=== PATIENT | female | born 1940 | race Caucasian/White ===

== ENCOUNTER → 2017-03-21 | Outpatient (CLI) | payer MEDICARE, OTHER ==
[~2017-03-21] MED LIST: ASP81CT; CLD600T; FAMO20TA5 PO; FENT1PAT TD; GABA-486 PO; GLMP2T PO; GLUMETZA; INSU100C4 PO; INSU100V6 SQ; LOSA25TA5 PO; MELO-195 PO; METF-144 PO; MTF500T PO; NF-TRA/ACE PO; OMEP40CA36 PO; OMG1KC PO; SCR1T PO
== END ==
LOC: RAD 09:42
PROVIDERS: ATTEND Nurse Practitioner Family
DX: Z12.31 Encounter for screening mammogram for malignant neoplasm of breast (principal)
CPT/HCPCS: 77067

== ENCOUNTER 2017-07-04 05:39 | Outpatient (CLI) | payer MEDICARE, OTHER ==
[~2017-07-04] VITALS: Ht 152.4 cm; Wt 82.6 kg
[2017-07-04] MEDS ORDERED: OMEP40CA36 PO (12:04)
[2017-07-04] MEDS ORDERED: FENT1PAT8 TD (12:04)
[2017-07-04] MEDS ORDERED: LOSA100T28 PO (12:04)
[2017-07-04] MEDS ORDERED: INSU100I10 SQ ×2 (12:04)
[2017-07-04] MEDS ORDERED: METO-387 PO (12:04)
[2017-07-04] MEDS ORDERED: GABA-486 PO (12:04)
[2017-07-04] MEDS ORDERED: ASPI-586 PO (12:04)
== END 2017-07-04 13:10 ==
LOC: PREOP 05:39
PROVIDERS: ATTEND Surgery
DX: Z01.818 Encounter for other preprocedural examination (principal); K80.20 Calculus of gallbladder without cholecystitis without obstruction

== ENCOUNTER 2017-07-11 06:37 | Day surgery (SDC) | payer MEDICARE, OTHER ==
[~2017-07-11] VITALS: Ht 152.4 cm; Wt 82.6 kg
[~2017-07-11 06:37] MED LIST changes: +ASPI-586 PO; +FENT1PAT8 TD; +INSU100I10 SQ; +LOSA100T28 PO; +METO-387 PO
[2017-07-11 07:00] VITALS: BP 173/71
[2017-07-11] MEDS: LACTATED RINGERS 1,000 ML IV PRN ×2 (07:10→09:30)
[2017-07-11] MEDS ORDERED: CATHETER FLUSH 10 ML SYR IV PRN (07:15)
[2017-07-11] MEDS ORDERED: ceFAZolin 1 GM/NS 50 ML IVPB IV ONE ×2 (07:15)
[2017-07-11] MEDS ORDERED: fentaNYL INJECTION 100 MCG/2 ML AMP ONE (07:25)
[2017-07-11] MEDS ORDERED: SEVOFLURANE (ULTANE) 15 ML INHAL SOLN ONE ×9 (07:25→10:27)
[2017-07-11] MEDS ORDERED: LIDOCAINE PF 2% 5 ML (XYLOCAINE) VIAL ONE (07:25)
[2017-07-11] MEDS ORDERED: proPOfol 200 MG/20 ML (DIPRIVAN) VIAL IV ONE (07:25)
[2017-07-11] MEDS ORDERED: ROCURONIUM 50 MG/5 ML (ZEMURON) VIAL IV ONE (07:26)
[2017-07-11] MEDS ORDERED: ceFAZolin INJECTION 1,000 MG in NS (IVPB) 50 ML IV ONE (07:45)
[2017-07-11 07:57] LABS: ALBUMIN 3.2 GM/DL (3.2-4.5); BILIRUBIN,TOTAL 0.5 MG/DL (0.1-1.0); CALCIUM 8.9 MG/DL (8.5-10.1); CREATININE SERUM 1.52 MG/DL (0.60-1.30); POTASSIUM 4.6 MMOL/L (3.6-5.0)
--- NOTE | 2017-07-11 07:57 | Progress Note-Pre Operative ---
Pre-Operative Progress Note H&P Reviewed The H&P was reviewed, patient examined and no changes noted. Date Seen by Provider: Jul 11, 2017 Time Seen by Provider: 07:50 Date H&P Reviewed: Jul 11, 2017 Time H&P Reviewed: 07:55 Pre-Operative Diagnosis: chronic calculous cholecystitis SANG HAN APRN Jul 11, 2017 7:56 am
[2017-07-11] MEDS ORDERED: ACETAMINOPHEN 325 MG TABLET/CAPLET (TYLENOL) PO PRN (08:00)
[2017-07-11] MEDS ORDERED: fentaNYL INJECTION 100 MCG/2 ML AMP IVP PRN (08:00)
[2017-07-11] MEDS ORDERED: HYDROcodone/APAP 5 MG/325 MG (LORTAB) TAB PO ONE (08:00)
[2017-07-11] MEDS ORDERED: ONDANSETRON 4 MG/2 ML (SDV) Z0FRAN IVP PRN ×2 (08:00→11:00)
[2017-07-11] MEDS ORDERED: BUP/EPI 0.5% 1:200,000 (SENSORCAINE) 30 ML VIAL ONE (08:42)
[2017-07-11] MEDS ORDERED: GLYCOPYRROLATE 0.2 MG/ML (ROBINUL) 2 ML VIAL ONE (10:26)
[2017-07-11] MEDS ORDERED: NEOSTIGMINE (BLOXIVERZ ) 1 MG/1ML 10 ML VIAL ONE (10:26)
--- NOTE | 2017-07-11 10:44 | Progress Note-Post Operative ---
Post-Operative Progess Note Surgeon (s)/Bucket Wash Operator (s) Surgeon CHRISTINE SUH MD Bucket Wash Operator: neelam doyle [employer] Pre-Operative Diagnosis chronic calculous cholecystitis Post-Operative Diagnosis same Procedure & Operative Findings Date of Procedure 07/11/17 Procedure Performed/Findings laparoscopic cholecystectomy Anesthesia Type GET Estimated Blood Loss Estimated blood loss (mL): minimal Specimens/Packing Specimens Removed gallbladder CHRISTINE SUH MD Jul 11, 2017 10:44 am
[2017-07-11] MEDS ORDERED: HYDR-34 PO (10:45)
--- NOTE | 2017-07-11 10:45 | Discharge Inst-Surgical ---
D/C Lap Instructions-ANGELI New, Converted, or Re-Newed RX: RX on Chart Follow Up Appt in 2 weeks Activity as tolerated No driving for 24 hours No driving while on pain medications Incentive Spirometry use every 2 hours while awake Regular Diet Symptoms to Report: Fever over 101 degree F, Nausea/Vomiting Infection Signs and Symptoms to report: Increased redness, Foul odor of wound, Increased drainage Bathing instructions: May shower Operative Area Clean/Dry; Keep incision clean/dry If any problems/questions: Contact your physician or go to Emergency Room CHRISTINE SUH MD Jul 11, 2017 10:45 am
[2017-07-11] MEDS: fentaNYL INJECTION 100 MCG/2 ML AMP IVP PRN ×3 (10:55→11:16)
[2017-07-11 11:40] VITALS: BP 158/91
[2017-07-11] MEDS ORDERED: HYDROcodone/APAP 7.5 MG/325 MG (LORTAB, LORCET PLUS) TABLET PO ONE (11:52)
[2017-07-11 12:10] VITALS: BP 159/72
[2017-07-11 12:40] VITALS: BP 149/67
[2017-07-11] MEDS ORDERED: ONDANSETRON 4 MG/2 ML (SDV) Z0FRAN ONE (13:10)
[2017-07-11 14:15] VITALS: BP 149/67
--- NOTE | 2017-07-11 15:29 | OPERATIVE REPORT ---
DATE OF SERVICE: 07/11/2017 ATTENDING PRIMARY CARE PHYSICIAN: Dr. Morenita Beal. PREOPERATIVE DIAGNOSIS: Symptomatic chronic calculous cholecystitis. POSTOPERATIVE DIAGNOSIS: Symptomatic chronic calculous cholecystitis. PROCEDURE: Laparoscopic cholecystectomy. SURGEON: Dr. Suh. ANESTHESIA: General endotracheal. ESTIMATED BLOOD LOSS: 50 mL. FINDINGS: Mild to moderate hepatomegaly, multiple gallstones. DISPOSITION: The patient tolerated the procedure well. The patient is a 77-year-old female who has had pain in the right upper abdominal quadrant with radiation towards the back with associated nausea. She had an ultrasound performed, which did show multiple gallstones. She reports that she has had some mild episodes before in the past two years as well. DESCRIPTION OF PROCEDURE: The patient was brought to the operating room, laid supine on the table. After adequate IV pain and sedative medications and conscious sedation, general endotracheal intubation, the abdomen was prepped and draped in standard surgical fashion. 0.5% Marcaine with epinephrine was then used to anesthetize the overlying skin in the left upper abdominal quadrant and a small transverse skin incision made using a 15 blade. An 0 silk suture was applied to the medial aspect of the incision for retraction and a Veress needle inserted with a low opening pressure of 0 mmHg. The abdomen was insufflated to 15 mmHg pressure. The Veress needle removed and a 5 mm Xcel trocar placed followed by a 5 mm 45 degree angle laparoscope visualizing the peritoneal cavity. A 4-quadrant abdominal exploration was performed. There was mild to moderate hepatomegaly. There was a dilated gallbladder. What was visualized the omentum , small bowel, stomach appeared normal. Under direct visualization, we then proceeded to place a supraumbilical 10 mm port after the skin and peritoneal lining were anesthetized using 0.5% Marcaine with epinephrine and a transverse skin incision made using a 15 blade. In a similar manner, a right upper abdominal quadrant 5 mm port was placed. The fundus of the gallbladder was then retracted anteriorly and superiorly. The hepatoduodenal ligament was then opened using electrocautery on the hook instrument as well as blunt dissection. The entire critical view of safety was identified including the cystic duct and artery as the only two structures going into the gallbladder, the triangle of Calot as well as the cystic plate behind the proximal gallbladder. A timeout was then taken and the cystic duct and artery were then clipped proximally and distally and cut with EndoShears. The gallbladder was then dissected off the liver bed using electrocautery on the hook instruments with visualization of good hemostasis as well as no leaking ducts of Luschka. The gallbladder was removed through the 10 mm port site using an EndoCatch bag. The 10 mm port site fascia and peritoneum were then closed under direct visualization using a Mook-Krissy device and an 0 Vicryl suture. The abdomen was insufflated and the remaining ports removed. All skin incisions were closed using 4-0 Monocryl running subcuticular sutures. Wounds were then cleaned and covered with Dermabond. The patient tolerated the procedure well. We will start IV and oral pain medication as well as a clear liquid diet. Once she is tolerating clears and has good pain control with oral pain medications and ambulating well, we will discharge her to home. Job ID: [id number] DocumentID: [id number] Dictated Date: 07/11/2017 10:58:20 [employer] Sorter Date: 07/11/2017 15:28:53 Dictated By: CHRISTINE SUH MD MTDD
--- OUTSIDE RECORDS SUMMARY | 2017-07-12 10:18 | XMS REPORT | CCD ---
Author Author [facility]nita Beal Organization [facility] Address [address] [place] [address] Phone Care Team Providers Care Weed Sprayer Name Role Phone Morenita Beal PP Unavailable CCM Unavailable Summary Purpose Interface Exchange Insurance Providers Payer name Policy type / Coverage type Covered libertarian ID Effective Begin Date Effective End Date WPS Medicare Part B [id number] Unknown Morta Security Life Insurance [id number] Unknown Family history Father Diagnosis Age At Onset Diabetes Unknown Brother Diagnosis Age At Onset No Family Disease Entered N/A Mother Diagnosis Age At Onset Breast cancer Unknown Social History Social History Element Codes Description Effective Dates Living arrangements Unknown House 04/08/2011 Number of adults in household Unknown 3 04/08/2011 Marital status Unknown 01/22/2011 Number of children Unknown 3 sons 01/22/2011 Employment Unknown 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 Unknown Has never used illegal drugs 01/22/2011 Allergies, Adverse Reactions, Alerts Allergies, Adverse Reactions, Alerts data not found Past Medical History Illness Codes Condition Status Onset Date Resolved Date Calculus of gallbladder without cholecystitis without obstruction ICD-9: 574.20 ICD-10: K80.20 Active 02/07/2016 Unknown Chronic pain syndrome ICD-9: 338.4 ICD-10: G89.4 Active 01/27/2014 Unknown Essential (primary) hypertension ICD-9: 401.1 ICD-10: I10 Active 02/26/2016 Unknown Type 2 diabetes mellitus with hyperglycemia ICD-9: 250.02 ICD-10: E11.65 Active 06/19/2017 Unknown Type 2 diabetes mellitus without complications ICD-9: 250.00 ICD-10: E11.9 Active 11/11/2013 Unknown Dysuria ICD-9: 788.1 ICD-10: R30.0 Active 01/07/2017 Unknown Slow transit constipation ICD-9: 564.01 ICD-10: K59.01 Active 02/07/2016 Unknown Chronic kidney disease, stage 2 (mild) ICD-9: 585.2 ICD-10: N18.2 Active 10/11/2016 Unknown Essential (primary) hypertension ICD-9: 401.9 ICD-10: I10 Active 11/11/2013 Unknown Other senior living (current) drug therapy ICD-9: V58.69 ICD-10: Z79.899 Active 11/29/2015 Unknown Acute laryngopharyngitis ICD-9: 465.0 ICD-10: J06.0 Active 11/14/2015 Unknown Other acute sinusitis ICD-9: 461.8 ICD-10: J01.80 Active 11/14/2015 Unknown Other chest pain ICD-9 : 786.51 ICD-10: R07.89 Active 02/27/2015 Unknown Other forms of dyspnea ICD-9: 786.09 ICD-10: R06.09 Active 02/27/2015 Unknown Shortness of breath ICD-9: 786.05 ICD-10: R06.02 Active 02/27/2015 Unknown CARPAL TUNNEL SYNDROME ICD-9: 354.0 Active 07/07/2014 Unknown Biceps tendonitis ICD- 9: 726.12 Active 05/03/2014 Unknown Need for pneumococcal vaccine ICD-9: V03.82 Active 05/03/2014 Unknown Osteoarthritis ICD-9: 715.90 Active 05/03/2014 Unknown CHRONIC PAIN SYNDROME ICD-9: 338.4 Active 01/27/2014 Unknown Peripheral neuropathy ICD-9: 356.9 Active 01/27/2014 Unknown Diarrhea ICD-9: 787.91 Active 01/07/2014 Unknown Medication side effect ICD-9: 995.20 Active 01/07/2014 Unknown Back pain ICD-9: 724.5 Active 11/11/2013 Unknown DIABETES TYPE II ICD-9 : 250.00 Active 11/11/2013 Unknown ESSENTIAL HYPERTENSION ICD-9: 401.9 Active 11/11/2013 Unknown UNEQUAL LEG LENGTH ICD -9: 736.81 Active 11/11/2013 Unknown BACTERIAL PNEUMONIA ICD-9: 482.9 Active 08/19/2013 Unknown Cough ICD-9: 786.2 Active 08/19/2013 Unknown Sciatica Unknown Active 09/10/2012 Unknown Lumbago ICD-9: 724.2 Active 09/10/2012 Unknown Sacroiliitis ICD-9: 720.2 Active 09/10/2012 Unknown Sciatica ICD-9: 724.3 Active 09/10/2012 Unknown Cervicalgia ICD-9: 723.1 Active 05/28/2012 Unknown Disorder of rotator cuff syndrome of shoulder and allied disorder ICD-9: 726.19 Active 05/28/2012 Unknown Musculoskeletal disorder and symptoms referable to neck ICD-9: 723.9 Active 05/28/2012 Unknown Myalgia and myositis ICD-9: 729.1 Active 05/28/2012 Unknown Spasm of muscle ICD-9 : 728.85 Active 05/28/2012 Unknown Shoulder pain ICD-9: 719.41 Active 03/12/2012 Unknown Fatigue ICD-9: 780.79 Active 08/22/2011 Unknown Hypertension Unknown Active 03/21/2011 Unknown 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/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 ICD-9: V65.3 Active 03/21/2011 Unknown Diabetes Unknown Active 03/19/2011 Unknown Hyperlipidemia Unknown Active 03/19/2011 Unknown Cerumen impaction ICD- 9: 380.4 Active 01/23/2011 Unknown DM W/O COMPLICATION TYPE I, UNCONTROLLED ICD-9: 250.03 Active 01/23/2011 Unknown OBESITY ICD-9: 278.00 Active 01/23/2011 Unknown Cataract Unknown Active 01/22/2011 Unknown Obesity Unknown Active 01/22/2011 Unknown Osteoarthritis Unknown Active 01/22/2011 Unknown Admission for long-term (current) use of medications ICD-9: V58.69 Active 01/22/2011 Unknown Diabetes mellitus type 2, uncontrolled ICD-9: 250.02 Active Unknown HLD (hyperlipidemia) ICD-9: 272.4 Active 01/22/2011 Unknown Problems Condition Codes Effective Dates Condition Status Calculus of gallbladder without cholecystitis without obstruction ICD-9: 574.20 ICD-10: K80.20 02/07/2016 Active Chronic pain syndrome ICD-9: 338.4 ICD-10: G89.4 01/27/2014 Active Essential (primary) hypertension ICD-9: 401.1 ICD-10: I10 02/26/2016 Active Type 2 diabetes mellitus with hyperglycemia ICD-9: 250.02 ICD-10: E11.65 06/19/2017 Active Type 2 diabetes mellitus without complications ICD-9: 250.00 ICD-10: E11.9 11/11/2013 Active Dysuria ICD-9: 788.1 ICD-10: R30.0 01/07/2017 Active Slow transit constipation ICD-9: 564.01 ICD-10: K59.01 02/07/2016 Active Chronic kidney disease, stage 2 (mild) ICD-9: 585.2 ICD-10: N18.2 10/11/2016 Active Essential (primary) hypertension ICD-9: 401.9 ICD-10: I10 11/11/2013 Active Other terminal supervisor (current) drug therapy ICD-9: V58.69 ICD-10: Z79.899 11/29/2015 Active Acute laryngopharyngitis ICD-9: 465.0 ICD-10: J06.0 11/14/2015 Active Other acute sinusitis ICD-9: 461.8 ICD-10: J01.80 11/14/2015 Active Other chest pain ICD-9 : 786.51 ICD-10: R07.89 02/27/2015 Active Other forms of dyspnea ICD-9: 786.09 ICD-10: R06.09 02/27/2015 Active Shortness of breath ICD-9: 786.05 ICD-10: R06.02 02/27/2015 Active CARPAL TUNNEL SYNDROME ICD-9: 354.0 07/07/2014 Active Biceps tendonitis ICD- 9: 726.12 05/03/2014 Active Need for pneumococcal vaccine ICD-9: V03.82 05/03/2014 Active Osteoarthritis ICD-9: 715.90 05/03/2014 Active CHRONIC PAIN SYNDROME ICD-9: 338.4 01/27/2014 Active Peripheral neuropathy ICD-9: 356.9 01/27/2014 Active Diarrhea ICD-9: 787.91 01/07/2014 Active Medication side effect ICD-9: 995.20 01/07/2014 Active Back pain ICD-9: 724.5 11/11/2013 Active DIABETES TYPE II ICD-9 : 250.00 11/11/2013 Active ESSENTIAL HYPERTENSION ICD-9: 401.9 11/11/2013 Active UNEQUAL LEG LENGTH ICD -9: 736.81 11/11/2013 Active BACTERIAL PNEUMONIA ICD-9: 482.9 08/19/2013 Active Cough ICD-9: 786.2 08/19/2013 Active Sciatica Unknown 09/10/2012 Active Lumbago ICD-9: 724.2 09/10/2012 Active Sacroiliitis ICD-9: 720.2 09/10/2012 Active Sciatica ICD-9: 724.3 09/10/2012 Active Cervicalgia ICD-9: 723.1 05/28/2012 Active Disorder of rotator cuff syndrome of shoulder and allied disorder ICD-9: 726.19 05/28/2012 Active Musculoskeletal disorder and symptoms referable to neck ICD-9: 723.9 05/28/2012 Active Myalgia and myositis ICD-9: 729.1 05/28/2012 Active Spasm of muscle ICD-9 : 728.85 05/28/2012 Active Shoulder pain ICD-9: 719.41 03/12/2012 Active Fatigue ICD-9: 780.79 08/22/2011 Active Hypertension Unknown 03/21/2011 Active 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/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 ICD-9: V65.3 03/21/2011 Active Diabetes Unknown 03/19/2011 Active Hyperlipidemia Unknown 03/19/2011 Active Cerumen impaction ICD- 9: 380.4 01/23/2011 Active DM W/O COMPLICATION TYPE I, UNCONTROLLED ICD-9: 250.03 01/23/2011 Active OBESITY ICD-9: 278.00 01/23/2011 Active Cataract Unknown 01/22/2011 Active Obesity Unknown 01/22/2011 Active Osteoarthritis Unknown 01/22/2011 Active Admission for long-term (current) use of medications ICD-9: V58.69 01/22/2011 Active Diabetes mellitus type 2, uncontrolled ICD-9: 250.02 01/22/2011 Active HLD (hyperlipidemia) ICD-9: 272.4 01/22/2011 Active Medications Medication Codes Instructions Start Date Stop Date Status Fill Instructions Lantus Solostar 100 unit/mL (3 mL) subcutaneous insulin pen RxNorm: 734680 INJECT 28 UNITS UNDER THE SKIN EVERY MORNING AND 20 UNITS EVERY NIGHT AT BEDTIME 07/08/2017 04/08/2018 Active losartan 100 mg tablet RxNorm: 817873 1 Tablet(s) PO daily 07/20/2018 Active metoprolol succinate ER 25 mg tablet,extended release 24 hr RxNorm: 934981 TAKE ONE TABLET BY MOUTH EVERY EVENING 06/13/2017 06/07/2018 Active gabapentin 100 mg capsule RxNorm: 520128 TAKE ONE CAPSULE BY MOUTH EVERY EVENING 06/13/2017 06/07/2018 Active Zithromax Z-Joseph 250 mg tablet RxNorm: 431286 1 Tablet(s) PO UD as directed 05/15/2017 05/19/2017 Inactive Duragesic 25 mcg/hr transdermal patch RxNorm: 706461 1 Patch TD Q72H 05/01/2017 07/29/2017 Active Duragesic 25 mcg/hr transdermal patch RxNorm: 459099 1 Patch TD Q72H 01/30/2017 02/28/2017 Inactive Diflucan 150 mg tablet RxNorm: 899575 1 Tablet(s) PO daily 01/09/2017 Inactive Lantus Solostar 100 unit/mL (3 mL) subcutaneous insulin pen RxNorm: 361243 Unit( s) INJECT 25 UNITS UNDER THE SKIN EVERY MORNING AND 15 UNITS AT BEDTIME, dr to adjust based on glucose readings. 10/11/2016 10/05/2017 Active Duragesic 25 mcg/hr transdermal patch RxNorm: 386780 1 Patch TD Q72H 10/01/2016 10/30/2016 Inactive Duragesic 25 mcg/hr transdermal patch RxNorm: 178882 1 Patch TD Q72H 08/28/2016 09/26/2016 Inactive senna 8.6 mg tablet RxNorm: 869366 1 Tablet(s) PO TIW 201606/09/2017 Inactive omeprazole 40 mg capsule,delayed release RxNorm: 460165 1 Capsule(s) PO QPM 06/15/2016 06/09/2017 Inactive gabapentin 100 mg capsule RxNorm: 654138 1 Capsule(s) TAKE ONE CAPSULES BY MOUTH EVERY EVENING 06/15/2016 06/12/2017 Inactive losartan 100 mg tablet RxNorm: 943842 1 Tablet(s) PO daily 06/25/2017 Inactive metoprolol succinate ER 25 mg tablet,extended release 24 hr RxNorm: 956210 1 Tablet(s) PO QPM 06/15/2016 06/12/2017 Inactive metformin ER 500 mg tablet,extended release 24 hr RxNorm: 508133 1 Tablet(s) daily 06/15/2016 06/18/2017 Inactive metformin ER 500 mg tablet,extended release 24 hr RxNorm: 873398 1 Tablet(s) daily 06/14/2016 06/14/2016 Inactive Lantus Solostar 100 unit/mL (3 mL) subcutaneous insulin pen RxNorm: 288452 Unit( s) INJECT 28 UNITS UNDER THE SKIN EVERY MORNING AND 20 UNITS AT BEDTIME 06/14/2016 10/10/2016 Inactive Duragesic 25 mcg/hr transdermal patch RxNorm: 028962 1 Patch TD Q72H 05/29/2016 06/27/2016 Inactive Duragesic 25 mcg/hr transdermal patch RxNorm: 390321 1 TD Q72H 04/25/2016 05/24/2016 Inactive metoprolol succinate ER 25 mg tablet,extended release 24 hr RxNorm: 219337 1 Tablet(s) PO QPM 12/26/2015 06/14/2016 Inactive gabapentin 100 mg capsule RxNorm: 948140 1 Capsule(s) TAKE ONE CAPSULES BY MOUTH EVERY EVENING 12/26/2015 06/14/2016 Inactive Duragesic 25 mcg/hr transdermal patch RxNorm: 469265 1 TD Q72H 12/26/2015 02/23/2016 Inactive Augmentin 500 mg-125 mg tablet RxNorm: 299910 1 Tablet(s) PO TID 11/15/2015 11/21/2015 Inactive Duragesic 25 mcg/hr transdermal patch RxNorm: 188887 1 TD Q72H 10/25/2015 11/23/2015 Inactive [SAVINGS FOR NON-COVERED DRUGS -- BIN:906847, PCN: ASPROD1, Group: XXXXX, ID# [id number], Questions: . THIS IS NOT INSURANCE.] Duragesic 25 mcg/hr transdermal patch RxNorm: 078584 1 TD Q72H 08/29/2015 10/24/2015 Inactive [SAVINGS FOR NON-COVERED DRUGS -- BIN:242961, PCN: ASPROD1, Group: XXXXX, ID# [id number], Questions: . THIS IS NOT INSURANCE.] gabapentin 100 mg capsule RxNorm: 711750 1 Capsule(s) TAKE ONE CAPSULES BY MOUTH EVERY EVENING 08/29/2015 10/27/2015 Inactive glimepiride 2 mg tablet RxNorm: 551719 TAKE ONE TABLET BY MOUTH EVERY MORNING 08/08/2015 12/25/2015 Inactive Duragesic 25 mcg/hr transdermal patch RxNorm: 394034 1 TD Q72H 08/01/2015 08/28/2015 Inactive [SAVINGS FOR NON-COVERED DRUGS -- BIN:526541, PCN: ASPROD1, Group: XXXXX, ID# [id number], Questions: . THIS IS NOT INSURANCE.] Lantus Solostar 100 unit/mL (3 mL) subcutaneous insulin pen RxNorm: 386882 Unit( s) INJECT 23 UNITS UNDER THE SKIN EVERY MORNING AND 15 UNITS AT BEDTIME 07/13/2015 06/13/2016 Inactive gabapentin 100 mg capsule RxNorm: 053520 1 Capsule(s) TAKE ONE CAPSULES BY MOUTH EVERY EVENING 07/04/2015 08/28/2015 Inactive losartan 100 mg tablet RxNorm: 967286 1 Tablet(s) PO daily 12/201506/14/2016 Inactive senna 8.6 mg tablet RxNorm: 853144 1 Tablet(s) PO TIW 201506/14/2016 Inactive metformin ER 500 mg tablet,extended release 24 hr RxNorm: 153322 Tablet(s) TAKE 1 TABLET BY MOUTH TWO TIMES A DAY. 06/29/2015 06/28/2015 Inactive metformin ER 500 mg tablet,extended release 24 hr RxNorm: 937850 TAKE 1 TABLET BY MOUTH TWO TIMES A DAY. 06/29/20152016 Inactive Duragesic 25 mcg/hr transdermal patch RxNorm: 900229 1 TD Q72H 05/24/2015 07/22/2015 Inactive [SAVINGS FOR NON-COVERED DRUGS -- BIN:717391, PCN: ASPROD1, Group: XXXXX, ID# [id number], Questions: . THIS IS NOT INSURANCE.] Augmentin 500 mg-125 mg tablet RxNorm: 165305 1 Tablet(s) PO TID 05/11/2015 05/10/2015 Inactive Augmentin 500 mg-125 mg tablet RxNorm: 416167 1 Tablet(s) PO TID 05/11/2015 05/17/2015 Inactive Keflex 500 mg capsule RxNorm: 717595 1 Capsule(s) PO TID 201405/09/2015 Inactive Keflex 500 mg capsule RxNorm: 902487 1 Capsule(s) PO TID 201405/02/2015 Inactive gabapentin 100 mg capsule RxNorm: 933705 TAKE TWO CAPSULES BY MOUTH EVERY EVENING 04/25/2015 06/23/2015 Inactive omeprazole 40 mg capsule,delayed release RxNorm: 828334 1 Capsule(s) PO daily as needed 02/28/2015 06/27/2015 Inactive omeprazole 40 mg capsule,delayed release RxNorm: 464960 1 Capsule(s) PO QPM 02/28/2015 02/22/2016 Inactive Duragesic 25 mcg/hr transdermal patch RxNorm: 319000 1 TD Q72H 02/21/2015 04/21/2015 Inactive [SAVINGS FOR NON-COVERED DRUGS -- BIN:880982, PCN: ASPROD1, Group: XXXXX, ID# [id number], Questions: . THIS IS NOT INSURANCE.] losartan 25 mg tablet RxNorm: 017742 1 Tablet(s) PO BID 201407/03/2015 Inactive Duragesic 25 mcg/hr transdermal patch RxNorm: 710081 1 TD Q72H 12/21/2014 02/18/2015 Inactive [SAVINGS FOR NON-COVERED DRUGS -- BIN:863045, PCN: ASPROD1, Group: XXXXX, ID# [id number], Questions: . THIS IS NOT INSURANCE.] losartan 25 mg tablet RxNorm: 829087 1 Tablet(s) PO BID 201401/05/2015 Inactive losartan 25 mg tablet RxNorm: 374294 TAKE ONE TABLET BY MOUTH EVERY EVENING 11/18/2014 07/25/2015 Inactive losartan 25 mg tablet RxNorm: 743188 TAKE ONE TABLET BY MOUTH EVERY EVENING 11/18/2014 07/31/2015 Inactive Bactrim DS 800 mg-160 mg tablet RxNorm: 157580 1 Tablet(s) PO BID 10/27/2014 10/26/2014 Inactive take a probiotic TID while on the ABT Bactrim DS 800 mg-160 mg tablet RxNorm: 320840 1 Tablet(s) PO BID 10/27/2014 11/05/2014 Inactive take a probiotic TID while on the ABT losartan 25 mg tablet RxNorm: 675063 1 Tablet(s) PO BID 201411/18/2014 Inactive gabapentin 100 mg capsule RxNorm: 470575 TAKE TWO CAPSULES BY MOUTH EVERY EVENING 10/11/2014 01/08/2015 Inactive Duragesic 25 mcg/hr transdermal patch RxNorm: 237448 1 TD Q72H 09/08/2014 10/07/2014 Inactive [SAVINGS FOR NON-COVERED DRUGS -- BIN:956989, PCN: ASPROD1, Group: XXXXX, ID# [id number], Questions: . THIS IS NOT INSURANCE.] meloxicam 15 mg tablet RxNorm: 433141 1 Tablet(s) PO QPM 201409/07/2014 Inactive [SAVINGS FOR NON-COVERED DRUGS -- BIN:547566, PCN: ASPROD1, Group: XXXXX, ID # [id number], Questions: . THIS IS NOT INSURANCE.] meloxicam 15 mg tablet RxNorm: 936689 1 Tablet(s) PO QPM 201407/03/2015 Inactive [SAVINGS FOR NON-COVERED DRUGS -- BIN:725037, PCN: ASPROD1, Group: XXXXX, ID # [id number], Questions: . THIS IS NOT INSURANCE.] Duragesic 25 mcg/hr transdermal patch RxNorm: 397068 1 TD Q72H 08/23/2014 09/07/2014 Inactive [SAVINGS FOR NON-COVERED DRUGS -- BIN:925571, PCN: ASPROD1, Group: XXXXX, ID# [id number], Questions: . THIS IS NOT INSURANCE.] glimepiride 2 mg tablet RxNorm: 900012 TAKE ONE TABLET BY MOUTH EVERY MORNING 07/08/2014 01/03/2015 Inactive ketorolac 60 mg/2 mL intramuscular solution RxNorm: 556047 Milliliter(s) IM 07/07/2014 07/07/2014 Inactive [SAVINGS FOR UNINSURED PATIENTS -- BIN:663529, PCN: ASPROD1, Group: AME08, ID# [id number], Process claim through [employer], for questions: . THIS IS NOT INSURANCE.] Duragesic 25 mcg/hr transdermal patch RxNorm: 418779 1 TD Q72H 07/07/2014 08/05/2014 Inactive [SAVINGS FOR UNINSURED PATIENTS -- BIN:784970, PCN: ASPROD1, Group: AME08, ID# [id number], Process claim through [employer], for questions: [phone]. THIS IS NOT INSURANCE.] meloxicam 15 mg tablet RxNorm: 484201 1 Tablet(s) PO QPM 201409/04/2014 Inactive [SAVINGS FOR UNINSURED PATIENTS -- BIN:018831, PCN: ASPROD1, Group: AME08, ID # [id number], Process claim through [employer], for questions: . THIS IS NOT INSURANCE.] glimepiride 2 mg tablet RxNorm: 349862 1 Tablet(s) QAM TAKE ONE TABLET BY MOUTH EVERY MORNING 07/07/2014 07/07/2014 Inactive [SAVINGS FOR UNINSURED PATIENTS -- BIN :022033, PCN: ASPROD1, Group: AME08, ID# [id number], Process claim through [employer], for questions: . THIS IS NOT INSURANCE.] Duragesic 25 mcg/hr transdermal patch RxNorm: 367335 1 TD Q72H 06/22/2014 07/06/2014 Inactive [SAVINGS FOR UNINSURED PATIENTS -- BIN:958249, PCN: ASPROD1, Group: AME08, ID# [id number], Process claim through [employer], for questions: [phone]. THIS IS NOT INSURANCE.] Lantus Solostar 100 unit/mL (3 mL) subcutaneous insulin pen RxNorm: 791099 INJECT 23 UNITS UNDER THE SKIN EVERY MORNING AND 15 UNITS AT BEDTIME 06/20/2014 06/14/2015 Inactive metformin ER 500 mg tablet,extended release 24 hr RxNorm: 249050 TAKE 1 TABLET BY MOUTH TWO TIMES A DAY. 06/20/20142015 Inactive glimepiride 2 mg tablet RxNorm: 965567 TAKE ONE TABLET BY MOUTH EVERY MORNING 05/18/2014 07/06/2014 Inactive glimepiride 2 mg tablet RxNorm: 195074 Tablet(s) PO TAKE ONE TABLET BY MOUTH EVERY MORNING 05/18/2014 05/17/2014 Inactive Voltaren 1 % topical gel RxNorm: 992610 4 Gram(s) TOP QID 05/0308/30/2014 Inactive gabapentin 100 mg capsule RxNorm: 520918 2 Capsule(s) PO QPM 08/30/2014 Inactive Duragesic 25 mcg/hr transdermal patch RxNorm: 829208 1 TD Q72H 04/12/2014 05/11/2014 Inactive Duragesic 25 mcg/hr transdermal patch RxNorm: 752992 1 TD Q72H 03/08/2014 04/06/2014 Inactive gabapentin 300 mg capsule RxNorm: 512806 1 Capsule(s) PO QPM 05/02/2014 Inactive Lantus Solostar 100 unit/mL (3 mL) subcutaneous insulin pen RxNorm: 749930 25 q am 18 hs Unit(s) SQ BID patient states she recieves 5 pens at a time 02/01/2014 02/25/2015 Inactive Duragesic 25 mcg/hr transdermal patch RxNorm: 099964 1 TD Q72H 01/27/2014 02/25/2014 Inactive gabapentin 400 mg capsule RxNorm: 412489 1 Capsule(s) PO QPM 03/07/2014 Inactive Duragesic 12 mcg/hr transdermal patch RxNorm: 756794 1 TD Q72H 01/15/2014 01/26/2014 Inactive gabapentin 600 mg tablet RxNorm: 924960 1 Tablet(s) PO QPM 01/26/2014 Inactive gabapentin 800 mg tablet RxNorm: 816224 1 Capsule(s) PO QPM 01/06/2014 Inactive Duragesic 25 mcg/hr transdermal patch RxNorm: 567376 1 Patch TD Q72H 11/11/2013 12/10/2013 Inactive losartan 25 mg tablet RxNorm: 121742 1 Tablet(s) PO QPM 201310/25/2014 Inactive glimepiride 2 mg tablet RxNorm: 162289 Tablet(s) PO TAKE ONE TABLET BY MOUTH EVERY MORNING 08/28/2013 05/17/2014 Inactive cefdinir 300 mg capsule RxNorm: 850499 1 Capsule(s) PO BID 08/28/2013 Inactive Rocephin 500 mg solution for injection RxNorm: 600356 1 Inj 08/19/2013 Inactive Zithromax Z-Joseph 250 mg tablet RxNorm: 577016 Tablet(s) PO as directed 08/14/2013 No Stop Date Active gabapentin 800 mg tablet RxNorm: 654276 1 Capsule(s) PO TID 04/201411/10/2013 Inactive metformin ER 500 mg tablet,extended release 24 hr RxNorm: 811205 Tablet(s) PO TAKE 1 TABLET BY MOUTH TWO TIMES A DAY. 06/22/2013 06/19/2014 Inactive Lantus Solostar 100 unit/mL (3 mL) subcutaneous insulin pen RxNorm: 171315 23 q am 15 hs Unit(s) SQ BID patient states she recieves 5 pens at a time 05/15/2013 01/31/2014 Inactive Metanx 3 mg-35 mg-2 mg tablet RxNorm: 1 Tablet(s) PO BID 04/2707/03/2015 Inactive Lantus Solostar 100 unit/mL (3 mL) subcutaneous insulin pen RxNorm: 163979 23 q am 15 hs Unit(s) SQ BID 04/27/20132012 Inactive folic acid 1 mg tablet RxNorm: 268294 1 Tablet(s) PO daily 06/201207/03/2015 Inactive Neurontin 300 mg capsule RxNorm: 714640 1 Capsule(s) PO TID 06/201207/07/2013 Inactive fentanyl 75 mcg/hr transdermal patch RxNorm: 664854 1 TD q 3 days 04/27/2013 05/26/2013 Inactive Dilaudid 2 mg tablet RxNorm: 347743 1 Tablet(s) PO Q4 PRN 04/2205/13/2013 Inactive Lantus Solostar 100 unit/mL (3 mL) subcutaneous insulin pen RxNorm: 727909 21 Unit(s) SQ BID 02/11/2013 04/26/2013 Inactive glimepiride 2 mg tablet RxNorm: 247247 1 Tablet(s) PO daily TAKE ONE TABLET BY MOUTH EVERY MORNING 02/11/2013 08/27/2013 Inactive ibuprofen 600 mg tablet RxNorm: 760752 1 Tablet(s) PO Q8 PRN 02/13/2017 Inactive fentanyl 100 mcg/hr Transderm Patch RxNorm: 575875 1 TD q 3 days 02/09/2013 04/26/2013 Inactive Contour Test Strips RxNorm: 1 test Miscellaneous BID 201210/07/2015 Inactive Cymbalta 30 mg capsule,delayed release RxNorm: 645682 1 Capsule(s) PO daily 10/14/2012 02/10/2013 Inactive prednisone 20 mg tablet RxNorm: 396702 2 Tablet(s) PO daily 10/17/2012 Inactive 2 daily x 4 days Cymbalta 30 mg capsule,delayed release RxNorm: 859087 1 Capsule(s) PO daily 10/14/2012 10/13/2012 Inactive Cymbalta 30 mg capsule,delayed release RxNorm: 334318 1 Capsule(s) PO daily 10/14/2012 10/13/2012 Inactive Voltaren 1 % Topical Gel RxNorm: 172013 3 Gram(s) TOP QID 09/1910/18/2012 Inactive prednisone 20 mg tablet RxNorm: 029611 Tablet(s) PO UD 3 tabs daily x2 days, 2 tabs daily x2 days, 1 tab daily x2 days, 1/2 tab daily x 2 days, 1/2 tab every other day x2 doses 09/19/2012 No Stop Date Active Kenalog 40 mg/mL Susp for Injection RxNorm: 5069399 1 Milliliter(s) Inj 09/10/2012 09/10/2012 Inactive WelChol 625 mg tablet RxNorm: 831274 3 Tablet(s) PO daily 201202/10/2013 Inactive Zithromax Z-Joseph 250 mg tablet RxNorm: 689438 Tablet(s) PO as directed 07/24/2012 08/31/2012 Inactive Kenalog 40 mg/mL Susp for Injection RxNorm: 9650948 2 Milliliter(s) Inj 06/03/2012 06/03/2012 Inactive prednisone 10 mg tablets in a dose pack RxNorm: 901752 Tablet(s) PO 6-5-4-3-2-1 05/28/2012 06/02/2012 Inactive metformin ER 500 mg tablet,extended release 24 hr RxNorm: 026896 1 Tablet(s) PO BID 05/28/2012 05/22/2013 Inactive metformin ER 500 mg tablet,extended release 24 hr RxNorm: 492445 Tablet(s) PO TAKE 1 TABLET BY MOUTH TWO TIMES A DAY. 05/26/2012 05/27/2012 Inactive glimepiride 2 mg tablet RxNorm: 321296 Tablet(s) PO TAKE ONE TABLET BY MOUTH EVERY MORNING 05/21/2012 02/10/2013 Inactive gemfibrozil 600 mg tablet RxNorm: 472896 1 Tablet(s) PO BID pt taking one pill twice daily every other day. 05/06/2012 Inactive cefdinir 300 mg capsule RxNorm: 461390 1 Capsule(s) PO BID 04/08/2012 Inactive cefdinir 300 mg capsule RxNorm: 104557 1 Capsule(s) PO BID 04/15/2012 Inactive prednisone 20 mg tablet RxNorm: 436349 1/2 Tablet(s) PO 201103/27/2012 Inactive Flexeril 5 mg tablet RxNorm: 345177 1 Tablet(s) PO Q6 PRN 03/1708/31/2012 Inactive Kenalog 40 mg/mL Susp for Injection RxNorm: 7301909 Milliliter(s) Inj 03/12/2012 03/12/2012 Inactive Lantus Solostar 100 unit/mL (3 mL) Sub-Q Insulin Pen RxNorm: 218073 22 Unit(s) SQ BID 02/01/2012 02/10/2013 Inactive Lantus Solostar 100 unit/mL (3 mL) Sub-Q Insulin Pen RxNorm: 764650 21 Unit(s) SQ BID 08/06/2011 01/31/2012 Inactive glimepiride 2 mg tablet RxNorm: 773255 1 Tablet(s) PO QAM 07/3001/26/2012 Inactive pt may have 90 day supply if nec glimepiride 2 mg Tab RxNorm: 658026 1 Tablet(s) PO QAM 201107/30/2011 Inactive Zithromax Z-Joseph 250 mg Tab RxNorm: 196875 Tablet(s) PO UD 07/2605/05/2012 Inactive metformin ER 500 mg tablet,extended release 24 hr RxNorm: 266223 1 Tablet(s) PO BID 05/19/2011 05/25/2012 Inactive gemfibrozil 600 mg Tab RxNorm: 698621 1 Tablet(s) PO BID take one by mouth thirty minutes before morning and evening meals. 01/23/2011 03/23/2011 Inactive Lantus Solostar 100 unit/mL (3 mL) Sub-Q Insulin Pen RxNorm: 405319 21 Unit(s) SQ BID 37 units q hs 01/23/2011 08/05/2011 Inactive aspirin 81 mg Tab, Delayed Release RxNorm: 283618 1 Tablet(s) PO daily No Start Date Active [employer] Autod[employer] Test Strips RxNorm: 1 Miscellaneous BID No Start Date Active metformin ER 500 mg 24 hr Tab RxNorm: 854246 1 Tablet(s) PO BID No Start Date 05/18/2011 Inactive hydrocodone 5 mg-acetaminophen 325 mg tablet RxNorm: 3762736 1 Tablet(s) PO Q6 PRN No Start Date 02/10/2013 Inactive meloxicam 15 mg tablet RxNorm: 927571 1 Tablet(s) PO daily No Start Date 02/10/2013 Inactive Miralax 17 gram/dose oral powder RxNorm: 951231 1 PO daily No Start Date 12/25/2015 Inactive fentanyl 50 mcg/hr transdermal patch RxNorm: 407177 1 TD Q72H No Start Date 11/10/2013 Inactive Nevanac 0.1 % Eye Drops RxNorm: 267427 1 Drop(s) OPH BID 1 drop to left eye bid No Start Date 02/10/2013 Inactive folic acid 1 mg tablet RxNorm: 086077 1 Tablet(s) PO daily No Start Date 04/26/2013 Inactive Naprosyn 500 mg Tab RxNorm: 461976 1 Tablet(s) PO BID No Start Date 03/20/2011 Inactive diazepam 5 mg tablet RxNorm: 026408 1/2 Tablet(s) PO Q8 PRN No Start Date 04/26/2013 Inactive Calcium 600 + D(3) 600 mg calcium-200 unit Cap RxNorm: 074831 1 Capsule(s) PO daily No Start Date 07/03/2015 Inactive ibuprofen Oral RxNorm : Oral No Start Date 03/16/2012 Inactive Neurontin 300 mg capsule RxNorm: 798215 1 Capsule(s) PO TID No Start Date 04/26/2013 Inactive prednisone 20 mg tablet RxNorm: 777738 Tablet(s) PO No Start Date 10/13/2012 Inactive 2 daily x 4 days prednisolone acetate 1 % Eye Drops, Susp RxNorm: 3338827 1 Drop(s) OPH QID 1 drop each eye qid No Start Date 02/10/2013 Inactive Fish Oil 360 mg-1,200 mg Cap, Delayed Release RxNorm: 2 Capsule(s) PO daily No Start Date 02/10/2013 Inactive Polysaccharide Iron 150 mg iron capsule RxNorm: 513620 1 Capsule(s) PO daily No Start Date 07/03/2015 Inactive Lantus Solostar 100 unit/mL (3 mL) Sub-Q Insulin Pen RxNorm: 592609 37 Unit(s) SQ QHS 37 units q hs No Start Date 2010 Inactive Naprosyn 500 mg Tab RxNorm: 361666 1 Tablet(s) PO PRN pt takes prn arthritis pain No Start Date 03/16/2012 Inactive fentanyl 75 mcg/hr transdermal patch RxNorm: 252695 1 TD q 3 days No Start Date 04/26/2013 Inactive Zithromax Z-Joseph 250 mg Tab RxNorm: 243745 Oral No Start Date 07/26/2011 Inactive hydromorphone 2 mg tablet RxNorm: 890136 1 Tablet(s) PO Q4 PRN No Start Date 02/10/2013 Inactive docusate potassium 100 mg capsule RxNorm: 9931704 1 Capsule(s) PO BID No Start Date 07/03/2015 Inactive Xyzal 5 mg Tab RxNorm : 688583 1 Tablet(s) PO daily No Start Date 08/31/2012 Inactive Ambien 5 mg tablet RxNorm: 348115 1 Tablet(s) PO PRN No Start Date 04/26/2013 Inactive prednisone 20 mg tablet RxNorm: 343799 Tablet(s) PO UD 2 tabs on day 1 1 tab on day 2 1/2 tab on day 3 No Start Date 08/31 Inactive glimepiride 2 mg Tab RxNorm: 875845 1 Tablet(s) PO QAM No Start Date 07/29/2011 Inactive Dilaudid 2 mg tablet RxNorm: 642157 1 Tablet(s) PO Q4 PRN No Start Date 04/21/2013 Inactive Zithromax Z-Joseph 250 mg tablet RxNorm: 568550 Tablet(s) PO as directed No Start Date 07/23/2012 Inactive gemfibrozil 600 mg Tab RxNorm: 347975 1 Tablet(s) PO BID No Start Date 01/22/2011 Inactive ibuprofen 600 mg tablet RxNorm: 265794 1 Tablet(s) PO Q8 PRN No Start Date 02/10/2013 Inactive Medication Administered Medication Codes Instructions Start Date Status ketorolac 60 mg/2 mL intramuscular solution RxNorm: 563751 Milliliter 07/07/2014 No longer Active Rocephin 500 mg solution for injection RxNorm: 094077 1 08/19/2013 No longer Active Kenalog 40 mg/mL Susp for Injection RxNorm: 8753252 1Milliliter 09/10/2012 No longer Active Kenalog 40 mg/mL Susp for Injection RxNorm: 4601977 2Milliliter 06/03/2012 No longer Active Kenalog 40 mg/mL Susp for Injection RxNorm: 7061973 Milliliter 03/12/2012 No longer Active Immunizations Vaccine Codes Date Status Pneumococcal CVX: 33 05/03/2014 completed Pneumococcal (Adult) CVX: 33 05/03/2014 completed Influenza CVX: 141 03/21/2011 completed Assessments Condition Codes Effective Dates Chronic pain syndrome ICD-10: G89.4 ICD-9: 338.4 06/19/2017 Calculus of gallbladder without cholecystitis without obstruction ICD-10: K80.20 ICD-9: 574.20 06/19/2017 Essential (primary) hypertension ICD-10: I10 ICD-9: 401.1 06/19/2017 Type 2 diabetes mellitus with hyperglycemia ICD-10: E11.65 ICD-9: 250.02 06/19/2017 Type 2 diabetes mellitus without complications ICD-10: E11.9 ICD-9: 250.00 02/14/2017 Dysuria ICD-10: R30.0 ICD-9: 788.1 01/07/2017 Slow transit constipation ICD-10: K59.01 ICD-9: 564.01 11/14/2016 Chronic kidney disease, stage 2 (mild) ICD-10: N18.2 ICD-9: 585.2 10/11/2016 Essential (primary) hypertension ICD-10: I10 ICD-9: 401.9 12/26/2015 Other senior living (current) drug therapy ICD-10: Z79.899 ICD-9: V58.69 11/29/2015 Other acute sinusitis ICD-10: J01.80 ICD-9: 461.8 11/15/2015 Acute laryngopharyngitis ICD-10: J06.0 ICD-9: 465.0 11/15/2015 Shortness of breath ICD-10: R06.02 ICD-9: 786.05 02/28/2015 Other forms of dyspnea ICD-10: R06.09 ICD-9: 786.09 02/28/2015 Other chest pain ICD-10: R07.89 ICD-9: 786.51 02/28/2015 DIABETES TYPE II ICD-9: 250.00 2014 ESSENTIAL HYPERTENSION ICD-9: 401.9 11/03 CHRONIC PAIN SYNDROME ICD-9: 338.4 2014 CARPAL TUNNEL SYNDROME ICD-9: 354.0 07/07 Biceps tendonitis ICD-9: 726.12 2013 Need for pneumococcal vaccine ICD-9: V03.82 05/03/2014 Osteoarthritis ICD-9: 715.90 05/03/2014 Peripheral neuropathy ICD-9: 356.9 2013 Medication side effect ICD-9: 995.20 Diarrhea ICD-9: 787.91 01/07/2014 UNEQUAL LEG LENGTH ICD-9: 736.81 2013 Back pain ICD-9: 724.5 11/11/2013 Cough ICD-9: 786.2 08/19/2013 BACTERIAL PNEUMONIA ICD-9: 482.9 2013 DM W/O COMPLICATION TYPE II, UNCONTROLLED SNOMED: 55473251 ICD-9: 250.02 07/15/2013 HYPERLIPIDEMIA ICD-9: 272.4 07/15/2013 ENCNTR LONG-RX USE NEC ICD-9: V58.69 Weakness ICD-9: 780.79 02/09/2013 Lumbago ICD-9: 724.2 09/10/2012 Sacroiliitis ICD-9: 720.2 09/10/2012 Sciatica ICD-9: 724.3 09/10/2012 MYALGIA AND MYOSITIS ICD-9: 729.1 2012 JOINT PAIN-SHLDER ICD-9: 719.41 2012 Cervicalgia ICD-9: 723.1 05/28/2012 Spasm of muscle ICD-9: 728.85 05/28/2012 Musculoskeletal disorder and symptoms referable to neck ICD- 9: 723.9 05/28/2012 Disorder of rotator cuff syndrome of shoulder and allied disorder ICD-9: 726.19 05/28/2012 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/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 ICD-9: V65.3 OBESITY ICD-9: 278.00 03/21/2011 IMPACTED CERUMEN ICD-9: 380.4 01/30/2011 DM W/O COMPLICATION TYPE I, UNCONTROLLED SNOMED: 76783644 ICD-9: 250.03 01/23/2011 Reason For Visit Reason For Visit Effective Dates Notes diabetes mellitus 06/19/2017 diabetes mellitus 02/14/2017 back pain 01/07/2017 diabetes mellitus 11/14/2016 diabetes mellitus 10/11/2016 diabetes mellitus 06/14/2016 diabetes mellitus 02/27/2016 constipation 02/08/2016 diabetes mellitus 12/26/2015 diabetes mellitus 11/29/2015 cough 11/15/2015 diabetes mellitus 08/01/2015 diabetes mellitus 07/04/2015 diabetes mellitus 02/28/2015 hypertension 11/03/2014 hypertension 09/08/2014 hypertension 07/07/2014 right knee/ anterior wetzel pain hypertension 05/03/2014 right knee/ anterior wetzel pain hypertension 01/27/2014 right knee/ anterior wetzel pain diarrhea 01/07/2014 hypertension 11/11/2013 earache 08/19/2013 hypertension 07/29/2013 hypertension 07/08/2013 diabetes mellitus 04/27/2013 diabetes mellitus 02/09/2013 osteoarthritis 09/19/2012 sciatica 09/10/2012 diabetes mellitus 09/03/2012 shoulder pain 06/03/2012 shoulder pain 05/28/2012 diabetes mellitus 05/06/2012 shoulder pain 03/17/2012 shoulder pain 03/12/2012 diabetes mellitus 01/02/2012 hypertension 10/10/2011 joint complaint 08/22/2011 diabetes mellitus 06/20/2011 diabetes mellitus 03/21/2011 cerumen 01/30/2011 diabetes mellitus 01/23/2011 Results Observation Observation Code Item Item Code Result Date Tsh Ord6 hTSH II 3.81 uIU/mL 06/17/2017 Comp Metabolic Gtg757 NA 140 mEq/L 06/17/2017 Comp Metabolic Mvk488 K 4.8 mEq/L 06/17/2017 Comp Metabolic Rsy088 CL 108 mEq/L 06/17/2017 Comp Metabolic Mlo266 CO2 26.0 mEq/L 06/17/2017 Comp Metabolic Qwg073 ANION GAP 11 06/17/2017 Comp Metabolic Dze708 GLUCOSE 48 mg/dL 06/17/2017 Comp Metabolic Zip183 Creat 1.6 mg/dL 06/17/2017 Comp Metabolic Pxf946 eGFR 32 ml/min/1.73m2 06/17/2017 Comp Metabolic Boc349 BUN 41 mg/dL 06/17/2017 Comp Metabolic Thy123 B/C Ratio 25.2 Ratio 06/17/2017 Comp Metabolic Igo122 CALCIUM 8.9 mg/dL 06/17/2017 Comp Metabolic Hbs807 ALK PHOS 69 U/L 06/17/2017 Comp Metabolic Vhd431 AST(SGOT) 15 U/L 06/17/2017 Comp Metabolic Foa389 ALT(SGPT) 12 U/L 06/17/2017 Comp Metabolic Qpq001 BILI T 0.4 mg/dL 06/17/2017 Comp Metabolic Mpy788 ALBUMIN 3.5 g/dL 06/17/2017 Comp Metabolic Nnj058 TPRO 5.8 g/dL 06/17/2017 Comp Metabolic Uvj386 GLOB 2.3 g/dL 06/17/2017 Comp Metabolic Tog343 A/G Ratio 1.5 Ratio 06/17/2017 Comp Metabolic Ikt694 Osmo 287 mOsmo 06/17/2017 Cbc With Differential Ord2 WBC 9.05 K/ul 06/17/2017 Cbc With Differential Ord2 RBC 3.80 M/ul 06/17/2017 Cbc With Differential Ord2 HGB 10.6 g/dl 06/17/2017 Cbc With Differential Ord2 Neut% 48.8 % 06/17/2017 Cbc With Differential Ord2 HCT 34.5 % 06/17/2017 Cbc With Differential Ord2 Lymph% 39.2 % 06/17/2017 Cbc With Differential Ord2 MCV 90.8 fl 06/17/2017 Cbc With Differential Ord2 [place]% 8.8 % 06/17/2017 Cbc With Differential Ord2 MCH 27.9 pg 06/17/2017 Cbc With Differential Ord2 MCHC 30.7 pg 06/17/2017 Cbc With Differential Ord2 Eos% 2.9 % 06/17/2017 Cbc With Differential Ord2 PLT 254 K/ul 06/17/2017 Cbc With Differential Ord2 Baso% 0.3 % 06/17/2017 Cbc With Differential Ord2 RDW 15.0 % 06/17/2017 Cbc With Differential Ord2 Neut ABS# 4.41 K/ul 06/17/2017 Cbc With Differential Ord2 Lymph ABS# 3.55 K/ul 06/17/2017 Cbc With Differential Ord2 [place] ABS# 0.8 K/ul 06/17/2017 Cbc With Differential Ord2 Eos ABS# 0.3 K/ul 06/17/2017 Cbc With Differential Ord2 Baso ABS# 0.0 K/ul 06/17/2017 Lipid Ord30 CHOL 216 mg/dL 06/17/2017 Lipid Ord30 HDL 45.0 mg/dl 06/17/2017 Lipid Ord30 TRIG 131 mg/dL 06/17/2017 Lipid Ord30 LDL 145 mg/dL 06/17/2017 Lipid Ord30 C/HDL 4.8 Ratio 06/17/2017 %Hba1C Qqv683 % HbA1c 60675-5 6.8 % 06/17/2017 %Hba1C Qqe833 Gluc Ave 148 mg/dL 06/17/2017 Cbc With Differential Ord2 WBC 9.20 K/ul 02/12/2017 Cbc With Differential Ord2 RBC 3.68 M/ul 02/12/2017 Cbc With Differential Ord2 HGB 10.4 g/dl 02/12/2017 Cbc With Differential Ord2 HCT 33.4 % 02/12/2017 Cbc With Differential Ord2 Neut% 54.4 % 02/12/2017 Cbc With Differential Ord2 Lymph% 35.3 % 02/12/2017 Cbc With Differential Ord2 MCV 90.8 fl 02/12/2017 Cbc With Differential Ord2 [place]% 7.4 % 02/12/2017 Cbc With Differential Ord2 MCH 28.3 pg 02/12/2017 Cbc With Differential Ord2 MCHC 31.1 pg 02/12/2017 Cbc With Differential Ord2 Eos% 2.5 % 02/12/2017 Cbc With Differential Ord2 PLT 256 K/ul 02/12/2017 Cbc With Differential Ord2 Baso% 0.4 % 02/12/2017 Cbc With Differential Ord2 Neut ABS# 5.00 K/ul 02/12/2017 Cbc With Differential Ord2 RDW 15.0 % 02/12/2017 Cbc With Differential Ord2 Lymph ABS# 3.25 K/ul 02/12/2017 Cbc With Differential Ord2 [place] ABS# 0.7 K/ul 02/12/2017 Cbc With Differential Ord2 Eos ABS# 0.2 K/ul 02/12/2017 Cbc With Differential Ord2 Baso ABS# 0.0 K/ul 02/12/2017 %Hba1C Pmi739 % HbA1c 34671-2 6.8 % 02/12/2017 %Hba1C Ips889 Gluc Ave 148 mg/dL 02/12/2017 Comp Metabolic Lfz999 NA 142 mEq/L 02/12/2017 Comp Metabolic Ukx461 K 4.6 mEq/L 02/12/2017 Comp Metabolic Wlx951 CL 111 mEq/L 02/12/2017 Comp Metabolic Ywm315 CO2 23.0 mEq/L 02/12/2017 Comp Metabolic Exe551 ANION GAP 13 02/12/2017 Comp Metabolic Tnx608 GLUCOSE 51 mg/dL 02/12/2017 Comp Metabolic Oik540 Creat 1.3 mg/dL 02/12/2017 Comp Metabolic Fno308 eGFR 41 ml/min/1.73m2 02/12/2017 Comp Metabolic Oyg761 BUN 39 mg/dL 02/12/2017 Comp Metabolic Wqn412 B/C Ratio 29.5 Ratio 02/12/2017 Comp Metabolic Szq247 CALCIUM 8.5 mg/dL 02/12/2017 Comp Metabolic Tzp720 ALK PHOS 61 U/L 02/12/2017 Comp Metabolic Ydm218 AST(SGOT) 12 U/L 02/12/2017 Comp Metabolic Spp087 ALT(SGPT) 12 U/L 02/12/2017 Comp Metabolic Ome203 BILI T 0.4 mg/dL 02/12/2017 Comp Metabolic Eyp331 ALBUMIN 3.3 g/dL 02/12/2017 Comp Metabolic Xek166 TPRO 5.5 g/dL 02/12/2017 Comp Metabolic Feh763 GLOB 2.2 g/dL 02/12/2017 Comp Metabolic Bgm841 A/G Ratio 1.5 Ratio 02/12/2017 Comp Metabolic Die706 Osmo 290 mOsmo 02/12/2017 Lipid Ord30 CHOL 186 mg/dL 02/12/2017 Lipid Ord30 HDL 40.0 mg/dl 02/12/2017 Lipid Ord30 TRIG 110 mg/dL 02/12/2017 Lipid Ord30 LDL 124 mg/dL 02/12/2017 Lipid Ord30 C/HDL 4.7 Ratio 02/12/2017 %Hba1C Tbd391 % HbA1c 49601-2 7.1 % 10/08/2016 %Hba1C Rgv327 Gluc Ave 157 mg/dL 10/08/2016 Lipid Ord30 CHOL 220 mg/dL 10/08/2016 Lipid Ord30 HDL 40.0 mg/dl 10/08/2016 Lipid Ord30 TRIG 161 mg/dL 10/08/2016 Lipid Ord30 LDL 148 mg/dL 10/08/2016 Lipid Ord30 C/HDL 5.5 Ratio 10/08/2016 Comp Metabolic Ybs644 NA 142 mEq/L 10/08/2016 Comp Metabolic Ekn945 K 5.2 mEq/L 10/08/2016 Comp Metabolic Ngd533 CL 110 mEq/L 10/08/2016 Comp Metabolic Xdw178 CO2 25.0 mEq/L 10/08/2016 Comp Metabolic Ppq151 ANION GAP 12 10/08/2016 Comp Metabolic Gbz793 GLUCOSE 74 mg/dL 10/08/2016 Comp Metabolic Qxl266 Creat 1.6 mg/dL 10/08/2016 Comp Metabolic Zyu225 eGFR 33 ml/min/1.73m2 10/08/2016 Comp Metabolic Dyr760 BUN 45 mg/dL 10/08/2016 Comp Metabolic Tth381 B/C Ratio 28.1 Ratio 10/08/2016 Comp Metabolic Eoo149 CALCIUM 9.1 mg/dL 10/08/2016 Comp Metabolic Ify590 ALK PHOS 62 U/L 10/08/2016 Comp Metabolic Sst648 AST(SGOT) 14 U/L 10/08/2016 Comp Metabolic Vev279 ALT(SGPT) 12 U/L 10/08/2016 Comp Metabolic Dic864 BILI T 0.4 mg/dL 10/08/2016 Comp Metabolic Rvb446 ALBUMIN 3.5 g/dL 10/08/2016 Comp Metabolic Udu234 TPRO 5.9 g/dL 10/08/2016 Comp Metabolic Tnw438 GLOB 2.4 g/dL 10/08/2016 Comp Metabolic Obw214 A/G Ratio 1.4 Ratio 10/08/2016 Comp Metabolic Lcv354 Osmo 293 mOsmo 10/08/2016 Tsh Ord6 hTSH II 3.92 uIU/mL 10/08/2016 Cbc With Differential Ord2 WBC 8.71 K/ul 10/08/2016 Cbc With Differential Ord2 RBC 3.87 M/ul 10/08/2016 Cbc With Differential Ord2 HGB 11.2 g/dl 10/08/2016 Cbc With Differential Ord2 Neut% 53.0 % 10/08/2016 Cbc With Differential Ord2 HCT 35.2 % 10/08/2016 Cbc With Differential Ord2 Lymph% 35.0 % 10/08/2016 Cbc With Differential Ord2 MCV 91.0 fl 10/08/2016 Cbc With Differential Ord2 MCH 28.9 pg 10/08/2016 Cbc With Differential Ord2 [place]% 8.2 % 10/08/2016 Cbc With Differential Ord2 Eos% 3.3 % 10/08/2016 Cbc With Differential Ord2 MCHC 31.8 pg 10/08/2016 Cbc With Differential Ord2 PLT 253 K/ul 10/08/2016 Cbc With Differential Ord2 Baso% 0.5 % 10/08/2016 Cbc With Differential Ord2 Neut ABS# 4.62 K/ul 10/08/2016 Cbc With Differential Ord2 RDW 14.6 % 10/08/2016 Cbc With Differential Ord2 Lymph ABS# 3.05 K/ul 10/08/2016 Cbc With Differential Ord2 [place] ABS# 0.7 K/ul 10/08/2016 Cbc With Differential Ord2 Eos ABS# 0.3 K/ul 10/08/2016 Cbc With Differential Ord2 Baso ABS# 0.0 K/ul 10/08/2016 %Hba1C Aat256 % HbA1c 74655-9 6.7 % 06/06/2016 %Hba1C Rjq248 Gluc Ave 146 mg/dL 06/06/2016 Tsh Ord6 hTSH II 3.88 uIU/mL 06/06/2016 Comp Metabolic Dny461 NA 139 mEq/L 06/06/2016 Comp Metabolic Sgh728 K 5.1 mEq/L 06/06/2016 Comp Metabolic Fdg257 CL 106 mEq/L 06/06/2016 Comp Metabolic Viz764 CO2 27.0 mEq/L 06/06/2016 Comp Metabolic Nkj884 ANION GAP 11 06/06/2016 Comp Metabolic Tdx277 GLUCOSE 63 mg/dL 06/06/2016 Comp Metabolic Gyf551 Creat 1.4 mg/dL 06/06/2016 Comp Metabolic Ykq573 eGFR 40 ml/min/1.73m2 06/06/2016 Comp Metabolic Mwi789 BUN 38 mg/dL 06/06/2016 Comp Metabolic Hll921 B/C Ratio 27.9 Ratio 06/06/2016 Comp Metabolic Lhz888 CALCIUM 9.3 mg/dL 06/06/2016 Comp Metabolic Pza411 ALK PHOS 66 U/L 06/06/2016 Comp Metabolic Vqd656 AST(SGOT) 14 U/L 06/06/2016 Comp Metabolic Ugc648 ALT(SGPT) 12 U/L 06/06/2016 Comp Metabolic Del014 BILI T 0.4 mg/dL 06/06/2016 Comp Metabolic Wnf193 ALBUMIN 3.6 g/dL 06/06/2016 Comp Metabolic Bqr968 TPRO 5.9 g/dL 06/06/2016 Comp Metabolic Wio710 GLOB 2.3 g/dL 06/06/2016 Comp Metabolic Xzr616 A/G Ratio 1.5 Ratio 06/06/2016 Comp Metabolic Wtr033 Osmo 285 mOsmo 06/06/2016 Lipid Ord30 CHOL 216 mg/dL 06/06/2016 Lipid Ord30 HDL 45.0 mg/dl 06/06/2016 Lipid Ord30 TRIG 134 mg/dL 06/06/2016 Lipid Ord30 LDL 144 mg/dL 06/06/2016 Lipid Ord30 C/HDL 4.8 Ratio 06/06/2016 Cbc With Differential Ord2 WBC 8.57 K/ul 06/06/2016 Cbc With Differential Ord2 RBC 3.63 M/ul 06/06/2016 Cbc With Differential Ord2 HGB 10.3 g/dl 06/06/2016 Cbc With Differential Ord2 Neut% 53.2 % 06/06/2016 Cbc With Differential Ord2 HCT 33.4 % 06/06/2016 Cbc With Differential Ord2 Lymph% 35.4 % 06/06/2016 Cbc With Differential Ord2 MCV 92.0 fl 06/06/2016 Cbc With Differential Ord2 MCH 28.4 pg 06/06/2016 Cbc With Differential Ord2 [place]% 8.3 % 06/06/2016 Cbc With Differential Ord2 MCHC 30.8 pg 06/06/2016 Cbc With Differential Ord2 Eos% 2.7 % 06/06/2016 Cbc With Differential Ord2 Baso% 0.4 % 06/06/2016 Cbc With Differential Ord2 PLT 279 K/ul 06/06/2016 Cbc With Differential Ord2 Neut ABS# 4.57 K/ul 06/06/2016 Cbc With Differential Ord2 RDW 15.3 % 06/06/2016 Cbc With Differential Ord2 Lymph ABS# 3.03 K/ul 06/06/2016 Cbc With Differential Ord2 [place] ABS# 0.7 K/ul 06/06/2016 Cbc With Differential Ord2 Eos ABS# 0.2 K/ul 06/06/2016 Cbc With Differential Ord2 Baso ABS# 0.0 K/ul 06/06/2016 Comp Metabolic Xcp297 NA 139 mEq/L 12/19/2015 Comp Metabolic Avz125 K 4.5 mEq/L 12/19/2015 Comp Metabolic Qcn867 CL 107 mEq/L 12/19/2015 Comp Metabolic Thp574 CO2 25.0 mEq/L 12/19/2015 Comp Metabolic Lbi796 ANION GAP 12 12/19/2015 Comp Metabolic Xkv470 GLUCOSE 72 mg/dL 12/19/2015 Comp Metabolic Ptr956 Creat 1.3 mg/dL 12/19/2015 Comp Metabolic Ynb997 eGFR 42 ml/min/1.73m2 12/19/2015 Comp Metabolic Pvx700 BUN 37 mg/dL 12/19/2015 Comp Metabolic Etx695 B/C Ratio 28.2 Ratio 12/19/2015 Comp Metabolic Klz471 CALCIUM 9.0 mg/dL 12/19/2015 Comp Metabolic Ljw227 ALK PHOS 62 U/L 12/19/2015 Comp Metabolic Zif997 AST(SGOT) 13 U/L 12/19/2015 Comp Metabolic Xtm325 ALT(SGPT) 12 U/L 12/19/2015 Comp Metabolic Aos855 BILI T 0.4 mg/dL 12/19/2015 Comp Metabolic Blr387 ALBUMIN 3.6 g/dL 12/19/2015 Comp Metabolic Ayu670 TPRO 6.0 g/dL 12/19/2015 Comp Metabolic Wsp298 GLOB 2.5 g/dL 12/19/2015 Comp Metabolic Dhh780 A/G Ratio 1.4 Ratio 12/19/2015 Comp Metabolic Oqk374 Osmo 285 mOsmo 12/19/2015 Lipid Ord30 CHOL 214 mg/dL 12/19/2015 Lipid Ord30 HDL 44.0 mg/dl 12/19/2015 Lipid Ord30 TRIG 121 mg/dL 12/19/2015 Lipid Ord30 LDL 146 mg/dL 12/19/2015 Lipid Ord30 C/HDL 4.9 Ratio 12/19/2015 Cbc With Differential Ord2 WBC 7.83 K/ul 12/19/2015 Cbc With Differential Ord2 RBC 3.79 M/ul 12/19/2015 Cbc With Differential Ord2 HGB 10.7 g/dl 12/19/2015 Cbc With Differential Ord2 HCT 34.1 % 12/19/2015 Cbc With Differential Ord2 Neut% 56.3 % 12/19/2015 Cbc With Differential Ord2 MCV 90.0 fl 12/19/2015 Cbc With Differential Ord2 Lymph% 33.1 % 12/19/2015 Cbc With Differential Ord2 MCH 28.2 pg 12/19/2015 Cbc With Differential Ord2 [place]% 7.5 % 12/19/2015 Cbc With Differential Ord2 Eos% 2.6 % 12/19/2015 Cbc With Differential Ord2 MCHC 31.4 pg 12/19/2015 Cbc With Differential Ord2 Baso% 0.5 % 12/19/2015 Cbc With Differential Ord2 PLT 281 K/ul 12/19/2015 Cbc With Differential Ord2 RDW 15.1 % 12/19/2015 Cbc With Differential Ord2 Neut ABS# 4.41 K/ul 12/19/2015 Cbc With Differential Ord2 Lymph ABS# 2.59 K/ul 12/19/2015 Cbc With Differential Ord2 [place] ABS# 0.6 K/ul 12/19/2015 Cbc With Differential Ord2 Eos ABS# 0.2 K/ul 12/19/2015 Cbc With Differential Ord2 Baso ABS# 0.0 K/ul 12/19/2015 %Hba1C Nfs792 % HbA1c 17608-9 6.1 % 12/19/2015 %Hba1C Ukm462 Gluc Ave 128 mg/dL 12/19/2015 A1C HPLC 3880036 A1C HPLC 44865-7 7.1 % 01/27/2014 CHEM 14 0453666 AST 13 U/L 01/07/2014 CHEM 14 1707419 ALT 13 U/L 01/07/2014 CHEM 14 0182573 BUN 24 MG/DL 01/07/2014 CHEM 14 5529050 ALBUMIN 3.8 GM/DL 01/07/2014 CHEM 14 1749402 CHLORIDE 103 MMOL/L 01/07/2014 CHEM 14 5339750 BILI TOT 0.4 MG/DL 01/07/2014 CHEM 14 8697477 ALK PHOS 71 U/L 01/07/2014 CHEM 14 9350352 SODIUM 139 MMOL/L 01/07/2014 CHEM 14 7625646 CREATININE 0.99 MG/DL 01/07/2014 CHEM 14 8008879 CALCIUM 9.3 MG/DL 01/07/2014 CHEM 14 8206865 POTASSIUM 4.1 MMOL/L 01/07/2014 CHEM 14 7704834 PROT TOT 6.3 GM/DL 01/07/2014 CHEM 14 6708557 GLUCOSE 187 MG/DL 01/07/2014 CHEM 14 9159605 BICARB 25 MMOL/L 01/07/2014 CHEM 14 6380178 ANION GAP 11 MMOL/L 01/07/2014 GFR CALC 9417281 GFR AA >60 ML/MIN 01/07/2014 GFR CALC 7407415 GFR NON-AA 55.0L ML/MIN 01/07/2014 CBC 9788652 WBC 9.9 10e9/L 01/07/2014 CBC 6586962 RBC 4.08 10e12/L 01/07/2014 CBC 6658357 HGB 11.7 g/dL 01/07/2014 CBC 1572895 HCT DET 36.7 % 01/07/2014 CBC 0669525 MCV 90.0 fL 01/07/2014 CBC 6127215 MCH 28.7 pg 01/07/2014 CBC 9673847 MCHC 31.9 g/dL 01/07/2014 CBC 1948246 PLT 311 10e9/L 01/07/2014 CBC 8414645 MPV 10.5 fL 01/07/2014 CBC 7812529 YAKOV % 68.2 % 01/07/2014 CBC 7331771 LY % 22.4 % 01/07/2014 CBC 4537871 MON % 7.2 % 01/07/2014 CBC 6013204 EOS % 1.7 % 01/07/2014 CBC 7951427 BASO % 0.5 % 01/07/2014 CBC 3099662 RDW 14.9 % 01/07/2014 CBC 9284704 ABS YAKOV 6.75 10e9/L 01/07/2014 CBC 4220718 ABS LYMPH 2.22 10e9/L 01/07/2014 CBC 7867283 ABS MONO 0.71 10e9/L 01/07/2014 CBC 9783761 ABS EOS 0.17 10e9/L 01/07/2014 CBC 3075148 ABS BASO 0.05 10e9/L 01/07/2014 CBC 7917814 RDW-SD 48.3 fL 01/07/2014 CHEM 14 4215283 ALT 13 U/L 01/07/2014 CHEM 14 9796048 BUN 24 MG/DL 01/07/2014 CHEM 14 0226369 CHLORIDE 103 MMOL/L 01/07/2014 CHEM 14 7404371 BILI TOT 0.4 MG/DL 01/07/2014 CHEM 14 6591040 SODIUM 139 MMOL/L 01/07/2014 CHEM 14 2414812 CREATININE 0.99 MG/DL 01/07/2014 CHEM 14 7236418 CALCIUM 9.3 MG/DL 01/07/2014 CHEM 14 2153415 POTASSIUM 4.1 MMOL/L 01/07/2014 CHEM 14 6145507 GLUCOSE 187 MG/DL 01/07/2014 CHEM 14 8538558 BICARB 25 MMOL/L 01/07/2014 CHEM 14 0694943 ANION GAP 11 MMOL/L 01/07/2014 GFR CALC 6203129 GFR AA >60 ML/MIN 07/15/2013 GFR CALC 1228311 GFR NON-AA 60.0L ML/MIN 07/15/2013 A1C HPLC 0059845 A1C HPLC 89894-1 6.3 % 07/15/2013 LIPID GRP HDL TEST 55 MG/DL 07/15/2013 LIPID GRP TRIG 90 MG/DL 07/15/2013 LIPID GRP TEST LDL 140 MG/DL 07/15/2013 LIPID GRP CHOL 213 MG/DL 07/15/2013 LIPID GRP RCHOL/HDL 3.87 RATIO 07/15/2013 FREE T4 7249606 FREE T4 1.32 NG/DL 07/15/2013 TSH 2419423 TSH 3.961 uIU/ML 07/15/2013 CHEM 14 6727350 AST 13 U/L 07/15/2013 CHEM 14 5386094 ALT 13 IU/L 07/15/2013 CHEM 14 0464414 BUN 33 MG/DL 07/15/2013 CHEM 14 5858134 ALBUMIN 3.9 GM/DL 07/15/2013 CHEM 14 0318325 CHLORIDE 105 MMOL/L 07/15/2013 CHEM 14 4736090 BILI TOT 0.3 MG/DL 07/15/2013 CHEM 14 1324894 ALK PHOS 63 U/L 07/15/2013 CHEM 14 1108136 SODIUM 140 MMOL/L 07/15/2013 CHEM 14 1211242 CREATININE 0.92 MG/DL 07/15/2013 CHEM 14 9374897 CALCIUM 9.8 MG/DL 07/15/2013 CHEM 14 2655427 POTASSIUM 4.4 MMOL/L 07/15/2013 CHEM 14 9217898 PROT TOT 6.2 GM/DL 07/15/2013 CHEM 14 3212558 GLUCOSE 53 MG/DL 07/15/2013 CHEM 14 4811167 BICARB 30 MMOL/L 07/15/2013 CHEM 14 9455779 ANION GAP 5 MEQ/L 07/15/2013 CBC 7808219 WBC 9.1 10e9/L 07/15/2013 CBC 3607412 RBC 3.70 10e12/L 07/15/2013 CBC 8689355 HGB 10.7 g/dL 07/15/2013 CBC 3700236 HCT DET 34.2 % 07/15/2013 CBC 8661635 MCV 92.4 fL 07/15/2013 CBC 8044610 MCH 28.9 pg 07/15/2013 CBC 7415916 MCHC 31.3 g/dL 07/15/2013 CBC 5723655 PLT 317 10e9/L 07/15/2013 CBC 9059242 MPV 10.5 fL 07/15/2013 CBC 9733694 YAKOV % 60.8 % 07/15/2013 CBC 2619075 LY % 30.3 % 07/15/2013 CBC 1924845 MON % 7.8 % 07/15/2013 CBC 0721876 EOS % 1.0 % 07/15/2013 CBC 1693292 BASO % 0.1 % 07/15/2013 CBC 1490530 RDW 15.1 % 07/15/2013 CBC 5766304 ABS YAKOV 5.53 10e9/L 07/15/2013 CBC 3952444 ABS LYMPH 2.76 10e9/L 07/15/2013 CBC 5166804 ABS MONO 0.71 10e9/L 07/15/2013 CBC 4432141 ABS EOS 0.09 10e9/L 07/15/2013 CBC 1220639 ABS BASO 0.01 10e9/L 07/15/2013 CBC 3464046 RDW-SD 49.9 fL 07/15/2013 LIPID GRP 2219775 HDL TEST 48 MG/DL 09/01/2012 LIPID GRP TRIG 136 MG/DL 09/01/2012 LIPID GRP TEST LDL 160 MG/DL 09/01/2012 LIPID GRP [id number] CHOL 235 MG/DL 09/01/2012 LIPID GRP RCHOL/HDL 4.90 RATIO 09/01/2012 CBC 9953365 WBC 8.7 10e9/L 09/01/2012 CBC 0921024 RBC 4.43 10e12/L 09/01/2012 CBC 4271761 HGB 12.9 g/dL 09/01/2012 CBC 6427168 HCT DET 39.6 % 09/01/2012 CBC 3561420 MCV 89.4 fL 09/01/2012 CBC 7176105 MCH 29.1 pg 09/01/2012 CBC 4162847 MCHC 32.6 g/dL 09/01/2012 CBC 0389358 PLT 305 10e9/L 09/01/2012 CBC 4366803 MPV 10.5 fL 09/01/2012 CBC 3012808 YAKOV % 59.1 % 09/01/2012 CBC 8245776 LY % 30.3 % 09/01/2012 CBC 4467029 MON % 8.5 % 09/01/2012 CBC 5431324 EOS % 1.6 % 09/01/2012 CBC 0629202 BASO % 0.5 % 09/01/2012 CBC 6196302 RDW 14.6 % 09/01/2012 CBC 7295749 ABS YAKOV 5.14 10e9/L 09/01/2012 CBC 8372663 ABS LYMPH 2.64 10e9/L 09/01/2012 CBC 3962468 ABS MONO 0.74 10e9/L 09/01/2012 CBC 6730543 ABS EOS 0.14 10e9/L 09/01/2012 CBC 2892333 ABS BASO 0.04 10e9/L 09/01/2012 CBC 9714590 RDW-SD 47.1 fL 09/01/2012 FREE T4 0470179 FREE T4 1.24 NG/DL 09/01/2012 CHEM 14 [id number] AST 14 U/L 09/01/2012 CHEM 14 [id number] ALT 17 IU/L 09/01/2012 CHEM 14 [id number] BUN 23 MG/DL 09/01/2012 CHEM 14 [id number] ALBUMIN 4.1 GM/DL 09/01/2012 CHEM 14 [id number] CHLORIDE 106 MMOL/L 09/01/2012 CHEM 14 [id number] BILI TOT 0.6 MG/DL 09/01/2012 CHEM 14 [id number] ALK PHOS 56 U/L 09/01/2012 CHEM 14 [id number] SODIUM 142 MMOL/L 09/01/2012 CHEM 14 [id number] CREATININE 0.90 MG/DL 09/01/2012 CHEM 14 [id number] CALCIUM 9.9 MG/DL 09/01/2012 CHEM 14 [id number] POTASSIUM 4.0 MMOL/L 09/01/2012 CHEM 14 [id number] PROT TOT 6.1 GM/DL 09/01/2012 CHEM 14 [id number] GLUCOSE 77 MG/DL 09/01/2012 CHEM 14 [id number] BICARB 28 MMOL/L 09/01/2012 CHEM 14 [id number] ANION GAP 8 MEQ/L 09/01/2012 TSH [id number] TSH 3.674 uIU/ML 09/01/2012 A1C HPLC [id number] A1C HPLC 19806-5 6.8 % 09/01/2012 GFR CALC 7762992 GFR AA >60 ML/MIN 09/01/2012 GFR CALC [id number] GFR NON-AA >60 ML/MIN 09/01/2012 CHEM 14 [id number] AST 13 U/L 04/30/2012 CHEM 14 [id number] ALT 15 IU/L 04/30/2012 CHEM 14 [id number] BUN 33 MG/DL 04/30/2012 CHEM 14 [id number] ALBUMIN 4.1 GM/DL 04/30/2012 CHEM 14 [id number] CHLORIDE 107 MMOL/L 04/30/2012 CHEM 14 [id number] BILI TOT 0.5 MG/DL 04/30/2012 CHEM 14 [id number] ALK PHOS 62 U/L 04/30/2012 CHEM 14 [id number] SODIUM 141 MMOL/L 04/30/2012 CHEM 14 [id number] CREATININE 1.01 MG/DL 04/30/2012 CHEM 14 [id number] CALCIUM 9.7 MG/DL 04/30/2012 CHEM 14 [id number] POTASSIUM 4.2 MMOL/L 04/30/2012 CHEM 14 [id number] PROT TOT 6.3 GM/DL 04/30/2012 CHEM 14 [id number] GLUCOSE 74 MG/DL 04/30/2012 CHEM 14 [id number] BICARB 27 MMOL/L 04/30/2012 CHEM 14 [id number] ANION GAP 7 MEQ/L 04/30/2012 CBC [id number] WBC 8.2 10e9/L 04/30/2012 CBC [id number] RBC 4.39 10e12/L 04/30/2012 CBC [id number] HGB 12.7 g/dL 04/30/2012 CBC [id number] HCT DET 39.3 % 04/30/2012 CBC [id number] MCV 89.5 fL 04/30/2012 CBC [id number] MCH 28.9 pg 04/30/2012 CBC [id number] MCHC 32.3 g/dL 04/30/2012 CBC [id number] PLT 305 10e9/L 04/30/2012 CBC [id number] MPV 10.9 fL 04/30/2012 CBC [id number] YAKOV % 60.1 % 04/30/2012 CBC [id number] LY % 30.7 % 04/30/2012 CBC [id number] MON % 7.7 % 04/30/2012 CBC [id number] EOS % 1.1 % 04/30/2012 CBC [id number] BASO % 0.4 % 04/30/2012 CBC [id number] RDW 14.8 % 04/30/2012 CBC [id number] ABS YAKOV 4.93 10e9/L 04/30/2012 CBC [id number] ABS LYMPH 2.52 10e9/L 04/30/2012 CBC [id number] ABS MONO 0.63 10e9/L 04/30/2012 CBC [id number] ABS EOS 0.09 10e9/L 04/30/2012 CBC [id number] ABS BASO 0.03 10e9/L 04/30/2012 CBC [id number] RDW-SD 47.8 fL 04/30/2012 TSH [id number] TSH 3.394 uIU/ML 04/30/2012 A1C HPLC [id number] A1C HPLC 08800-3 7.2 % 04/30/2012 GFR CALC [id number] GFR AA >60 ML/MIN 04/30/2012 GFR CALC 7559519 GFR NON-AA 54.0L ML/MIN 04/30/2012 LIPID GRP HDL TEST 49 MG/DL 04/30/2012 LIPID GRP TRIG 129 MG/DL 04/30/2012 LIPID GRP TEST LDL 149 MG/DL 04/30/2012 LIPID GRP CHOL 224 MG/DL 04/30/2012 LIPID GRP RCHOL/HDL 4.57 RATIO 04/30/2012 CHEM 14 [id number] AST 14 U/L 12/26/2011 CHEM 14 [id number] ALT 15 IU/L 12/26/2011 CHEM 14 [id number] BUN 28 MG/DL 12/26/2011 CHEM 14 [id number] ALBUMIN 4.2 GM/DL 12/26/2011 CHEM 14 [id number] CHLORIDE 106 MMOL/L 12/26/2011 CHEM 14 [id number] BILI TOT 0.5 MG/DL 12/26/2011 CHEM 14 [id number] ALK PHOS 55 U/L 12/26/2011 CHEM 14 [id number] SODIUM 141 MMOL/L 12/26/2011 CHEM 14 [id number] CREATININE 1.01 MG/DL 12/26/2011 CHEM 14 [id number] CALCIUM 9.7 MG/DL 12/26/2011 CHEM 14 [id number] POTASSIUM 4.6 MMOL/L 12/26/2011 CHEM 14 [id number] PROT TOT 6.4 GM/DL 12/26/2011 CHEM 14 [id number] GLUCOSE 83 MG/DL 12/26/2011 CHEM 14 [id number] BICARB 27 MMOL/L 12/26/2011 CHEM 14 [id number] ANION GAP 8 MEQ/L 12/26/2011 GFR CALC [id number] GFR AA >60 ML/MIN 12/26/2011 GFR CALC 4159955 GFR NON-AA 54.0L ML/MIN 12/26/2011 MAGNESIUM 7644717 MAGNESIUM 1.8 MEQ/L 12/26/2011 A1C HPLC [id number] A1C HPLC 92892-2 7.2 % 12/26/2011 CBC [id number] WBC 7.8 10e9/L 12/26/2011 CBC [id number] RBC 4.44 10e12/L 12/26/2011 CBC [id number] HGB 12.4 g/dL 12/26/2011 CBC [id number] HCT DET 38.5 % 12/26/2011 CBC [id number] MCV 86.7 fL 12/26/2011 CBC [id number] MCH 27.9 pg 12/26/2011 CBC [id number] MCHC 32.2 g/dL 12/26/2011 CBC [id number] PLT 290 10e9/L 12/26/2011 CBC [id number] MPV 10.5 fL 12/26/2011 CBC [id number] YAKOV % 55.1 % 12/26/2011 CBC [id number] LY % 35.0 % 12/26/2011 CBC [id number] MON % 6.7 % 12/26/2011 CBC [id number] EOS % 2.7 % 12/26/2011 CBC [id number] BASO % 0.5 % 12/26/2011 CBC [id number] RDW 14.5 % 12/26/2011 CBC [id number] ABS YAKOV 4.30 10e9/L 12/26/2011 CBC [id number] ABS LYMPH 2.73 10e9/L 12/26/2011 CBC [id number] ABS MONO 0.52 10e9/L 12/26/2011 CBC [id number] ABS EOS 0.21 10e9/L 12/26/2011 CBC [id number] ABS BASO 0.04 10e9/L 12/26/2011 CBC [id number] RDW-SD 45.2 fL 12/26/2011 A1C [id number] A1C HPLC 22454-0 7.4 % 10/08/2011 LIPID GRP HDL TEST 45 MG/DL 10/08/2011 LIPID GRP TRIG 188 MG/DL 10/08/2011 LIPID GRP TEST LDL 145 MG/DL 10/08/2011 LIPID GRP CHOL 228 MG/DL 10/08/2011 LIPID GRP RCHOL/HDL 5.07 RATIO 10/08/2011 GFR CALC [id number] GFR AA 57.0L ML/MIN 10/08/2011 GFR CALC [id number] GFR NON-AA 47.0L ML/MIN 10/08/2011 CBC [id number] WBC 8.9 10e9/L 10/08/2011 CBC [id number] RBC 4.55 10e12/L 10/08/2011 CBC [id number] HGB 12.5 g/dL 10/08/2011 CBC [id number] HCT DET 39.7 % 10/08/2011 CBC [id number] MCV 87.3 fL 10/08/2011 CBC [id number] MCH 27.5 pg 10/08/2011 CBC [id number] MCHC 31.5 g/dL 10/08/2011 CBC [id number] PLT 291 10e9/L 10/08/2011 CBC [id number] MPV 10.7 fL 10/08/2011 CBC [id number] YAKOV % 57.1 % 10/08/2011 CBC [id number] LY % 32.9 % 10/08/2011 CBC [id number] MON % 6.6 % 10/08/2011 CBC [id number] EOS % 2.9 % 10/08/2011 CBC [id number] BASO % 0.5 % 10/08/2011 CBC [id number] RDW 15.0 % 10/08/2011 CBC [id number] ABS YAKOV 5.08 10e9/L 10/08/2011 CBC [id number] ABS LYMPH 2.93 10e9/L 10/08/2011 CBC [id number] ABS MONO 0.59 10e9/L 10/08/2011 CBC [id number] ABS EOS 0.26 10e9/L 10/08/2011 CBC [id number] ABS BASO 0.04 10e9/L 10/08/2011 CBC [id number] RDW-SD 47.6 fL 10/08/2011 CHEM 14 [id number] AST 13 U/L 10/08/2011 CHEM 14 [id number] ALT 19 IU/L 10/08/2011 CHEM 14 [id number] BUN 35 MG/DL 10/08/2011 CHEM 14 [id number] ALBUMIN 4.2 GM/DL 10/08/2011 CHEM 14 [id number] CHLORIDE 104 MMOL/L 10/08/2011 CHEM 14 [id number] BILI TOT 0.4 MG/DL 10/08/2011 CHEM 14 1768875 ALK PHOS 54 U/L 10/08/2011 CHEM 14 [id number] SODIUM 139 MMOL/L 10/08/2011 CHEM 14 [id number] CREATININE 1.13 MG/DL 10/08/2011 CHEM 14 [id number] CALCIUM 9.5 MG/DL 10/08/2011 CHEM 14 [id number] POTASSIUM 4.5 MMOL/L 10/08/2011 CHEM 14 [id number] PROT TOT 7.1 GM/DL 10/08/2011 CHEM 14 [id number] GLUCOSE 148 MG/DL 10/08/2011 CHEM 14 [id number] BICARB 26 MMOL/L 10/08/2011 CHEM 14 [id number] ANION GAP 9 MEQ/L 10/08/2011 Review of Systems System Result Effective Dates Constitutional No recent illness 2017 Constitutional No anorexia 06/19/2017 Constitutional No night sweats 2017 Constitutional No chills 06/19/2017 Constitutional No diaphoresis 06/19/2017 Constitutional fatigue 06/19/2017 Constitutional No insomnia 06/19/2017 Ears/Nose/Throat/Neck No dizziness 2017 Ears/Nose/Throat/Neck No headache 2017 Ears/Nose/Throat/Neck No nasal discharge 06/19/2017 Ears/Nose/Throat/Neck No sore throat Cardiovascular No chest pain/pressure Cardiovascular No dyspnea 06/19/2017 Cardiovascular hypertension 06/19/2017 Respiratory No cough 06/19/2017 Gastrointestinal abdominal pain 2017 Gastrointestinal constipation 06/19/2017 Gastrointestinal No diarrhea 06/19/2017 Gastrointestinal No gastroesophageal reflux 06/19/2017 Genitourinary/Nephrology No dysuria 06/19 Musculoskeletal back pain 06/19/2017 Musculoskeletal No joint complaint 2017 Dermatologic No rash 06/19/2017 Dermatologic No sores 06/19/2017 Neurologic gait abnormality 06/19/2017 Psychiatric No anxiety 06/19/2017 Psychiatric No depression 06/19/2017 Constitutional No recent illness 2016 Constitutional No anorexia 02/14/2017 Constitutional No night sweats 2016 Constitutional No chills 02/14/2017 Constitutional No diaphoresis 02/14/2017 Constitutional fatigue 02/14/2017 Constitutional No insomnia 02/14/2017 Ears/Nose/Throat/Neck No dizziness 2016 Ears/Nose/Throat/Neck No headache 2016 Ears/Nose/Throat/Neck No nasal discharge 02/14/2017 Ears/Nose/Throat/Neck No sore throat Cardiovascular No chest pain/pressure Cardiovascular No dyspnea 02/14/2017 Cardiovascular hypertension 02/14/2017 Respiratory No cough 02/14/2017 Gastrointestinal No abdominal pain 2016 Gastrointestinal constipation 02/14/2017 Gastrointestinal No diarrhea 02/14/2017 Gastrointestinal No gastroesophageal reflux 02/14/2017 Genitourinary/Nephrology No dysuria 02/14 Musculoskeletal back pain 02/14/2017 Musculoskeletal No joint complaint 2016 Dermatologic No rash 02/14/2017 Dermatologic No sores 02/14/2017 Psychiatric No anxiety 02/14/2017 Psychiatric No depression 02/14/2017 Neurologic gait abnormality 02/14/2017 Constitutional recent illness 01/07/2017 Constitutional No chills 01/07/2017 Constitutional No diaphoresis 01/07/2017 Constitutional No fever 01/07/2017 Eyes No eye erythema 01/07/2017 Ears/Nose/Throat/Neck No nasal allergies 01/07/2017 Ears/Nose/Throat/Neck No nasal discharge 01/07/2017 Cardiovascular No chest pain/pressure Cardiovascular No dyspnea 01/07/2017 Respiratory No cough 01/07/2017 Respiratory No dyspnea 01/07/2017 Respiratory No chest congestion 2016 Gastrointestinal No constipation 2016 Gastrointestinal No diarrhea 01/07/2017 Gastrointestinal No vomiting 01/07/2017 Gastrointestinal No nausea 01/07/2017 Genitourinary/Nephrology dysuria 2016 Genitourinary/Nephrology pelvic pain Musculoskeletal back pain 01/07/2017 Dermatologic No rash 01/07/2017 Neurologic No alteration of consciousness 01/07/2017 Neurologic No mental status change 2016 Constitutional No recent illness 2016 Constitutional No anorexia 11/14/2016 Constitutional No night sweats 2016 Constitutional No chills 11/14/2016 Constitutional No diaphoresis 11/14/2016 Constitutional fatigue 11/14/2016 Constitutional No insomnia 11/14/2016 Ears/Nose/Throat/Neck No dizziness 2016 Ears/Nose/Throat/Neck No headache 2016 Ears/Nose/Throat/Neck No nasal discharge 11/14/2016 Ears/Nose/Throat/Neck No sore throat Cardiovascular No chest pain/pressure Cardiovascular No dyspnea 11/14/2016 Cardiovascular hypertension 11/14/2016 Respiratory No cough 11/14/2016 Gastrointestinal No abdominal pain 2016 Gastrointestinal constipation 11/14/2016 Gastrointestinal No diarrhea 11/14/2016 Gastrointestinal No gastroesophageal reflux 11/14/2016 Genitourinary/Nephrology No dysuria 11/14 Musculoskeletal back pain 11/14/2016 Musculoskeletal No joint complaint 2016 Dermatologic No rash 11/14/2016 Dermatologic No sores 11/14/2016 Psychiatric No anxiety 11/14/2016 Psychiatric No depression 11/14/2016 Constitutional No recent illness 2016 Constitutional No anorexia 10/11/2016 Constitutional No night sweats 2016 Constitutional No chills 10/11/2016 Constitutional No diaphoresis 10/11/2016 Constitutional fatigue 10/11/2016 Constitutional No fever 10/11/2016 Constitutional No insomnia 10/11/2016 Constitutional No malaise 10/11/2016 Eyes No eye discharge 10/11/2016 Eyes No eye erythema 10/11/2016 Ears/Nose/Throat/Neck No dizziness 2016 Ears/Nose/Throat/Neck No headache 2016 Ears/Nose/Throat/Neck No nasal discharge 10/11/2016 Ears/Nose/Throat/Neck No sore throat Cardiovascular No chest pain/pressure Cardiovascular No dyspnea 10/11/2016 Cardiovascular hypertension 10/11/2016 Respiratory No cough 10/11/2016 Gastrointestinal No abdominal pain 2016 Gastrointestinal constipation 10/11/2016 Gastrointestinal No diarrhea 10/11/2016 Gastrointestinal No gastroesophageal reflux 10/11/2016 Gastrointestinal No melena 10/11/2016 Gastrointestinal No nausea 10/11/2016 Gastrointestinal No vomiting 10/11/2016 Genitourinary/Nephrology No dysuria 10/11 Musculoskeletal back pain 10/11/2016 Musculoskeletal No joint complaint 2016 Dermatologic No rash 10/11/2016 Dermatologic No sores 10/11/2016 Psychiatric No anxiety 10/11/2016 Psychiatric No depression 10/11/2016 Endocrine diabetes mellitus type 2 2016 Constitutional No recent illness 2016 Constitutional No anorexia 06/14/2016 Constitutional No night sweats 2016 Constitutional No chills 06/14/2016 Constitutional No diaphoresis 06/14/2016 Constitutional fatigue 06/14/2016 Constitutional No insomnia 06/14/2016 Eyes No eye discharge 06/14/2016 Eyes No eye erythema 06/14/2016 Ears/Nose/Throat/Neck No dizziness 2016 Ears/Nose/Throat/Neck No headache 2016 Ears/Nose/Throat/Neck No nasal discharge 06/14/2016 Ears/Nose/Throat/Neck No sore throat Cardiovascular No chest pain/pressure Cardiovascular No dyspnea 06/14/2016 Cardiovascular hypertension 06/14/2016 Respiratory No cough 06/14/2016 Gastrointestinal No abdominal pain 2016 Gastrointestinal constipation 06/14/2016 Gastrointestinal No diarrhea 06/14/2016 Gastrointestinal No gastroesophageal reflux 06/14/2016 Gastrointestinal No melena 06/14/2016 Gastrointestinal No nausea 06/14/2016 Gastrointestinal No vomiting 06/14/2016 Genitourinary/Nephrology No dysuria 06/14 Musculoskeletal back pain 06/14/2016 Musculoskeletal No joint complaint 2016 Dermatologic No rash 06/14/2016 Dermatologic No sores 06/14/2016 Psychiatric No anxiety 06/14/2016 Psychiatric No depression 06/14/2016 Constitutional No recent illness 2015 Constitutional No anorexia 02/27/2016 Constitutional No night sweats 2015 Constitutional No chills 02/27/2016 Constitutional No diaphoresis 02/27/2016 Constitutional fatigue 02/27/2016 Constitutional No insomnia 02/27/2016 Eyes No eye discharge 02/27/2016 Eyes No eye erythema 02/27/2016 Ears/Nose/Throat/Neck No dizziness 2015 Ears/Nose/Throat/Neck No headache 2015 Ears/Nose/Throat/Neck No nasal discharge 02/27/2016 Ears/Nose/Throat/Neck No sore throat 07/2015 Cardiovascular No chest pain/pressure 07/2015 Cardiovascular No dyspnea 02/27/2016 Cardiovascular hypertension 02/27/2016 Respiratory No cough 02/27/2016 Gastrointestinal No abdominal pain 2015 Gastrointestinal constipation 02/27/2016 Gastrointestinal No diarrhea 02/27/2016 Gastrointestinal No gastroesophageal reflux 02/27/2016 Gastrointestinal No melena 02/27/2016 Gastrointestinal No nausea 02/27/2016 Gastrointestinal No vomiting 02/27/2016 Genitourinary/Nephrology No dysuria 02/26 Musculoskeletal back pain 02/27/2016 Musculoskeletal No joint complaint 2015 Dermatologic No rash 02/27/2016 Dermatologic No sores 02/27/2016 Psychiatric No anxiety 02/27/2016 Psychiatric No depression 02/27/2016 Constitutional No recent illness 2015 Constitutional No anorexia 02/08/2016 Constitutional No night sweats 2015 Constitutional No chills 02/08/2016 Constitutional No diaphoresis 02/08/2016 Constitutional fatigue 02/08/2016 Constitutional No insomnia 02/08/2016 Ears/Nose/Throat/Neck No dizziness 2015 Ears/Nose/Throat/Neck No headache 2015 Ears/Nose/Throat/Neck No nasal discharge 02/08/2016 Ears/Nose/Throat/Neck No sore throat Cardiovascular No chest pain/pressure Cardiovascular No dyspnea 02/08/2016 Cardiovascular hypertension 02/08/2016 Gastrointestinal No abdominal pain 2015 Gastrointestinal constipation 02/08/2016 Gastrointestinal No diarrhea 02/08/2016 Gastrointestinal No gastroesophageal reflux 02/08/2016 Gastrointestinal No melena 02/08/2016 Gastrointestinal No nausea 02/08/2016 Gastrointestinal No vomiting 02/08/2016 Genitourinary/Nephrology No dysuria 02/07 Musculoskeletal back pain 02/08/2016 Musculoskeletal No joint complaint 2015 Dermatologic No rash 02/08/2016 Dermatologic No sores 02/08/2016 Psychiatric No anxiety 02/08/2016 Psychiatric No depression 02/08/2016 Constitutional No recent illness 2015 Constitutional No anorexia 12/26/2015 Constitutional No night sweats 2015 Constitutional No chills 12/26/2015 Constitutional No diaphoresis 12/26/2015 Constitutional fatigue 12/26/2015 Constitutional No fever 12/26/2015 Constitutional No insomnia 12/26/2015 Constitutional No malaise 12/26/2015 Eyes No eye discharge 12/26/2015 Eyes No eye erythema 12/26/2015 Ears/Nose/Throat/Neck No dizziness 2015 Ears/Nose/Throat/Neck No headache 2015 Ears/Nose/Throat/Neck No nasal discharge 12/26/2015 Ears/Nose/Throat/Neck No sore throat 05/2015 Cardiovascular No chest pain/pressure 05/2015 Cardiovascular No dyspnea 12/26/2015 Respiratory No cough 12/26/2015 Gastrointestinal No abdominal pain 2015 Gastrointestinal constipation 12/26/2015 Gastrointestinal No diarrhea 12/26/2015 Gastrointestinal No gastroesophageal reflux 12/26/2015 Gastrointestinal No melena 12/26/2015 Gastrointestinal No nausea 12/26/2015 Gastrointestinal No vomiting 12/26/2015 Genitourinary/Nephrology No dysuria 12/25 Musculoskeletal No joint complaint 2015 Dermatologic No rash 12/26/2015 Dermatologic No sores 12/26/2015 Psychiatric No anxiety 12/26/2015 Psychiatric No depression 12/26/2015 Musculoskeletal back pain 12/26/2015 Cardiovascular hypertension 12/26/2015 Constitutional fatigue 11/15/2015 Constitutional No fever 11/15/2015 Eyes No eye discharge 11/15/2015 Eyes No eye erythema 11/15/2015 Ears/Nose/Throat/Neck nasal discharge Ears/Nose/Throat/Neck sore throat 2015 Cardiovascular No chest pain/pressure Cardiovascular No dyspnea 11/15/2015 Musculoskeletal No joint complaint 2015 Dermatologic No rash 11/15/2015 Ears/Nose/Throat/Neck nasal lesion 2015 Ears/Nose/Throat/Neck sinus congestion Respiratory No dyspnea 11/15/2015 Gastrointestinal No abdominal pain 2015 Gastrointestinal No vomiting 11/15/2015 Gastrointestinal No nausea 11/15/2015 Neurologic No alteration of consciousness 11/15/2015 Constitutional No recent illness 2015 Constitutional No anorexia 08/01/2015 Constitutional No night sweats 2015 Constitutional No chills 08/01/2015 Constitutional No diaphoresis 08/01/2015 Constitutional fatigue 08/01/2015 Constitutional No fever 08/01/2015 Constitutional No insomnia 08/01/2015 Constitutional No malaise 08/01/2015 Eyes No eye discharge 08/01/2015 Eyes No eye erythema 08/01/2015 Ears/Nose/Throat/Neck No dizziness 2015 Ears/Nose/Throat/Neck No headache 2015 Ears/Nose/Throat/Neck No nasal discharge 08/01/2015 Ears/Nose/Throat/Neck No sore throat 11/2015 Cardiovascular No chest pain/pressure 11/2015 Cardiovascular No dyspnea 08/01/2015 Respiratory No cough 08/01/2015 Gastrointestinal No abdominal pain 2015 Gastrointestinal constipation 08/01/2015 Gastrointestinal No diarrhea 08/01/2015 Gastrointestinal No gastroesophageal reflux 08/01/2015 Gastrointestinal No melena 08/01/2015 Gastrointestinal No nausea 08/01/2015 Gastrointestinal No vomiting 08/01/2015 Genitourinary/Nephrology No dysuria 07/31 Musculoskeletal No joint complaint 2015 Dermatologic No rash 08/01/2015 Dermatologic No sores 08/01/2015 Psychiatric No anxiety 08/01/2015 Psychiatric No depression 08/01/2015 Constitutional No recent illness 2015 Constitutional No anorexia 07/04/2015 Constitutional No night sweats 2015 Constitutional No chills 07/04/2015 Constitutional No diaphoresis 07/04/2015 Constitutional fatigue 07/04/2015 Constitutional No fever 07/04/2015 Constitutional No insomnia 07/04/2015 Constitutional No malaise 07/04/2015 Eyes No eye discharge 07/04/2015 Eyes No eye erythema 07/04/2015 Ears/Nose/Throat/Neck No dizziness 2015 Ears/Nose/Throat/Neck No headache 2015 Ears/Nose/Throat/Neck No nasal discharge 07/04/2015 Ears/Nose/Throat/Neck No sore throat 12/2015 Cardiovascular No chest pain/pressure 12/2015 Cardiovascular No dyspnea 07/04/2015 Respiratory No cough 07/04/2015 Gastrointestinal constipation 07/04/2015 Gastrointestinal No diarrhea 07/04/2015 Gastrointestinal No gastroesophageal reflux 07/04/2015 Gastrointestinal No melena 07/04/2015 Gastrointestinal No nausea 07/04/2015 Gastrointestinal No vomiting 07/04/2015 Genitourinary/Nephrology No dysuria 07/04 Musculoskeletal No joint complaint 2015 Dermatologic No rash 07/04/2015 Dermatologic No sores 07/04/2015 Psychiatric No anxiety 07/04/2015 Psychiatric No depression 07/04/2015 Gastrointestinal No abdominal pain 2015 Constitutional No recent illness 2014 Constitutional No anorexia 02/28/2015 Constitutional No night sweats 2014 Constitutional No chills 02/28/2015 Constitutional No diaphoresis 02/28/2015 Constitutional fatigue 02/28/2015 Constitutional No fever 02/28/2015 Constitutional No insomnia 02/28/2015 Constitutional No malaise 02/28/2015 Eyes No eye discharge 02/28/2015 Eyes No eye erythema 02/28/2015 Ears/Nose/Throat/Neck No dizziness 2014 Ears/Nose/Throat/Neck No headache 2014 Ears/Nose/Throat/Neck No nasal discharge 02/28/2015 Ears/Nose/Throat/Neck No sore throat 09/2014 Cardiovascular chest pain/pressure 2014 Cardiovascular dyspnea 02/28/2015 Respiratory No cough 02/28/2015 Gastrointestinal abdominal pain 2014 Gastrointestinal No constipation 2014 Gastrointestinal No diarrhea 02/28/2015 Gastrointestinal No gastroesophageal reflux 02/28/2015 Gastrointestinal No melena 02/28/2015 Gastrointestinal No nausea 02/28/2015 Gastrointestinal No vomiting 02/28/2015 Genitourinary/Nephrology No dysuria 02/28 Musculoskeletal No joint complaint 2014 Dermatologic No rash 02/28/2015 Dermatologic No sores 02/28/2015 Psychiatric No anxiety 02/28/2015 Psychiatric No depression 02/28/2015 Cardiovascular exercise intolerance 02/28 Constitutional No recent illness 2014 Constitutional No anorexia 11/03/2014 Constitutional No night sweats 2014 Constitutional No chills 11/03/2014 Constitutional No diaphoresis 11/03/2014 Constitutional fatigue 11/03/2014 Constitutional No fever 11/03/2014 Constitutional No insomnia 11/03/2014 Constitutional No malaise 11/03/2014 Eyes No eye discharge 11/03/2014 Eyes No eye erythema 11/03/2014 Ears/Nose/Throat/Neck No dizziness 2014 Ears/Nose/Throat/Neck No headache 2014 Ears/Nose/Throat/Neck No nasal discharge 11/03/2014 Ears/Nose/Throat/Neck No sore throat 02/2015 Cardiovascular No chest pain/pressure 02/2015 Cardiovascular No dyspnea 11/03/2014 Respiratory No cough 11/03/2014 Genitourinary/Nephrology No dysuria 11/03 Musculoskeletal No joint complaint 2014 Dermatologic No rash 11/03/2014 Dermatologic No sores 11/03/2014 Psychiatric No anxiety 11/03/2014 Psychiatric No depression 11/03/2014 Gastrointestinal abdominal pain 2014 Gastrointestinal No constipation 2014 Gastrointestinal No diarrhea 11/03/2014 Gastrointestinal No gastroesophageal reflux 11/03/2014 Gastrointestinal No melena 11/03/2014 Gastrointestinal No nausea 11/03/2014 Gastrointestinal No vomiting 11/03/2014 Constitutional No recent illness 2014 Constitutional No anorexia 09/08/2014 Constitutional No night sweats 2014 Constitutional No chills 09/08/2014 Constitutional No diaphoresis 09/08/2014 Constitutional fatigue 09/08/2014 Constitutional No fever 09/08/2014 Constitutional No insomnia 09/08/2014 Constitutional No malaise 09/08/2014 Eyes No eye discharge 09/08/2014 Eyes No eye erythema 09/08/2014 Ears/Nose/Throat/Neck No dizziness 2014 Ears/Nose/Throat/Neck No headache 2014 Ears/Nose/Throat/Neck No nasal discharge 09/08/2014 Ears/Nose/Throat/Neck No sore throat Cardiovascular No chest pain/pressure Cardiovascular No dyspnea 09/08/2014 Respiratory No cough 09/08/2014 Genitourinary/Nephrology No dysuria 09/08 Musculoskeletal No joint complaint 2014 Dermatologic No rash 09/08/2014 Dermatologic No sores 09/08/2014 Psychiatric No anxiety 09/08/2014 Psychiatric No depression 09/08/2014 Constitutional No recent illness 2014 Constitutional No anorexia 07/07/2014 Constitutional No night sweats 2014 Constitutional No chills 07/07/2014 Constitutional No diaphoresis 07/07/2014 Constitutional No fatigue 07/07/2014 Constitutional No fever 07/07/2014 Constitutional No insomnia 07/07/2014 Constitutional No malaise 07/07/2014 Eyes No eye discharge 07/07/2014 Eyes No eye erythema 07/07/2014 Ears/Nose/Throat/Neck No dizziness 2014 Ears/Nose/Throat/Neck No headache 2014 Ears/Nose/Throat/Neck No nasal discharge 07/07/2014 Ears/Nose/Throat/Neck No sore throat 03/2015 Cardiovascular No chest pain/pressure 03/2015 Cardiovascular No dyspnea 07/07/2014 Respiratory No cough 07/07/2014 Genitourinary/Nephrology No dysuria 07/07 Musculoskeletal No joint complaint 2014 Dermatologic No rash 07/07/2014 Dermatologic No sores 07/07/2014 Psychiatric No anxiety 07/07/2014 Psychiatric No depression 07/07/2014 Constitutional No recent illness 2013 Constitutional No anorexia 05/03/2014 Constitutional No night sweats 2013 Constitutional No chills 05/03/2014 Constitutional No diaphoresis 05/03/2014 Constitutional No fatigue 05/03/2014 Constitutional No fever 05/03/2014 Constitutional No insomnia 05/03/2014 Constitutional No malaise 05/03/2014 Eyes No eye discharge 05/03/2014 Eyes No eye erythema 05/03/2014 Ears/Nose/Throat/Neck No dizziness 2013 Ears/Nose/Throat/Neck No headache 2013 Ears/Nose/Throat/Neck No nasal discharge 05/03/2014 Ears/Nose/Throat/Neck No sore throat 12/2013 Cardiovascular No chest pain/pressure 12/2013 Cardiovascular No dyspnea 05/03/2014 Respiratory No cough 05/03/2014 Genitourinary/Nephrology No dysuria 05/03 Musculoskeletal No joint complaint 2013 Dermatologic No rash 05/03/2014 Dermatologic No sores 05/03/2014 Psychiatric No anxiety 05/03/2014 Psychiatric No depression 05/03/2014 Constitutional No recent illness 2013 Constitutional No anorexia 01/27/2014 Constitutional No night sweats 2013 Constitutional No chills 01/27/2014 Constitutional No diaphoresis 01/27/2014 Constitutional No fatigue 01/27/2014 Constitutional No fever 01/27/2014 Constitutional No insomnia 01/27/2014 Constitutional No malaise 01/27/2014 Eyes No eye discharge 01/27/2014 Eyes No eye erythema 01/27/2014 Ears/Nose/Throat/Neck No dizziness 2013 Ears/Nose/Throat/Neck No headache 2013 Ears/Nose/Throat/Neck No nasal discharge 01/27/2014 Ears/Nose/Throat/Neck No sore throat 07/2013 Cardiovascular No chest pain/pressure 07/2013 Cardiovascular No dyspnea 01/27/2014 Respiratory No cough 01/27/2014 Genitourinary/Nephrology No dysuria 01/27 Musculoskeletal No joint complaint 2013 Dermatologic No rash 01/27/2014 Dermatologic No sores 01/27/2014 Psychiatric No anxiety 01/27/2014 Psychiatric No depression 01/27/2014 Constitutional No recent illness 2013 Constitutional anorexia 01/07/2014 Constitutional chills 01/07/2014 Constitutional No night sweats 2013 Constitutional No diaphoresis 01/07/2014 Constitutional fatigue 01/07/2014 Constitutional No fever 01/07/2014 Constitutional No insomnia 01/07/2014 Constitutional malaise 01/07/2014 Eyes No eye discharge 01/07/2014 Eyes No eye erythema 01/07/2014 Ears/Nose/Throat/Neck No dizziness 2013 Ears/Nose/Throat/Neck No nasal discharge 01/07/2014 Ears/Nose/Throat/Neck headache 2013 Ears/Nose/Throat/Neck No sore throat Cardiovascular No dyspnea 01/07/2014 Cardiovascular No chest pain/pressure Respiratory No cough 01/07/2014 Genitourinary/Nephrology No dysuria 01/07 Musculoskeletal No joint complaint 2013 Dermatologic No rash 01/07/2014 Dermatologic No sores 01/07/2014 Constitutional No recent illness 2013 Constitutional No fatigue 11/11/2013 Constitutional No fever 11/11/2013 Eyes No eye discharge 11/11/2013 Ears/Nose/Throat/Neck No dizziness 2013 Cardiovascular No chest pain/pressure Respiratory No chest congestion 2013 Respiratory No cough 11/11/2013 Gastrointestinal No nausea 11/11/2013 Gastrointestinal No vomiting 11/11/2013 Musculoskeletal No swelling 11/11/2013 Musculoskeletal bone fracture 11/11/2013 Musculoskeletal muscle weakness 2013 Neurologic No dizziness 11/11/2013 Neurologic No headache 11/11/2013 Psychiatric No anxiety 11/11/2013 Psychiatric No depression 11/11/2013 Constitutional No diaphoresis 08/19/2013 Constitutional fatigue 08/19/2013 Constitutional No fever 08/19/2013 Ears/Nose/Throat/Neck headache 2013 Ears/Nose/Throat/Neck No hearing loss Cardiovascular No chest pain/pressure Cardiovascular No dyspnea 08/19/2013 Cardiovascular No edema 08/19/2013 Cardiovascular No exercise intolerance Cardiovascular No fatigue 08/19/2013 Respiratory chest tightness 08/19/2013 Respiratory cough 08/19/2013 Gastrointestinal No anorexia 08/19/2013 Gastrointestinal No constipation 2013 Gastrointestinal No diarrhea 08/19/2013 Musculoskeletal No arthralgia(s) 2013 Musculoskeletal No back pain 08/19/2013 Musculoskeletal No muscle weakness 2013 Musculoskeletal myalgias 08/19/2013 Neurologic No aphasia 08/19/2013 Neurologic No ataxia 08/19/2013 Neurologic No dizziness 08/19/2013 Neurologic No gait abnormality 2013 Psychiatric No anxiety 08/19/2013 Psychiatric No depression 08/19/2013 Constitutional recent illness 08/19/2013 Ears/Nose/Throat/Neck nasal discharge Ears/Nose/Throat/Neck sore throat 2013 Constitutional No recent illness 2013 Constitutional No fatigue 07/29/2013 Constitutional No fever 07/29/2013 Eyes No eye discharge 07/29/2013 Ears/Nose/Throat/Neck No dizziness 2013 Cardiovascular No chest pain/pressure 09/2013 Respiratory No chest congestion 2013 Respiratory No cough 07/29/2013 Gastrointestinal No nausea 07/29/2013 Gastrointestinal No vomiting 07/29/2013 Musculoskeletal No swelling 07/29/2013 Musculoskeletal bone fracture 07/29/2013 Musculoskeletal muscle weakness 2013 Neurologic No dizziness 07/29/2013 Neurologic No headache 07/29/2013 Psychiatric No anxiety 07/29/2013 Psychiatric No depression 07/29/2013 Constitutional No recent illness 2013 Constitutional No fatigue 07/08/2013 Constitutional No fever 07/08/2013 Eyes No eye discharge 07/08/2013 Ears/Nose/Throat/Neck No dizziness 2013 Cardiovascular No chest pain/pressure 04/2014 Respiratory No chest congestion 2013 Respiratory No cough 07/08/2013 Gastrointestinal No nausea 07/08/2013 Gastrointestinal No vomiting 07/08/2013 Musculoskeletal No swelling 07/08/2013 Musculoskeletal bone fracture 07/08/2013 Musculoskeletal muscle weakness 2013 Neurologic No dizziness 07/08/2013 Neurologic No headache 07/08/2013 Psychiatric No anxiety 07/08/2013 Psychiatric No depression 07/08/2013 Constitutional No recent illness 2012 Constitutional No fatigue 04/27/2013 Constitutional No fever 04/27/2013 Eyes No eye discharge 04/27/2013 Ears/Nose/Throat/Neck No dizziness 2012 Cardiovascular No chest pain/pressure 06/2012 Respiratory No chest congestion 2012 Respiratory No cough 04/27/2013 Gastrointestinal No nausea 04/27/2013 Gastrointestinal No vomiting 04/27/2013 Musculoskeletal No swelling 04/27/2013 Musculoskeletal bone fracture 04/27/2013 Musculoskeletal muscle weakness 2012 Neurologic No dizziness 04/27/2013 Neurologic No headache 04/27/2013 Psychiatric No anxiety 04/27/2013 Psychiatric No depression 04/27/2013 Constitutional No recent illness 2012 Constitutional No fatigue 02/09/2013 Constitutional No fever 02/09/2013 Eyes No eye discharge 02/09/2013 Ears/Nose/Throat/Neck No dizziness 2012 Cardiovascular No chest pain/pressure Respiratory No chest congestion 2012 Respiratory No cough 02/09/2013 Gastrointestinal No nausea 02/09/2013 Gastrointestinal No vomiting 02/09/2013 Musculoskeletal No swelling 02/09/2013 Neurologic No dizziness 02/09/2013 Neurologic No headache 02/09/2013 Psychiatric No anxiety 02/09/2013 Psychiatric No depression 02/09/2013 Musculoskeletal bone fracture 02/09/2013 Musculoskeletal muscle weakness 2012 Constitutional No recent illness 2012 Constitutional No anorexia 09/19/2012 Constitutional No night sweats 2012 Constitutional No chills 09/19/2012 Constitutional No diaphoresis 09/19/2012 Constitutional No fever 09/19/2012 Constitutional No fatigue 09/19/2012 Constitutional No malaise 09/19/2012 Constitutional No insomnia 09/19/2012 Constitutional No weight loss 09/19/2012 Constitutional No weight gain 09/19/2012 Eyes No eye discharge 09/19/2012 Eyes No eye erythema 09/19/2012 Ears/Nose/Throat/Neck No dizziness 2012 Ears/Nose/Throat/Neck No nasal discharge 09/19/2012 Ears/Nose/Throat/Neck No nasal allergies 09/19/2012 Cardiovascular No chest pain/pressure Respiratory No productive sputum 2012 Respiratory No chest congestion 2012 Respiratory No cough 09/19/2012 Gastrointestinal No vomiting 09/19/2012 Gastrointestinal No nausea 09/19/2012 Gastrointestinal No abdominal pain 2012 Gastrointestinal No constipation 2012 Gastrointestinal No diarrhea 09/19/2012 Genitourinary/Nephrology No dysuria 09/19 Musculoskeletal stiffness 09/19/2012 Musculoskeletal arthralgia(s) 09/19/2012 Musculoskeletal back pain 09/19/2012 Musculoskeletal joint complaint 2012 Musculoskeletal shoulder pain 09/19/2012 Dermatologic No sores 09/19/2012 Dermatologic No rash 09/19/2012 Constitutional No recent illness 2012 Constitutional No anorexia 09/10/2012 Constitutional No night sweats 2012 Constitutional No chills 09/10/2012 Constitutional No diaphoresis 09/10/2012 Constitutional No fatigue 09/10/2012 Constitutional No fever 09/10/2012 Constitutional No insomnia 09/10/2012 Constitutional No malaise 09/10/2012 Constitutional No weight loss 09/10/2012 Constitutional No weight gain 09/10/2012 Eyes No eye discharge 09/10/2012 Eyes No eye erythema 09/10/2012 Cardiovascular No chest pain/pressure Respiratory No cough 09/10/2012 Gastrointestinal No diarrhea 09/10/2012 Gastrointestinal No constipation 2012 Gastrointestinal No nausea 09/10/2012 Genitourinary/Nephrology No dysuria 09/10 Dermatologic No rash 09/10/2012 Dermatologic No sores 09/10/2012 Musculoskeletal joint complaint 2012 Musculoskeletal sciatica 09/10/2012 Constitutional No recent illness 2012 Constitutional No fatigue 09/03/2012 Constitutional No fever 09/03/2012 Eyes No eye discharge 09/03/2012 Ears/Nose/Throat/Neck No dizziness 2012 Cardiovascular No chest pain/pressure 02/2013 Respiratory No chest congestion 2012 Respiratory No cough 09/03/2012 Gastrointestinal No nausea 09/03/2012 Gastrointestinal No vomiting 09/03/2012 Musculoskeletal No swelling 09/03/2012 Musculoskeletal No back pain 09/03/2012 Neurologic No dizziness 09/03/2012 Neurologic No headache 09/03/2012 Psychiatric No anxiety 09/03/2012 Psychiatric No depression 09/03/2012 Constitutional No recent illness 2012 Constitutional No anorexia 06/03/2012 Constitutional No chills 06/03/2012 Constitutional No night sweats 2012 Constitutional No diaphoresis 06/03/2012 Constitutional No fatigue 06/03/2012 Constitutional No insomnia 06/03/2012 Constitutional No fever 06/03/2012 Constitutional No malaise 06/03/2012 Cardiovascular No chest pain/pressure 12/2012 Cardiovascular No fatigue 06/03/2012 Cardiovascular hypertension 06/03/2012 Ears/Nose/Throat/Neck No dizziness 2012 Ears/Nose/Throat/Neck No headache 2012 Gastrointestinal No vomiting 06/03/2012 Gastrointestinal No nausea 06/03/2012 Dermatologic No rash 06/03/2012 Dermatologic No sores 06/03/2012 Constitutional No recent illness 2012 Constitutional No anorexia 05/28/2012 Constitutional No night sweats 2012 Constitutional No chills 05/28/2012 Constitutional No diaphoresis 05/28/2012 Constitutional No fatigue 05/28/2012 Constitutional No fever 05/28/2012 Constitutional No insomnia 05/28/2012 Eyes No eye discharge 05/28/2012 Eyes No eye erythema 05/28/2012 Cardiovascular No chest pain/pressure 06/2012 Cardiovascular No fatigue 05/28/2012 Cardiovascular hypertension 05/28/2012 Cardiovascular No dyspnea 05/28/2012 Cardiovascular No edema 05/28/2012 Respiratory No productive sputum 2012 Respiratory No chest congestion 2012 Respiratory No cough 05/28/2012 Gastrointestinal No vomiting 05/28/2012 Gastrointestinal No nausea 05/28/2012 Constitutional No recent illness 2011 Constitutional No fatigue 05/06/2012 Constitutional No fever 05/06/2012 Eyes No eye discharge 05/06/2012 Ears/Nose/Throat/Neck No dizziness 2011 Cardiovascular No chest pain/pressure 03/2012 Respiratory No chest congestion 2011 Respiratory No cough 05/06/2012 Gastrointestinal No nausea 05/06/2012 Gastrointestinal No vomiting 05/06/2012 Musculoskeletal No swelling 05/06/2012 Musculoskeletal No back pain 05/06/2012 Neurologic No dizziness 05/06/2012 Neurologic No headache 05/06/2012 Psychiatric No anxiety 05/06/2012 Psychiatric No depression 05/06/2012 Constitutional No recent illness 2011 Constitutional No anorexia 03/17/2012 Constitutional No night sweats 2011 Constitutional No chills 03/17/2012 Constitutional No diaphoresis 03/17/2012 Constitutional No fatigue 03/17/2012 Constitutional No fever 03/17/2012 Constitutional No insomnia 03/17/2012 Constitutional No malaise 03/17/2012 Eyes No vision change 03/17/2012 Cardiovascular No chest pain/pressure Respiratory No cough 03/17/2012 Gastrointestinal No nausea 03/17/2012 Gastrointestinal No vomiting 03/17/2012 Genitourinary/Nephrology No dysuria 03/17 Constitutional No recent illness 2011 Constitutional No anorexia 03/12/2012 Constitutional No night sweats 2011 Constitutional No chills 03/12/2012 Constitutional No diaphoresis 03/12/2012 Constitutional No fatigue 03/12/2012 Constitutional No fever 03/12/2012 Constitutional No insomnia 03/12/2012 Constitutional No malaise 03/12/2012 Cardiovascular No chest pain/pressure Respiratory No cough 03/12/2012 Gastrointestinal No vomiting 03/12/2012 Gastrointestinal No nausea 03/12/2012 Genitourinary/Nephrology No dysuria 03/12 Eyes No vision change 03/12/2012 Constitutional No recent illness 2011 Constitutional No fatigue 01/02/2012 Constitutional No fever 01/02/2012 Ears/Nose/Throat/Neck No dizziness 2011 Cardiovascular No chest pain/pressure 12/2011 Respiratory No chest congestion 2011 Respiratory No cough 01/02/2012 Gastrointestinal No nausea 01/02/2012 Gastrointestinal No vomiting 01/02/2012 Musculoskeletal No swelling 01/02/2012 Musculoskeletal No back pain 01/02/2012 Neurologic No dizziness 01/02/2012 Neurologic No headache 01/02/2012 Psychiatric No anxiety 01/02/2012 Psychiatric No depression 01/02/2012 Eyes No eye discharge 01/02/2012 Constitutional No recent illness 2011 Constitutional No fatigue 10/10/2011 Constitutional No fever 10/10/2011 Ears/Nose/Throat/Neck No dizziness 2011 Cardiovascular No chest pain/pressure Respiratory No chest congestion 2011 Respiratory No cough 10/10/2011 Gastrointestinal No nausea 10/10/2011 Gastrointestinal No vomiting 10/10/2011 Musculoskeletal No swelling 10/10/2011 Musculoskeletal No back pain 10/10/2011 Neurologic No dizziness 10/10/2011 Neurologic No headache 10/10/2011 Psychiatric No anxiety 10/10/2011 Psychiatric No depression 10/10/2011 Constitutional fatigue 08/22/2011 Constitutional No fever 08/22/2011 Eyes No eye erythema 08/22/2011 Cardiovascular No chest pain/pressure Ears/Nose/Throat/Neck No nasal allergies 08/22/2011 Ears/Nose/Throat/Neck No nasal discharge 08/22/2011 Ears/Nose/Throat/Neck No sinus congestion 08/22/2011 Ears/Nose/Throat/Neck No sore throat Respiratory No productive sputum 2011 Respiratory No chest congestion 2011 Respiratory No cough 08/22/2011 Gastrointestinal No vomiting 08/22/2011 Gastrointestinal No nausea 08/22/2011 Gastrointestinal No abdominal pain 2011 Musculoskeletal joint complaint 2011 Dermatologic No rash 08/22/2011 Musculoskeletal No swelling 08/22/2011 Musculoskeletal stiffness 08/22/2011 Neurologic No alteration of consciousness 08/22/2011 Constitutional No recent illness 2011 Constitutional No chills 08/22/2011 Constitutional No diaphoresis 08/22/2011 Constitutional No recent illness 2011 Constitutional No fatigue 06/20/2011 Constitutional No fever 06/20/2011 Ears/Nose/Throat/Neck No dizziness 2011 Cardiovascular No chest pain/pressure Respiratory No chest congestion 2011 Respiratory No cough 06/20/2011 Gastrointestinal No nausea 06/20/2011 Gastrointestinal No vomiting 06/20/2011 Musculoskeletal No swelling 06/20/2011 Musculoskeletal No back pain 06/20/2011 Neurologic No dizziness 06/20/2011 Neurologic No headache 06/20/2011 Psychiatric No anxiety 06/20/2011 Psychiatric No depression 06/20/2011 Constitutional No fever 03/21/2011 Cardiovascular No chest pain/pressure Gastrointestinal No nausea 03/21/2011 Gastrointestinal No vomiting 03/21/2011 Constitutional No fatigue 03/21/2011 Constitutional No recent illness 2010 Respiratory No cough 03/21/2011 Respiratory No chest congestion 2010 Ears/Nose/Throat/Neck No dizziness 2010 Musculoskeletal No swelling 03/21/2011 Musculoskeletal No back pain 03/21/2011 Neurologic No dizziness 03/21/2011 Neurologic No headache 03/21/2011 Psychiatric No anxiety 03/21/2011 Psychiatric No depression 03/21/2011 Constitutional No recent illness 2010 Constitutional No chills 01/30/2011 Constitutional No fever 01/30/2011 Constitutional No malaise 01/30/2011 Neurologic No ataxia 01/23/2011 Neurologic No dizziness 01/23/2011 Neurologic No gait abnormality 2010 Psychiatric No anxiety 01/23/2011 Psychiatric No depression 01/23/2011 Constitutional No night sweats 2010 Constitutional No diaphoresis 01/23/2011 Constitutional No fatigue 01/23/2011 Constitutional No chills 01/23/2011 Constitutional No fever 01/23/2011 Eyes vision change 01/23/2011 Ears/Nose/Throat/Neck No dizziness 2010 Ears/Nose/Throat/Neck No headache 2010 Ears/Nose/Throat/Neck No hearing loss Cardiovascular No chest pain/pressure Cardiovascular No dyspnea 01/23/2011 Cardiovascular No edema 01/23/2011 Cardiovascular No exercise intolerance Cardiovascular No fatigue 01/23/2011 Respiratory No chest tightness 2010 Respiratory No cough 01/23/2011 Gastrointestinal No anorexia 01/23/2011 Gastrointestinal No constipation 2010 Gastrointestinal No diarrhea 01/23/2011 Genitourinary/Nephrology No urinary incontinence 01/23/2011 Musculoskeletal No back pain 01/23/2011 Musculoskeletal No arthralgia(s) 2010 Musculoskeletal myalgias 01/23/2011 Musculoskeletal No muscle weakness 2010 Neurologic No aphasia 01/23/2011 Physical Exam Exam Name System Name Item Name Status Result Effective Dates Notes Full Exam - General 1994 Constitutional general appearance Development: well developed 06/19/2017 None Full Exam - General 1994 Constitutional general appearance Development: appears stated age 0106/19/2017 None Full Exam - General 1994 Constitutional general appearance Stature/Body Habitus: short stature 06/19/2017 None Full Exam - General 1994 Constitutional general appearance Nourishment: obese 06/19/2017 None Full Exam - General 1994 Constitutional general appearance Evidence of Distress: in no acute distress 06/19/2017 None Full Exam - General 1994 Constitutional general appearance Hygiene/Attention to Grooming: good hygiene 06/19/2017 None Full Exam - General 1994 Constitutional general appearance Hygiene/Attention to Grooming: normal grooming 06/19/2017 None Full Exam - General 1994 Eyes pupils and irises Overall: pupils round, reactive to light and accomodation 06/19/2017 None Full Exam - General 1994 Ears/Nose/Throat otoscopic exam Overall: external auditory canals clear 06/19/2017 None Full Exam - General 1994 Ears/Nose/Throat otoscopic exam Overall: tympanic membranes clear 06/19/2017 None Full Exam - General 1994 Ears/Nose/Throat oral cavity/pharynx/larynx Overall: oral mucosa clear 06/19/2017 None Full Exam - General 1994 Ears/Nose/Throat oral cavity/pharynx/larynx Overall: oropharyngeal mucosa clear 06/19/2017 None Full Exam - General 1994 Ears/Nose/Throat oral cavity/pharynx/larynx Overall: no masses 06/19/2017 None Full Exam - General 1994 Respiratory auscultation Overall: breath sounds clear bilaterally 06/19/2017 None Full Exam - General 1994 Respiratory respiratory effort/rhythm Overall: no retractions 06/19/2017 None Full Exam - General 1994 Respiratory respiratory effort/rhythm Overall: normal rate 06/19/2017 None Full Exam - General 1994 Cardiovascular auscultation of heart Overall: regular rate 06/19/2017 None Full Exam - General 1994 Cardiovascular auscultation of heart Overall: normal heart sounds 06/19/2017 None Full Exam - General 1994 Cardiovascular auscultation of heart Overall: no murmurs 06/19/2017 None Full Exam - General 1994 Abdomen abdominal exam Overall: normal bowel sounds 06/19/2017 None Full Exam - General 1994 Musculoskeletal gait and station Gait: asymmetric 06/19/2017 None Full Exam - General 1994 Musculoskeletal gait and station Gait: unable to turn quickly 06/19/2017 None Full Exam - General 1994 Musculoskeletal head and neck Overall: head atraumatic 06/19/2017 None Full Exam - General 1994 Musculoskeletal head and neck Overall: cervical spine benign 06/19/2017 None Full Exam - General 1994 Integument inspection of skin Overall: few scattered moles, no gross abnormalities 06/19/2017 None Full Exam - General 1994 Psychiatric orientation/consciousness Overall: oriented to person, place and time 06/19/2017 None Full Exam - General 1994 Psychiatric mood and affect Overall: normal mood and affect 06/19/2017 None Full Exam - General 1994 Abdomen abdominal exam Upper quadrant: tender to palpation 06/19/2017 None Full Exam - General 1994 Constitutional general appearance Development: well developed 02/14/2017 None Full Exam - General 1994 Constitutional general appearance Development: appears stated age 0902/14/2017 None Full Exam - General 1994 Constitutional general appearance Stature/Body Habitus: short stature 02/14/2017 None Full Exam - General 1994 Constitutional general appearance Nourishment: obese 02/14/2017 None Full Exam - General 1994 Constitutional general appearance Evidence of Distress: in no acute distress 02/14/2017 None Full Exam - General 1994 Constitutional general appearance Hygiene/Attention to Grooming: good hygiene 02/14/2017 None Full Exam - General 1994 Constitutional general appearance Hygiene/Attention to Grooming: normal grooming 02/14/2017 None Full Exam - General 1994 Eyes pupils and irises Overall: pupils round, reactive to light and accomodation 02/14/2017 None Full Exam - General 1994 Respiratory auscultation Overall: breath sounds clear bilaterally 02/14/2017 None Full Exam - General 1994 Respiratory respiratory effort/rhythm Overall: no retractions 02/14/2017 None Full Exam - General 1994 Respiratory respiratory effort/rhythm Overall: normal rate 02/14/2017 None Full Exam - General 1994 Cardiovascular auscultation of heart Overall: regular rate 02/14/2017 None Full Exam - General 1994 Cardiovascular auscultation of heart Overall: normal heart sounds 02/14/2017 None Full Exam - General 1994 Cardiovascular auscultation of heart Overall: no murmurs 02/14/2017 None Full Exam - General 1994 Abdomen abdominal exam Overall: no tenderness 02/14/2017 None Full Exam - General 1994 Abdomen abdominal exam Overall: normal bowel sounds 02/14/2017 None Full Exam - General 1994 Musculoskeletal gait and station Gait: asymmetric 02/14/2017 None Full Exam - General 1994 Musculoskeletal gait and station Gait: unable to turn quickly 02/14/2017 None Full Exam - General 1994 Musculoskeletal head and neck Overall: head atraumatic 02/14/2017 None Full Exam - General 1994 Musculoskeletal head and neck Overall: cervical spine benign 02/14/2017 None Full Exam - General 1994 Psychiatric orientation/consciousness Overall: oriented to person, place and time 02/14/2017 None Full Exam - General 1994 Psychiatric mood and affect Overall: normal mood and affect 02/14/2017 None Full Exam - General 1994 Ears/Nose/Throat otoscopic exam Overall: tympanic membranes clear 02/14/2017 None Full Exam - General 1994 Ears/Nose/Throat otoscopic exam Overall: external auditory canals clear 02/14/2017 None Full Exam - General 1994 Ears/Nose/Throat oral cavity/pharynx/larynx Overall: oropharyngeal mucosa clear 02/14/2017 None Full Exam - General 1994 Ears/Nose/Throat oral cavity/pharynx/larynx Overall: no masses 02/14/2017 None Full Exam - General 1994 Ears/Nose/Throat oral cavity/pharynx/larynx Overall: oral mucosa clear 02/14/2017 None Full Exam - General 1994 Integument inspection of skin Overall: few scattered moles, no gross abnormalities 02/14/2017 None Full Exam - General 1994 Constitutional general appearance Overall: well developed 01/07/2017 None Full Exam - General 1994 Constitutional general appearance Overall: in no acute distress 01/07/2017 None Full Exam - General 1994 Constitutional general appearance Overall: well nourished 01/07/2017 None Full Exam - General 1994 Eyes conjunctiva /eyelids Overall: conjunctiva clear 01/07/2017 None Full Exam - General 1994 Eyes conjunctiva /eyelids Overall: eyelids normal 01/07/2017 None Full Exam - General 1994 Ears/Nose/Throat lips/teeth/gingiva Overall: benign lips 01/07/2017 None Full Exam - General 1994 Ears/Nose/Throat oral cavity/pharynx/larynx Overall: oral mucosa clear 01/07/2017 None Full Exam - General 1994 Ears/Nose/Throat oral cavity/pharynx/larynx Posterior Pharynx: clear post nasal drainage 01/07/2017 None Full Exam - General 1994 Respiratory respiratory effort/rhythm Overall: no retractions 01/07/2017 None Full Exam - General 1994 Respiratory respiratory effort/rhythm Overall: normal rate 01/07/2017 None Full Exam - General 1994 Respiratory auscultation Overall: breath sounds clear bilaterally 01/07/2017 None Full Exam - General 1994 Cardiovascular auscultation of heart Overall: regular rate 01/07/2017 None Full Exam - General 1994 Cardiovascular auscultation of heart Overall: normal heart sounds 01/07/2017 None Full Exam - General 1994 Abdomen abdominal exam Overall: normal bowel sounds 01/07/2017 None Full Exam - General 1994 Abdomen abdominal exam Overall: no tenderness 01/07/2017 None Full Exam - General 1994 Musculoskeletal gait and station Overall: normal gait 01/07/2017 None Full Exam - General 1994 Musculoskeletal gait and station Overall: normal station 01/07/2017 None Full Exam - General 1994 Musculoskeletal head and neck Overall: head atraumatic 01/07/2017 None Full Exam - General 1994 Neurologic cranial nerves Overall: crainial nerves 2 - 12 grossly intact 01/07/2017 None Full Exam - General 1994 Psychiatric orientation/consciousness Overall: oriented to person, place and time 01/07/2017 None Full Exam - General 1994 Psychiatric mood and affect Overall: normal mood and affect 01/07/2017 None Full Exam - General 1994 Psychiatric appearance Overall: well-groomed, good eye contact 01/07/2017 None Full Exam - General 1994 Constitutional general appearance Development: well developed 11/14/2016 None Full Exam - General 1994 Constitutional general appearance Development: appears stated age 0611/14/2016 None Full Exam - General 1994 Constitutional general appearance Stature/Body Habitus: short stature 11/14/2016 None Full Exam - General 1994 Constitutional general appearance Nourishment: obese 11/14/2016 None Full Exam - General 1994 Constitutional general appearance Evidence of Distress: in no acute distress 11/14/2016 None Full Exam - General 1994 Constitutional general appearance Hygiene/Attention to Grooming: good hygiene 11/14/2016 None Full Exam - General 1994 Constitutional general appearance Hygiene/Attention to Grooming: normal grooming 11/14/2016 None Full Exam - General 1994 Eyes pupils and irises Overall: pupils round, reactive to light and accomodation 11/14/2016 None Full Exam - General 1994 Respiratory auscultation Overall: breath sounds clear bilaterally 11/14/2016 None Full Exam - General 1994 Respiratory respiratory effort/rhythm Overall: no retractions 11/14/2016 None Full Exam - General 1994 Respiratory respiratory effort/rhythm Overall: normal rate 11/14/2016 None Full Exam - General 1994 Cardiovascular auscultation of heart Overall: regular rate 11/14/2016 None Full Exam - General 1994 Cardiovascular auscultation of heart Overall: normal heart sounds 11/14/2016 None Full Exam - General 1994 Cardiovascular auscultation of heart Overall: no murmurs 11/14/2016 None Full Exam - General 1994 Abdomen abdominal exam Overall: no tenderness 11/14/2016 None Full Exam - General 1994 Abdomen abdominal exam Overall: normal bowel sounds 11/14/2016 None Full Exam - General 1994 Musculoskeletal gait and station Gait: asymmetric 11/14/2016 None Full Exam - General 1994 Musculoskeletal gait and station Gait: unable to turn quickly 11/14/2016 None Full Exam - General 1994 Musculoskeletal head and neck Overall: head atraumatic 11/14/2016 None Full Exam - General 1994 Musculoskeletal head and neck Overall: cervical spine benign 11/14/2016 None Full Exam - General 1994 Psychiatric orientation/consciousness Overall: oriented to person, place and time 11/14/2016 None Full Exam - General 1994 Psychiatric mood and affect Overall: normal mood and affect 11/14/2016 None Full Exam - General 1994 Constitutional general appearance Development: well developed 10/11/2016 None Full Exam - General 1994 Constitutional general appearance Development: appears stated age 0510/11/2016 None Full Exam - General 1994 Constitutional general appearance Stature/Body Habitus: short stature 10/11/2016 None Full Exam - General 1994 Constitutional general appearance Nourishment: obese 10/11/2016 None Full Exam - General 1994 Constitutional general appearance Evidence of Distress: in no acute distress 10/11/2016 None Full Exam - General 1994 Constitutional general appearance Hygiene/Attention to Grooming: good hygiene 10/11/2016 None Full Exam - General 1994 Constitutional general appearance Hygiene/Attention to Grooming: normal grooming 10/11/2016 None Full Exam - General 1994 Eyes pupils and irises Overall: pupils round, reactive to light and accomodation 10/11/2016 None Full Exam - General 1994 Ears/Nose/Throat otoscopic exam Overall: external auditory canals clear 10/11/2016 None Full Exam - General 1994 Ears/Nose/Throat otoscopic exam Overall: tympanic membranes clear 10/11/2016 None Full Exam - General 1994 Ears/Nose/Throat oral cavity/pharynx/larynx Overall: oral mucosa clear 10/11/2016 None Full Exam - General 1994 Ears/Nose/Throat oral cavity/pharynx/larynx Overall: oropharyngeal mucosa clear 10/11/2016 None Full Exam - General 1994 Ears/Nose/Throat oral cavity/pharynx/larynx Overall: no masses 10/11/2016 None Full Exam - General 1994 Respiratory auscultation Overall: breath sounds clear bilaterally 10/11/2016 None Full Exam - General 1994 Respiratory respiratory effort/rhythm Overall: no retractions 10/11/2016 None Full Exam - General 1994 Respiratory respiratory effort/rhythm Overall: normal rate 10/11/2016 None Full Exam - General 1994 Cardiovascular auscultation of heart Overall: regular rate 10/11/2016 None Full Exam - General 1994 Cardiovascular auscultation of heart Overall: normal heart sounds 10/11/2016 None Full Exam - General 1994 Cardiovascular auscultation of heart Overall: no murmurs 10/11/2016 None Full Exam - General 1994 Abdomen abdominal exam Overall: no tenderness 10/11/2016 None Full Exam - General 1994 Abdomen abdominal exam Overall: normal bowel sounds 10/11/2016 None Full Exam - General 1994 Musculoskeletal gait and station Gait: asymmetric 10/11/2016 None Full Exam - General 1994 Musculoskeletal gait and station Gait: unable to turn quickly 10/11/2016 None Full Exam - General 1994 Musculoskeletal head and neck Overall: head atraumatic 10/11/2016 None Full Exam - General 1994 Musculoskeletal head and neck Overall: cervical spine benign 10/11/2016 None Full Exam - General 1994 Neurologic gait Overall: no ataxia, no unsteadiness 10/11/2016 None Full Exam - General 1994 Psychiatric orientation/consciousness Overall: oriented to person, place and time 10/11/2016 None Full Exam - General 1994 Psychiatric mood and affect Overall: normal mood and affect 10/11/2016 None Full Exam - General 1994 Constitutional general appearance Development: well developed 06/14/2016 None Full Exam - General 1994 Constitutional general appearance Development: appears stated age 0106/14/2016 None Full Exam - General 1994 Constitutional general appearance Stature/Body Habitus: short stature 06/14/2016 None Full Exam - General 1994 Constitutional general appearance Nourishment: obese 06/14/2016 None Full Exam - General 1994 Constitutional general appearance Evidence of Distress: in no acute distress 06/14/2016 None Full Exam - General 1994 Constitutional general appearance Hygiene/Attention to Grooming: good hygiene 06/14/2016 None Full Exam - General 1994 Constitutional general appearance Hygiene/Attention to Grooming: normal grooming 06/14/2016 None Full Exam - General 1994 Eyes pupils and irises Overall: pupils round, reactive to light and accomodation 06/14/2016 None Full Exam - General 1994 Ears/Nose/Throat otoscopic exam Overall: external auditory canals clear 06/14/2016 None Full Exam - General 1994 Ears/Nose/Throat otoscopic exam Overall: tympanic membranes clear 06/14/2016 None Full Exam - General 1994 Ears/Nose/Throat oral cavity/pharynx/larynx Overall: oral mucosa clear 06/14/2016 None Full Exam - General 1994 Ears/Nose/Throat oral cavity/pharynx/larynx Overall: oropharyngeal mucosa clear 06/14/2016 None Full Exam - General 1994 Ears/Nose/Throat oral cavity/pharynx/larynx Overall: no masses 06/14/2016 None Full Exam - General 1994 Respiratory auscultation Overall: breath sounds clear bilaterally 06/14/2016 None Full Exam - General 1994 Respiratory respiratory effort/rhythm Overall: no retractions 06/14/2016 None Full Exam - General 1994 Respiratory respiratory effort/rhythm Overall: normal rate 06/14/2016 None Full Exam - General 1994 Cardiovascular auscultation of heart Overall: regular rate 06/14/2016 None Full Exam - General 1994 Cardiovascular auscultation of heart Overall: normal heart sounds 06/14/2016 None Full Exam - General 1994 Cardiovascular auscultation of heart Overall: no murmurs 06/14/2016 None Full Exam - General 1994 Abdomen abdominal exam Overall: no tenderness 06/14/2016 None Full Exam - General 1994 Abdomen abdominal exam Overall: normal bowel sounds 06/14/2016 None Full Exam - General 1994 Musculoskeletal gait and station Gait: asymmetric 06/14/2016 None Full Exam - General 1994 Musculoskeletal gait and station Gait: unable to turn quickly 06/14/2016 None Full Exam - General 1994 Musculoskeletal head and neck Overall: head atraumatic 06/14/2016 None Full Exam - General 1994 Musculoskeletal head and neck Overall: cervical spine benign 06/14/2016 None Full Exam - General 1994 Neurologic gait Overall: no ataxia, no unsteadiness 06/14/2016 None Full Exam - General 1994 Psychiatric orientation/consciousness Overall: oriented to person, place and time 06/14/2016 None Full Exam - General 1994 Psychiatric mood and affect Overall: normal mood and affect 06/14/2016 None Full Exam - General 1994 Constitutional general appearance Development: well developed 02/27/2016 None Full Exam - General 1994 Constitutional general appearance Development: appears stated age 1002/27/2016 None Full Exam - General 1994 Constitutional general appearance Stature/Body Habitus: short stature 02/27/2016 None Full Exam - General 1994 Constitutional general appearance Nourishment: obese 02/27/2016 None Full Exam - General 1994 Constitutional general appearance Evidence of Distress: in no acute distress 02/27/2016 None Full Exam - General 1994 Constitutional general appearance Hygiene/Attention to Grooming: good hygiene 02/27/2016 None Full Exam - General 1994 Constitutional general appearance Hygiene/Attention to Grooming: normal grooming 02/27/2016 None Full Exam - General 1994 Eyes pupils and irises Overall: pupils round, reactive to light and accomodation 02/27/2016 None Full Exam - General 1994 Ears/Nose/Throat otoscopic exam Overall: external auditory canals clear 02/27/2016 None Full Exam - General 1994 Ears/Nose/Throat otoscopic exam Overall: tympanic membranes clear 02/27/2016 None Full Exam - General 1994 Ears/Nose/Throat oral cavity/pharynx/larynx Overall: oral mucosa clear 02/27/2016 None Full Exam - General 1994 Ears/Nose/Throat oral cavity/pharynx/larynx Overall: oropharyngeal mucosa clear 02/27/2016 None Full Exam - General 1994 Ears/Nose/Throat oral cavity/pharynx/larynx Overall: no masses 02/27/2016 None Full Exam - General 1994 Respiratory auscultation Overall: breath sounds clear bilaterally 02/27/2016 None Full Exam - General 1994 Respiratory respiratory effort/rhythm Overall: no retractions 02/27/2016 None Full Exam - General 1994 Respiratory respiratory effort/rhythm Overall: normal rate 02/27/2016 None Full Exam - General 1994 Cardiovascular auscultation of heart Overall: regular rate 02/27/2016 None Full Exam - General 1994 Cardiovascular auscultation of heart Overall: normal heart sounds 02/27/2016 None Full Exam - General 1994 Cardiovascular auscultation of heart Overall: no murmurs 02/27/2016 None Full Exam - General 1994 Abdomen abdominal exam Overall: no tenderness 02/27/2016 None Full Exam - General 1994 Abdomen abdominal exam Overall: normal bowel sounds 02/27/2016 None Full Exam - General 1994 Musculoskeletal gait and station Gait: asymmetric 02/27/2016 None Full Exam - General 1994 Musculoskeletal gait and station Gait: unable to turn quickly 02/27/2016 None Full Exam - General 1994 Musculoskeletal head and neck Overall: head atraumatic 02/27/2016 None Full Exam - General 1994 Musculoskeletal head and neck Overall: cervical spine benign 02/27/2016 None Full Exam - General 1994 Neurologic gait Overall: no ataxia, no unsteadiness 02/27/2016 None Full Exam - General 1994 Psychiatric orientation/consciousness Overall: oriented to person, place and time 02/27/2016 None Full Exam - General 1994 Psychiatric mood and affect Overall: normal mood and affect 02/27/2016 None Full Exam - General 1994 Constitutional general appearance Development: well developed 02/08/2016 None Full Exam - General 1994 Constitutional general appearance Development: appears stated age 0902/08/2016 None Full Exam - General 1994 Constitutional general appearance Stature/Body Habitus: short stature 02/08/2016 None Full Exam - General 1994 Constitutional general appearance Nourishment: obese 02/08/2016 None Full Exam - General 1994 Constitutional general appearance Evidence of Distress: in no acute distress 02/08/2016 None Full Exam - General 1994 Constitutional general appearance Hygiene/Attention to Grooming: good hygiene 02/08/2016 None Full Exam - General 1994 Constitutional general appearance Hygiene/Attention to Grooming: normal grooming 02/08/2016 None Full Exam - General 1994 Eyes pupils and irises Overall: pupils round, reactive to light and accomodation 02/08/2016 None Full Exam - General 1994 Ears/Nose/Throat otoscopic exam Overall: external auditory canals clear 02/08/2016 None Full Exam - General 1994 Ears/Nose/Throat otoscopic exam Overall: tympanic membranes clear 02/08/2016 None Full Exam - General 1994 Ears/Nose/Throat oral cavity/pharynx/larynx Overall: oral mucosa clear 02/08/2016 None Full Exam - General 1994 Ears/Nose/Throat oral cavity/pharynx/larynx Overall: oropharyngeal mucosa clear 02/08/2016 None Full Exam - General 1994 Ears/Nose/Throat oral cavity/pharynx/larynx Overall: no masses 02/08/2016 None Full Exam - General 1994 Respiratory auscultation Overall: breath sounds clear bilaterally 02/08/2016 None Full Exam - General 1994 Respiratory respiratory effort/rhythm Overall: no retractions 02/08/2016 None Full Exam - General 1994 Respiratory respiratory effort/rhythm Overall: normal rate 02/08/2016 None Full Exam - General 1994 Cardiovascular auscultation of heart Overall: regular rate 02/08/2016 None Full Exam - General 1994 Cardiovascular auscultation of heart Overall: normal heart sounds 02/08/2016 None Full Exam - General 1994 Cardiovascular auscultation of heart Overall: no murmurs 02/08/2016 None Full Exam - General 1994 Abdomen abdominal exam Overall: no tenderness 02/08/2016 None Full Exam - General 1994 Abdomen abdominal exam Overall: normal bowel sounds 02/08/2016 None Full Exam - General 1994 Musculoskeletal gait and station Gait: asymmetric 02/08/2016 None Full Exam - General 1994 Musculoskeletal gait and station Gait: unable to turn quickly 02/08/2016 None Full Exam - General 1994 Musculoskeletal head and neck Overall: head atraumatic 02/08/2016 None Full Exam - General 1994 Musculoskeletal head and neck Overall: cervical spine benign 02/08/2016 None Full Exam - General 1994 Neurologic gait Overall: no ataxia, no unsteadiness 02/08/2016 None Full Exam - General 1994 Psychiatric orientation/consciousness Overall: oriented to person, place and time 02/08/2016 None Full Exam - General 1994 Psychiatric mood and affect Overall: normal mood and affect 02/08/2016 None Full Exam - General 1994 Constitutional general appearance Development: well developed 12/26/2015 None Full Exam - General 1994 Constitutional general appearance Development: appears stated age 0812/26/2015 None Full Exam - General 1994 Constitutional general appearance Stature/Body Habitus: short stature 12/26/2015 None Full Exam - General 1994 Constitutional general appearance Nourishment: obese 12/26/2015 None Full Exam - General 1994 Constitutional general appearance Evidence of Distress: in no acute distress 12/26/2015 None Full Exam - General 1994 Constitutional general appearance Hygiene/Attention to Grooming: good hygiene 12/26/2015 None Full Exam - General 1994 Constitutional general appearance Hygiene/Attention to Grooming: normal grooming 12/26/2015 None Full Exam - General 1994 Eyes pupils and irises Overall: pupils round, reactive to light and accomodation 12/26/2015 None Full Exam - General 1994 Ears/Nose/Throat otoscopic exam Overall: external auditory canals clear 12/26/2015 None Full Exam - General 1994 Ears/Nose/Throat otoscopic exam Overall: tympanic membranes clear 12/26/2015 None Full Exam - General 1994 Ears/Nose/Throat oral cavity/pharynx/larynx Overall: oral mucosa clear 12/26/2015 None Full Exam - General 1994 Ears/Nose/Throat oral cavity/pharynx/larynx Overall: oropharyngeal mucosa clear 12/26/2015 None Full Exam - General 1994 Ears/Nose/Throat oral cavity/pharynx/larynx Overall: no masses 12/26/2015 None Full Exam - General 1994 Respiratory auscultation Overall: breath sounds clear bilaterally 12/26/2015 None Full Exam - General 1994 Respiratory respiratory effort/rhythm Overall: no retractions 12/26/2015 None Full Exam - General 1994 Respiratory respiratory effort/rhythm Overall: normal rate 12/26/2015 None Full Exam - General 1994 Cardiovascular auscultation of heart Overall: regular rate 12/26/2015 None Full Exam - General 1994 Cardiovascular auscultation of heart Overall: normal heart sounds 12/26/2015 None Full Exam - General 1994 Cardiovascular auscultation of heart Overall: no murmurs 12/26/2015 None Full Exam - General 1994 Musculoskeletal gait and station Gait: asymmetric 12/26/2015 None Full Exam - General 1994 Musculoskeletal gait and station Gait: unable to turn quickly 12/26/2015 None Full Exam - General 1994 Musculoskeletal head and neck Overall: head atraumatic 12/26/2015 None Full Exam - General 1994 Musculoskeletal head and neck Overall: cervical spine benign 12/26/2015 None Full Exam - General 1994 Neurologic gait Overall: no ataxia, no unsteadiness 12/26/2015 None Full Exam - General 1994 Psychiatric orientation/consciousness Overall: oriented to person, place and time 12/26/2015 None Full Exam - General 1994 Psychiatric mood and affect Overall: normal mood and affect 12/26/2015 None Full Exam - General 1994 Abdomen abdominal exam Overall: no tenderness 12/26/2015 None Full Exam - General 1994 Abdomen abdominal exam Overall: normal bowel sounds 12/26/2015 None Full Exam - General 1994 Constitutional general appearance Stature/Body Habitus: short stature 11/15/2015 None Full Exam - General 1994 Ears/Nose/Throat otoscopic exam Overall: external auditory canals clear 11/15/2015 None Full Exam - General 1994 Ears/Nose/Throat oral cavity/pharynx/larynx Overall: oral mucosa clear 11/15/2015 None Full Exam - General 1994 Respiratory auscultation Overall: breath sounds clear bilaterally 11/15/2015 None Full Exam - General 1994 Respiratory respiratory effort/rhythm Overall: no retractions 11/15/2015 None Full Exam - General 1994 Respiratory respiratory effort/rhythm Overall: normal rate 11/15/2015 None Full Exam - General 1994 Cardiovascular auscultation of heart Overall: regular rate 11/15/2015 None Full Exam - General 1994 Cardiovascular auscultation of heart Overall: normal heart sounds 11/15/2015 None Full Exam - General 1994 Musculoskeletal gait and station Gait: asymmetric 11/15/2015 None Full Exam - General 1994 Musculoskeletal gait and station Gait: unable to turn quickly 11/15/2015 None Full Exam - General 1994 Musculoskeletal head and neck Overall: head atraumatic 11/15/2015 None Full Exam - General 1994 Neurologic gait Overall: no ataxia, no unsteadiness 11/15/2015 None Full Exam - General 1994 Psychiatric orientation/consciousness Overall: oriented to person, place and time 11/15/2015 None Full Exam - General 1994 Psychiatric mood and affect Overall: normal mood and affect 11/15/2015 None Full Exam - General 1994 Constitutional general appearance Overall: well developed 11/15/2015 None Full Exam - General 1994 Constitutional general appearance Overall: in no acute distress 11/15/2015 None Full Exam - General 1994 Constitutional general appearance Overall: well nourished 11/15/2015 None Full Exam - General 1994 Eyes conjunctiva /eyelids Overall: conjunctiva clear 11/15/2015 None Full Exam - General 1994 Ears/Nose/Throat otoscopic exam Tympanic membrane: air- fluid level 11/15/2015 None Full Exam - General 1994 Ears/Nose/Throat oral cavity/pharynx/larynx Posterior Pharynx: clear post nasal drainage 11/15/2015 None Full Exam - General 1994 Ears/Nose/Throat oral cavity/pharynx/larynx Oropharynx: erythema 11/15/2015 None Full Exam - General 1994 Ears/Nose/Throat lips/teeth/gingiva Overall: benign lips 11/15/2015 None Full Exam - General 1994 Ears/Nose/Throat internal nose Sinus tenderness: left maxillary 11/15/2015 None Full Exam - General 1994 Ears/Nose/Throat internal nose Sinus tenderness: right maxillary 11/15/2015 None Full Exam - General 1994 Constitutional general appearance Development: well developed 08/01/2015 None Full Exam - General 1994 Constitutional general appearance Development: appears stated age 0308/01/2015 None Full Exam - General 1994 Constitutional general appearance Stature/Body Habitus: short stature 08/01/2015 None Full Exam - General 1994 Constitutional general appearance Nourishment: obese 08/01/2015 None Full Exam - General 1994 Constitutional general appearance Evidence of Distress: in no acute distress 08/01/2015 None Full Exam - General 1994 Constitutional general appearance Hygiene/Attention to Grooming: good hygiene 08/01/2015 None Full Exam - General 1994 Constitutional general appearance Hygiene/Attention to Grooming: normal grooming 08/01/2015 None Full Exam - General 1994 Eyes pupils and irises Overall: pupils round, reactive to light and accomodation 08/01/2015 None Full Exam - General 1994 Ears/Nose/Throat otoscopic exam Overall: external auditory canals clear 08/01/2015 None Full Exam - General 1994 Ears/Nose/Throat otoscopic exam Overall: tympanic membranes clear 08/01/2015 None Full Exam - General 1994 Ears/Nose/Throat oral cavity/pharynx/larynx Overall: oral mucosa clear 08/01/2015 None Full Exam - General 1994 Ears/Nose/Throat oral cavity/pharynx/larynx Overall: oropharyngeal mucosa clear 08/01/2015 None Full Exam - General 1994 Ears/Nose/Throat oral cavity/pharynx/larynx Overall: no masses 08/01/2015 None Full Exam - General 1994 Respiratory auscultation Overall: breath sounds clear bilaterally 08/01/2015 None Full Exam - General 1994 Respiratory respiratory effort/rhythm Overall: no retractions 08/01/2015 None Full Exam - General 1994 Respiratory respiratory effort/rhythm Overall: normal rate 08/01/2015 None Full Exam - General 1994 Cardiovascular auscultation of heart Overall: regular rate 08/01/2015 None Full Exam - General 1994 Cardiovascular auscultation of heart Overall: normal heart sounds 08/01/2015 None Full Exam - General 1994 Cardiovascular auscultation of heart Overall: no murmurs 08/01/2015 None Full Exam - General 1994 Musculoskeletal gait and station Gait: asymmetric 08/01/2015 None Full Exam - General 1994 Musculoskeletal gait and station Gait: unable to turn quickly 08/01/2015 None Full Exam - General 1994 Musculoskeletal head and neck Overall: head atraumatic 08/01/2015 None Full Exam - General 1994 Musculoskeletal head and neck Overall: cervical spine benign 08/01/2015 None Full Exam - General 1994 Neurologic gait Overall: no ataxia, no unsteadiness 08/01/2015 None Full Exam - General 1994 Psychiatric orientation/consciousness Overall: oriented to person, place and time 08/01/2015 None Full Exam - General 1994 Psychiatric mood and affect Overall: normal mood and affect 08/01/2015 None Full Exam - General 1994 Constitutional general appearance Development: well developed 07/04/2015 None Full Exam - General 1994 Constitutional general appearance Development: appears stated age 0207/04/2015 None Full Exam - General 1994 Constitutional general appearance Stature/Body Habitus: short stature 07/04/2015 None Full Exam - General 1994 Constitutional general appearance Nourishment: obese 07/04/2015 None Full Exam - General 1994 Constitutional general appearance Evidence of Distress: in no acute distress 07/04/2015 None Full Exam - General 1994 Constitutional general appearance Hygiene/Attention to Grooming: good hygiene 07/04/2015 None Full Exam - General 1994 Constitutional general appearance Hygiene/Attention to Grooming: normal grooming 07/04/2015 None Full Exam - General 1994 Eyes pupils and irises Overall: pupils round, reactive to light and accomodation 07/04/2015 None Full Exam - General 1994 Ears/Nose/Throat otoscopic exam Overall: external auditory canals clear 07/04/2015 None Full Exam - General 1994 Ears/Nose/Throat otoscopic exam Overall: tympanic membranes clear 07/04/2015 None Full Exam - General 1994 Ears/Nose/Throat oral cavity/pharynx/larynx Overall: oral mucosa clear 07/04/2015 None Full Exam - General 1994 Ears/Nose/Throat oral cavity/pharynx/larynx Overall: oropharyngeal mucosa clear 07/04/2015 None Full Exam - General 1994 Ears/Nose/Throat oral cavity/pharynx/larynx Overall: no masses 07/04/2015 None Full Exam - General 1994 Respiratory auscultation Overall: breath sounds clear bilaterally 07/04/2015 None Full Exam - General 1994 Respiratory respiratory effort/rhythm Overall: no retractions 07/04/2015 None Full Exam - General 1994 Respiratory respiratory effort/rhythm Overall: normal rate 07/04/2015 None Full Exam - General 1994 Cardiovascular auscultation of heart Overall: regular rate 07/04/2015 None Full Exam - General 1994 Cardiovascular auscultation of heart Overall: normal heart sounds 07/04/2015 None Full Exam - General 1994 Cardiovascular auscultation of heart Overall: no murmurs 07/04/2015 None Full Exam - General 1994 Abdomen abdominal exam Overall: no tenderness 07/04/2015 None Full Exam - General 1994 Abdomen abdominal exam Overall: normal bowel sounds 07/04/2015 None Full Exam - General 1994 Musculoskeletal gait and station Gait: asymmetric 07/04/2015 None Full Exam - General 1994 Musculoskeletal gait and station Gait: unable to turn quickly 07/04/2015 None Full Exam - General 1994 Musculoskeletal head and neck Overall: head atraumatic 07/04/2015 None Full Exam - General 1994 Musculoskeletal head and neck Overall: cervical spine benign 07/04/2015 None Full Exam - General 1994 Neurologic gait Overall: no ataxia, no unsteadiness 07/04/2015 None Full Exam - General 1994 Psychiatric orientation/consciousness Overall: oriented to person, place and time 07/04/2015 None Full Exam - General 1994 Psychiatric mood and affect Overall: normal mood and affect 07/04/2015 None Full Exam - General 1994 Constitutional general appearance Development: well developed 02/28/2015 None Full Exam - General 1994 Constitutional general appearance Development: appears stated age 1002/28/2015 None Full Exam - General 1994 Constitutional general appearance Stature/Body Habitus: short stature 02/28/2015 None Full Exam - General 1994 Constitutional general appearance Nourishment: obese 02/28/2015 None Full Exam - General 1994 Constitutional general appearance Evidence of Distress: in no acute distress 02/28/2015 None Full Exam - General 1994 Constitutional general appearance Hygiene/Attention to Grooming: good hygiene 02/28/2015 None Full Exam - General 1994 Constitutional general appearance Hygiene/Attention to Grooming: normal grooming 02/28/2015 None Full Exam - General 1994 Eyes pupils and irises Overall: pupils round, reactive to light and accomodation 02/28/2015 None Full Exam - General 1994 Ears/Nose/Throat otoscopic exam Overall: external auditory canals clear 02/28/2015 None Full Exam - General 1994 Ears/Nose/Throat otoscopic exam Overall: tympanic membranes clear 02/28/2015 None Full Exam - General 1994 Ears/Nose/Throat oral cavity/pharynx/larynx Overall: oral mucosa clear 02/28/2015 None Full Exam - General 1994 Ears/Nose/Throat oral cavity/pharynx/larynx Overall: oropharyngeal mucosa clear 02/28/2015 None Full Exam - General 1994 Ears/Nose/Throat oral cavity/pharynx/larynx Overall: no masses 02/28/2015 None Full Exam - General 1994 Respiratory auscultation Overall: breath sounds clear bilaterally 02/28/2015 None Full Exam - General 1994 Respiratory respiratory effort/rhythm Overall: no retractions 02/28/2015 None Full Exam - General 1994 Respiratory respiratory effort/rhythm Overall: normal rate 02/28/2015 None Full Exam - General 1994 Cardiovascular auscultation of heart Overall: regular rate 02/28/2015 None Full Exam - General 1994 Cardiovascular auscultation of heart Overall: normal heart sounds 02/28/2015 None Full Exam - General 1994 Cardiovascular auscultation of heart Overall: no murmurs 02/28/2015 None Full Exam - General 1994 Abdomen abdominal exam Overall: no tenderness 02/28/2015 None Full Exam - General 1994 Abdomen abdominal exam Overall: normal bowel sounds 02/28/2015 None Full Exam - General 1994 Musculoskeletal gait and station Gait: asymmetric 02/28/2015 None Full Exam - General 1994 Musculoskeletal gait and station Gait: unable to turn quickly 02/28/2015 None Full Exam - General 1994 Musculoskeletal head and neck Overall: head atraumatic 02/28/2015 None Full Exam - General 1994 Musculoskeletal head and neck Overall: cervical spine benign 02/28/2015 None Full Exam - General 1994 Neurologic gait Overall: no ataxia, no unsteadiness 02/28/2015 None Full Exam - General 1994 Psychiatric orientation/consciousness Overall: oriented to person, place and time 02/28/2015 None Full Exam - General 1994 Psychiatric mood and affect Overall: normal mood and affect 02/28/2015 None Full Exam - General 1994 Constitutional general appearance Development: well developed 11/03/2014 None Full Exam - General 1994 Constitutional general appearance Development: appears stated age 0611/03/2014 None Full Exam - General 1994 Constitutional general appearance Stature/Body Habitus: short stature 11/03/2014 None Full Exam - General 1994 Constitutional general appearance Nourishment: obese 11/03/2014 None Full Exam - General 1994 Constitutional general appearance Evidence of Distress: in no acute distress 11/03/2014 None Full Exam - General 1994 Constitutional general appearance Hygiene/Attention to Grooming: good hygiene 11/03/2014 None Full Exam - General 1994 Constitutional general appearance Hygiene/Attention to Grooming: normal grooming 11/03/2014 None Full Exam - General 1994 Eyes pupils and irises Overall: pupils round, reactive to light and accomodation 11/03/2014 None Full Exam - General 1994 Ears/Nose/Throat otoscopic exam Overall: external auditory canals clear 11/03/2014 None Full Exam - General 1994 Ears/Nose/Throat otoscopic exam Overall: tympanic membranes clear 11/03/2014 None Full Exam - General 1994 Ears/Nose/Throat oral cavity/pharynx/larynx Overall: oral mucosa clear 11/03/2014 None Full Exam - General 1994 Ears/Nose/Throat oral cavity/pharynx/larynx Overall: oropharyngeal mucosa clear 11/03/2014 None Full Exam - General 1994 Ears/Nose/Throat oral cavity/pharynx/larynx Overall: no masses 11/03/2014 None Full Exam - General 1994 Respiratory auscultation Overall: breath sounds clear bilaterally 11/03/2014 None Full Exam - General 1994 Respiratory respiratory effort/rhythm Overall: no retractions 11/03/2014 None Full Exam - General 1994 Respiratory respiratory effort/rhythm Overall: normal rate 11/03/2014 None Full Exam - General 1994 Cardiovascular auscultation of heart Overall: regular rate 11/03/2014 None Full Exam - General 1994 Cardiovascular auscultation of heart Overall: normal heart sounds 11/03/2014 None Full Exam - General 1994 Cardiovascular auscultation of heart Overall: no murmurs 11/03/2014 None Full Exam - General 1994 Abdomen abdominal exam Overall: no tenderness 11/03/2014 None Full Exam - General 1994 Abdomen abdominal exam Overall: normal bowel sounds 11/03/2014 None Full Exam - General 1994 Musculoskeletal gait and station Gait: asymmetric 11/03/2014 None Full Exam - General 1994 Musculoskeletal gait and station Gait: unable to turn quickly 11/03/2014 None Full Exam - General 1994 Musculoskeletal head and neck Overall: head atraumatic 11/03/2014 None Full Exam - General 1994 Musculoskeletal head and neck Overall: cervical spine benign 11/03/2014 None Full Exam - General 1994 Neurologic gait Overall: no ataxia, no unsteadiness 11/03/2014 None Full Exam - General 1994 Psychiatric orientation/consciousness Overall: oriented to person, place and time 11/03/2014 None Full Exam - General 1994 Psychiatric mood and affect Overall: normal mood and affect 11/03/2014 None Full Exam - General 1994 Constitutional general appearance Development: well developed 09/08/2014 None Full Exam - General 1994 Constitutional general appearance Development: appears stated age 0409/08/2014 None Full Exam - General 1994 Constitutional general appearance Stature/Body Habitus: short stature 09/08/2014 None Full Exam - General 1994 Constitutional general appearance Nourishment: obese 09/08/2014 None Full Exam - General 1994 Constitutional general appearance Evidence of Distress: in no acute distress 09/08/2014 None Full Exam - General 1994 Constitutional general appearance Hygiene/Attention to Grooming: good hygiene 09/08/2014 None Full Exam - General 1994 Constitutional general appearance Hygiene/Attention to Grooming: normal grooming 09/08/2014 None Full Exam - General 1994 Ears/Nose/Throat otoscopic exam Overall: external auditory canals clear 09/08/2014 None Full Exam - General 1994 Ears/Nose/Throat otoscopic exam Overall: tympanic membranes clear 09/08/2014 None Full Exam - General 1994 Ears/Nose/Throat oral cavity/pharynx/larynx Overall: oral mucosa clear 09/08/2014 None Full Exam - General 1994 Ears/Nose/Throat oral cavity/pharynx/larynx Overall: oropharyngeal mucosa clear 09/08/2014 None Full Exam - General 1994 Ears/Nose/Throat oral cavity/pharynx/larynx Overall: no masses 09/08/2014 None Full Exam - General 1994 Respiratory auscultation Overall: breath sounds clear bilaterally 09/08/2014 None Full Exam - General 1994 Respiratory respiratory effort/rhythm Overall: no retractions 09/08/2014 None Full Exam - General 1994 Respiratory respiratory effort/rhythm Overall: normal rate 09/08/2014 None Full Exam - General 1994 Cardiovascular auscultation of heart Overall: regular rate 09/08/2014 None Full Exam - General 1994 Cardiovascular auscultation of heart Overall: normal heart sounds 09/08/2014 None Full Exam - General 1994 Cardiovascular auscultation of heart Overall: no murmurs 09/08/2014 None Full Exam - General 1994 Abdomen abdominal exam Overall: no tenderness 09/08/2014 None Full Exam - General 1994 Abdomen abdominal exam Overall: normal bowel sounds 09/08/2014 None Full Exam - General 1994 Musculoskeletal gait and station Gait: asymmetric 09/08/2014 None Full Exam - General 1994 Musculoskeletal gait and station Gait: unable to turn quickly 09/08/2014 None Full Exam - General 1994 Musculoskeletal head and neck Overall: head atraumatic 09/08/2014 None Full Exam - General 1994 Musculoskeletal head and neck Overall: cervical spine benign 09/08/2014 None Full Exam - General 1994 Neurologic gait Overall: no ataxia, no unsteadiness 09/08/2014 None Full Exam - General 1994 Psychiatric orientation/consciousness Overall: oriented to person, place and time 09/08/2014 None Full Exam - General 1994 Psychiatric mood and affect Overall: normal mood and affect 09/08/2014 None Full Exam - General 1994 Eyes pupils and irises Overall: pupils round, reactive to light and accomodation 09/08/2014 None Full Exam - General 1994 Constitutional general appearance Development: well developed 07/07/2014 None Full Exam - General 1994 Constitutional general appearance Development: appears stated age 0207/07/2014 None Full Exam - General 1994 Constitutional general appearance Stature/Body Habitus: short stature 07/07/2014 None Full Exam - General 1994 Constitutional general appearance Nourishment: obese 07/07/2014 None Full Exam - General 1994 Constitutional general appearance Evidence of Distress: in no acute distress 07/07/2014 None Full Exam - General 1994 Constitutional general appearance Hygiene/Attention to Grooming: good hygiene 07/07/2014 None Full Exam - General 1994 Constitutional general appearance Hygiene/Attention to Grooming: normal grooming 07/07/2014 None Full Exam - General 1994 Ears/Nose/Throat otoscopic exam Overall: external auditory canals clear 07/07/2014 None Full Exam - General 1994 Ears/Nose/Throat otoscopic exam Overall: tympanic membranes clear 07/07/2014 None Full Exam - General 1994 Ears/Nose/Throat oral cavity/pharynx/larynx Overall: oral mucosa clear 07/07/2014 None Full Exam - General 1994 Ears/Nose/Throat oral cavity/pharynx/larynx Overall: oropharyngeal mucosa clear 07/07/2014 None Full Exam - General 1994 Ears/Nose/Throat oral cavity/pharynx/larynx Overall: no masses 07/07/2014 None Full Exam - General 1994 Respiratory auscultation Overall: breath sounds clear bilaterally 07/07/2014 None Full Exam - General 1994 Respiratory respiratory effort/rhythm Overall: no retractions 07/07/2014 None Full Exam - General 1994 Respiratory respiratory effort/rhythm Overall: normal rate 07/07/2014 None Full Exam - General 1994 Cardiovascular auscultation of heart Overall: regular rate 07/07/2014 None Full Exam - General 1994 Cardiovascular auscultation of heart Overall: normal heart sounds 07/07/2014 None Full Exam - General 1994 Cardiovascular auscultation of heart Overall: no murmurs 07/07/2014 None Full Exam - General 1994 Abdomen abdominal exam Overall: no tenderness 07/07/2014 None Full Exam - General 1994 Abdomen abdominal exam Overall: normal bowel sounds 07/07/2014 None Full Exam - General 1994 Musculoskeletal gait and station Gait: asymmetric 07/07/2014 None Full Exam - General 1994 Musculoskeletal gait and station Gait: unable to turn quickly 07/07/2014 None Full Exam - General 1994 Musculoskeletal head and neck Overall: head atraumatic 07/07/2014 None Full Exam - General 1994 Musculoskeletal head and neck Overall: cervical spine benign 07/07/2014 None Full Exam - General 1994 Neurologic gait Overall: no ataxia, no unsteadiness 07/07/2014 None Full Exam - General 1994 Psychiatric orientation/consciousness Overall: oriented to person, place and time 07/07/2014 None Full Exam - General 1994 Psychiatric mood and affect Overall: normal mood and affect 07/07/2014 None Full Exam - General 1994 Musculoskeletal upper extremity Palpation - shoulder: tenderness @ bicipital groove 07/07/2014 None Full Exam - General 1994 Musculoskeletal upper extremity Palpation - upper arm: tenderness 07/07/2014 at elbow Full Exam - General 1994 Musculoskeletal upper extremity Palpation - wrist: positive Phalen's test 07/07/2014 None Full Exam - General 1994 Musculoskeletal upper extremity Palpation - wrist: positive Tinel's test 07/07/2014 None Full Exam - General 1994 Constitutional general appearance Development: well developed 05/03/2014 None Full Exam - General 1994 Constitutional general appearance Development: appears stated age 1205/03/2014 None Full Exam - General 1994 Constitutional general appearance Stature/Body Habitus: short stature 05/03/2014 None Full Exam - General 1994 Constitutional general appearance Nourishment: obese 05/03/2014 None Full Exam - General 1994 Constitutional general appearance Evidence of Distress: in no acute distress 05/03/2014 None Full Exam - General 1994 Constitutional general appearance Hygiene/Attention to Grooming: good hygiene 05/03/2014 None Full Exam - General 1994 Constitutional general appearance Hygiene/Attention to Grooming: normal grooming 05/03/2014 None Full Exam - General 1994 Ears/Nose/Throat otoscopic exam Overall: external auditory canals clear 05/03/2014 None Full Exam - General 1994 Ears/Nose/Throat otoscopic exam Overall: tympanic membranes clear 05/03/2014 None Full Exam - General 1994 Ears/Nose/Throat oral cavity/pharynx/larynx Overall: oral mucosa clear 05/03/2014 None Full Exam - General 1994 Ears/Nose/Throat oral cavity/pharynx/larynx Overall: oropharyngeal mucosa clear 05/03/2014 None Full Exam - General 1994 Ears/Nose/Throat oral cavity/pharynx/larynx Overall: no masses 05/03/2014 None Full Exam - General 1994 Respiratory auscultation Overall: breath sounds clear bilaterally 05/03/2014 None Full Exam - General 1994 Respiratory respiratory effort/rhythm Overall: no retractions 05/03/2014 None Full Exam - General 1994 Respiratory respiratory effort/rhythm Overall: normal rate 05/03/2014 None Full Exam - General 1994 Cardiovascular auscultation of heart Overall: regular rate 05/03/2014 None Full Exam - General 1994 Cardiovascular auscultation of heart Overall: normal heart sounds 05/03/2014 None Full Exam - General 1994 Cardiovascular auscultation of heart Overall: no murmurs 05/03/2014 None Full Exam - General 1994 Abdomen abdominal exam Overall: no tenderness 05/03/2014 None Full Exam - General 1994 Abdomen abdominal exam Overall: normal bowel sounds 05/03/2014 None Full Exam - General 1994 Musculoskeletal gait and station Gait: asymmetric 05/03/2014 None Full Exam - General 1994 Musculoskeletal gait and station Gait: unable to turn quickly 05/03/2014 None Full Exam - General 1994 Musculoskeletal head and neck Overall: head atraumatic 05/03/2014 None Full Exam - General 1994 Musculoskeletal head and neck Overall: cervical spine benign 05/03/2014 None Full Exam - General 1994 Neurologic gait Overall: no ataxia, no unsteadiness 05/03/2014 None Full Exam - General 1994 Psychiatric orientation/consciousness Overall: oriented to person, place and time 05/03/2014 None Full Exam - General 1994 Psychiatric mood and affect Overall: normal mood and affect 05/03/2014 None Full Exam - General 1994 Constitutional general appearance Development: well developed 01/27/2014 None Full Exam - General 1994 Constitutional general appearance Development: appears stated age 0901/27/2014 None Full Exam - General 1994 Constitutional general appearance Stature/Body Habitus: short stature 01/27/2014 None Full Exam - General 1994 Constitutional general appearance Nourishment: obese 01/27/2014 None Full Exam - General 1994 Constitutional general appearance Evidence of Distress: in no acute distress 01/27/2014 None Full Exam - General 1994 Constitutional general appearance Hygiene/Attention to Grooming: good hygiene 01/27/2014 None Full Exam - General 1994 Constitutional general appearance Hygiene/Attention to Grooming: normal grooming 01/27/2014 None Full Exam - General 1994 Ears/Nose/Throat otoscopic exam Overall: external auditory canals clear 01/27/2014 None Full Exam - General 1994 Ears/Nose/Throat otoscopic exam Overall: tympanic membranes clear 01/27/2014 None Full Exam - General 1994 Ears/Nose/Throat oral cavity/pharynx/larynx Overall: oral mucosa clear 01/27/2014 None Full Exam - General 1994 Ears/Nose/Throat oral cavity/pharynx/larynx Overall: oropharyngeal mucosa clear 01/27/2014 None Full Exam - General 1994 Ears/Nose/Throat oral cavity/pharynx/larynx Overall: no masses 01/27/2014 None Full Exam - General 1994 Respiratory auscultation Overall: breath sounds clear bilaterally 01/27/2014 None Full Exam - General 1994 Respiratory respiratory effort/rhythm Overall: no retractions 01/27/2014 None Full Exam - General 1994 Respiratory respiratory effort/rhythm Overall: normal rate 01/27/2014 None Full Exam - General 1994 Cardiovascular auscultation of heart Overall: regular rate 01/27/2014 None Full Exam - General 1994 Cardiovascular auscultation of heart Overall: normal heart sounds 01/27/2014 None Full Exam - General 1994 Cardiovascular auscultation of heart Overall: no murmurs 01/27/2014 None Full Exam - General 1994 Abdomen abdominal exam Overall: no tenderness 01/27/2014 None Full Exam - General 1994 Abdomen abdominal exam Overall: normal bowel sounds 01/27/2014 None Full Exam - General 1994 Musculoskeletal gait and station Gait: asymmetric 01/27/2014 None Full Exam - General 1994 Musculoskeletal gait and station Gait: unable to turn quickly 01/27/2014 None Full Exam - General 1994 Musculoskeletal head and neck Overall: head atraumatic 01/27/2014 None Full Exam - General 1994 Musculoskeletal head and neck Overall: cervical spine benign 01/27/2014 None Full Exam - General 1994 Neurologic gait Overall: no ataxia, no unsteadiness 01/27/2014 None Full Exam - General 1994 Psychiatric orientation/consciousness Overall: oriented to person, place and time 01/27/2014 None Full Exam - General 1994 Psychiatric mood and affect Overall: normal mood and affect 01/27/2014 None Full Exam - General 1994 Constitutional general appearance Development: well developed 01/07/2014 None Full Exam - General 1994 Constitutional general appearance Development: appears stated age 0801/07/2014 None Full Exam - General 1994 Constitutional general appearance Stature/Body Habitus: short stature 01/07/2014 None Full Exam - General 1994 Constitutional general appearance Nourishment: obese 01/07/2014 None Full Exam - General 1994 Constitutional general appearance Evidence of Distress: in no acute distress 01/07/2014 None Full Exam - General 1994 Constitutional general appearance Hygiene/Attention to Grooming: good hygiene 01/07/2014 None Full Exam - General 1994 Constitutional general appearance Hygiene/Attention to Grooming: normal grooming 01/07/2014 None Full Exam - General 1994 Ears/Nose/Throat otoscopic exam Overall: external auditory canals clear 01/07/2014 None Full Exam - General 1994 Ears/Nose/Throat otoscopic exam Overall: tympanic membranes clear 01/07/2014 None Full Exam - General 1994 Ears/Nose/Throat oral cavity/pharynx/larynx Overall: oral mucosa clear 01/07/2014 None Full Exam - General 1994 Ears/Nose/Throat oral cavity/pharynx/larynx Overall: oropharyngeal mucosa clear 01/07/2014 None Full Exam - General 1994 Ears/Nose/Throat oral cavity/pharynx/larynx Overall: no masses 01/07/2014 None Full Exam - General 1994 Respiratory auscultation Overall: breath sounds clear bilaterally 01/07/2014 None Full Exam - General 1994 Respiratory respiratory effort/rhythm Overall: no retractions 01/07/2014 None Full Exam - General 1994 Respiratory respiratory effort/rhythm Overall: normal rate 01/07/2014 None Full Exam - General 1994 Cardiovascular auscultation of heart Overall: regular rate 01/07/2014 None Full Exam - General 1994 Cardiovascular auscultation of heart Overall: normal heart sounds 01/07/2014 None Full Exam - General 1994 Cardiovascular auscultation of heart Overall: no murmurs 01/07/2014 None Full Exam - General 1994 Abdomen abdominal exam Overall: normal bowel sounds 01/07/2014 None Full Exam - General 1994 Musculoskeletal gait and station Gait: asymmetric 01/07/2014 None Full Exam - General 1994 Musculoskeletal gait and station Gait: unable to turn quickly 01/07/2014 None Full Exam - General 1994 Musculoskeletal head and neck Overall: head atraumatic 01/07/2014 None Full Exam - General 1994 Musculoskeletal head and neck Overall: cervical spine benign 01/07/2014 None Full Exam - General 1994 Neurologic gait Overall: no ataxia, no unsteadiness 01/07/2014 None Full Exam - General 1994 Psychiatric orientation/consciousness Overall: oriented to person, place and time 01/07/2014 None Full Exam - General 1994 Psychiatric mood and affect Overall: normal mood and affect 01/07/2014 None Full Exam - General 1994 Abdomen abdominal exam Upper quadrant: tender to palpation 01/07/2014 None Full Exam - General 1994 Abdomen abdominal exam Lower quadrant: tender to palpation 01/07/2014 None Full Exam - General 1994 Constitutional general appearance Development: well developed 11/11/2013 None Full Exam - General 1994 Constitutional general appearance Development: appears stated age 0611/11/2013 None Full Exam - General 1994 Constitutional general appearance Stature/Body Habitus: short stature 11/11/2013 None Full Exam - General 1994 Constitutional general appearance Nourishment: obese 11/11/2013 None Full Exam - General 1994 Constitutional general appearance Evidence of Distress: in no acute distress 11/11/2013 None Full Exam - General 1994 Constitutional general appearance Hygiene/Attention to Grooming: good hygiene 11/11/2013 None Full Exam - General 1994 Constitutional general appearance Hygiene/Attention to Grooming: normal grooming 11/11/2013 None Full Exam - General 1994 Eyes conjunctiva /eyelids Conjunctiva: injection 11/11/2013 None Full Exam - General 1994 Ears/Nose/Throat otoscopic exam Overall: external auditory canals clear 11/11/2013 None Full Exam - General 1994 Ears/Nose/Throat otoscopic exam Overall: tympanic membranes clear 11/11/2013 None Full Exam - General 1994 Ears/Nose/Throat oral cavity/pharynx/larynx Overall: oral mucosa clear 11/11/2013 None Full Exam - General 1994 Ears/Nose/Throat oral cavity/pharynx/larynx Overall: oropharyngeal mucosa clear 11/11/2013 None Full Exam - General 1994 Ears/Nose/Throat oral cavity/pharynx/larynx Overall: no masses 11/11/2013 None Full Exam - General 1994 Respiratory auscultation Overall: breath sounds clear bilaterally 11/11/2013 None Full Exam - General 1994 Respiratory respiratory effort/rhythm Overall: no retractions 11/11/2013 None Full Exam - General 1994 Respiratory respiratory effort/rhythm Overall: normal rate 11/11/2013 None Full Exam - General 1994 Cardiovascular auscultation of heart Overall: regular rate 11/11/2013 None Full Exam - General 1994 Cardiovascular auscultation of heart Overall: normal heart sounds 11/11/2013 None Full Exam - General 1994 Cardiovascular auscultation of heart Overall: no murmurs 11/11/2013 None Full Exam - General 1994 Abdomen abdominal exam Overall: no tenderness 11/11/2013 None Full Exam - General 1994 Abdomen abdominal exam Overall: normal bowel sounds 11/11/2013 None Full Exam - General 1994 Musculoskeletal gait and station Gait: asymmetric 11/11/2013 None Full Exam - General 1994 Musculoskeletal gait and station Gait: unable to turn quickly 11/11/2013 None Full Exam - General 1994 Musculoskeletal head and neck Overall: head atraumatic 11/11/2013 None Full Exam - General 1994 Musculoskeletal head and neck Overall: cervical spine benign 11/11/2013 None Full Exam - General 1994 Neurologic gait Overall: no ataxia, no unsteadiness 11/11/2013 None Full Exam - General 1994 Psychiatric orientation/consciousness Overall: oriented to person, place and time 11/11/2013 None Full Exam - General 1994 Psychiatric mood and affect Overall: normal mood and affect 11/11/2013 None Full Exam - General Constitutional general appearance Overall: well nourished 08/19/2013 None Full Exam - General Constitutional general appearance Overall: well developed 08/19/2013 None Full Exam - General Constitutional general appearance Overall: in no acute distress 08/19/2013 None Full Exam - General Eyes conjunctiva/ eyelids Overall: conjunctiva clear 08/19/2013 None Full Exam - General Eyes conjunctiva/ eyelids Overall: eyelids normal 08/19/2013 None Full Exam - General Ears/Nose/Throat otoscopic exam Overall: external auditory canals clear 08/19/2013 None Full Exam - General Ears/Nose/Throat otoscopic exam Overall: tympanic membranes clear 08/19/2013 None Full Exam - General Ears/Nose/Throat lips /teeth/gingiva Overall: benign lips 08/19/2013 None Full Exam - General Ears/Nose/Throat lips /teeth/gingiva Overall: benign gingiva 08/19/2013 None Full Exam - General Ears/Nose/Throat lips /teeth/gingiva Overall: no masses 08/19/2013 None Full Exam - General Ears/Nose/Throat oral cavity/pharynx/larynx Overall: oral mucosa clear 08/19/2013 None Full Exam - General Ears/Nose/Throat oral cavity/pharynx/larynx Overall: oropharyngeal mucosa clear 08/19/2013 None Full Exam - General Respiratory respiratory effort/rhythm Overall: no retractions 08/19/2013 None Full Exam - General Respiratory respiratory effort/rhythm Overall: normal rate 08/19/2013 None Full Exam - General Cardiovascular auscultation of heart Overall: regular rate 08/19/2013 None Full Exam - General Cardiovascular auscultation of heart Overall: normal heart sounds 08/19/2013 None Full Exam - General Cardiovascular auscultation of heart Overall: no murmurs 08/19/2013 None Full Exam - General Cardiovascular extremities Overall: no clubbing 08/19/2013 None Full Exam - General Musculoskeletal gait and station Overall: normal gait 08/19/2013 None Full Exam - General Musculoskeletal gait and station Overall: normal station 08/19/2013 None Full Exam - General Neurologic cranial nerves Overall: cranial nerves 1-12 intact 08/19/2013 None Full Exam - General Psychiatric orientation/consciousness Overall: oriented to person, place and time 08/19/2013 None Full Exam - General Psychiatric behavior/ psychomotor activity Overall: no tics, normal psychomotor activity 08/19/2013 None Full Exam - General Respiratory auscultation Left upper lung field: a normal exam 08/19/2013 None Full Exam - General Respiratory auscultation Left lower lung field: crackles 08/19/2013 None Full Exam - General Respiratory auscultation Right upper lung field: a normal exam 08/19/2013 None Full Exam - General Respiratory auscultation Right middle lung field: crackles 08/19/2013 None Full Exam - General Respiratory auscultation Right lower lung field: a normal exam 08/19/2013 None Full Exam - General Lymphatic neck nodes Overall: shotty lymphadenopathy 08/19/2013 None Full Exam - General 1994 Constitutional general appearance Development: well developed 07/29/2013 None Full Exam - General 1994 Constitutional general appearance Development: appears stated age 0307/29/2013 None Full Exam - General 1994 Constitutional general appearance Stature/Body Habitus: short stature 07/29/2013 None Full Exam - General 1994 Constitutional general appearance Nourishment: obese 07/29/2013 None Full Exam - General 1994 Constitutional general appearance Evidence of Distress: in no acute distress 07/29/2013 None Full Exam - General 1994 Constitutional general appearance Hygiene/Attention to Grooming: good hygiene 07/29/2013 None Full Exam - General 1994 Constitutional general appearance Hygiene/Attention to Grooming: normal grooming 07/29/2013 None Full Exam - General 1994 Eyes conjunctiva /eyelids Conjunctiva: injection 07/29/2013 None Full Exam - General 1994 Ears/Nose/Throat otoscopic exam Overall: external auditory canals clear 07/29/2013 None Full Exam - General 1994 Ears/Nose/Throat otoscopic exam Overall: tympanic membranes clear 07/29/2013 None Full Exam - General 1994 Ears/Nose/Throat oral cavity/pharynx/larynx Overall: oral mucosa clear 07/29/2013 None Full Exam - General 1994 Ears/Nose/Throat oral cavity/pharynx/larynx Overall: oropharyngeal mucosa clear 07/29/2013 None Full Exam - General 1994 Ears/Nose/Throat oral cavity/pharynx/larynx Overall: no masses 07/29/2013 None Full Exam - General 1994 Respiratory auscultation Overall: breath sounds clear bilaterally 07/29/2013 None Full Exam - General 1994 Respiratory respiratory effort/rhythm Overall: no retractions 07/29/2013 None Full Exam - General 1994 Respiratory respiratory effort/rhythm Overall: normal rate 07/29/2013 None Full Exam - General 1994 Cardiovascular auscultation of heart Overall: regular rate 07/29/2013 None Full Exam - General 1994 Cardiovascular auscultation of heart Overall: normal heart sounds 07/29/2013 None Full Exam - General 1994 Cardiovascular auscultation of heart Overall: no murmurs 07/29/2013 None Full Exam - General 1994 Abdomen abdominal exam Overall: no tenderness 07/29/2013 None Full Exam - General 1994 Abdomen abdominal exam Overall: normal bowel sounds 07/29/2013 None Full Exam - General 1994 Musculoskeletal gait and station Gait: asymmetric 07/29/2013 None Full Exam - General 1994 Musculoskeletal gait and station Gait: unable to turn quickly 07/29/2013 None Full Exam - General 1994 Musculoskeletal head and neck Overall: head atraumatic 07/29/2013 None Full Exam - General 1994 Musculoskeletal head and neck Overall: cervical spine benign 07/29/2013 None Full Exam - General 1994 Neurologic gait Overall: no ataxia, no unsteadiness 07/29/2013 None Full Exam - General 1994 Psychiatric orientation/consciousness Overall: oriented to person, place and time 07/29/2013 None Full Exam - General 1994 Psychiatric mood and affect Overall: normal mood and affect 07/29/2013 None Full Exam - General 1994 Constitutional general appearance Development: well developed 07/08/2013 None Full Exam - General 1994 Constitutional general appearance Development: appears stated age 0207/08/2013 None Full Exam - General 1994 Constitutional general appearance Stature/Body Habitus: short stature 07/08/2013 None Full Exam - General 1994 Constitutional general appearance Nourishment: obese 07/08/2013 None Full Exam - General 1994 Constitutional general appearance Evidence of Distress: in no acute distress 07/08/2013 None Full Exam - General 1994 Constitutional general appearance Hygiene/Attention to Grooming: good hygiene 07/08/2013 None Full Exam - General 1994 Constitutional general appearance Hygiene/Attention to Grooming: normal grooming 07/08/2013 None Full Exam - General 1994 Eyes conjunctiva /eyelids Conjunctiva: injection 07/08/2013 None Full Exam - General 1994 Ears/Nose/Throat otoscopic exam Overall: external auditory canals clear 07/08/2013 None Full Exam - General 1994 Ears/Nose/Throat otoscopic exam Overall: tympanic membranes clear 07/08/2013 None Full Exam - General 1994 Ears/Nose/Throat oral cavity/pharynx/larynx Overall: oral mucosa clear 07/08/2013 None Full Exam - General 1994 Ears/Nose/Throat oral cavity/pharynx/larynx Overall: oropharyngeal mucosa clear 07/08/2013 None Full Exam - General 1994 Ears/Nose/Throat oral cavity/pharynx/larynx Overall: no masses 07/08/2013 None Full Exam - General 1994 Respiratory auscultation Overall: breath sounds clear bilaterally 07/08/2013 None Full Exam - General 1994 Respiratory respiratory effort/rhythm Overall: no retractions 07/08/2013 None Full Exam - General 1994 Respiratory respiratory effort/rhythm Overall: normal rate 07/08/2013 None Full Exam - General 1994 Cardiovascular auscultation of heart Overall: regular rate 07/08/2013 None Full Exam - General 1994 Cardiovascular auscultation of heart Overall: normal heart sounds 07/08/2013 None Full Exam - General 1994 Cardiovascular auscultation of heart Overall: no murmurs 07/08/2013 None Full Exam - General 1994 Abdomen abdominal exam Overall: no tenderness 07/08/2013 None Full Exam - General 1994 Abdomen abdominal exam Overall: normal bowel sounds 07/08/2013 None Full Exam - General 1994 Musculoskeletal gait and station Gait: asymmetric 07/08/2013 None Full Exam - General 1994 Musculoskeletal gait and station Gait: unable to turn quickly 07/08/2013 None Full Exam - General 1994 Musculoskeletal head and neck Overall: head atraumatic 07/08/2013 None Full Exam - General 1994 Musculoskeletal head and neck Overall: cervical spine benign 07/08/2013 None Full Exam - General 1994 Neurologic gait Overall: no ataxia, no unsteadiness 07/08/2013 None Full Exam - General 1994 Psychiatric orientation/consciousness Overall: oriented to person, place and time 07/08/2013 None Full Exam - General 1994 Psychiatric mood and affect Overall: normal mood and affect 07/08/2013 None Full Exam - General 1994 Constitutional general appearance Development: well developed 04/27/2013 None Full Exam - General 1994 Constitutional general appearance Development: appears stated age 1204/27/2013 None Full Exam - General 1994 Constitutional general appearance Stature/Body Habitus: short stature 04/27/2013 None Full Exam - General 1994 Constitutional general appearance Nourishment: obese 04/27/2013 None Full Exam - General 1994 Constitutional general appearance Evidence of Distress: in no acute distress 04/27/2013 None Full Exam - General 1994 Constitutional general appearance Hygiene/Attention to Grooming: good hygiene 04/27/2013 None Full Exam - General 1994 Constitutional general appearance Hygiene/Attention to Grooming: normal grooming 04/27/2013 None Full Exam - General 1994 Eyes conjunctiva /eyelids Conjunctiva: injection 04/27/2013 None Full Exam - General 1995 Ears/Nose/Throat otoscopic exam Overall: external auditory canals clear 04/27/2013 None Full Exam - General 1995 Ears/Nose/Throat otoscopic exam Overall: tympanic membranes clear 04/27/2013 None Full Exam - General 1995 Ears/Nose/Throat oral cavity/pharynx/larynx Overall: oral mucosa clear 04/27/2013 None Full Exam - General 1995 Ears/Nose/Throat oral cavity/pharynx/larynx Overall: oropharyngeal mucosa clear 04/27/2013 None Full Exam - General 1995 Ears/Nose/Throat oral cavity/pharynx/larynx Overall: no masses 04/27/2013 None Full Exam - General 1994 Respiratory auscultation Overall: breath sounds clear bilaterally 04/27/2013 None Full Exam - General 1994 Respiratory respiratory effort/rhythm Overall: no retractions 04/27/2013 None Full Exam - General 1994 Respiratory respiratory effort/rhythm Overall: normal rate 04/27/2013 None Full Exam - General 1994 Cardiovascular auscultation of heart Overall: regular rate 04/27/2013 None Full Exam - General 1994 Cardiovascular auscultation of heart Overall: normal heart sounds 04/27/2013 None Full Exam - General 1994 Cardiovascular auscultation of heart Overall: no murmurs 04/27/2013 None Full Exam - General 1994 Abdomen abdominal exam Overall: no tenderness 04/27/2013 None Full Exam - General 1994 Abdomen abdominal exam Overall: normal bowel sounds 04/27/2013 None Full Exam - General 1994 Neurologic gait Overall: no ataxia, no unsteadiness 04/27/2013 None Full Exam - General 1994 Psychiatric orientation/consciousness Overall: oriented to person, place and time 04/27/2013 None Full Exam - General 1994 Psychiatric mood and affect Overall: normal mood and affect 04/27/2013 None Full Exam - General 1994 Musculoskeletal gait and station Gait: asymmetric 04/27/2013 None Full Exam - General 1994 Musculoskeletal gait and station Gait: unable to turn quickly 04/27/2013 None Full Exam - General 1994 Musculoskeletal head and neck Overall: cervical spine benign 04/27/2013 None Full Exam - General 1994 Musculoskeletal head and neck Overall: head atraumatic 04/27/2013 None Full Exam - General 1994 Ears/Nose/Throat oral cavity/pharynx/larynx Overall: oropharyngeal mucosa clear 02/09/2013 None Full Exam - General 1994 Ears/Nose/Throat oral cavity/pharynx/larynx Overall: no masses 02/09/2013 None Full Exam - General 1994 Respiratory auscultation Overall: breath sounds clear bilaterally 02/09/2013 None Full Exam - General 1994 Respiratory respiratory effort/rhythm Overall: no retractions 02/09/2013 None Full Exam - General 1994 Respiratory respiratory effort/rhythm Overall: normal rate 02/09/2013 None Full Exam - General 1994 Cardiovascular auscultation of heart Overall: regular rate 02/09/2013 None Full Exam - General 1994 Cardiovascular auscultation of heart Overall: normal heart sounds 02/09/2013 None Full Exam - General 1994 Cardiovascular auscultation of heart Overall: no murmurs 02/09/2013 None Full Exam - General 1994 Abdomen abdominal exam Overall: no tenderness 02/09/2013 None Full Exam - General 1994 Abdomen abdominal exam Overall: normal bowel sounds 02/09/2013 None Full Exam - General 1994 Neurologic gait Overall: no ataxia, no unsteadiness 02/09/2013 None Full Exam - General 1994 Psychiatric orientation/consciousness Overall: oriented to person, place and time 02/09/2013 None Full Exam - General 1994 Psychiatric mood and affect Overall: normal mood and affect 02/09/2013 None Full Exam - General 1994 Constitutional general appearance Development: well developed 02/09/2013 None Full Exam - General 1994 Constitutional general appearance Development: appears stated age 0902/09/2013 None Full Exam - General 1994 Constitutional general appearance Stature/Body Habitus: short stature 02/09/2013 None Full Exam - General 1994 Constitutional general appearance Nourishment: obese 02/09/2013 None Full Exam - General 1994 Constitutional general appearance Evidence of Distress: in no acute distress 02/09/2013 None Full Exam - General 1994 Constitutional general appearance Hygiene/Attention to Grooming: good hygiene 02/09/2013 None Full Exam - General 1994 Constitutional general appearance Hygiene/Attention to Grooming: normal grooming 02/09/2013 None Full Exam - General 1994 Eyes conjunctiva /eyelids Conjunctiva: injection 02/09/2013 None Full Exam - General 1994 Ears/Nose/Throat otoscopic exam Overall: external auditory canals clear 02/09/2013 None Full Exam - General 1994 Ears/Nose/Throat otoscopic exam Overall: tympanic membranes clear 02/09/2013 None Full Exam - General 1994 Ears/Nose/Throat oral cavity/pharynx/larynx Overall: oral mucosa clear 02/09/2013 None Full Exam - General 1994 Constitutional general appearance Development: well developed 09/19/2012 None Full Exam - General 1994 Constitutional general appearance Development: appears stated age 0409/19/2012 None Full Exam - General 1994 Constitutional general appearance Stature/Body Habitus: short stature 09/19/2012 None Full Exam - General 1994 Constitutional general appearance Nourishment: obese 09/19/2012 None Full Exam - General 1994 Constitutional general appearance Evidence of Distress: in no acute distress 09/19/2012 None Full Exam - General 1994 Constitutional general appearance Hygiene/Attention to Grooming: good hygiene 09/19/2012 None Full Exam - General 1994 Constitutional general appearance Hygiene/Attention to Grooming: normal grooming 09/19/2012 None Full Exam - General 1994 Respiratory auscultation Overall: breath sounds clear bilaterally 09/19/2012 None Full Exam - General 1994 Respiratory respiratory effort/rhythm Overall: no retractions 09/19/2012 None Full Exam - General 1994 Respiratory respiratory effort/rhythm Overall: normal rate 09/19/2012 None Full Exam - General 1994 Cardiovascular auscultation of heart Overall: regular rate 09/19/2012 None Full Exam - General 1994 Cardiovascular auscultation of heart Overall: normal heart sounds 09/19/2012 None Full Exam - General 1994 Cardiovascular auscultation of heart Overall: no murmurs 09/19/2012 None Full Exam - General 1994 Neurologic gait Overall: no ataxia, no unsteadiness 09/19/2012 None Full Exam - General 1994 Psychiatric orientation/consciousness Overall: oriented to person, place and time 09/19/2012 None Full Exam - General 1994 Psychiatric mood and affect Overall: normal mood and affect 09/19/2012 None Full Exam - General 1994 Constitutional general appearance Overall: well developed 09/10/2012 None Full Exam - General 1994 Constitutional general appearance Overall: in no acute distress 09/10/2012 None Full Exam - General 1994 Constitutional general appearance Overall: well nourished 09/10/2012 None Full Exam - General 1994 Psychiatric orientation/consciousness Overall: oriented to person, place and time 09/10/2012 None Full Exam - General 1994 Musculoskeletal spine, ribs and pelvis Sacroiliac joints: tender right sacroiliac joint 09/10/2012 None Full Exam - General 1994 Musculoskeletal spine, ribs and pelvis Spine: a normal exam 09/10/2012 None Full Exam - General 1994 Respiratory auscultation Overall: breath sounds clear bilaterally 09/10/2012 None Full Exam - General 1994 Respiratory respiratory effort/rhythm Overall: no retractions 09/10/2012 None Full Exam - General 1994 Respiratory respiratory effort/rhythm Overall: normal rate 09/10/2012 None Full Exam - General 1994 Cardiovascular auscultation of heart Overall: regular rate 09/10/2012 None Full Exam - General 1994 Cardiovascular auscultation of heart Overall: normal heart sounds 09/10/2012 None Full Exam - General 1994 Cardiovascular auscultation of heart Overall: no murmurs 09/10/2012 None Full Exam - General 1994 Cardiovascular extremities Overall: no clubbing 09/10/2012 None Full Exam - General 1994 Constitutional general appearance Development: well developed 09/03/2012 None Full Exam - General 1994 Constitutional general appearance Development: appears stated age 0409/03/2012 None Full Exam - General 1994 Constitutional general appearance Stature/Body Habitus: short stature 09/03/2012 None Full Exam - General 1994 Constitutional general appearance Nourishment: obese 09/03/2012 None Full Exam - General 1994 Constitutional general appearance Evidence of Distress: in no acute distress 09/03/2012 None Full Exam - General 1994 Constitutional general appearance Hygiene/Attention to Grooming: good hygiene 09/03/2012 None Full Exam - General 1994 Constitutional general appearance Hygiene/Attention to Grooming: normal grooming 09/03/2012 None Full Exam - General 1994 Eyes conjunctiva /eyelids Conjunctiva: injection 09/03/2012 None Full Exam - General 1994 Ears/Nose/Throat otoscopic exam Overall: external auditory canals clear 09/03/2012 None Full Exam - General 1994 Ears/Nose/Throat otoscopic exam Overall: tympanic membranes clear 09/03/2012 None Full Exam - General 1994 Ears/Nose/Throat oral cavity/pharynx/larynx Overall: oral mucosa clear 09/03/2012 None Full Exam - General 1994 Ears/Nose/Throat oral cavity/pharynx/larynx Overall: oropharyngeal mucosa clear 09/03/2012 None Full Exam - General 1995 Ears/Nose/Throat oral cavity/pharynx/larynx Overall: no masses 09/03/2012 None Full Exam - General 1994 Respiratory auscultation Overall: breath sounds clear bilaterally 09/03/2012 None Full Exam - General 1994 Respiratory respiratory effort/rhythm Overall: no retractions 09/03/2012 None Full Exam - General 1995 Respiratory respiratory effort/rhythm Overall: normal rate 09/03/2012 None Full Exam - General 1995 Cardiovascular auscultation of heart Overall: regular rate 09/03/2012 None Full Exam - General 1995 Cardiovascular auscultation of heart Overall: normal heart sounds 09/03/2012 None Full Exam - General 1995 Cardiovascular auscultation of heart Overall: no murmurs 09/03/2012 None Full Exam - General 1995 Abdomen abdominal exam Overall: no tenderness 09/03/2012 None Full Exam - General 1995 Abdomen abdominal exam Overall: normal bowel sounds 09/03/2012 None Full Exam - General 1995 Musculoskeletal head and neck Overall: head atraumatic 09/03/2012 None Full Exam - General 1995 Musculoskeletal head and neck Overall: cervical spine benign 09/03/2012 None Full Exam - General 1995 Neurologic gait Overall: no ataxia, no unsteadiness 09/03/2012 None Full Exam - General 1995 Psychiatric orientation/consciousness Overall: oriented to person, place and time 09/03/2012 None Full Exam - General 1994 Psychiatric mood and affect Overall: normal mood and affect 09/03/2012 None Full Exam - General 1995 Constitutional general appearance Development: well developed 06/03/2012 None Full Exam - General 1994 Constitutional general appearance Development: appears stated age 0106/03/2012 None Full Exam - General 1994 Constitutional general appearance Stature/Body Habitus: short stature 06/03/2012 None Full Exam - General 1994 Constitutional general appearance Nourishment: obese 06/03/2012 None Full Exam - General 1994 Constitutional general appearance Evidence of Distress: in no acute distress 06/03/2012 None Full Exam - General 1994 Respiratory respiratory effort/rhythm Overall: no retractions 06/03/2012 None Full Exam - General 1994 Respiratory respiratory effort/rhythm Overall: normal rate 06/03/2012 None Full Exam - General 1994 Cardiovascular auscultation of heart Overall: regular rate 06/03/2012 None Full Exam - General 1994 Cardiovascular auscultation of heart Overall: normal heart sounds 06/03/2012 None Full Exam - General 1994 Cardiovascular auscultation of heart Overall: no murmurs 06/03/2012 None Full Exam - General 1994 Musculoskeletal upper extremity Inspection - shoulder: a normal exam 06/03/2012 None Full Exam - General 1994 Musculoskeletal upper extremity Palpation - shoulder: tenderness @ bicipital groove 06/03/2012 None Full Exam - General 1995 Musculoskeletal head and neck Cervical Spine: a normal exam 06/03/2012 tenderness of trapezius of left neck and upper shoulder Full Exam - General 1995 Psychiatric orientation/consciousness Overall: oriented to person, place and time 06/03/2012 None Full Exam - General 1995 Psychiatric mood and affect Overall: normal mood and affect 06/03/2012 None Full Exam - General 1995 Constitutional general appearance Hygiene/Attention to Grooming: good hygiene 06/03/2012 None Full Exam - General 1995 Constitutional general appearance Hygiene/Attention to Grooming: normal grooming 06/03/2012 None Full Exam - General 1995 Respiratory auscultation Overall: breath sounds clear bilaterally 06/03/2012 None Full Exam - General 1995 Musculoskeletal head and neck Overall: head atraumatic 06/03/2012 None Full Exam - General 1995 Musculoskeletal head and neck Overall: cervical spine benign 06/03/2012 None Full Exam - General 1995 Neurologic gait Overall: no ataxia, no unsteadiness 06/03/2012 None Full Exam - General 1995 Eyes conjunctiva /eyelids Overall: conjunctiva clear 06/03/2012 None Full Exam - General 1995 Musculoskeletal upper extremity Palpation - shoulder: glenohumeral joint tenderness 06/03/2012 None Full Exam - General 1995 Musculoskeletal upper extremity ROM - shoulder: decreased abduction 06/03/2012 None Full Exam - General 1995 Musculoskeletal upper extremity ROM - shoulder: decreased shoulder extension 06/03/2012 None Full Exam - General 1995 Constitutional general appearance Development: well developed 05/28/2012 None Full Exam - General 1995 Constitutional general appearance Development: appears stated age 0105/28/2012 None Full Exam - General 1994 Constitutional general appearance Stature/Body Habitus: short stature 05/28/2012 None Full Exam - General 1994 Constitutional general appearance Nourishment: obese 05/28/2012 None Full Exam - General 1995 Constitutional general appearance Evidence of Distress: in no acute distress 05/28/2012 None Full Exam - General 1994 Respiratory respiratory effort/rhythm Overall: no retractions 05/28/2012 None Full Exam - General 1994 Respiratory respiratory effort/rhythm Overall: normal rate 05/28/2012 None Full Exam - General 1994 Cardiovascular auscultation of heart Overall: regular rate 05/28/2012 None Full Exam - General 1994 Cardiovascular auscultation of heart Overall: normal heart sounds 05/28/2012 None Full Exam - General 1994 Cardiovascular auscultation of heart Overall: no murmurs 05/28/2012 None Full Exam - General 1995 Musculoskeletal upper extremity Inspection - shoulder: a normal exam 05/28/2012 None Full Exam - General 1995 Musculoskeletal upper extremity Palpation - shoulder: tenderness @ bicipital groove 05/28/2012 None Full Exam - General 1994 Psychiatric orientation/consciousness Overall: oriented to person, place and time 05/28/2012 None Full Exam - General 1994 Psychiatric mood and affect Overall: normal mood and affect 05/28/2012 None Full Exam - General 1994 Musculoskeletal head and neck Cervical Spine: a normal exam 05/28/2012 tenderness of trapezius of left neck and upper shoulder Full Exam - General 1995 Ears/Nose/Throat oral cavity/pharynx/larynx Overall: oropharyngeal mucosa clear 05/06/2012 None Full Exam - General 1994 Ears/Nose/Throat oral cavity/pharynx/larynx Overall: no masses 05/06/2012 None Full Exam - General 1994 Respiratory auscultation Overall: breath sounds clear bilaterally 05/06/2012 None Full Exam - General 1994 Respiratory respiratory effort/rhythm Overall: no retractions 05/06/2012 None Full Exam - General 1994 Respiratory respiratory effort/rhythm Overall: normal rate 05/06/2012 None Full Exam - General 1994 Cardiovascular auscultation of heart Overall: regular rate 05/06/2012 None Full Exam - General 1994 Cardiovascular auscultation of heart Overall: normal heart sounds 05/06/2012 None Full Exam - General 1994 Cardiovascular auscultation of heart Overall: no murmurs 05/06/2012 None Full Exam - General 1994 Abdomen abdominal exam Overall: no tenderness 05/06/2012 None Full Exam - General 1994 Abdomen abdominal exam Overall: normal bowel sounds 05/06/2012 None Full Exam - General 1994 Musculoskeletal head and neck Overall: head atraumatic 05/06/2012 None Full Exam - General 1994 Musculoskeletal head and neck Overall: cervical spine benign 05/06/2012 None Full Exam - General 1994 Neurologic gait Overall: no ataxia, no unsteadiness 05/06/2012 None Full Exam - General 1994 Psychiatric orientation/consciousness Overall: oriented to person, place and time 05/06/2012 None Full Exam - General 1994 Constitutional general appearance Development: well developed 05/06/2012 None Full Exam - General 1994 Constitutional general appearance Development: appears stated age 1205/06/2012 None Full Exam - General 1994 Constitutional general appearance Stature/Body Habitus: short stature 05/06/2012 None Full Exam - General 1994 Constitutional general appearance Nourishment: obese 05/06/2012 None Full Exam - General 1994 Constitutional general appearance Evidence of Distress: in no acute distress 05/06/2012 None Full Exam - General 1995 Constitutional general appearance Hygiene/Attention to Grooming: good hygiene 05/06/2012 None Full Exam - General 1995 Constitutional general appearance Hygiene/Attention to Grooming: normal grooming 05/06/2012 None Full Exam - General 1994 Eyes conjunctiva /eyelids Conjunctiva: injection 05/06/2012 None Full Exam - General 1995 Ears/Nose/Throat otoscopic exam Overall: external auditory canals clear 05/06/2012 None Full Exam - General 1995 Ears/Nose/Throat otoscopic exam Overall: tympanic membranes clear 05/06/2012 None Full Exam - General 1994 Ears/Nose/Throat oral cavity/pharynx/larynx Overall: oral mucosa clear 05/06/2012 None Full Exam - General 1994 Psychiatric mood and affect Overall: normal mood and affect 05/06/2012 None Full Exam - General 1994 Constitutional general appearance Development: well developed 03/17/2012 None Full Exam - General 1994 Constitutional general appearance Development: appears stated age 1003/17/2012 None Full Exam - General 1994 Constitutional general appearance Stature/Body Habitus: short stature 03/17/2012 None Full Exam - General 1994 Constitutional general appearance Nourishment: obese 03/17/2012 None Full Exam - General 1994 Constitutional general appearance Evidence of Distress: in no acute distress 03/17/2012 None Full Exam - General 1994 Respiratory respiratory effort/rhythm Overall: no retractions 03/17/2012 None Full Exam - General 1994 Respiratory respiratory effort/rhythm Overall: normal rate 03/17/2012 None Full Exam - General 1994 Cardiovascular auscultation of heart Overall: regular rate 03/17/2012 None Full Exam - General 1994 Cardiovascular auscultation of heart Overall: normal heart sounds 03/17/2012 None Full Exam - General 1994 Cardiovascular auscultation of heart Overall: no murmurs 03/17/2012 None Full Exam - General 1994 Musculoskeletal upper extremity Inspection - shoulder: a normal exam 03/17/2012 None Full Exam - General 1994 Musculoskeletal upper extremity Palpation - shoulder: tenderness @ bicipital groove 03/17/2012 None Full Exam - General 1994 Psychiatric orientation/consciousness Overall: oriented to person, place and time 03/17/2012 None Full Exam - General 1994 Psychiatric mood and affect Overall: normal mood and affect 03/17/2012 None Full Exam - General 1994 Constitutional general appearance Development: well developed 03/12/2012 None Full Exam - General 1994 Constitutional general appearance Development: appears stated age 1003/12/2012 None Full Exam - General 1994 Constitutional general appearance Stature/Body Habitus: short stature 03/12/2012 None Full Exam - General 1994 Constitutional general appearance Nourishment: obese 03/12/2012 None Full Exam - General 1994 Constitutional general appearance Evidence of Distress: in no acute distress 03/12/2012 None Full Exam - General 1994 Cardiovascular auscultation of heart Overall: regular rate 03/12/2012 None Full Exam - General 1994 Cardiovascular auscultation of heart Overall: normal heart sounds 03/12/2012 None Full Exam - General 1994 Cardiovascular auscultation of heart Overall: no murmurs 03/12/2012 None Full Exam - General 1994 Respiratory respiratory effort/rhythm Overall: normal rate 03/12/2012 None Full Exam - General 1994 Respiratory respiratory effort/rhythm Overall: no retractions 03/12/2012 None Full Exam - General 1994 Psychiatric orientation/consciousness Overall: oriented to person, place and time 03/12/2012 None Full Exam - General 1994 Psychiatric mood and affect Overall: normal mood and affect 03/12/2012 None Full Exam - General 1994 Musculoskeletal upper extremity Inspection - shoulder: a normal exam 03/12/2012 None Full Exam - General 1994 Musculoskeletal upper extremity Palpation - shoulder: tenderness @ bicipital groove 03/12/2012 None Full Exam - General 1994 Musculoskeletal head and neck Overall: cervical spine benign 01/02/2012 None Full Exam - General 1994 Neurologic gait Overall: no ataxia, no unsteadiness 01/02/2012 None Full Exam - General 1994 Psychiatric orientation/consciousness Overall: oriented to person, place and time 01/02/2012 None Full Exam - General 1994 Psychiatric mood and affect Overall: normal mood and affect 01/02/2012 None Full Exam - General 1994 Eyes conjunctiva /eyelids Conjunctiva: injection 01/02/2012 None Full Exam - General 1994 Ears/Nose/Throat otoscopic exam Overall: tympanic membranes clear 01/02/2012 None Full Exam - General 1994 Ears/Nose/Throat oral cavity/pharynx/larynx Overall: oral mucosa clear 01/02/2012 None Full Exam - General 1994 Ears/Nose/Throat oral cavity/pharynx/larynx Overall: oropharyngeal mucosa clear 01/02/2012 None Full Exam - General 1995 Ears/Nose/Throat oral cavity/pharynx/larynx Overall: no masses 01/02/2012 None Full Exam - General 1995 Respiratory auscultation Overall: breath sounds clear bilaterally 01/02/2012 None Full Exam - General 1995 Respiratory respiratory effort/rhythm Overall: no retractions 01/02/2012 None Full Exam - General 1995 Respiratory respiratory effort/rhythm Overall: normal rate 01/02/2012 None Full Exam - General 1995 Cardiovascular auscultation of heart Overall: regular rate 01/02/2012 None Full Exam - General 1995 Cardiovascular auscultation of heart Overall: normal heart sounds 01/02/2012 None Full Exam - General 1995 Cardiovascular auscultation of heart Overall: no murmurs 01/02/2012 None Full Exam - General 1995 Abdomen abdominal exam Overall: no tenderness 01/02/2012 None Full Exam - General 1995 Abdomen abdominal exam Overall: normal bowel sounds 01/02/2012 None Full Exam - General 1994 Musculoskeletal head and neck Overall: head atraumatic 01/02/2012 None Full Exam - General 1994 Constitutional general appearance Development: well developed 01/02/2012 None Full Exam - General 1994 Constitutional general appearance Development: appears stated age 0801/02/2012 None Full Exam - General 1994 Constitutional general appearance Stature/Body Habitus: short stature 01/02/2012 None Full Exam - General 1994 Constitutional general appearance Nourishment: obese 01/02/2012 None Full Exam - General 1994 Constitutional general appearance Evidence of Distress: in no acute distress 01/02/2012 None Full Exam - General 1994 Constitutional general appearance Hygiene/Attention to Grooming: good hygiene 01/02/2012 None Full Exam - General 1994 Constitutional general appearance Hygiene/Attention to Grooming: normal grooming 01/02/2012 None Full Exam - General 1994 Ears/Nose/Throat otoscopic exam Overall: external auditory canals clear 01/02/2012 None Full Exam - General 1994 Constitutional general appearance Development: well developed 10/10/2011 None Full Exam - General 1994 Constitutional general appearance Development: appears stated age 0510/10/2011 None Full Exam - General 1994 Constitutional general appearance Stature/Body Habitus: short stature 10/10/2011 None Full Exam - General 1994 Constitutional general appearance Nourishment: obese 10/10/2011 None Full Exam - General 1994 Constitutional general appearance Evidence of Distress: in no acute distress 10/10/2011 None Full Exam - General 1994 Constitutional general appearance Hygiene/Attention to Grooming: good hygiene 10/10/2011 None Full Exam - General 1994 Constitutional general appearance Hygiene/Attention to Grooming: normal grooming 10/10/2011 None Full Exam - General 1994 Ears/Nose/Throat otoscopic exam Overall: external auditory canals clear 10/10/2011 None Full Exam - General 1994 Ears/Nose/Throat otoscopic exam Overall: tympanic membranes clear 10/10/2011 None Full Exam - General 1994 Ears/Nose/Throat oral cavity/pharynx/larynx Overall: oral mucosa clear 10/10/2011 None Full Exam - General 1994 Ears/Nose/Throat oral cavity/pharynx/larynx Overall: oropharyngeal mucosa clear 10/10/2011 None Full Exam - General 1994 Ears/Nose/Throat oral cavity/pharynx/larynx Overall: no masses 10/10/2011 None Full Exam - General 1994 Respiratory auscultation Overall: breath sounds clear bilaterally 10/10/2011 None Full Exam - General 1994 Respiratory respiratory effort/rhythm Overall: no retractions 10/10/2011 None Full Exam - General 1994 Respiratory respiratory effort/rhythm Overall: normal rate 10/10/2011 None Full Exam - General 1994 Cardiovascular auscultation of heart Overall: regular rate 10/10/2011 None Full Exam - General 1994 Cardiovascular auscultation of heart Overall: normal heart sounds 10/10/2011 None Full Exam - General 1994 Cardiovascular auscultation of heart Overall: no murmurs 10/10/2011 None Full Exam - General 1994 Abdomen abdominal exam Overall: no tenderness 10/10/2011 None Full Exam - General 1994 Abdomen abdominal exam Overall: normal bowel sounds 10/10/2011 None Full Exam - General 1994 Musculoskeletal head and neck Overall: head atraumatic 10/10/2011 None Full Exam - General 1994 Musculoskeletal head and neck Overall: cervical spine benign 10/10/2011 None Full Exam - General 1994 Neurologic gait Overall: no ataxia, no unsteadiness 10/10/2011 None Full Exam - General 1994 Psychiatric orientation/consciousness Overall: oriented to person, place and time 10/10/2011 None Full Exam - General 1994 Psychiatric mood and affect Overall: normal mood and affect 10/10/2011 None Full Exam - General 1994 Abdomen abdominal exam Overall: no tenderness 08/22/2011 None Full Exam - General 1995 Abdomen abdominal exam Overall: normal bowel sounds 08/22/2011 None Full Exam - General 1994 Cardiovascular auscultation of heart Overall: regular rate 08/22/2011 None Full Exam - General 1994 Cardiovascular auscultation of heart Overall: normal heart sounds 08/22/2011 None Full Exam - General 1994 Cardiovascular auscultation of heart Overall: no murmurs 08/22/2011 None Full Exam - General 1995 Constitutional general appearance Development: well developed 08/22/2011 None Full Exam - General 1995 Constitutional general appearance Development: appears stated age 0308/22/2011 None Full Exam - General 1995 Constitutional general appearance Stature/Body Habitus: short stature 08/22/2011 None Full Exam - General 1995 Constitutional general appearance Nourishment: obese 08/22/2011 None Full Exam - General 1994 Constitutional general appearance Evidence of Distress: in no acute distress 08/22/2011 None Full Exam - General 1994 Constitutional general appearance Hygiene/Attention to Grooming: good hygiene 08/22/2011 None Full Exam - General 1994 Constitutional general appearance Hygiene/Attention to Grooming: normal grooming 08/22/2011 None Full Exam - General 1995 Ears/Nose/Throat otoscopic exam Overall: external auditory canals clear 08/22/2011 None Full Exam - General 1995 Ears/Nose/Throat otoscopic exam Overall: tympanic membranes clear 08/22/2011 None Full Exam - General 1995 Ears/Nose/Throat oral cavity/pharynx/larynx Overall: oral mucosa clear 08/22/2011 None Full Exam - General 1994 Ears/Nose/Throat oral cavity/pharynx/larynx Overall: oropharyngeal mucosa clear 08/22/2011 None Full Exam - General 1994 Ears/Nose/Throat oral cavity/pharynx/larynx Overall: no masses 08/22/2011 None Full Exam - General 1994 Musculoskeletal head and neck Overall: head atraumatic 08/22/2011 None Full Exam - General 1994 Musculoskeletal head and neck Overall: cervical spine benign 08/22/2011 None Full Exam - General 1994 Neurologic gait Overall: no ataxia, no unsteadiness 08/22/2011 None Full Exam - General 1994 Psychiatric orientation/consciousness Overall: oriented to person, place and time 08/22/2011 None Full Exam - General 1994 Psychiatric mood and affect Overall: normal mood and affect 08/22/2011 None Full Exam - General 1994 Respiratory auscultation Overall: breath sounds clear bilaterally 08/22/2011 None Full Exam - General 1994 Respiratory respiratory effort/rhythm Overall: no retractions 08/22/2011 None Full Exam - General 1994 Respiratory respiratory effort/rhythm Overall: normal rate 08/22/2011 None Full Exam - General 1994 Musculoskeletal digits and nails Nails: a normal exam 08/22/2011 None Full Exam - General 1994 Musculoskeletal gait and station Overall: normal gait 08/22/2011 None Full Exam - General 1994 Constitutional general appearance Nourishment: obese 06/20/2011 None Full Exam - General 1994 Cardiovascular auscultation of heart Overall: no murmurs 06/20/2011 None Full Exam - General 1994 Abdomen abdominal exam Overall: no tenderness 06/20/2011 None Full Exam - General 1994 Abdomen abdominal exam Overall: normal bowel sounds 06/20/2011 None Full Exam - General 1994 Musculoskeletal head and neck Overall: head atraumatic 06/20/2011 None Full Exam - General 1994 Musculoskeletal head and neck Overall: cervical spine benign 06/20/2011 None Full Exam - General 1994 Neurologic gait Overall: no ataxia, no unsteadiness 06/20/2011 None Full Exam - General 1994 Psychiatric orientation/consciousness Overall: oriented to person, place and time 06/20/2011 None Full Exam - General 1994 Psychiatric mood and affect Overall: normal mood and affect 06/20/2011 None Full Exam - General 1994 Constitutional general appearance Evidence of Distress: in no acute distress 06/20/2011 None Full Exam - General 1994 Constitutional general appearance Hygiene/Attention to Grooming: good hygiene 06/20/2011 None Full Exam - General 1994 Constitutional general appearance Hygiene/Attention to Grooming: normal grooming 06/20/2011 None Full Exam - General 1994 Ears/Nose/Throat otoscopic exam Overall: external auditory canals clear 06/20/2011 None Full Exam - General 1994 Constitutional general appearance Development: well developed 06/20/2011 None Full Exam - General 1994 Constitutional general appearance Development: appears stated age 0106/20/2011 None Full Exam - General 1994 Constitutional general appearance Stature/Body Habitus: short stature 06/20/2011 None Full Exam - General 1994 Ears/Nose/Throat otoscopic exam Overall: tympanic membranes clear 06/20/2011 None Full Exam - General 1994 Ears/Nose/Throat oral cavity/pharynx/larynx Overall: oral mucosa clear 06/20/2011 None Full Exam - General 1994 Ears/Nose/Throat oral cavity/pharynx/larynx Overall: oropharyngeal mucosa clear 06/20/2011 None Full Exam - General 1994 Ears/Nose/Throat oral cavity/pharynx/larynx Overall: no masses 06/20/2011 None Full Exam - General 1994 Respiratory auscultation Overall: breath sounds clear bilaterally 06/20/2011 None Full Exam - General 1994 Respiratory respiratory effort/rhythm Overall: no retractions 06/20/2011 None Full Exam - General 1994 Respiratory respiratory effort/rhythm Overall: normal rate 06/20/2011 None Full Exam - General 1994 Cardiovascular auscultation of heart Overall: regular rate 06/20/2011 None Full Exam - General 1994 Cardiovascular auscultation of heart Overall: normal heart sounds 06/20/2011 None Full Exam - General 1994 Respiratory respiratory effort/rhythm Overall: normal rate 03/21/2011 None Full Exam - General 1994 Respiratory respiratory effort/rhythm Overall: no retractions 03/21/2011 None Full Exam - General 1994 Constitutional general appearance Development: well developed 03/21/2011 None Full Exam - General 1994 Constitutional general appearance Development: appears stated age 1003/21/2011 None Full Exam - General 1994 Constitutional general appearance Stature/Body Habitus: short stature 03/21/2011 None Full Exam - General 1994 Constitutional general appearance Nourishment: obese 03/21/2011 None Full Exam - General 1994 Constitutional general appearance Evidence of Distress: in no acute distress 03/21/2011 None Full Exam - General 1994 Constitutional general appearance Hygiene/Attention to Grooming: good hygiene 03/21/2011 None Full Exam - General 1994 Constitutional general appearance Hygiene/Attention to Grooming: normal grooming 03/21/2011 None Full Exam - General 1994 Ears/Nose/Throat otoscopic exam Overall: tympanic membranes clear 03/21/2011 None Full Exam - General 1994 Ears/Nose/Throat otoscopic exam Overall: external auditory canals clear 03/21/2011 None Full Exam - General 1994 Ears/Nose/Throat oral cavity/pharynx/larynx Overall: oropharyngeal mucosa clear 03/21/2011 None Full Exam - General 1994 Ears/Nose/Throat oral cavity/pharynx/larynx Overall: no masses 03/21/2011 None Full Exam - General 1994 Ears/Nose/Throat oral cavity/pharynx/larynx Overall: oral mucosa clear 03/21/2011 None Full Exam - General 1994 Psychiatric mood and affect Overall: normal mood and affect 03/21/2011 None Full Exam - General 1994 Psychiatric orientation/consciousness Overall: oriented to person, place and time 03/21/2011 None Full Exam - General 1994 Neurologic gait Overall: no ataxia, no unsteadiness 03/21/2011 None Full Exam - General 1994 Musculoskeletal head and neck Overall: cervical spine benign 03/21/2011 None Full Exam - General 1994 Musculoskeletal head and neck Overall: head atraumatic 03/21/2011 None Full Exam - General 1994 Abdomen abdominal exam Overall: no tenderness 03/21/2011 None Full Exam - General 1994 Abdomen abdominal exam Overall: normal bowel sounds 03/21/2011 None Full Exam - General 1994 Cardiovascular auscultation of heart Overall: regular rate 03/21/2011 None Full Exam - General 1994 Cardiovascular auscultation of heart Overall: normal heart sounds 03/21/2011 None Full Exam - General 1994 Cardiovascular auscultation of heart Overall: no murmurs 03/21/2011 None Full Exam - General 1994 Respiratory auscultation Overall: breath sounds clear bilaterally 03/21/2011 None Full Exam - ENT Constitutional general appearance Overall: well developed 01/30/2011 None Full Exam - ENT Constitutional general appearance Overall: well nourished 01/30/2011 None Full Exam - ENT Constitutional general appearance Overall: in no acute distress 01/30/2011 None Full Exam - ENT Ears/Nose/Throat otoscopic exam Left external auditory canal: complete cerumen impaction 01/30/2011 None Full Exam - ENT Ears/Nose/Throat otoscopic exam Right external auditory canal: complete cerumen impaction 01/30/2011 None Full Exam - ENT Ears/Nose/Throat otoscopic exam Left tympanic membrane: a normal exam 01/30/2011 after cerumen impaction removed. Full Exam - ENT Ears/Nose/Throat otoscopic exam Right tympanic membrane: a normal exam 01/30/2011 after cerumen impaction removed. Full Exam - General Respiratory auscultation Overall: breath sounds clear bilaterally 01/23/2011 None Full Exam - General Respiratory respiratory effort/rhythm Overall: no retractions 01/23/2011 None Full Exam - General Respiratory respiratory effort/rhythm Overall: normal rate 01/23/2011 None Full Exam - General Cardiovascular auscultation of heart Overall: normal heart sounds 01/23/2011 None Full Exam - General Cardiovascular auscultation of heart Overall: regular rate 01/23/2011 None Full Exam - General Cardiovascular auscultation of heart Overall: no murmurs 01/23/2011 None Full Exam - General Constitutional general appearance Overall: well nourished 01/23/2011 None Full Exam - General Ears/Nose/Throat oral cavity/pharynx/larynx Overall: oral mucosa clear 01/23/2011 None Full Exam - General Ears/Nose/Throat oral cavity/pharynx/larynx Overall: oropharyngeal mucosa clear 01/23/2011 None Full Exam - General Musculoskeletal gait and station Overall: normal station 01/23/2011 None Full Exam - General Neurologic cranial nerves Overall: cranial nerves 1-12 intact 01/23/2011 None Full Exam - General Psychiatric orientation/consciousness Overall: oriented to person, place and time 01/23/2011 None Full Exam - General Psychiatric behavior/ psychomotor activity Overall: no tics, normal psychomotor activity 01/23/2011 None Full Exam - General Constitutional general appearance Overall: well developed 01/23/2011 None Full Exam - General Constitutional general appearance Overall: in no acute distress 01/23/2011 None Full Exam - General Eyes conjunctiva/ eyelids Overall: eyelids normal 01/23/2011 None Full Exam - General Cardiovascular extremities Overall: no clubbing 01/23/2011 None Full Exam - General Chest/Breast breast/ chest inspection Overall: normal chest shape 01/23/2011 None Full Exam - General Abdomen abdominal exam Overall: no tenderness 01/23/2011 None Full Exam - General Abdomen abdominal exam Overall: normal bowel sounds 01/23/2011 None Full Exam - General Musculoskeletal gait and station Overall: normal gait 01/23/2011 None Full Exam - General Eyes conjunctiva/ eyelids Overall: conjunctiva clear 01/23/2011 None Full Exam - General Ears/Nose/Throat otoscopic exam Overall: external auditory canals clear 01/23/2011 None Full Exam - General Ears/Nose/Throat otoscopic exam Overall: tympanic membranes clear 01/23/2011 None Full Exam - General Ears/Nose/Throat lips /teeth/gingiva Overall: benign lips 01/23/2011 None Full Exam - General Ears/Nose/Throat lips /teeth/gingiva Overall: no masses 01/23/2011 None Full Exam - General Ears/Nose/Throat lips /teeth/gingiva Overall: benign gingiva 01/23/2011 None Procedures Procedure Codes Date PRESCRIP TRANSMIT VIA ERX SY CPT-4: G8553 10/11/2016 PRESCRIP TRANSMIT VIA ERX SY CPT-4: G8553 06/14/2016 PRESCRIP TRANSMIT VIA ERX SY CPT-4: G8553 12/26/2015 PRESCRIP TRANSMIT VIA ERX SY CPT-4: G8553 11/15/2015 PRESCRIP TRANSMIT VIA ERX SY CPT-4: G8553 07/04/2015 PRESCRIP TRANSMIT VIA ERX SY CPT-4: G8553 02/28/2015 THER/PROPH/DIAG INJ SC/IM CPT-4: 66008 07/07/2014 KETOROLAC TROMETHAMINE INJ CPT-4: J1885 07/07/2014 ADMIN PNEUMOCOCCAL VACCINE SNOMED CT: 16635212 CPT-4: G0009 05/03/2014 Pneumococcal Polysaccharide Vaccine, 23-Valent, Ad CPT-4: 81169 05/03/2014 ROUTINE VENIPUNCTURE CPT-4: 06494 01/27/2014 ROUTINE VENIPUNCTURE CPT-4: 93571 01/07/2014 THER/PROPH/DIAG INJ SC/IM CPT-4: 47953 08/19/2013 ROCEPHIN, PER 250 MG CPT-4: J0696 08/19/2013 25392 EST. PATIENT, LEVEL IV CPT-4: 15128 07/29/2013 PRESCRIP TRANSMIT VIA ERX SY CPT-4: G8553 07/29/2013 ROUTINE VENIPUNCTURE CPT-4: 96652 07/15/2013 95590 EST. PATIENT, LEVEL IV CPT-4: 65952 07/08/2013 PRESCRIP TRANSMIT VIA ERX SY CPT-4: G8553 07/08/2013 PRESCRIP TRANSMIT VIA ERX SY CPT-4: G8553 04/27/2013 PRESCRIP TRANSMIT VIA ERX SY CPT-4: G8553 09/19/2012 DRAIN/INJECT JOINT/BURSA CPT-4: 68065 09/10/2012 PRESCRIP TRANSMIT VIA ERX SY CPT-4: G8553 09/03/2012 ROUTINE VENIPUNCTURE CPT-4: 34867 09/01/2012 DRAIN/INJECT JOINT/BURSA CPT-4: 18804 06/03/2012 PRESCRIP TRANSMIT VIA ERX SY CPT-4: G8553 06/03/2012 INJ TRIGGER POINT 1/2 MUSCL CPT-4: 26143 05/28/2012 PRESCRIP TRANSMIT VIA ERX SY CPT-4: G8553 05/28/2012 PRESCRIP TRANSMIT VIA ERX SY CPT-4: G8553 05/06/2012 ROUTINE VENIPUNCTURE CPT-4: 30196 04/30/2012 PRESCRIP TRANSMIT VIA ERX SY CPT-4: G8553 03/17/2012 TRIAMCINOLONE ACET INJ NOS CPT-4: J3301 03/12/2012 THER/PROPH/DIAG INJ SC/IM CPT-4: 79653 03/12/2012 ROUTINE VENIPUNCTURE CPT-4: 90342 12/26/2011 ROUTINE VENIPUNCTURE CPT-4: 00741 10/08/2011 ROUTINE VENIPUNCTURE CPT-4: 95829 06/18/2011 ROUTINE VENIPUNCTURE CPT-4: 13184 03/19/2011 REMOVE IMPACTED EAR WAX UNI CPT-4: 31066 01/30/2011 PRESCRIP TRANSMIT VIA ERX SY CPT-4: G8553 01/23/2011 ROUTINE VENIPUNCTURE CPT-4: 12873 01/22/2011 Vital Signs Date Vital 06/19/2017 Blood Pressure 1: 150/72 Code : 8480-6 BMI: 36.8 Code : 62292-0 Heart Rate 1 : 74 bpm Height: 4'11" SpO2: 98% Weight: 182 lbs 02/14/2017 Blood Pressure 1: 150/70 Code : 8480-6 BMI: 36.4 Code : 78470-6 Heart Rate 1 : 60 bpm Height: 4'11" SpO2: 98% Weight: 180 lbs 01/07/2017 Blood Pressure 1: 144/80 Code : 8480-6 BMI: 36.2 Code : 00722-0 Heart Rate 1 : 72 bpm Height: 4'11" SpO2: 98% Weight: 179 lbs 11/14/2016 Blood Pressure 1: 140/84 Code : 8480-6 BMI: 36.4 Code : 71147-6 Heart Rate 1 : 84 bpm Height: 4'11" SpO2: 96% Weight: 180 lbs 10/11/2016 Blood Pressure 1: 148/76 Code : 8480-6 BMI: 36.0 Code : 21884-0 Heart Rate 1 : 71 bpm Height: 4'11" SpO2: 97% Weight: 178 lbs 06/14/2016 Blood Pressure 1: 148/58 Code : 8480-6 BMI: 36.2 Code : 54906-4 Heart Rate 1 : 70 bpm Height: 4'11" SpO2: 95% Weight: 179 lbs 02/27/2016 Blood Pressure 1: 138/68 Code : 8480-6 BMI: 35.2 Code : 11164-1 Heart Rate 1 : 69 bpm Height: 4'12" SpO2: 98% Weight: 177 lbs 02/08/2016 Blood Pressure 1: 138/64 Code : 8480-6 BMI: 35.3 Code : 12844-9 Heart Rate 1 : 73 bpm Height: 4'12" SpO2: 98% Weight: 178 lbs 12/26/2015 Blood Pressure 1: 160/62 Code : 8480-6 BMI: 35.5 Code : 13842-9 Heart Rate 1 : 95 bpm Height: 4'12" SpO2: 97% Weight: 179 lbs 11/29/2015 Height: 4'12" 11/15/2015 Blood Pressure 1: 160/62 Code : 8480-6 BMI: 35.7 Code : 76350-6 Heart Rate 1 : 81 bpm Height: 4'12" SpO2: 97% Weight: 180 lbs 08/01/2015 Blood Pressure 1: 154/72 Code : 8480-6 Blood Pressure 1: 139/72 Code: 8480-6 BMI: 35.7 Code: 28707-8 Heart Rate 1: 78 bpm Height: 4'12" SpO2: 97% Weight: 180 lbs 07/04/2015 Blood Pressure 1: 162/78 Code : 8480-6 BMI: 35.3 Code : 75292-0 Heart Rate 1 : 80 bpm Height: 4'12" SpO2: 98% Weight: 177 lbs 8 oz 02/28/2015 Blood Pressure 1: 146/64 Code : 8480-6 BMI: 35.5 Code : 79804-9 Heart Rate 1 : 80 bpm Height: 4'12" SpO2: 96% Weight: 179 lbs 11/03/2014 Blood Pressure 1: 142/76 Code : 8480-6 BMI: 36.3 Code : 76862-5 Heart Rate 1 : 80 bpm Height: 4'12" Weight: 183 lbs 09/08/2014 Blood Pressure 1: 132/74 Code : 8480-6 Heart Rate 1: 96 bpm Height: SpO2: 96% Weight: 183 lbs 07/07/2014 Blood Pressure 1: 128/78 Code : 8480-6 BMI: 36.7 Code : 27107-6 Heart Rate 1 : 72 bpm Height: 4'12" Weight: 185 lbs 05/03/2014 Blood Pressure 1: 128/72 Code : 8480-6 BMI: 36.9 Code : 37052-9 Heart Rate 1 : 68 bpm Height: 4'12" Weight: 186 lbs 01/27/2014 Blood Pressure 1: 142/64 Code : 8480-6 BMI: 37.1 Code : 58833-9 Heart Rate 1 : 98 bpm Height: 4'12" SpO2: 99% Weight: 187 lbs 01/07/2014 Blood Pressure 1: 140/76 Code : 8480-6 BMI: 36.1 Code : 45505-3 Heart Rate 1 : 78 bpm Height: 4'12" SpO2: 96% Weight: 182 lbs 11/11/2013 Blood Pressure 1: 152/92 Code : 8480-6 BMI: 36.5 Code : 74780-6 Heart Rate 1 : 72 bpm Height: 4'12" Weight: 184 lbs 08/19/2013 Blood Pressure 1: 124/70 Code : 8480-6 BMI: 35.3 Code : 65782-4 Heart Rate 1 : 87 bpm Height: 4'12" SpO2: 98% Temperature: 36.7 (C) / 98.1 (F) Weight: 178 lbs 07/29/2013 Blood Pressure 1: 120/70 Code : 8480-6 BMI: 35.2 Code : 60386-2 Heart Rate 1 : 80 bpm Height: 4'12" Weight: 177 lbs 07/08/2013 Blood Pressure 1: 152/72 Code : 8480-6 BMI: 31.0 Code : 30047-5 Heart Rate 1 : 80 bpm Height: 4'12" SpO2: 94% Weight: 156 lbs 04/27/2013 Blood Pressure 1: 132/72 Code : 8480-6 BMI: 34.4 Code : 40613-9 Heart Rate 1 : 88 bpm Height: 4'12" Weight: 173 lbs 02/09/2013 Blood Pressure 1: 136/78 Code : 8480-6 Heart Rate 1: 84 bpm Weight: 09/19/2012 Blood Pressure 1: 132/80 Code : 8480-6 Heart Rate 1: 60 bpm Weight: 09/10/2012 Blood Pressure 1: 146/64 Code : 8480-6 Heart Rate 1: 72 bpm Weight: 09/03/2012 Blood Pressure 1: 142/62 Code : 8480-6 BMI: 35.9 Code : 23591-0 Heart Rate 1 : 72 bpm Height: 4'12" Weight: 181 lbs 06/03/2012 Blood Pressure 1: 148/60 Code : 8480-6 Heart Rate 1: 88 bpm Weight: 177 lbs 05/28/2012 Blood Pressure 1: 172/90 Code : 8480-6 Blood Pressure 2: 170/88 Code: 8480-6 Heart Rate 1: 68 bpm Respiratory Rate: 20 bpm 05/06/2012 Blood Pressure 1: 134/60 Code : 8480-6 BMI: 35.3 Code : 98696-0 Heart Rate 1 : 84 bpm Height: 4'12" Respiratory Rate: 24 bpm Weight: 178 lbs 03/17/2012 Blood Pressure 1: 132/80 Code : 8480-6 Heart Rate 1: 68 bpm Weight: 186 lbs 03/12/2012 Blood Pressure 1: 126/80 Code : 8480-6 Heart Rate 1: 76 bpm Weight: 185 lbs 01/02/2012 Blood Pressure 1: 128/74 Code : 8480-6 BMI: 36.9 Code : 87597-9 Heart Rate 1 : 72 bpm Height: 4'12" Respiratory Rate: 16 bpm Weight: 186 lbs 10/10/2011 Blood Pressure 1: 124/48 Code : 8480-6 BMI: 36.3 Code : 57862-0 Heart Rate 1 : 68 bpm Height: 4'12" Weight: 183 lbs 08/22/2011 Blood Pressure 1: 144/60 Code : 8480-6 Heart Rate 1: 96 bpm Temperature: 37.1 (C) / 98.8 (F) Weight: 184 lbs 06/20/2011 Blood Pressure 1: 120/70 Code : 8480-6 Heart Rate 1: 80 bpm Respiratory Rate : 20 bpm Weight: 183 lbs 03/21/2011 Blood Pressure 1: 130/58 Code : 8480-6 BMI: 36.6 Code : 44360-1 Heart Rate 1 : 70 bpm Height: 4'12" Respiratory Rate: 16 bpm Weight: 184 lbs 8 oz 01/30/2011 Blood Pressure 1: 136/64 Code : 8480-6 Heart Rate 1: 77 bpm Weight: 184 lbs 01/23/2011 Blood Pressure 1: 132/60 Code : 8480-6 BMI: 37.3 Code : 40980-0 Heart Rate 1 : 88 bpm Height: 4'12" Respiratory Rate: 16 bpm Weight: 188 lbs Functional Status No Functional Status data History of Present Illness Symptom Name Status Result Effective Date Notes diabetes mellitus Onset of Symptom onset as an adult 06/19/2017 None diabetes mellitus Quality insulin dependent 06/19/2017 None diabetes mellitus Severity moderate 06/19/2017 None diabetes mellitus Alleviating Factors insulin 06/19/2017 None diabetes mellitus Exacerbating Factors diet 06/19/2017 None diabetes mellitus Pertinent Findings Denies nausea 06/19/2017 None hypertension Quality chronic 06/19/2017 None hypertension Quality primary hypertension 06/19/2017 None hypertension Onset and Resolution ongoing 06/19/2017 None hypertension Onset of Symptom during adulthood 06/19/2017 None hypertension Blood Pressure Values patient checking blood pressure at home - did not bring in readings 06/19/2017 -Checks occasionally hypertension Severity mild 06/19/2017 None hypertension Alleviating Factors medication 06/19/2017 None hypertension Exacerbating Factors stress 06/19/2017 None hypertension Pertinent Findings Denies dizziness 06/19/2017 None hypertension Pertinent Findings Denies dyspnea 06/19/2017 None hypertension Pertinent Findings Denies edema 06/19/2017 None gas and bloating Quality chronic 06/19/2017 None gas and bloating Onset and Resolution ongoing 06/19/2017 None gas and bloating Onset of Symptom 1+ years ago 06/19/2017 None gas and bloating Alleviating Factors belching 06/19/2017 None gas and bloating Exacerbating Factors meals 06/19/2017 None diabetes mellitus Alleviating Factors medication 06/19/2017 None diabetes mellitus Glucose monitoring occasional glucose testing 06/19/2017 None diabetes mellitus Test results Pt checking blood glucose readings, did not bring results to clinic 06/19/2017 None constipation Quality every other day 06/19/2017 None constipation Onset and Resolution ongoing 06/19/2017 None constipation Quality chronic 06/19/2017 None constipation Alleviating Factors laxatives 06/19/2017 None diabetes mellitus Onset of Symptom onset as an adult 02/14/2017 None diabetes mellitus Quality insulin dependent 02/14/2017 None diabetes mellitus Severity moderate 02/14/2017 None diabetes mellitus Alleviating Factors insulin 02/14/2017 None diabetes mellitus Exacerbating Factors diet 02/14/2017 None diabetes mellitus Pertinent Findings Denies nausea 02/14/2017 None diabetes mellitus Pertinent Findings Denies vomiting 02/14/2017 None hypertension Quality chronic 02/14/2017 None hypertension Quality primary hypertension 02/14/2017 None hypertension Onset and Resolution ongoing 02/14/2017 None hypertension Onset of Symptom during adulthood 02/14/2017 None hypertension Blood Pressure Values patient checking blood pressure at home - did not bring in readings 02/14/2017 -Checks occasionally hypertension Severity mild 02/14/2017 None hypertension Alleviating Factors medication 02/14/2017 None hypertension Exacerbating Factors stress 02/14/2017 None hypertension Pertinent Findings Denies dizziness 02/14/2017 None hypertension Pertinent Findings dyspnea 02/14/2017 when she has a lot of gas hypertension Pertinent Findings Denies edema 02/14/2017 None diabetes mellitus Test results Pt checking blood glucose readings, did not bring results to clinic 02/14/2017 None diabetes mellitus Glucose monitoring occasional glucose testing 02/14/2017 None gas and bloating Quality chronic 02/14/2017 None gas and bloating Onset and Resolution ongoing 02/14/2017 None gas and bloating Onset of Symptom 1+ years ago 02/14/2017 None gas and bloating Severity moderate 02/14/2017 None gas and bloating Frequency of Episodes daily 02/14/2017 None gas and bloating Alleviating Factors belching 02/14/2017 None gas and bloating Exacerbating Factors meals 02/14/2017 None back pain Onset and Resolution sudden in onset 01/07/2017 None back pain Onset of Symptom 4 days ago 01/07/2017 None back pain Location lumbar-sacral spine 01/07/2017 None back pain Quality constant 01/07/2017 None back pain Quality aching 01/07/2017 None abdominal pain Location in the suprapubic area 01/07/2017 None abdominal pain Radiating the back 01/07/2017 None abdominal pain Quality aching 01/07/2017 None abdominal pain Quality constant 01/07/2017 None abdominal pain Onset and Resolution sudden in onset 01/07/2017 None abdominal pain Onset of Symptom 4 days ago 01/07/2017 None diabetes mellitus Onset of Symptom onset as an adult 11/14/2016 None diabetes mellitus Quality insulin dependent 11/14/2016 None diabetes mellitus Severity moderate 11/14/2016 None diabetes mellitus Alleviating Factors insulin 11/14/2016 None diabetes mellitus Exacerbating Factors diet 11/14/2016 None diabetes mellitus Pertinent Findings Denies dizziness 11/14/2016 None diabetes mellitus Pertinent Findings Denies dyspnea 11/14/2016 None diabetes mellitus Pertinent Findings Denies nausea 11/14/2016 None diabetes mellitus Pertinent Findings Denies vomiting 11/14/2016 None hypertension Quality chronic 11/14/2016 None hypertension Quality primary hypertension 11/14/2016 None hypertension Onset and Resolution ongoing 11/14/2016 None hypertension Onset of Symptom during adulthood 11/14/2016 None hypertension Blood Pressure Values patient checking blood pressure at home - did not bring in readings 11/14/2016 -Checks occasionally hypertension Severity mild 11/14/2016 None hypertension Alleviating Factors medication 11/14/2016 None hypertension Exacerbating Factors stress 11/14/2016 None hypertension Pertinent Findings Denies dizziness 11/14/2016 None hypertension Pertinent Findings Denies dyspnea 11/14/2016 None hypertension Pertinent Findings Denies edema 11/14/2016 None diabetes mellitus Onset of Symptom onset as an adult 10/11/2016 None diabetes mellitus Quality insulin dependent 10/11/2016 None diabetes mellitus Severity moderate 10/11/2016 None diabetes mellitus Alleviating Factors insulin 10/11/2016 None diabetes mellitus Exacerbating Factors diet 10/11/2016 None diabetes mellitus Pertinent Findings Denies dizziness 10/11/2016 None diabetes mellitus Pertinent Findings Denies dyspnea 10/11/2016 None diabetes mellitus Pertinent Findings Denies nausea 10/11/2016 None diabetes mellitus Pertinent Findings Denies vomiting 10/11/2016 None hypertension Quality chronic 10/11/2016 None hypertension Onset and Resolution ongoing 10/11/2016 None hypertension Onset of Symptom during adulthood 10/11/2016 None hypertension Blood Pressure Values patient checking blood pressure at home - did not bring in readings 10/11/2016 -Checks occasionally hypertension Severity mild 10/11/2016 None hypertension Alleviating Factors medication 10/11/2016 None hypertension Exacerbating Factors stress 10/11/2016 None hypertension Pertinent Findings Denies dizziness 10/11/2016 None hypertension Pertinent Findings Denies dyspnea 10/11/2016 None hypertension Pertinent Findings Denies edema 10/11/2016 None constipation Quality chronic 10/11/2016 None constipation Quality intermittent 10/11/2016 None constipation Onset and Resolution ongoing 10/11/2016 None constipation Alleviating Factors laxatives 10/11/2016 Miralax daily diabetes mellitus Test results Pt checking blood glucose readings, did not bring results to clinic 10/11/2016 None diabetes mellitus Glucose monitoring occasional glucose testing 10/11/2016 None hypertension Quality primary hypertension 10/11/2016 None diabetes mellitus Onset of Symptom onset as an adult 06/14/2016 None diabetes mellitus Quality insulin dependent 06/14/2016 None diabetes mellitus Severity moderate 06/14/2016 None diabetes mellitus Alleviating Factors insulin 06/14/2016 None diabetes mellitus Exacerbating Factors diet 06/14/2016 None diabetes mellitus Pertinent Findings Denies dizziness 06/14/2016 None diabetes mellitus Pertinent Findings dyspnea 06/14/2016 occasionally diabetes mellitus Pertinent Findings Denies nausea 06/14/2016 None diabetes mellitus Pertinent Findings Denies vomiting 06/14/2016 None hypertension Quality chronic 06/14/2016 None hypertension Onset and Resolution ongoing 06/14/2016 None hypertension Onset of Symptom during adulthood 06/14/2016 None hypertension Blood Pressure Values patient checking blood pressure at home - did not bring in readings 06/14/2016 -Checks occasionally hypertension Alleviating Factors medication 06/14/2016 None hypertension Exacerbating Factors stress 06/14/2016 None hypertension Pertinent Findings Denies dizziness 06/14/2016 None hypertension Pertinent Findings Denies dyspnea 06/14/2016 occasionally constipation Quality chronic 06/14/2016 None constipation Quality intermittent 06/14/2016 None constipation Onset and Resolution ongoing 06/14/2016 None constipation Alleviating Factors laxatives 06/14/2016 Miralax daily abdominal pain Location in the LUQ 06/14/2016 gallbladder abdominal pain Quality intermittent 06/14/2016 None abdominal pain Quality acute 06/14/2016 None abdominal pain Quality stabbing 06/14/2016 None abdominal pain Quality improving 06/14/2016 states has to eat alot of spicy or greasy food before it hurts diabetes mellitus Test results Pt checking blood glucose readings, did not bring results to clinic 06/14/2016 None diabetes mellitus Blood glucose levels greater than 120 06/14/2016 None diabetes mellitus Glucose monitoring occasional glucose testing 06/14/2016 None hypertension Severity mild 06/14/2016 None hypertension Pertinent Findings Denies edema 06/14/2016 None constipation Onset and Resolution resolved 06/14/2016 None diabetes mellitus Onset of Symptom onset as an adult 02/27/2016 None diabetes mellitus Quality insulin dependent 02/27/2016 None diabetes mellitus Severity moderate 02/27/2016 None diabetes mellitus Alleviating Factors insulin 02/27/2016 None diabetes mellitus Exacerbating Factors diet 02/27/2016 None diabetes mellitus Pertinent Findings Denies dizziness 02/27/2016 None diabetes mellitus Pertinent Findings dyspnea 02/27/2016 occasionally diabetes mellitus Pertinent Findings Denies nausea 02/27/2016 None diabetes mellitus Pertinent Findings Denies vomiting 02/27/2016 None hypertension Quality chronic 02/27/2016 None hypertension Onset and Resolution ongoing 02/27/2016 None hypertension Onset of Symptom during adulthood 02/27/2016 None hypertension Blood Pressure Values patient checking blood pressure at home - did not bring in readings 02/27/2016 -Checks occasionally hypertension Alleviating Factors medication 02/27/2016 None hypertension Exacerbating Factors stress 02/27/2016 None hypertension Pertinent Findings Denies dizziness 02/27/2016 None hypertension Pertinent Findings dyspnea 02/27/2016 occasionally hypertension Pertinent Findings Denies edema 02/27/2016 None constipation Quality chronic 02/27/2016 None constipation Quality intermittent 02/27/2016 None constipation Onset and Resolution ongoing 02/27/2016 None constipation Alleviating Factors laxatives 02/27/2016 Miralax daily diabetes mellitus Test results Pt checking blood glucose readings, did not bring results to clinic 02/27/2016 None diabetes mellitus Glucose monitoring occasional glucose testing 02/27/2016 None constipation Quality acute 02/08/2016 None constipation Quality intermittent 02/08/2016 None abdominal pain Quality intermittent 02/08/2016 None abdominal pain Location in the periumbilical area 02/08/2016 None abdominal pain Location in the suprapubic area 02/08/2016 None abdominal pain Limitation on Activities moderately limits activities 02/08/2016 None diabetes mellitus Onset of Symptom onset as an adult 12/26/2015 None diabetes mellitus Quality insulin dependent 12/26/2015 None diabetes mellitus Severity moderate 12/26/2015 None diabetes mellitus Pertinent Findings Denies dizziness 12/26/2015 None diabetes mellitus Pertinent Findings Denies dyspnea 12/26/2015 None diabetes mellitus Pertinent Findings Denies nausea 12/26/2015 None diabetes mellitus Pertinent Findings Denies vomiting 12/26/2015 None hypertension Quality chronic 12/26/2015 None hypertension Onset and Resolution ongoing 12/26/2015 None hypertension Onset of Symptom during adulthood 12/26/2015 None hypertension Alleviating Factors medication 12/26/2015 None hypertension Pertinent Findings Denies dizziness 12/26/2015 None hypertension Pertinent Findings Denies dyspnea 12/26/2015 None hypertension Pertinent Findings Denies edema 12/26/2015 None constipation Quality chronic 12/26/2015 None constipation Quality intermittent 12/26/2015 None constipation Onset and Resolution ongoing 12/26/2015 None constipation Alleviating Factors laxatives 12/26/2015 None diabetes mellitus Test results Pt not checking blood glucose readings at home 12/26/2015 None diabetes mellitus Glucose monitoring does not test 12/26/2015 None diabetes mellitus Alleviating Factors insulin 12/26/2015 None diabetes mellitus Exacerbating Factors diet 12/26/2015 None hypertension Blood Pressure Values patient checking blood pressure at home - did not bring in readings 12/26/2015 (occasional) hypertension Exacerbating Factors stress 12/26/2015 None elbow pain Location on the right 12/26/2015 None elbow pain Quality intermittent 12/26/2015 None elbow pain Onset and Resolution ongoing 12/26/2015 None diabetes mellitus Onset of Symptom onset as an adult 11/29/2015 None diabetes mellitus Quality insulin dependent 11/29/2015 None diabetes mellitus Severity moderate 11/29/2015 None diabetes mellitus Pertinent Findings Denies dizziness 11/29/2015 None diabetes mellitus Pertinent Findings Denies dyspnea 11/29/2015 None diabetes mellitus Pertinent Findings Denies fruity breath 11/29/2015 None diabetes mellitus Pertinent Findings Denies nausea 11/29/2015 None diabetes mellitus Pertinent Findings Denies vomiting 11/29/2015 None hypertension Quality chronic 11/29/2015 None hypertension Onset and Resolution ongoing 11/29/2015 None hypertension Onset of Symptom during adulthood 11/29/2015 None hypertension Blood Pressure Values pt checking blood pressure - see scanned document 11/29/2015 None hypertension Alleviating Factors medication 11/29/2015 None hypertension Pertinent Findings Denies decreased energy 11/29/2015 None hypertension Pertinent Findings Denies dizziness 11/29/2015 None hypertension Pertinent Findings Denies dyspnea 11/29/2015 None hypertension Pertinent Findings Denies edema 11/29/2015 None constipation Quality chronic 11/29/2015 None constipation Quality intermittent 11/29/2015 None constipation Onset and Resolution ongoing 11/29/2015 None constipation Alleviating Factors laxatives 11/29/2015 None cough Location in the throat 11/15/2015 None cough Quality intermittent 11/15/2015 None cough Quality dry None cough Onset and Resolution sudden in onset 11/15/2015 None cough Onset of Symptom 3 days ago 11/15/2015 None sinus congestion Onset and Resolution sudden in onset 11/15/2015 None sinus congestion Onset of Symptom 3 days ago 11/15/2015 None sinus congestion Triggers no known associated factors 11/15/2015 None sinus congestion Pertinent Findings cough 11/15/2015 None sinus congestion Pertinent Findings hoarseness 11/15/2015 None sinus congestion Location on both sides 11/15/2015 None sinus congestion Quality fullness 11/15/2015 None sinus congestion Quality pressure 11/15/2015 None sore throat Location on both sides 11/15/2015 None sore throat Quality dull 11/15/2015 None sore throat Quality constant 11/15/2015 None sore throat Onset and Resolution sudden in onset 11/15/2015 None sore throat Onset of Symptom 3 days ago 11/15/2015 None sore throat Frequency of Episodes daily 11/15/2015 None earache Location both ears 11/15/2015 None earache Onset and Resolution gradual in onset 11/15/2015 None diabetes mellitus Onset of Symptom onset as an adult 08/01/2015 None diabetes mellitus Severity moderate 08/01/2015 None diabetes mellitus Pertinent Findings Denies dizziness 08/01/2015 None diabetes mellitus Pertinent Findings Denies dyspnea 08/01/2015 None diabetes mellitus Pertinent Findings Denies fruity breath 08/01/2015 None diabetes mellitus Pertinent Findings Denies nausea 08/01/2015 None diabetes mellitus Pertinent Findings Denies vomiting 08/01/2015 None hypertension Quality chronic 08/01/2015 None hypertension Onset and Resolution ongoing 08/01/2015 None hypertension Onset of Symptom during adulthood 08/01/2015 None hypertension Alleviating Factors medication 08/01/2015 None hypertension Pertinent Findings Denies decreased energy 08/01/2015 None hypertension Pertinent Findings Denies dizziness 08/01/2015 None hypertension Pertinent Findings Denies dyspnea 08/01/2015 None hypertension Pertinent Findings Denies edema 08/01/2015 None constipation Quality chronic 08/01/2015 None constipation Quality intermittent 08/01/2015 None constipation Onset and Resolution ongoing 08/01/2015 None hypertension Blood Pressure Values pt checking blood pressure - see scanned document 08/01/2015 None diabetes mellitus Test results Pt checking blood glucose readings, did not bring results to clinic 08/01/2015 None diabetes mellitus Glucose monitoring occasional glucose testing 08/01/2015 - once per week diabetes mellitus Quality insulin dependent 08/01/2015 None constipation Alleviating Factors laxatives 08/01/2015 None diabetes mellitus Onset of Symptom onset as an adult 07/04/2015 None diabetes mellitus Severity moderate 07/04/2015 None diabetes mellitus Pertinent Findings Denies dizziness 07/04/2015 None diabetes mellitus Pertinent Findings Denies dyspnea 07/04/2015 None diabetes mellitus Pertinent Findings Denies fruity breath 07/04/2015 None diabetes mellitus Pertinent Findings Denies nausea 07/04/2015 None diabetes mellitus Pertinent Findings Denies vomiting 07/04/2015 None hypertension Quality chronic 07/04/2015 120-130s/70s at home hypertension Onset and Resolution ongoing 07/04/2015 None hypertension Onset of Symptom during adulthood 07/04/2015 None hypertension Blood Pressure Values not checking blood pressure at home 07/04/2015 None hypertension Pertinent Findings decreased energy 07/04/2015 None hypertension Pertinent Findings Denies dizziness 07/04/2015 None hypertension Pertinent Findings Denies dyspnea 07/04/2015 None hypertension Pertinent Findings Denies edema 07/04/2015 None constipation Quality intermittent 07/04/2015 None constipation Quality chronic 07/04/2015 None constipation Onset and Resolution ongoing 07/04/2015 None diabetes mellitus Quality non-insulin dependent 07/04/2015 None diabetes mellitus Glucose monitoring does not test 07/04/2015 None hypertension Alleviating Factors medication 07/04/2015 None diabetes mellitus Test results Pt not checking blood glucose readings at home 07/04/2015 None hypertension Quality chronic 02/28/2015 120-130s/70s at home hypertension Onset and Resolution ongoing 02/28/2015 None hypertension Onset of Symptom during adulthood 02/28/2015 None hypertension Blood Pressure Values not checking blood pressure at home 02/28/2015 None hypertension Pertinent Findings Denies decreased energy 02/28/2015 None hypertension Pertinent Findings Denies dizziness 02/28/2015 None hypertension Pertinent Findings dyspnea 02/28/2015 None hypertension Pertinent Findings Denies edema 02/28/2015 None diabetes mellitus Onset of Symptom onset as an adult 02/28/2015 didnt take her bs this am usually 101 or as low as 78-80 diabetes mellitus Severity moderate 02/28/2015 None diabetes mellitus Pertinent Findings Denies dizziness 02/28/2015 None diabetes mellitus Pertinent Findings Denies dyspnea 02/28/2015 None diabetes mellitus Pertinent Findings Denies fruity breath 02/28/2015 None diabetes mellitus Pertinent Findings Denies nausea 02/28/2015 None diabetes mellitus Pertinent Findings Denies vomiting 02/28/2015 None chest tightness Onset and Resolution sudden in onset 02/28/2015 None chest tightness Location in the epigastric area 02/28/2015 None chest tightness Quality dull 02/28/2015 None chest tightness Pertinent Findings Denies arm pain 02/28/2015 None chest tightness Pertinent Findings back pain 02/28/2015 None chest tightness Pertinent Findings Denies cough 02/28/2015 None chest tightness Pertinent Findings dyspnea 02/28/2015 None chest tightness Pertinent Findings reflux 02/28/2015 None chest tightness Triggers meals 02/28/2015 None hypertension Quality constant 11/03/2014 None hypertension Blood Pressure Values pt checking blood pressure - see scanned document 11/03/2014 None hypertension Frequency of Episodes daily 11/03/2014 None hypertension Pertinent Findings anxiety 11/03/2014 None hypertension Pertinent Findings Denies dizziness 11/03/2014 None hypertension Pertinent Findings dyspnea 11/03/2014 None hypertension Pertinent Findings edema 11/03/2014 None hypertension Onset and Resolution ongoing 11/03/2014 None hypertension Onset of Symptom during adulthood 11/03/2014 None hypertension Blood Pressure Values not checking blood pressure at home 11/03/2014 None hypertension Pertinent Findings Denies decreased energy 11/03/2014 None diabetes mellitus Onset of Symptom onset as an adult 11/03/2014 didnt take her bs this am usually 101 or as low as 78-80 diabetes mellitus Severity moderate 11/03/2014 None diabetes mellitus Pertinent Findings Denies dizziness 11/03/2014 None diabetes mellitus Pertinent Findings Denies dyspnea 11/03/2014 None diabetes mellitus Pertinent Findings Denies fruity breath 11/03/2014 None diabetes mellitus Pertinent Findings Denies nausea 11/03/2014 None diabetes mellitus Pertinent Findings Denies vomiting 11/03/2014 None constipation Onset and Resolution ongoing 11/03/2014 takes Docusate paresthesia Location on both hands 11/03/2014 fingertips- numbness and burning joint complaint Location in the right wrist 11/03/2014 None joint complaint Location on both knees 11/03/2014 shoulders, back joint complaint Quality dull pain 11/03/2014 None joint complaint Onset and Resolution ongoing 11/03/2014 None hypertension Quality chronic 09/08/2014 120-130s/70s at home hypertension Onset and Resolution ongoing 09/08/2014 None hypertension Onset of Symptom during adulthood 09/08/2014 None hypertension Blood Pressure Values not checking blood pressure at home 09/08/2014 None hypertension Pertinent Findings Denies decreased energy 09/08/2014 None hypertension Pertinent Findings Denies dizziness 09/08/2014 None hypertension Pertinent Findings Denies dyspnea 09/08/2014 None hypertension Pertinent Findings Denies edema 09/08/2014 None diabetes mellitus Onset of Symptom onset as an adult 09/08/2014 didnt take her bs this am usually 101 or as low as 78-80 diabetes mellitus Severity moderate 09/08/2014 None diabetes mellitus Pertinent Findings Denies dizziness 09/08/2014 None diabetes mellitus Pertinent Findings Denies dyspnea 09/08/2014 None diabetes mellitus Pertinent Findings Denies fruity breath 09/08/2014 None diabetes mellitus Pertinent Findings Denies nausea 09/08/2014 None diabetes mellitus Pertinent Findings Denies vomiting 09/08/2014 None constipation Onset and Resolution ongoing 09/08/2014 takes Docusate paresthesia Location on both hands 09/08/2014 fingertips- numbness and burning joint complaint Quality dull pain 09/08/2014 None joint complaint Onset and Resolution ongoing 09/08/2014 None joint complaint Location in the right wrist 09/08/2014 None joint complaint Location on both knees 09/08/2014 shoulders, back hypertension Quality chronic 07/07/2014 None hypertension Onset and Resolution ongoing 07/07/2014 None hypertension Onset of Symptom during adulthood 07/07/2014 None hypertension Blood Pressure Values not checking blood pressure at home 07/07/2014 None hypertension Pertinent Findings Denies decreased energy 07/07/2014 None hypertension Pertinent Findings Denies dizziness 07/07/2014 None hypertension Pertinent Findings Denies dyspnea 07/07/2014 None hypertension Pertinent Findings Denies edema 07/07/2014 None diabetes mellitus Onset of Symptom onset as an adult 07/07/2014 None diabetes mellitus Severity moderate 07/07/2014 None diabetes mellitus Pertinent Findings Denies dizziness 07/07/2014 None diabetes mellitus Pertinent Findings Denies dyspnea 07/07/2014 None diabetes mellitus Pertinent Findings Denies fruity breath 07/07/2014 None diabetes mellitus Pertinent Findings Denies nausea 07/07/2014 None diabetes mellitus Pertinent Findings Denies vomiting 07/07/2014 None knee pain Location on the right 07/07/2014 None knee pain Severity moderate 07/07/2014 None knee pain Pertinent Findings Denies bruising 07/07/2014 None knee pain Pertinent Findings Denies limping 07/07/2014 None knee pain Pertinent Findings Denies swelling 07/07/2014 None arm pain Location right upper arm 07/07/2014 None arm pain Quality burning sensation 07/07/2014 None arm pain Quality sharp pain 07/07/2014 None arm pain Location right forearm 07/07/2014 None arm pain Onset of Symptom years ago 07/07/2014 1 year ago arm pain Pertinent Findings female 07/07/2014 None arm pain Pertinent Findings left hand dominant 07/07/2014 None hypertension Quality chronic 05/03/2014 None hypertension Onset and Resolution ongoing 05/03/2014 None hypertension Onset of Symptom during adulthood 05/03/2014 None hypertension Blood Pressure Values not checking blood pressure at home 05/03/2014 None hypertension Pertinent Findings Denies decreased energy 05/03/2014 None hypertension Pertinent Findings Denies dizziness 05/03/2014 None hypertension Pertinent Findings Denies dyspnea 05/03/2014 None hypertension Pertinent Findings Denies edema 05/03/2014 None diabetes mellitus Onset of Symptom onset as an adult 05/03/2014 None diabetes mellitus Severity moderate 05/03/2014 None diabetes mellitus Pertinent Findings Denies dizziness 05/03/2014 None diabetes mellitus Pertinent Findings Denies dyspnea 05/03/2014 None diabetes mellitus Pertinent Findings Denies fruity breath 05/03/2014 None diabetes mellitus Pertinent Findings Denies nausea 05/03/2014 None diabetes mellitus Pertinent Findings Denies vomiting 05/03/2014 None knee pain Location on the right 05/03/2014 None knee pain Severity moderate 05/03/2014 None knee pain Pertinent Findings Denies bruising 05/03/2014 None knee pain Pertinent Findings Denies limping 05/03/2014 None knee pain Pertinent Findings Denies swelling 05/03/2014 None shoulder pain Quality aching 05/03/2014 None shoulder pain Location on the right shoulder 05/03/2014 None shoulder pain Onset and Resolution ongoing 05/03/2014 None shoulder pain Onset of Symptom _ years ago 05/03/2014 says it is arthritis, somedays are worse than others shoulder pain Pertinent Findings Denies fever 05/03/2014 None shoulder pain Pertinent Findings Denies cough 05/03/2014 None shoulder pain Pertinent Findings Denies swelling 05/03/2014 None thumb and hand pain Onset of Symptom _ weeks ago 05/03/2014 None thumb and hand pain Quality burning sensation 05/03/2014 None thumb and hand pain Quality intermittent 05/03/2014 None thumb and hand pain Pertinent Findings Denies fever 05/03/2014 None hypertension Quality chronic 01/27/2014 None hypertension Onset and Resolution ongoing 01/27/2014 None hypertension Onset of Symptom during adulthood 01/27/2014 None hypertension Blood Pressure Values not checking blood pressure at home 01/27/2014 - Pt had steroid injections in her SI joints from Dr. Beebe. The injections have helped her pain, but the day she had her injections her blood pressures were 158/85. hypertension Pertinent Findings Denies decreased energy 01/27/2014 None hypertension Pertinent Findings Denies dizziness 01/27/2014 None hypertension Pertinent Findings Denies dyspnea 01/27/2014 None hypertension Pertinent Findings Denies edema 01/27/2014 None diabetes mellitus Onset of Symptom onset as an adult 01/27/2014 None diabetes mellitus Severity moderate 01/27/2014 None diabetes mellitus Test results Pt checking blood glucose readings, did not bring results to clinic 01/27/2014 occ checks readings diabetes mellitus Pertinent Findings Denies dizziness 01/27/2014 None diabetes mellitus Pertinent Findings Denies fruity breath 01/27/2014 None diabetes mellitus Pertinent Findings Denies dyspnea 01/27/2014 None diabetes mellitus Pertinent Findings Denies nausea 01/27/2014 None diabetes mellitus Pertinent Findings Denies vomiting 01/27/2014 None knee pain Location on the right 01/27/2014 None knee pain Severity moderate 01/27/2014 None knee pain Pertinent Findings Denies bruising 01/27/2014 None knee pain Pertinent Findings Denies limping 01/27/2014 None knee pain Pertinent Findings Denies swelling 01/27/2014 None diarrhea Quality acute 01/07/2014 None diarrhea Onset of Symptom 2-3 days ago 01/07/2014 None diarrhea Limitation on Activities moderately limits activities 01/07/2014 None diarrhea Frequency of Episodes 4-6 stools per day 01/07/2014 None diarrhea Pertinent Findings abdominal distension 01/07/2014 None diarrhea Pertinent Findings cramping 01/07/2014 None diarrhea Pertinent Findings flatulence 01/07/2014 None diarrhea Pertinent Findings nausea 01/07/2014 None diarrhea Onset and Resolution ongoing 01/07/2014 None diarrhea Timing of Episodes no specific time 01/07/2014 None diarrhea Triggers no known associated factors 01/07/2014 None muscle weakness Location diffusely 01/07/2014 None muscle weakness Onset and Resolution ongoing 01/07/2014 None muscle weakness Limitation on Activities does not limit activities 01/07/2014 None muscle weakness Frequency of Episodes increasing 01/07/2014 None muscle weakness Onset of Symptom 3 days ago 01/07/2014 None muscle weakness Quality both sides 01/07/2014 None muscle weakness Triggers no known associated factors 01/07/2014 stopped gabapentin Saturday-ran out-was taking 800mg daily in the evening hypertension Blood Pressure Values not checking blood pressure at home 11/11/2013 - pt had steroid injections in her SI joints from Dr. Beebe - The injections have helped her pain, but the day she had her injections her blood pressures were 158/85. diabetes mellitus Blood glucose levels between 60 and 120 11/11/2013 None diabetes mellitus Blood glucose levels greater than 120 11/11/2013 None diabetes mellitus Test results Pt checking blood glucose readings, did not bring results to clinic 11/11/2013 None hypertension Pertinent Findings Denies decreased energy 11/11/2013 None hypertension Pertinent Findings Denies edema 11/11/2013 None hypertension Pertinent Findings Denies dizziness 11/11/2013 None hypertension Pertinent Findings Denies dyspnea 11/11/2013 None hypertension Onset and Resolution ongoing 11/11/2013 None hypertension Onset of Symptom during adulthood 11/11/2013 None hypertension Quality chronic 11/11/2013 None diabetes mellitus Onset of Symptom onset as an adult 11/11/2013 None diabetes mellitus Severity moderate 11/11/2013 None earache Location both ears 08/19/2013 None earache Quality acute 08/19/2013 None earache Onset and Resolution ongoing 08/19/2013 statesshe has chilled off and on. c/o ears poping hand pain Location on the right 08/19/2013 None hand pain Location on the left 08/19/2013 None hand pain Quality dull pain 08/19/2013 thinks she is getting arthritis hypertension Blood Pressure Values not checking blood pressure at home 07/29/2013 None diabetes mellitus Test results Pt checking blood glucose at home, see scanned readings 2013 None diabetes mellitus Onset of Symptom onset as an adult 07/29/2013 None diabetes mellitus Quality insulin dependent 07/29/2013 None diabetes mellitus Severity mild 07/29/2013 None diabetes mellitus Pertinent Findings Denies dizziness 07/29/2013 None diabetes mellitus Pertinent Findings Denies lethargy 07/29/2013 None diabetes mellitus Pertinent Findings numbness 07/29/2013 in right lower leg/ foot hypertension Onset of Symptom during adulthood 07/29/2013 None hypertension Onset and Resolution ongoing 07/29/2013 None hypertension Quality chronic 07/29/2013 None hypertension Quality chronic 07/08/2013 None hypertension Blood Pressure Values patient checking blood pressure at home - did not bring in readings 07/08/2013 None hypertension Pertinent Findings Denies dizziness 07/08/2013 None hypertension Pertinent Findings Denies dyspnea 07/08/2013 None hypertension Pertinent Findings edema 07/08/2013 None diabetes mellitus Test results Pt checking blood glucose readings, did not bring results to clinic 07/08/2013 None diabetes mellitus Pertinent Findings dizziness 07/08/2013 None hypertension Onset and Resolution ongoing 07/08/2013 None hypertension Onset of Symptom during adulthood 07/08/2013 None hypertension Triggers no known associated factors 07/08/2013 None diabetes mellitus Onset of Symptom onset as an adult 07/08/2013 None diabetes mellitus Quality insulin dependent 07/08/2013 None diabetes mellitus Severity moderate 07/08/2013 None diabetes mellitus Test results Pt checking blood glucose readings, did not bring results to clinic 04/27/2013 None diabetes mellitus Quality insulin dependent 04/27/2013 None diabetes mellitus Onset of Symptom onset as an adult 04/27/2013 None diabetes mellitus Severity mild 04/27/2013 None diabetes mellitus Blood glucose levels between 60 and 120 04/27/2013 None diabetes mellitus Glucose monitoring 2 hours postprandial 04/27/2013 None diabetes mellitus Pertinent Findings Denies dizziness 04/27/2013 None diabetes mellitus Pertinent Findings Denies lethargy 04/27/2013 None diabetes mellitus Pertinent Findings numbness 04/27/2013 in right lower leg/ foot diabetes mellitus Onset of Symptom onset as an adult 02/09/2013 None diabetes mellitus Quality insulin dependent 02/09/2013 None diabetes mellitus Quality chronic 02/09/2013 None diabetes mellitus Severity mild 02/09/2013 None diabetes mellitus Significant Medications insulin 02/09/2013 None diabetes mellitus Alleviating Factors insulin 02/09/2013 None diabetes mellitus Exacerbating Factors diet 02/09/2013 None diabetes mellitus Pertinent Findings Denies dizziness 02/09/2013 None diabetes mellitus Pertinent Findings Denies lethargy 02/09/2013 None hypertension Quality chronic 02/09/2013 None hypertension Onset and Resolution ongoing 02/09/2013 None hypertension Blood Pressure Values patient checking blood pressure at home - did not bring in readings 02/09/2013 None hypertension Severity mild 02/09/2013 None hypertension Triggers stress 02/09/2013 None hypertension Alleviating Factors diet changes 02/09/2013 None hypertension Alleviating Factors medication 02/09/2013 None hypertension Exacerbating Factors change in dietary habits 02/09/2013 None hypertension Exacerbating Factors stress 02/09/2013 None hypertension Pertinent Findings Denies anxiety 02/09/2013 None hypertension Pertinent Findings Denies decreased energy 02/09/2013 None hypertension Pertinent Findings Denies dizziness 02/09/2013 None osteoarthritis Alleviating Factors NSAIDs (_) 09/19/2012 None osteoarthritis Frequency of Episodes increasing 09/19/2012 None osteoarthritis Limitation on Activities moderately limits activities 09/19/2012 states improves after she gets out of bed osteoarthritis Severity moderate 09/19/2012 None osteoarthritis Significant Medical Conditions diabetes 09/19/2012 None osteoarthritis Mechanism of injury unknown 09/19/2012 None osteoarthritis Onset and Resolution ongoing 09/19/2012 None osteoarthritis Pertinent Findings stiffness 09/19/2012 None sciatica Location on the right 09/10/2012 None sciatica Quality acute 09/10/2012 None sciatica Quality burning 09/10/2012 None sciatica Quality sharp pain 09/10/2012 None sciatica Onset and Resolution sudden in onset 09/10/2012 None sciatica Onset of Symptom 2 days ago 09/10/2012 None sciatica Limitation on Activities does not limit activities 09/10/2012 None sciatica Frequency of Episodes increasing 09/10/2012 None sciatica Triggers no known associated factors 09/10/2012 None sciatica Alleviating Factors medication 09/10/2012 None sciatica Pertinent Findings low back pain 09/10/2012 None sciatica Pertinent Findings Denies weakness 09/10/2012 None diabetes mellitus Quality chronic 09/03/2012 None hypertension Quality chronic 09/03/2012 None hypertension Onset and Resolution ongoing 09/03/2012 None diabetes mellitus Onset of Symptom onset as an adult 09/03/2012 None diabetes mellitus Severity mild 09/03/2012 None diabetes mellitus Significant Medications insulin 09/03/2012 None diabetes mellitus Alleviating Factors insulin 09/03/2012 None diabetes mellitus Exacerbating Factors diet 09/03/2012 None diabetes mellitus Pertinent Findings Denies dizziness 09/03/2012 None diabetes mellitus Pertinent Findings Denies lethargy 09/03/2012 None diabetes mellitus Quality insulin dependent 09/03/2012 None hypertension Blood Pressure Values patient checking blood pressure at home - did not bring in readings 09/03/2012 None hypertension Severity mild 09/03/2012 None hypertension Triggers stress 09/03/2012 None hypertension Alleviating Factors medication 09/03/2012 None hypertension Alleviating Factors diet changes 09/03/2012 None hypertension Exacerbating Factors change in dietary habits 09/03/2012 None hypertension Exacerbating Factors stress 09/03/2012 None hypertension Pertinent Findings Denies anxiety 09/03/2012 None hypertension Pertinent Findings Denies decreased energy 09/03/2012 None hypertension Pertinent Findings Denies dizziness 09/03/2012 None shoulder pain Location on the left shoulder 06/03/2012 None shoulder pain Limitation on Activities moderately limits activities 06/03/2012 None shoulder pain Pertinent Findings stiffness 06/03/2012 None shoulder pain Pertinent Findings loss of range of motion 06/03/2012 None shoulder pain Quality acute 06/03/2012 None shoulder pain Onset and Resolution ongoing 06/03/2012 None shoulder pain Frequency of Episodes decreasing 06/03/2012 states pain is better shoulder pain Mechanism of injury unknown 06/03/2012 None shoulder pain Triggers activity 06/03/2012 overhead activity shoulder pain Location on the left shoulder 05/28/2012 None shoulder pain Quality aching 05/28/2012 radiating to neck shoulder pain Quality chronic 05/28/2012 None shoulder pain Limitation on Activities moderately limits activities 05/28/2012 None shoulder pain Pertinent Findings loss of range of motion 05/28/2012 None shoulder pain Onset of Symptom 7 days ago 05/28/2012 None shoulder pain Frequency of Episodes increasing 05/28/2012 None shoulder pain Mechanism of injury unknown 05/28/2012 None shoulder pain Triggers activity 05/28/2012 None shoulder pain Alleviating Factors medication 05/28/2012 steroid shot helped last time along with steroid taper diabetes mellitus Onset of Symptom onset as an adult 05/06/2012 None hypertension Pertinent Findings Denies dizziness 05/06/2012 None diabetes mellitus Test results Pt checking blood glucose readings, did not bring results to clinic 05/06/2012 None diabetes mellitus Test results HgbA1c level 7.2 05/06/2012 None diabetes mellitus Glucose monitoring twice daily 05/06/2012 None diabetes mellitus Blood glucose levels 60 -140 05/06/2012 None diabetes mellitus Severity mild 05/06/2012 None diabetes mellitus Significant Medications insulin 05/06/2012 None diabetes mellitus Alleviating Factors insulin 05/06/2012 None diabetes mellitus Exacerbating Factors diet 05/06/2012 None diabetes mellitus Pertinent Findings Denies dizziness 05/06/2012 None diabetes mellitus Pertinent Findings Denies lethargy 05/06/2012 None diabetes mellitus Quality insulin dependent 05/06/2012 None diabetes mellitus Quality chronic 05/06/2012 None hypertension Quality chronic 05/06/2012 None hypertension Onset and Resolution ongoing 05/06/2012 None hypertension Blood Pressure Values patient checking blood pressure at home - did not bring in readings 05/06/2012 None hypertension Severity mild 05/06/2012 None hypertension Triggers stress 05/06/2012 None hypertension Alleviating Factors diet changes 05/06/2012 None hypertension Alleviating Factors medication 05/06/2012 None hypertension Exacerbating Factors change in dietary habits 05/06/2012 None hypertension Exacerbating Factors stress 05/06/2012 None hypertension Pertinent Findings Denies anxiety 05/06/2012 None hypertension Pertinent Findings Denies decreased energy 05/06/2012 None shoulder pain Quality sharp 03/17/2012 None shoulder pain Quality stabbing 03/17/2012 None shoulder pain Quality constant 03/17/2012 L shoulder shoulder pain Location on the left shoulder 03/17/2012 None shoulder pain Quality dull 03/17/2012 None shoulder pain Onset and Resolution ongoing 03/17/2012 None shoulder pain Limitation on Activities moderately limits activities 03/17/2012 None shoulder pain Timing of Episodes upon awakening 03/17/2012 None shoulder pain Alleviating Factors NSAID ingestion 03/17/2012 took aleve shoulder pain Exacerbating Factors lifting 03/17/2012 None shoulder pain Location in the left bicep tendon 03/17/2012 None shoulder pain Quality constant 03/12/2012 None shoulder pain Quality dull 03/12/2012 None shoulder pain Location on the left shoulder 03/12/2012 None shoulder pain Onset and Resolution ongoing 03/12/2012 None shoulder pain Onset of Symptom 1 weeks ago 03/12/2012 None shoulder pain Limitation on Activities moderately limits activities 03/12/2012 None shoulder pain Timing of Episodes upon awakening 03/12/2012 None shoulder pain Mechanism of injury unknown 03/12/2012 no injury shoulder pain Alleviating Factors NSAID ingestion 03/12/2012 took aleve shoulder pain Exacerbating Factors lifting 03/12/2012 None lower leg pain Location in the calf region 01/02/2012 c/o legs cramps at night hypertension Quality chronic 01/02/2012 None hypertension Onset and Resolution ongoing 01/02/2012 None hypertension Blood Pressure Values patient checking blood pressure at home - did not bring in readings 01/02/2012 None hypertension Severity mild 01/02/2012 None hypertension Triggers stress 01/02/2012 None hypertension Alleviating Factors diet changes 01/02/2012 None hypertension Alleviating Factors medication 01/02/2012 None hypertension Exacerbating Factors change in dietary habits 01/02/2012 None hypertension Exacerbating Factors stress 01/02/2012 None hypertension Pertinent Findings Denies anxiety 01/02/2012 None hypertension Pertinent Findings Denies decreased energy 01/02/2012 None hypertension Pertinent Findings Denies dizziness 01/02/2012 None diabetes mellitus Onset of Symptom onset as an adult 01/02/2012 None diabetes mellitus Pertinent Findings Denies dizziness 01/02/2012 None diabetes mellitus Pertinent Findings Denies lethargy 01/02/2012 None diabetes mellitus Quality insulin dependent 01/02/2012 None diabetes mellitus Quality chronic 01/02/2012 None diabetes mellitus Severity mild 01/02/2012 None diabetes mellitus Significant Medications insulin 01/02/2012 None diabetes mellitus Alleviating Factors insulin 01/02/2012 None diabetes mellitus Exacerbating Factors diet 01/02/2012 None hypertension Quality chronic 10/10/2011 None hypertension Onset and Resolution ongoing 10/10/2011 None diabetes mellitus Test results Pt checking blood glucose readings, did not bring results to clinic 10/10/2011 None diabetes mellitus Quality chronic 10/10/2011 None diabetes mellitus Quality insulin dependent 10/10/2011 None diabetes mellitus Severity mild 10/10/2011 None diabetes mellitus Significant Medications insulin 10/10/2011 None diabetes mellitus Alleviating Factors insulin 10/10/2011 None diabetes mellitus Exacerbating Factors diet 10/10/2011 None hypertension Blood Pressure Values patient checking blood pressure at home - did not bring in readings 10/10/2011 None hypertension Severity mild 10/10/2011 None hypertension Triggers stress 10/10/2011 None hypertension Alleviating Factors diet changes 10/10/2011 None hypertension Alleviating Factors medication 10/10/2011 None hypertension Exacerbating Factors stress 10/10/2011 None hypertension Exacerbating Factors change in dietary habits 10/10/2011 None hypertension Pertinent Findings Denies anxiety 10/10/2011 None hypertension Pertinent Findings Denies decreased energy 10/10/2011 None hypertension Pertinent Findings Denies dizziness 10/10/2011 None diabetes mellitus Onset of Symptom onset as an adult 10/10/2011 None diabetes mellitus Exercise no exercise 10/10/2011 None diabetes mellitus Pertinent Findings Denies dizziness 10/10/2011 None diabetes mellitus Pertinent Findings Denies lethargy 10/10/2011 None joint complaint Location diffusely 08/22/2011 None joint complaint Quality acute 08/22/2011 None joint complaint Onset and Resolution sudden in onset 08/22/2011 None joint complaint Onset of Symptom 2 days ago 08/22/2011 None fatigue Quality acute 08/22/2011 None fatigue Onset of Symptom 2 days ago 08/22/2011 None joint complaint Triggers no known associated factors 08/22/2011 None joint complaint Alleviating Factors medication 08/22/2011 None joint complaint Exacerbating Factors activity 08/22/2011 None joint complaint Mechanism of injury unknown 08/22/2011 None diabetes mellitus Quality chronic 06/20/2011 None diabetes mellitus Glucose monitoring does not test 06/20/2011 very often diabetes mellitus Blood glucose levels between 60 and 120 06/20/2011 None diabetes mellitus Exercise minimal exercise 06/20/2011 None diabetes mellitus Quality insulin dependent 03/21/2011 None diabetes mellitus Quality chronic 03/21/2011 None diabetes mellitus Severity mild 03/21/2011 None diabetes mellitus Blood glucose levels between 60 and 120 03/21/2011 in the morning diabetes mellitus Blood glucose levels blood sugar goes up to 200 in the afternoon 03/21/2011 None cholesterol followup Quality chronic 03/21/2011 None cholesterol followup Quality increased LDL 03/21/2011 None cholesterol followup Quality decreased HDL 03/21/2011 None cholesterol followup Onset and Resolution ongoing 03/21/2011 None cholesterol followup Onset of Symptom during adulthood 03/21/2011 None cholesterol followup Significant Medical Conditions diabetes 03/21/2011 None cholesterol followup Alleviating Factors medication 03/21/2011 None cerumen Location in both ears 01/30/2011 None cerumen Onset and Resolution gradual in onset 01/30/2011 None cerumen Limitation on Activities does not limit hearing 01/30/2011 None diabetes mellitus Quality insulin dependent 01/23/2011 None diabetes mellitus Test results fasting glucose >140 01/23/2011 per patient report , only checking blood sugars in the morning. diabetes mellitus Glucose monitoring daily 01/23/2011 None diabetes mellitus Significant Medications insulin 01/23/2011 None diabetes mellitus Alleviating Factors insulin 01/23/2011 None diabetes mellitus Exacerbating Factors diet 01/23/2011 None diabetes mellitus Exercise no exercise 01/23/2011 None Advance Directives No Advance Directive data Encounters Encounter Performer Location Codes Date ([id number]) 26580 EST. PATIENT, LEVEL IV Diagnosis: Type 2 diabetes mellitus with hyperglycemia[ICD10: E11.65] Diagnosis: Chronic pain syndrome[ICD10: G89.4] Diagnosis: Essential (primary) hypertension[ICD10: I10] Diagnosis: Calculus of gallbladder without cholecystitis without obstruction[ ICD10: K80.20] [facility] CPT-4: 56334 06/19/2017 ([id number]) 14611 EST. PATIENT, LEVEL IV Diagnosis: Type 2 diabetes mellitus without complications[ICD10: E11.9] Diagnosis: Chronic pain syndrome[ICD10: G89.4] Diagnosis: Essential (primary) hypertension[ICD10: I10] [facility] CPT-4: 39016 02/14/2017 45513 EST. PATIENT, LEVEL III Diagnosis: Dysuria[ICD10: R30.0] [facility] CPT-4: 21744 01/07/2017 [id number]) 34984 EST. PATIENT, LEVEL IV Diagnosis: Chronic pain syndrome[ICD10: G89.4] Diagnosis: Type 2 diabetes mellitus without complications[ICD10: E11.9] Diagnosis: Slow transit constipation[ICD10: K59.01] Morenita Beal MD [facility] CPT-4: 25712 11/14/2016 ([id number]) 88136 EST. PATIENT, LEVEL IV Diagnosis: Type 2 diabetes mellitus with hyperglycemia[ICD10: E11.65] Diagnosis: Essential (primary) hypertension[ICD10: I10] Diagnosis: Chronic kidney disease, stage 2 (mild)[ICD10: N18.2] Morenita Beal MD [facility] CPT-4: 94058 10/11/2016 ([id number]) 63676 EST. PATIENT, LEVEL IV Diagnosis: Type 2 diabetes mellitus without complications[ICD10: E11.9] Diagnosis: Chronic pain syndrome[ICD10: G89.4] Diagnosis: Essential (primary) hypertension[ICD10: I10] Morenita Beal MD [facility] CPT-4: 79943 06/14/2016 ([id number]) 77015 EST. PATIENT, LEVEL IV Diagnosis: Type 2 diabetes mellitus without complications[ICD10: E11.9] Diagnosis: Essential (primary) hypertension[ICD10: I10] Morenita Beal MD [facility] CPT-4: 88721 02/27/2016 ([id number]) 81152 EST. PATIENT, LEVEL III Diagnosis: Calculus of gallbladder without cholecystitis without obstruction[ ICD10: K80.20] Diagnosis: Slow transit constipation[ICD10: K59.01] Morenita Beal MD [facility] CPT-4: 46401 02/08/2016 ([id number]) 89199 EST. 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 PATIENT, LEVEL IV Diagnosis: Acute laryngopharyngitis[ICD10: J06.0] Diagnosis: Other acute sinusitis[ICD10: J01.80] Agueda Beal MD [facility] CPT-4: 58507 11/15/2015 ([id number]) 62263 EST. PATIENT, LEVEL III Diagnosis: Essential (primary) hypertension[ICD10: I10] Diagnosis: Chronic pain syndrome[ICD10: G89.4] Morenita Beal MD [facility] CPT-4: 54237 08/01/2015 ([id number]) 90620 EST. PATIENT, LEVEL IV Diagnosis: Type 2 diabetes mellitus with hyperglycemia[ICD10: E11.65] Diagnosis: Essential (primary) hypertension[ICD10: I10] Diagnosis: Slow transit constipation[ICD10: K59.01] Morenita Beal MD [facility] CPT-4: 13196 07/04/2015 ([id number]) 11406 EST. PATIENT, LEVEL IV Diagnosis: Essential (primary) hypertension[ICD10: I10] Diagnosis: Type 2 diabetes mellitus with hyperglycemia[ICD10: E11.65] Diagnosis: Other forms of dyspnea[ICD10: R06.09] Diagnosis: Shortness of breath[ICD10: R06.02] Diagnosis: Other chest pain[ICD10: R07.89] Diagnosis: Calculus of gallbladder without cholecystitis without obstruction[ ICD10: K80.20] Morenita Beal MD [facility] CPT-4: 46379 02/28/2015 ([id number]) 99281 EST. PATIENT, LEVEL IV Diagnosis: ESSENTIAL HYPERTENSION[ICD9: 401.9] Diagnosis: DIABETES TYPE II[ICD9: 250.00] Diagnosis: CHRONIC PAIN SYNDROME[ICD9: 338.4] Morenita Beal MD [facility] CPT-4: 07464 11/03/2014 ([id number]) 92617 EST. PATIENT, LEVEL IV Diagnosis: DIABETES TYPE II[ICD9: 250.00] Diagnosis: ESSENTIAL HYPERTENSION[ICD9: 401.9] Diagnosis: CHRONIC PAIN SYNDROME[ICD9: 338.4] Morenita Beal MD [facility] CPT-4: 36302 09/08/[id number]) 79951 EST. PATIENT, LEVEL IV Diagnosis: DIABETES TYPE II[ICD9: 250.00] Diagnosis: CHRONIC PAIN SYNDROME[ICD9: 338.4] Diagnosis: ESSENTIAL HYPERTENSION[ICD9: 401.9] Diagnosis: CARPAL TUNNEL SYNDROME[ICD9: 354.0] Morenita Beal MD [facility] CPT-4: 85209 07/07/2014 ([id number]) 29245 EST. PATIENT, LEVEL IV Diagnosis: ESSENTIAL HYPERTENSION[ICD9: 401.9] Diagnosis: DIABETES TYPE II[ICD9: 250.00] Diagnosis: Biceps tendonitis[ICD9: 726.12] Diagnosis: Osteoarthritis[ICD9: 715.90] Morenita Beal MD [facility] CPT- 4: 59009 05/03/2014 ([id number]) 83279 EST. PATIENT, LEVEL IV Diagnosis: DIABETES TYPE II[ICD9: 250.00] Diagnosis: ESSENTIAL HYPERTENSION[ICD9: 401.9] Diagnosis: Peripheral neuropathy[ICD9: 356.9] Diagnosis: CHRONIC PAIN SYNDROME[ICD9: 338.4] Morenita Beal MD, [facility] CPT-4: 53831 01/27/2014 ([id number]) 62869 EST. PATIENT, LEVEL III Diagnosis: Diarrhea[ICD9: 787.91] Diagnosis: ESSENTIAL HYPERTENSION[ICD9: 401.9] Diagnosis: Medication side effect[ICD9: 995.20] Diagnosis: DIABETES TYPE II[ICD9: 250.00] Dorie Beal MD [facility] CPT-4: 10047 01/07/2014 ([id number]) 61412 EST. PATIENT, LEVEL IV Diagnosis: ESSENTIAL HYPERTENSION[ICD9: 401.9] Diagnosis: DIABETES TYPE II[ICD9: 250.00] Diagnosis: Back pain[ICD9: 724.5] Diagnosis: UNEQUAL LEG LENGTH[ICD9: 736.81] Morenita Beal MD, [facility] CPT-4: 28801 11/11/2013 ([id number]) 82351 EST. PATIENT, LEVEL III Diagnosis: BACTERIAL PNEUMONIA[ICD9: 482.9] Diagnosis: Cough[ICD9: 786.2] Morenita Beal MD, [facility] CPT-4: 80746 08/19/2013 ([id number]) 07881 EST. PATIENT, LEVEL IV Diagnosis: DIABETES TYPE II[SNOMED: 544948990] Diagnosis: ESSENTIAL HYPERTENSION[SNOMED: 13328652] Diagnosis: Chronic pain syndrome[ICD9: 338.4] Diagnosis: Peripheral neuropathy[ICD9: 356.9] Morenita Beal MD [facility] CPT-4: 06409 04/27/2013 ([id number]) 43057 EST. PATIENT, LEVEL IV Diagnosis: ESSENTIAL HYPERTENSION[SNOMED: 81858404] Diagnosis: DIABETES TYPE II[SNOMED: 747436400] Diagnosis: Weakness[ICD9: 780.79] Morenita Beal MD [facility] CPT-4: 21331 02/09/2013 ([id number]) 33925 EST. PATIENT, LEVEL III Diagnosis: OSTEOARTH NOS-UNSPEC[ICD9: 715.90] Dorie Beal MD [facility] CPT-4: 46879 09/19/2012 ([id number]) 70648 EST. PATIENT, LEVEL III Diagnosis: Sacroiliitis[ICD9: 720.2] Diagnosis: Sciatica[ICD9: 724.3] Diagnosis: Lumbago[ICD9: 724.2] Dorie Beal MD, [facility] CPT-4: 57126 09/10/2012 ([id number]) 10768 EST. PATIENT, LEVEL IV Diagnosis: DIABETES TYPE II[SNOMED: 187220931] Diagnosis: HYPERLIPIDEMIA[ICD9: 272.4] Diagnosis: ESSENTIAL HYPERTENSION[SNOMED: 00416948] Morenita Beal MD [facility] CPT-4: 96990 09/03/2012 ([id number]) 63866 EST. PATIENT, LEVEL III Diagnosis: ESSENTIAL HYPERTENSION[SNOMED: 72118211] Morenita Beal MD [facility] CPT-4: 51769 06/03/2012 ([id number]) 13910 EST. PATIENT, LEVEL III Diagnosis: JOINT PAIN-SHLDER[ICD9: 719.41] Diagnosis: Musculoskeletal disorder and symptoms referable to neck[ICD9: 723.9] Diagnosis: Spasm of muscle[ICD9: 728.85] Morenita Beal MD, [facility] CPT- 4: 33583 05/28/2012 ([id number]) 71169 EST. PATIENT, LEVEL IV Diagnosis: DIABETES TYPE II[SNOMED: 841732662] Diagnosis: ESSENTIAL HYPERTENSION[SNOMED: 48604373] Diagnosis: HYPERLIPIDEMIA[ICD9: 272.4] Morenita Beal MD [facility] CPT- 4: 73719 05/06/2012 ([id number]) 78281 EST. PATIENT, LEVEL III Diagnosis: Biceps tendonitis[ICD9: 726.12] Morenita Beal MD, [facility] CPT- 4: 42692 03/17/2012 65664 EST. PATIENT, LEVEL III Diagnosis: Biceps tendonitis[ICD9: 726.12] Diagnosis: Shoulder pain[ICD9: 719.41] Morenita Beal MD, [facility] CPT- 4: 90099 03/12/2012 ([id number]) 28850 EST. PATIENT, LEVEL IV Diagnosis: DIABETES TYPE II[SNOMED: 476591872] Diagnosis: ESSENTIAL HYPERTENSION[SNOMED: 55619791] Diagnosis: HYPERLIPIDEMIA[ICD9: 272.4] Morenita Beal MD, [facility] CPT- 4: 36275 01/02/2012 ([id number]) 90021 EST. PATIENT, LEVEL IV Diagnosis: ESSENTIAL HYPERTENSION[SNOMED: 83668974] Diagnosis: DM W/O COMPLICATION TYPE II, UNCONTROLLED[SNOMED: 85041305] Diagnosis: HYPERLIPIDEMIA[ICD9: 272.4] Morenita Beal MD [facility] CPT- 4: 41990 10/10/2011 ([id number]) 64473 EST. PATIENT, LEVEL IV Diagnosis: Osteoarthritis[ICD9: 715.90] Diagnosis: Fatigue[ICD9: 780.79] Dorie Beal MD, [facility] CPT-4: 92377 08/22/2011 ([id number]) 82978 EST. PATIENT, LEVEL IV Diagnosis: Diabetes mellitus type 2, uncontrolled[SNOMED: 63219663] Diagnosis: ESSENTIAL HYPERTENSION[SNOMED: 28402621] Diagnosis: HYPERLIPIDEMIA[ICD9: 272.4] Morenita Beal MD, [facility] CPT- 4: 91456 06/20/2011 61006 EST. 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 PATIENT, LEVEL IV Diagnosis: DM W/O COMPLICATION TYPE I, UNCONTROLLED[SNOMED: 55266119] Diagnosis: HYPERLIPIDEMIA[ICD9: 272.4] Diagnosis: ESSENTIAL HYPERTENSION[SNOMED: 74280712] Diagnosis: OBESITY[ICD9: 278.00] Diagnosis: Cerumen impaction[ICD9: 380.4] [facility] CPT- 4: 02430 01/23/2011 Plan of Care Planned Activity Notes Codes Status Date Referral: Helder Vila [address] [facility] Patient informed. Referral info faxed. Completed 06/25/2017 Visit Plan: Hypertension - well controlled - continue with current medications, continue with no added salt diet. Pt has been encouraged to exercise daily. The pt has been advised to call the office if there are any acute concerns about change in blood pressure readings at home. Diabetes Mellitus - controlled - per recent FSBS reports. I have recommended for the patient to have follow up labs prior to the next office visit. The patient has been instructed to continue with current medications as previously directed, continue with regular FSBS monitoring to assure continued control of diabetes. Pt to call for any acute concerns, complaints, or if the blood glucose readings are starting to become less controlled. Abdominal pain - Chronic - with gallstones - referral to Dr. Vila. Chronic pain syndrome - refill meds. 06/19/2017 Appointment: Morenita Beal WPtel: [address] [place], [place] [id number] (15 min) Moderate 06/19/2017 Patient Education: Patient Medication Summary Completed 06/19/2017 Care Plan: Referral Order SNOMED-CT : 837835731 Pending 06/19/2017 Visit Plan: Hypertension - well controlled per home report - continue with current medications, continue with no added salt diet. Pt has been encouraged to exercise daily. The pt has been advised to call the office if there are any acute concerns about change in blood pressure readings at home. Diabetes Mellitus - controlled - per recent FSBS reports. I have recommended for the patient to have follow up labs prior to the next office visit. The patient has been instructed to continue with current medications as previously directed, continue with regular FSBS monitoring to assure continued control of diabetes. Pt to call for any acute concerns, complaints, or if the blood glucose readings are starting to become less controlled. Chronic Pain Syndrome - pt has chronic pain - has been maintained on current medications, has not sought out other medications, only uses PRN pain medications as directed , and understands the consequences of over-medication. 02/14/2017 App[facility]ment[facility] [phone] [phone] ([facility] min) Moderate 02/14/2017 Patient Education: Patient Medication Summary Completed 02/14/2017 Patient Education: Obesity Completed 02/14/2017 Visit Plan: Dysuria, discharge, pelvic pain - UA negative - Discussed with pt the possible need for pelvic exam - will send RX and if symptoms do not improve will perform pelvic exam. Pt is to notify clinic with any changes, questions, or concerns. 01/07/2017 Appointment: [facility] [phone] [id number] [place] (30 min) Complex 01/07/2017 Patient Education: Patient Medication Summary Completed 01/07/2017 Care Plan: Urine Culture Cancelled 01/07/2017 Visit Plan: Chronic constipation - due to pain medication use - samples of linzess 145mg daily - pt to call if symptoms do not improve on her samples of linzess, can increase dose to 290mg, if not improved on that then will try movantik. Chronic Pain Syndrome - pt has chronic pain from knee and back - has been maintained on current medications, has not sought out other medications, only uses PRN pain medications as directed, and understands the consequences of over-medication. refill duragesic patch 25mcg. Diabetes Mellitus - controlled - per recent FSBS reports. I have recommended for the patient to have follow up labs prior to the next office visit. The patient has been instructed to continue with current medications as previously directed, continue with regular FSBS monitoring to assure continued control of diabetes. Pt to call for any acute concerns, complaints, or if the blood glucose readings are starting to become less controlled. 11/14/2016 Appointment: Morenita Beal WPtel: [phone] [id number] (15 min) Moderate 11/14/2016 Patient Education: Patient Medication Summary Completed 11/14/2016 Patient Education: Obesity Completed 11/14/2016 Visit Plan: Diabetes Mellitus - Uncontrolled - per recent FSBS reports. I have recommended for the patient to have follow up labs prior to the next office visit. The patient has been instructed to continue with current medications as previously directed, continue with regular FSBS monitoring to assure continued control of diabetes. Pt to call for any acute concerns, complaints, or if the blood glucose readings are starting to become less controlled. I have recommended for the patient to follow more strictly to the diabetic diet as discussed in clinic to allow for greater blood glucose control. increase insulin as directed. Recommended diabetes classes - pt wants to think about it. Hypertension - well controlled - continue with current medications, continue with no added salt diet. Pt has been encouraged to exercise daily. The pt has been advised to call the office if there are any acute concerns about change in blood pressure readings at home. Renal insufficiency - increase fluids - repeat labs in 4 months - if worsening - referral to Veterinary Milk Specialist. 10/11/2016 Appointment: Morenita Beal WPtel: [phone] [phone] (15 min) Moderate 10/11/2016 Patient Education: Patient Medication Summary Completed 10/11/2016 Patient Education: Obesity Completed 10/11/2016 Visit Plan: Diabetes Mellitus - controlled - per recent FSBS reports. I have recommended for the patient to have follow up labs prior to the next office visit. The patient has been instructed to continue with current medications as previously directed, continue with regular FSBS monitoring to assure continued control of diabetes. Pt to call for any acute concerns, complaints, or if the blood glucose readings are starting to become less controlled. Hypertension - well controlled - continue with current medications, continue with no added salt diet. Pt has been encouraged to exercise daily. The pt has been advised to call the office if there are any acute concerns about change in blood pressure readings at home. Chronic pain syndrome - refill pain medications. 06/14/2016 Appointment: [facility] [phone] [phone] (15 min) Moderate 06/14/2016 Patient Education: Patient Medication Summary Completed 06/14/2016 Patient Education: Obesity Completed 06/14/2016 Visit Plan: Diabetes Mellitus - controlled - per recent FSBS reports. I have recommended for the patient to have follow up labs prior to the next office visit. The patient has been instructed to continue with current medications as previously directed, continue with regular FSBS monitoring to assure continued control of diabetes. Pt to call for any acute concerns, complaints, or if the blood glucose readings are starting to become less controlled. Hypertension - well controlled - continue with current medications, continue with no added salt diet. Pt has been encouraged to exercise daily. The pt has been advised to call the office if there are any acute concerns about change in blood pressure readings at home. 02/27/2016 Patient Education: Patient Medication Summary Completed 02/27/2016 Patient Education: Obesity Completed 02/27/2016 Visit Plan: Constipation - recommended pt to increase fluid intake, continue with miralax, senna. Avoid fatty foods. Gallbladder ultrasound 02/08/2016 Appointment: [facility]ita Beal [facility]Ptel[facility] [phone] [id number] [place] (15 min) Moderate 02/08/2016 Patient Education: Patient Medication Summary Completed 02/08/2016 Patient Education: Obesity Completed 02/08/2016 Care Plan: ECHO EXAM OF ABDOMEN Pending 02/08/2016 Visit Plan: Hypertension - uncontrolled - the patient's medications have been modified as documented in the visit note. The patient has been counseled to cut back on salt in diet for a no added salt diet, low fat diet, start an exercise program with low weight bearing exercises and higher aerobic activity for heart health. The patient is to check blood pressure readings as an outpatient and either fax, call, or email the readings to the office next week for practitioner to review. The pt is to call for acute concerns. metoprolol rx sent to pharmacy Diabetes Mellitus - occasional low blood glucose levels - per recent FSBS reports. I have recommended for the patient to have follow up labs prior to the next office visit. The patient has been instructed to stop glimepiride, continue with regular FSBS monitoring to assure continued control of diabetes. Pt to call for any acute concerns, complaints, or if the blood glucose readings are starting to become less controlled. Constipation - uncontrolled - I have discussed with the patient the need for adequate fiber and water intake to facilitate soft, easily passed stools. The pt noted understanding of our conversation. I have given the patient a recipe for "power pudding" - equal parts, bran flakes, prune juice, and apple sauce. The pt is to call if symptoms not improved on this regimen. Chronic Pain Syndrome - pt has chronic pain - has been maintained on current medications, has not sought out other medications, only uses PRN pain medications as directed, and understands the consequences of over-medication. 12/26/2015 Appointment: Morenita Beal WPtel: [address] [place], [place] [id number] (15 min) Moderate 12/26/2015 Patient Education: Patient Medication Summary Completed 12/26/2015 Patient Education: Obesity Completed 12/26/2015 Patient Education: Hypertension Completed 12/26/2015 Patient Education: Patient Medication Summary Completed 11/29/2015 Visit Plan: URI - Pt advised to increase fluids, vitamin C. Discussed natural and expected course of this diagnosis and need to alert me if symptoms do not follow expected course, or if any worse. RX sent to patient' s pharmacy. Sinusitis - Pt has acute infection - pain in face, maxillary region , Pt informed to use decongestant, RX given to patient, sinus rinses also recommended. Call if symptoms do not show improvement. 11/15/2015 Patient Education: Patient Medication Summary Completed 11/15/2015 Patient Education: Obesity Completed 11/15/2015 Visit Plan: Hypertension - well controlled - continue with current medications, continue with no added salt diet. Pt has been encouraged to exercise daily. The pt has been advised to call the office if there are any acute concerns about change in blood pressure readings at home. Chronic pain syndrome - recommended pt to continue with duragesic 08/01/2015 Patient Education: Patient Medication Summary Completed 08/01/2015 Patient Education: Obesity Completed 08/01/2015 Patient Education: Hypertension Completed 08/01/2015 Visit Plan: Hypertension - uncontrolled - the patient's medications have been modified as documented in the visit note. The patient has been counseled to cut back on salt in diet for a no added salt diet, low fat diet, start an exercise program with low weight bearing exercises and higher aerobic activity for heart health. The patient is to check blood pressure readings as an outpatient and either fax, call, or email the readings to the office next week for practitioner to review. The pt is to call for acute concerns. Diabetes Mellitus - controlled - per recent FSBS reports. I have recommended for the patient to have follow up labs prior to the next office visit. The patient has been instructed to continue with current medications as previously directed, continue with regular FSBS monitoring to assure continued control of diabetes. Pt to call for any acute concerns, complaints, or if the blood glucose readings are starting to become less controlled. Constipation - recommended pt to increase water intake, start on senna 07/04/2015 Patient Education: Patient Medication Summary Completed 07/04/2015 Patient Education: Hypertension Completed 07/04/2015 Visit Plan: Diabetes Mellitus - controlled - per recent FSBS reports. I have recommended for the patient to have follow up labs prior to the next office visit. The patient has been instructed to continue with current medications as previously directed, continue with regular FSBS monitoring to assure continued control of diabetes. Pt to call for any acute concerns, complaints, or if the blood glucose readings are starting to become less controlled. Hypertension - well controlled - continue with current medications, continue with no added salt diet. Pt has been encouraged to exercise daily. The pt has been advised to call the office if there are any acute concerns about change in blood pressure readings at home. Dyspnea/ Exercise intolerance - recommended evaluation by Dr. Garcia - pt has been seen by Jose in 2006 with similar symptoms and a negative work-up. Cholelithiasis - recommended low fat diet, will wait on cardiac work-up before we recommend further treatment/work-up by surgeon. 02/28/2015 Appointment: Morenita Beal WPtel[id number] (15 min) Moderate 02/28/2015 Patient Education: Patient Medication Summary Completed 02/28/2015 Patient Education: Hypertension Completed 02/28/2015 Care Plan: Referral Order SNOMED-CT : [id number] Ordered 02/28/2015 Visit Plan: Hypertension - well controlled - continue with current medications, continue with no added salt diet. Pt has been encouraged to exercise daily. The pt has been advised to call the office if there are any acute concerns about change in blood pressure readings at home. Diabetes Mellitus - controlled - per recent FSBS reports. I have recommended for the patient to have follow up labs prior to the next office visit. The patient has been instructed to continue with current medications as previously directed, continue with regular FSBS monitoring to assure continued control of diabetes. Pt to call for any acute concerns, complaints, or if the blood glucose readings are starting to become less controlled. Chronic Pain Syndrome - pt has chronic pain - has been maintained on current medications, has not sought out other medications, only uses PRN pain medications as directed, and understands the consequences of over-medication. 11/03/2014 Appointment: Morenita Beal [facility]Ptel[facility] [phone] [id number] (15 min) Moderate 11/03/2014 Patient Education: Patient Medication Summary Completed 11/03/2014 Patient Education: Hypertension Completed 11/03/2014 Visit Plan: Hypertension - well controlled - continue with current medications, continue with no added salt diet. Pt has been encouraged to exercise daily. The pt has been advised to call the office if there are any acute concerns about change in blood pressure readings at home. Diabetes Mellitus - controlled - per recent FSBS reports. I have recommended for the patient to have follow up labs prior to the next office visit. The patient has been instructed to continue with current medications as previously directed, continue with regular FSBS monitoring to assure continued control of diabetes. Pt to call for any acute concerns, complaints, or if the blood glucose readings are starting to become less controlled. Chronic Pain Syndrome - pt has chronic pain - has been maintained on current medications, has not sought out other medications, only uses PRN pain medications as directed, and understands the consequences of over-medication. 09/08/2014 Appointment: Morneita Beal [facility]Ptel[facility] [phone] [facility] Follow up 09/08/2014 Patient Education: Patient Medication Summary Completed 09/08/2014 Patient Education: Hypertension Completed 09/08/2014 Visit Plan: Hypertension - well controlled - continue with current medications, continue with no added salt diet. Pt has been encouraged to exercise daily. The pt has been advised to call the office if there are any acute concerns about change in blood pressure readings at home. Diabetes Mellitus - controlled - per recent FSBS reports. I have recommended for the patient to have follow up labs prior to the next office visit. The patient has been instructed to continue with current medications as previously directed, continue with regular FSBS monitoring to assure continued control of diabetes. Pt to call for any acute concerns, complaints, or if the blood glucose readings are starting to become less controlled. Carpal tunnel syndrome - rx for brace given to patient. Chronic Pain Syndrome - pt has chronic pain - has been maintained on current medications, has not sought out other medications, only uses PRN pain medications as directed, and understands the consequences of over- medication. 07/07/2014 Appointment: Morenita Beal [facility]Ptel[facility] [phone] [id number] [facility] 07/07/2014 Patient Education: Patient Medication Summary Completed 07/07/2014 Patient Education: Hypertension Completed 07/07/2014 Visit Plan: Hypertension - well controlled - continue with current medications, continue with no added salt diet. Pt has been encouraged to exercise daily. The pt has been advised to call the office if there are any acute concerns about change in blood pressure readings at home. Diabetes Mellitus - controlled - per recent FSBS reports. I have recommended for the patient to have follow up labs prior to the next office visit. The patient has been instructed to continue with current medications as previously directed, continue with regular FSBS monitoring to assure continued control of diabetes. Pt to call for any acute concerns, complaints, or if the blood glucose readings are starting to become less controlled. Biceps tendinitis - pt to do exercises as directed, anti-inflammatories directed to be taken per RX instructions and pt to call if symptoms are not improved. pneumonia vaccine given today 05/03/2014 Patient Education: Patient Medication Summary Completed 05/03/2014 Patient Education: Hypertension Completed 05/03/2014 Appointment: Morenita Beal [facility]Ptel[facility] [phone] [facility] Follow up 04/29/2014 Visit Plan: Diabetes Mellitus - controlled - per recent FSBS reports. I have recommended for the patient to have follow up labs prior to the next office visit. The patient has been instructed to continue with current medications as previously directed, continue with regular FSBS monitoring to assure continued control of diabetes. Pt to call for any acute concerns, complaints, or if the blood glucose readings are starting to become less controlled. Decrease gabapentin to 400mg daily. Increase fentanyl to 25mcg daily. Hypertension - well controlled - continue with current medications, continue with no added salt diet. Pt has been encouraged to exercise daily. The pt has been advised to call the office if there are any acute concerns about change in blood pressure readings at home. 01/27/2014 Appointment: Morenita Beal WPtel: [facility] Follow up 01/27/2014 Patient Education: Patient Medication Summary Completed 01/27/2014 Patient Education: Hypertension Completed 01/27/2014 Visit Plan: N/V/Diarrhea - recommended bland diet, low fat diet, start on probiotic, and rehydrate with gatorade-like product. Pt to call if feeling worse, diarrhea becomes bloody, or does not improve with above recommendations. Pt to call for acute worsening of stomach upset or stomach pain. Monitor blood sugars at home Increase fluids as tolerated RESTART GABAPENTIN TODAY-I SENT THE PRESCRIPTION TO THE PHARMACY START PROBIOTIC TWICE DAILY HTN-okay today in the office-monitor at home-take medication as directed- call if blood pressure uncontrolled 01/07/2014 Appointment: Sick 01/07/2014 Patient Education: Patient Medication Summary Completed 01/07/2014 Patient Education: Hypertension Completed 01/07/2014 Visit Plan: Diabetes Mellitus - controlled - per recent FSBS reports. I have recommended for the patient to have follow up labs prior to the next office visit. The patient has been instructed to continue with current medications as previously directed, continue with regular FSBS monitoring to assure continued control of diabetes. Pt to call for any acute concerns, complaints, or if the blood glucose readings are starting to become less controlled. Hypertension - uncontrolled - the patient's medications have been modified as documented in the visit note. The patient has been counseled to cut back on salt in diet for a no added salt diet, low fat diet, start an exercise program with low weight bearing exercises and higher aerobic activity for heart health. The patient is to check blood pressure readings as an outpatient and either fax, call, or email the readings to the office next week for practicioner to review. The pt is to call for acute concerns. Pt to change her blood pressure medication dosing at bedtime, and report pressures to the office. Back pain, chronic - need to check leg length xray. 11/11/2013 Appointment: Morenita Beal WPtel: [address] [place], [place] [id number] Follow up 11/11/2013 Patient Education: Patient Medication Summary Completed 11/11/2013 Patient Education: Hypertension Completed 11/11/2013 Appointment: Morenita Beal WPtel: [address] [place], [place] [id number] Follow up 09/02/2013 Visit Plan: Pneumonia - Pt has been diagnosed with pneumonia by physical exam. A chest xray has been ordered as have antibiotics. The pt is aware of the diagnosis and the need for acute treatment of this illness. Cough - pt to start on corcidin hbp 08/19/2013 Appointment: Morenita Beal WPtel: [facility] Sick 08/19/2013 Patient Education: Patient Medication Summary Completed 08/19/2013 Visit Plan: Diabetes Mellitus - improved control - per recent FSBS reports. I have recommended for the patient to have follow up labs prior to the next office visit. The patient has been instructed to continue with current medications as previously directed, continue with regular FSBS monitoring to assure continued control of diabetes. Pt to call for any acute concerns, complaints, or if the blood glucose readings are starting to become less controlled. Hypertension - well controlled - continue with current medications, continue with no added salt diet. Pt has been encouraged to exercise daily. The pt has been advised to call the office if there are any acute concerns about change in blood pressure readings at home. Chronic Pain Syndrome - pt has chronic pain - has been maintained on current medications, has not sought out other medications, only uses PRN pain medications as directed , and understands the consequences of over-medication. 07/29/2013 Appointment: Morenita Beal WPtel: [address] [place], [place] [id number] Follow up 07/29/2013 Appointment: Morenita Beal WPtel: [address] [place], [place] [id number] Follow up 07/29/2013 Patient Education: Patient Medication Summary Completed 07/29/2013 Patient Education: Hypertension Completed 07/29/2013 Patient Education: Patient Medication Summary Completed 07/15/2013 Patient Education: Hypertension Completed 07/15/2013 Visit Plan: Hypertension - uncontrolled today - the patient 's report of her pressures are 130/70's. The patient has been counseled to cut back on salt in diet for a no added salt diet, low fat diet, start an exercise program with low weight bearing exercises and higher aerobic activity for heart health. The patient is to check blood pressure readings as an outpatient and either fax, call, or email the readings to the office next week for practicioner to review. The pt is to call for acute concerns. Diabetes Mellitus - controlled - per recent FSBS reports. I have recommended for the patient to have follow up labs prior to the next office visit. The patient has been instructed to continue with current medications as previously directed, continue with regular FSBS monitoring to assure continued control of diabetes. Pt to call for any acute concerns, complaints, or if the blood glucose readings are starting to become less controlled. Chronic Pain Syndrome - pt has chronic pain - has been maintained on current medications, has not sought out other medications, only uses PRN pain medications as directed, and understands the consequences of over-medication. Pt to continue with fentanyl patch for chronic pain. 07/08/2013 Appointment: Morenita Beal WPtel: [address] [place], [place] [id number] Follow up 07/08/2013 Patient Education: Patient Medication Summary Completed 07/08/2013 Patient Education: Hypertension Completed 07/08/2013 Appointment: Morenita Beal WPtel: [facility] Follow up 07/06/2013 Visit Plan: Diabetes Mellitus - controlled - per recent FSBS reports. I have recommended for the patient to have follow up labs prior to the next office visit. The patient has been instructed to continue with current medications as previously directed, continue with regular FSBS monitoring to assure continued control of diabetes. Pt to call for any acute concerns, complaints, or if the blood glucose readings are starting to become less controlled. Hypertension - well controlled - continue with current medications, continue with no added salt diet. Pt has been encouraged to exercise daily. The pt has been advised to call the office if there are any acute concerns about change in blood pressure readings at home. Chronic Pain Syndrome - pt has chronic pain - has been maintained on current medications, has not sought out other medications, only uses PRN pain medications as directed , and understands the consequences of over-medication. Peripheral neuropathy - multifactorial - diabetes and spine surgery as well as surgery on right lower leg after a complicated fracture may have caused peripheral neuropathy symptoms. I have recommended starting metanex bid and monitor symptoms of the patient on the medication after a 90 day trial. 04/27/2013 Appointment: Morenita Beal WPtel: [address] [place], [place] [id number] Follow up 04/27/2013 Patient Education: Patient Medication Summary Completed 04/27/2013 Patient Education: Hypertension Completed 04/27/2013 Appointment: Morenita Beal WPtel: [address] [place], [place] [id number] Follow up 04/20/2013 Visit Plan: Hypertension - well controlled - continue with current medications, continue with no added salt diet. Pt has been encouraged to exercise daily. The pt has been advised to call the office if there are any acute concerns about change in blood pressure readings at home. Diabetes Mellitus - controlled - per recent FSBS reports. I have recommended for the patient to have follow up labs prior to the next office visit. The patient has been instructed to continue with current medications as previously directed, continue with regular FSBS monitoring to assure continued control of diabetes. Pt to call for any acute concerns, complaints, or if the blood glucose readings are starting to become less controlled. Weakness - post operative due to back surgery and expected recovery - then pt had fx of leg - pt recovering - at [facility] facility - and continues to require rehab. 02/09/2013 Appointment: Morenita Beal WPtel: [facility] [place] Follow up 02/09/2013 Patient Education: Patient Medication Summary Completed 02/09/2013 Patient Education: Hypertension Completed 02/09/2013 Appointment: Morenita Beal WPtel: [address] [place], [place] [id number] [place] Follow up 12/03/2012 Visit Plan: Arthritis-uncontrolled symptoms- recommend pt to take antiinflammatory as directed for pain control. Plan for prednisone taper for acute pain as well as starting volteran gel. Okay to use hydrocodone prn pain. Hold mobic until prednisone complete. Patient verbalized understanding of plan. 09/19/2012 Appointment: Dorie Ho WPtel: [facility] Other 09/19/2012 Patient Education: Patient Medication Summary Completed 09/19/2012 Visit Plan: Low back pain- the patient was instructed in appropriate posture, need for weight loss to alleviate abdominal obesity that is worsening the patient's back pain.. The pt is to use prn antiinflammatories to manage acute pain. The patient is to call the office if the pain is worsening or does not improve. Refilled hydrocodone for PRN use. Sciatica- handouts with exercises provided for paitent. Joint Injection-right SI joint - Pt was given post - injection instructions. The pt has been advised to use antiinflammatories post injection today, ice to the injected site, call if redness, warmth, or increased pain occurs at the site of injection. 09/10/2012 Appointment: Dorie Ho WPtel: [id number] Other 09/10/2012 Patient Education: Patient Medication Summary Completed 09/10/2012 Patient Education: .Amazing charts Exercise for Sciatica Completed 09/10/2012 Visit Plan: Diabetes Mellitus - controlled - per recent FSBS reports. I have recommended for the patient to have follow up labs prior to the next office visit. The patient has been instructed to continue with current medications as previously directed, continue with regular FSBS monitoring to assure continued control of diabetes. Pt to call for any acute concerns, complaints, or if the blood glucose readings are starting to become less controlled. Hypertension - well controlled - continue with current medications, continue with no added salt diet. Pt has been encouraged to exercise daily. The pt has been advised to call the office if there are any acute concerns about change in blood pressure readings at home. Hyperlipidemia - pt has been counseled about appropriate diet, exercise, and need for low fat food choices. I have discussed the need for the patient to take medications as prescribed. If the patient has negative side effects from the medication, they are to CALL the office and not abruptly discontinue the medication without discussion with a practicioner in the office. We will check labs in 3-6 months for follow up on the patient's chronic medical problem and to assure normal liver response to medications. PT STARTED ON WELCHOL 625MG THREE PILLS DAILY. 09/03/2012 Appointment: Morenita Beal [facility]Ptel[facility] [phone] [id number] Follow up 09/03/2012 Patient Education: Patient Medication Summary Completed 09/03/2012 Patient Education: Hypertension Completed 09/03/2012 Patient Education: Patient Medication Summary Completed 09/01/2012 Patient Education: Hypertension Completed 09/01/2012 Visit Plan: Hypertension - uncontrolled - improved with better pain control. No change in medications today. The patient has been counseled to cut back on salt in diet for a no added salt diet, low fat diet, start an exercise program with low weight bearing exercises and higher aerobic activity for heart health. The patient is to check blood pressure readings as an outpatient and either fax, call, or email the readings to the office next week for practicioner to review. The pt is to call for acute concerns. Joint Injection-left shoulder- Pt was given post - injection instructions. The pt has been advised to use antiinflammatories post injection today, ice to the injected site, call if redness, warmth, or increased pain occurs at the site of injection. 06/03/2012 Appointment: [facility]el[id number] [facility] 06/03/2012 Patient Education: Patient Medication Summary Completed 06/03/2012 Patient Education: Hypertension Completed 06/03/2012 Visit Plan: Left shoulder pain-recommend MRI and Ortho consult if pain does not improve Trigger Points - Injected trigger points today , pt given post-injection instructions, signs and symptoms for which to call the office. Pt to use heat to the muscles today, and take an anti-inflammatory today unless otherwise contraindicated by renal function or other disease process. 05/28/2012 Appointment: Dor[facility] Ho [facility]Ptel[facility] [id number] Other 05/28/2012 Patient Education: Patient Medication Summary Completed 05/28/2012 Patient Education: .Cervicalgia Neck Pain Completed 05/28/2012 Visit Plan: Diabetes Mellitus - controlled - per recent FSBS reports. I have recommended for the patient to have follow up labs prior to the next office visit. The patient has been instructed to continue with current medications as previously directed, continue with regular FSBS monitoring to assure continued control of diabetes. Pt to call for any acute concerns, complaints, or if the blood glucose readings are starting to become less controlled. Hypertension - well controlled - continue with current medications, continue with no added salt diet. Pt has been encouraged to exercise daily. The pt has been advised to call the office if there are any acute concerns about change in blood pressure readings at home. Hyperlipidemia- uncontrolled - pt has been intolerant of statins, but has agreed to try restarting GEMFIBROZIL 600 mg ONE PILL TWICE DAILY AND TAKING THE PILLS EVERY OTHER DAY. 05/06/2012 Appointment: Morenita Beal WPtel: [address] [place], [place] [id number] Follow up 05/06/2012 Patient Education: Patient Medication Summary Completed 05/06/2012 Patient Education: Hypertension Completed 05/06/2012 Patient Education: Patient Medication Summary Completed 04/30/2012 Patient Education: Hypertension Completed 04/30/2012 Appointment: Dorie Ho WPtel: [address] [place], [place] [id number] Sick 04/09/2012 Visit Plan: Biceps tendonitis- recommended pt to strat on prednisone and then flexeril for muscle relaxation. 03/17/2012 Appointment: Morenita Beal WPtel: [address] [place], [place] [id number] Follow up 03/17/2012 Patient Education: Patient Medication Summary Completed 03/17/2012 Visit Plan: Shoulder pain-discussed natural and expected course of this diagnosis and to alert me if symptoms do not follow expected course, or if any worse. Recommend rest and anti-inflammatories as needed for pain/discomfort. Call for any weakness in extremity. 03/12/2012 Appointment: Dorie Ho WPtel: [phone] Other 03/12/2012 Patient Education: Patient Medication Summary Completed 03/12/2012 Visit Plan: Diabetes Mellitus - controlled - per recent FSBS reports. I have recommended for the patient to have follow up labs prior to the next office visit. The patient has been instructed to continue with current medications as previously directed, continue with regular FSBS monitoring to assure continued control of diabetes. Pt to call for any acute concerns, complaints, or if the blood glucose readings are starting to become less controlled. Hyperlipidemia - pt has been counseled about appropriate diet, exercise, and need for low fat food choices. I have discussed the need for the patient to take medications as prescribed. If the patient has negative side effects from the medication, they are to CALL the office and not abruptly discontinue the medication without discussion with a practicioner in the office. We will check labs in 3-6 months for follow up on the patient's chronic medical problem and to assure normal liver response to medications. Hypertension - well controlled - continue with current medications, continue with no added salt diet. Pt has been encouraged to exercise daily. The pt has been advised to call the office if there are any acute concerns about change in blood pressure readings at home. 01/02/2012 Appointment: Moren[facility] Beal [facility]Ptel[facility] [place] Other 01/02/2012 Patient Education: Patient Medication Summary Completed 01/02/2012 Patient Education: High Blood Pressure: Essential Hypertension Completed 2011 Appointment: Morenita Beal WPtel[facility] [place] Lab Draw 12/26/2011 Patient Education: Patient Medication Summary Completed 12/26/2011 Patient Education: High Blood Pressure: Essential Hypertension Completed 2011 Appointment: Moren[facility] Beal [facility]Ptel[facility] [phone] [facility] [place] Other 10/17/2011 Visit Plan: Hyperlipidemia - pt has been counseled about appropriate diet, exercise, and need for low fat food choices. I have discussed the need for the patient to take medications as prescribed. If the patient has negative side effects from the medication, they are to CALL the office and not abruptly discontinue the medication without discussion with a practicioner in the office. We will check labs in 3-6 months for follow up on the patient's chronic medical problem and to assure normal liver response to medications. PT TO START ON NIACIN 500mg, take yout aspirin and niacin together.. est 1/2 an apple with the niacin. Diabetes Mellitus - controlled - per recent FSBS reports. I have recommended for the patient to have follow up labs prior to the next office visit. The patient has been instructed to continue with current medications as previously directed, continue with regular FSBS monitoring to assure continued control of diabetes. Pt to call for any acute concerns, complaints, or if the blood glucose readings are starting to become less controlled. INCREASE THE LANTUS TO 22 units twice a day. HTN - controlled - no change in medications at this time. 10/10/2011 Appointment: Morenita Beal [facility]Ptel[facility] [phone] [facility] Other 10/10/2011 Patient Education: Patient Medication Summary Completed 10/10/2011 Patient Education: High Blood Pressure: Essential Hypertension Completed 2011 Patient Education: Patient Medication Summary Completed 10/08/2011 Patient Education: High Blood Pressure: Essential Hypertension Completed 2011 Visit Plan: Osteoarthritis - Pt with uncontrolled pain- recommmend celebrex-samples provided and instructed patient to call if symptoms do not improve, or if any worse. Patient verbalized understanding. Will check a chem panel in the next few weeks as well. Fatigue-plan to check labs 08/22/2011 Appointment: Dorie Ho WPtel: [address] [id number] Other 08/22/2011 Patient Education: Patient Medication Summary Completed 08/22/2011 Visit Plan: Diabetes Mellitus - Uncontrolled - per recent FSBS reports. I have recommended for the patient to have follow up labs prior to the next office visit. The patient has been instructed to continue with current medications as previously directed, continue with regular FSBS monitoring to assure continued control of diabetes. Pt to call for any acute concerns, complaints, or if the blood glucose readings are starting to become less controlled. I have recommended for the patient to follow more strictly to the diabetic diet as discussed in clinic to allow for greater blood glucose control. Pt has been instructed to change the glimepiride to noon time dosing. No other medication changes today. Hypertension - well controlled - continue with current medications, continue with no added salt diet. Pt has been encouraged to exercise daily. The pt has been advised to call the office if there are any acute concerns about change in blood pressure readings at home. Hyperlipidemia - pt has been counseled about appropriate diet, exercise, and need for low fat food choices. I have discussed the need for the patient to take medications as prescribed. If the patient has negative side effects from the medication, they are to CALL the office and not abruptly discontinue the medication without discussion with a practicioner in the office. We will check labs in 3-6 months for follow up on the patient's chronic medical problem and to assure normal liver response to medications. Continue with fish oil - two pills in the morning and one pill in the evening. Pt has been encouraged to increase her physical activity. Start exercising at 10minutes daily, and increase up to 30 minutes daily. 06/20/2011 Appointment: Morenita Beal [facility]Ptel[facility] [phone] [facility] Other 06/20/2011 Patient Education: Patient Medication Summary Completed 06/20/2011 Patient Education: High Blood Pressure: Essential Hypertension Completed 2011 Appointment: Morenita Beal [facility]Ptel[facility] [phone] [facility] Lab Draw 06/18/2011 Patient Education: Patient Medication Summary Completed 06/18/2011 Patient Education: High Blood Pressure: Essential Hypertension Completed 2011 Visit Plan: Hypertension - well controlled - continue with current medications, continue with no added salt diet. Pt has been encouraged to exercise daily. The pt has been advised to call the office if there are any acute concerns about change in blood pressure readings at home. Diabetes Mellitus - Uncontrolled - per recent FSBS reports. I have recommended for the patient to have follow up labs prior to the next office visit. The patient has been instructed to continue with current medications as previously directed, continue with regular FSBS monitoring to assure continued control of diabetes. Pt to call for any acute concerns, complaints, or if the blood glucose readings are starting to become less controlled. I have recommended for the patient to follow more strictly to the diabetic diet as discussed in clinic to allow for greater blood glucose control. Discussed diet, exercise and the need to control carbohydrate intake. Obesity - discussed need to loose weight, become more physically active. Encouraged pt to join the [facility] for only 10 dollars a year and have access to great exercise equiptment. 03/21/2011 Appointment: EmigdioSilasy WPtel: [phone] [facility] Other 03/21/2011 Patient Education: Patient Medication Summary Completed 03/21/2011 Patient Education: High Blood Pressure: Essential Hypertension Completed 2010 Patient Education: .Amazing charts Diabetic meal planning guide Completed 03/21 Patient Education: Obesity Completed 03/21/2011 Appointment: Morenita Beal [facility]Ptel[facility] [phone] [facility] Lab Draw 03/19/2011 Patient Education: Patient Medication Summary Completed 03/19/2011 Visit Plan: Cerumen Impaction - The impacted cerumen was removed with the use of either ear currette alone or in combination with ear curette and water pick. The patient tolerated the procedure without incident and had improvement in hearing. 01/30/2011 Appointment: [phone] [phone] Follow up 01/30/2011 Patient Education: Patient Medication Summary Completed 01/30/2011 Visit Plan: Diabetes Mellitus - Uncontrolled - per recent FSBS reports. I have recommended for the patient to have follow up labs prior to the next office visit. The patient has been instructed to continue with current medications as previously directed, continue with regular FSBS monitoring to assure continued control of diabetes. Pt to call for any acute concerns, complaints, or if the blood glucose readings are starting to become less controlled. I have recommended for the patient to follow more strictly to the diabetic diet as discussed in clinic to allow for greater blood glucose control. The pt has been instructed to increase her lantus to 21 units sq bid, I had wanted to increase up to 25 units sq bid, but the pt refused. She agreed to follow my directions at the 21 units for an attempt at improved blood glucose control. Hypertension - well controlled - continue with current medications, continue with no added salt diet. Pt has been encouraged to exercise daily. The pt has been advised to call the office if there are any acute concerns about change in blood pressure readings at home. Hyperlipidemia - pt has been counseled about appropriate diet, exercise, and need for low fat food choices. I have discussed the need for the patient to take medications as prescribed. If the patient has negative side effects from the medication, they are to CALL the office and not abruptly discontinue the medication without discussion with a practicioner in the office. We will check labs in 3-6 months for follow up on the patient's chronic medical problem and to assure normal liver response to medications. Restart on the gemfibrozil twice a day. Obesity - chronic issue with this patient. The pt has been counseled about diet changes , calorie restriction, and need to exercise. Pt will RTC in one month for weight check. Cerumen impaction- sweet oil to ear before bed nightly x 5 days then come to clinic on Saturday for removal of the wax. 01/23/2011 Appointment: Morenita Beal WPtel: [phone] [facility] Other 01/23/2011 Patient Education: Patient Medication Summary Completed 01/23/2011 Appointment: Morenita Beal [facility]Ptel[facility] [address] [facility] Lab Draw 01/22/2011 Patient Education: Patient Medication Summary Completed 01/22/2011 Referral: Helder Vila [address] [facility] Referral Appointment Requested Referral: Mar Garcia [address] [facility] [address] Referral Appointment Requested Instructions Comment . Hypertension - uncontrolled today - the patient's report of her pressures are 130/70's. The patient has been counseled to cut back on salt in diet for a no added salt diet, low fat diet, start an exercise program with low weight bearing exercises and higher aerobic activity for heart health. The patient is to check blood pressure readings as an outpatient and either fax , call, or email the readings to the office next week for practicioner to review. The pt is to call for acute concerns. Diabetes Mellitus - controlled - per recent FSBS reports. I have recommended for the patient to have follow up labs prior to the next office visit. The patient has been instructed to continue with current medications as previously directed, continue with regular FSBS monitoring to assure continued control of diabetes. Pt to call for any acute concerns, complaints, or if the blood glucose readings are starting to become less controlled. Chronic Pain Syndrome - pt has chronic pain - has been maintained on current medications, has not sought out other medications, only uses PRN pain medications as directed, and understands the consequences of over-medication. Pt to continue with fentanyl patch for chronic pain. . Left shoulder pain-recommend MRI and Ortho consult if pain does not improve Trigger Points - Injected trigger points today, pt given post-injection instructions, signs and symptoms for which to call the office. Pt to use heat to the muscles today, and take an anti-inflammatory today unless otherwise contraindicated by renal function or other disease process. . Arthritis-uncontrolled symptoms- recommend pt to take antiinflammatory as directed for pain control. Plan for prednisone taper for acute pain as well as starting volteran gel. Okay to use hydrocodone prn pain. Hold mobic until prednisone complete. Patient verbalized understanding of plan. Take aleve 2 tabs twice daily x 1 week with food. Shoulder pain-discussed natural and expected course of this diagnosis and to alert me if symptoms do not follow expected course, or if any worse. Recommend rest and anti -inflammatories as needed for pain/discomfort. Call for any weakness in extremity. . URI - Pt advised to increase fluids, vitamin C. Discussed natural and expected course of this diagnosis and need to alert me if symptoms do not follow expected course, or if any worse. RX sent to patient's pharmacy. Sinusitis - Pt has acute infection - pain in face, maxillary region, Pt informed to use decongestant, RX given to patient, sinus rinses also recommended. Call if symptoms do not show improvement. . Hypertension - well controlled - continue with current medications, continue with no added salt diet. Pt has been encouraged to exercise daily. The pt has been advised to call the office if there are any acute concerns about change in blood pressure readings at home. Chronic pain syndrome - recommended pt to continue with duragesic . Diabetes Mellitus - controlled - per recent FSBS reports. I have recommended for the patient to have follow up labs prior to the next office visit. The patient has been instructed to continue with current medications as previously directed, continue with regular FSBS monitoring to assure continued control of diabetes. Pt to call for any acute concerns, complaints, or if the blood glucose readings are starting to become less controlled. Hypertension - well controlled - continue with current medications, continue with no added salt diet. Pt has been encouraged to exercise daily. The pt has been advised to call the office if there are any acute concerns about change in blood pressure readings at home. Dyspnea/Exercise intolerance - recommended evaluation by Dr. Garcia - pt has been seen by Jose in 2006 with similar symptoms and a negative work-up. Cholelithiasis - recommended low fat diet, will wait on cardiac work-up before we recommend further treatment/work-up by surgeon. Celebrex samples-take 1 daily Stop the ibuprofen. Okay to take tylenol 1-2 tabs every 4-6 hours as needed for breakthrough pain. Call Saturday if symptoms not improved. Call sooner if symptoms worse at any time. . Osteoarthritis - Pt with uncontrolled pain-recommmend celebrex-samples provided and instructed patient to call if symptoms do not improve, or if any worse. Patient verbalized understanding. Will check a chem panel in the next few weeks as well. Fatigue-plan to check labs . Constipation - recommended pt to increase fluid intake, continue with miralax, senna. Avoid fatty foods. Gallbladder ultrasound . Hypertension - well controlled - continue with current medications, continue with no added salt diet. Pt has been encouraged to exercise daily. The pt has been advised to call the office if there are any acute concerns about change in blood pressure readings at home. Diabetes Mellitus - controlled - per recent FSBS reports. I have recommended for the patient to have follow up labs prior to the next office visit. The patient has been instructed to continue with current medications as previously directed, continue with regular FSBS monitoring to assure continued control of diabetes. Pt to call for any acute concerns, complaints, or if the blood glucose readings are starting to become less controlled. Abdominal pain - Chronic - with gallstones - referral to Dr. Vila. Chronic pain syndrome - refill meds. referral to Dr. Guzman for bilateral hand pain. Continue to use voltaren gel to elbow and shoulder . Hypertension - well controlled - continue with current medications, continue with no added salt diet. Pt has been encouraged to exercise daily. The pt has been advised to call the office if there are any acute concerns about change in blood pressure readings at home. Diabetes Mellitus - controlled - per recent FSBS reports. I have recommended for the patient to have follow up labs prior to the next office visit. The patient has been instructed to continue with current medications as previously directed, continue with regular FSBS monitoring to assure continued control of diabetes. Pt to call for any acute concerns, complaints, or if the blood glucose readings are starting to become less controlled. Carpal tunnel syndrome - rx for brace given to patient. Chronic Pain Syndrome - pt has chronic pain - has been maintained on current medications, has not sought out other medications, only uses PRN pain medications as directed, and understands the consequences of over-medication. Corcidin hbp - for decongestion of sinuses. Pneumonia - Pt has been diagnosed with pneumonia by physical exam. A chest xray has been ordered as have antibiotics. The pt is aware of the diagnosis and the need for acute treatment of this illness. Cough - pt to start on corcidin hbp Declined Procedure: (Flu Given elsewhere) Flu given elsewhere; Declined Reason: does not want vaccine Plan: ([id number]) Pneumococcal Polysaccharide Vaccine, 23-Valent, Ad . Hypertension - well controlled - continue with current medications, continue with no added salt diet. Pt has been encouraged to exercise daily. The pt has been advised to call the office if there are any acute concerns about change in blood pressure readings at home. Diabetes Mellitus - controlled - per recent FSBS reports. I have recommended for the patient to have follow up labs prior to the next office visit. The patient has been instructed to continue with current medications as previously directed, continue with regular FSBS monitoring to assure continued control of diabetes. Pt to call for any acute concerns, complaints, or if the blood glucose readings are starting to become less controlled. Biceps tendinitis - pt to do exercises as directed, anti-inflammatories directed to be taken per RX instructions and pt to call if symptoms are not improved. pneumonia vaccine given today . Biceps tendonitis- recommended pt to strat on prednisone and then flexeril for muscle relaxation. . Low back pain- the patient was instructed in appropriate posture, need for weight loss to alleviate abdominal obesity that is worsening the patient's back pain.. The pt is to use prn antiinflammatories to manage acute pain. The patient is to call the office if the pain is worsening or does not improve. Refilled hydrocodone for PRN use. Sciatica-handouts with exercises provided for paitent. Joint Injection-right SI joint - Pt was given post - injection instructions. The pt has been advised to use antiinflammatories post injection today, ice to the injected site, call if redness, warmth, or increased pain occurs at the site of injection. stop glimepiride - this may be causing the low blood glucose levels. . Hypertension - uncontrolled - the patient's medications have been modified as documented in the visit note. The patient has been counseled to cut back on salt in diet for a no added salt diet, low fat diet, start an exercise program with low weight bearing exercises and higher aerobic activity for heart health. The patient is to check blood pressure readings as an outpatient and either fax , call, or email the readings to the office next week for practitioner to review. The pt is to call for acute concerns. metoprolol rx sent to pharmacy Diabetes Mellitus - occasional low blood glucose levels - per recent FSBS reports. I have recommended for the patient to have follow up labs prior to the next office visit. The patient has been instructed to stop glimepiride, continue with regular FSBS monitoring to assure continued control of diabetes. Pt to call for any acute concerns, complaints, or if the blood glucose readings are starting to become less controlled. Constipation - uncontrolled - I have discussed with the patient the need for adequate fiber and water intake to facilitate soft, easily passed stools. The pt noted understanding of our conversation. I have given the patient a recipe for "power pudding" - equal parts, bran flakes, prune juice, and apple sauce. The pt is to call if symptoms not improved on this regimen. Chronic Pain Syndrome - pt has chronic pain - has been maintained on current medications, has not sought out other medications, only uses PRN pain medications as directed, and understands the consequences of over-medication. . Cerumen Impaction - The impacted cerumen was removed with the use of either ear currette alone or in combination with ear curette and water pick. The patient tolerated the procedure without incident and had improvement in hearing. . N/V/Diarrhea - recommended bland diet, low fat diet, start on probiotic, and rehydrate with gatorade-like product. Pt to call if feeling worse, diarrhea becomes bloody, or does not improve with above recommendations. Pt to call for acute worsening of stomach upset or stomach pain. Monitor blood sugars at home Increase fluids as tolerated RESTART GABAPENTIN TODAY-I SENT THE PRESCRIPTION TO THE PHARMACY START PROBIOTIC TWICE DAILY HTN-okay today in the office-monitor at home-take medication as directed-call if blood pressure uncontrolled TAKE BLOOD PRESSURE MEDICATION AT BEDTIME NO CHANGE IN INSUILN DOSE GET LEG LENGTH SURVEY DONE IN THE NEXT TWO WEEKS AT [facility]. . Diabetes Mellitus - controlled - per recent FSBS reports. I have recommended for the patient to have follow up labs prior to the next office visit. The patient has been instructed to continue with current medications as previously directed, continue with regular FSBS monitoring to assure continued control of diabetes. Pt to call for any acute concerns, complaints, or if the blood glucose readings are starting to become less controlled. Hypertension - uncontrolled - the patient's medications have been modified as documented in the visit note. The patient has been counseled to cut back on salt in diet for a no added salt diet, low fat diet, start an exercise program with low weight bearing exercises and higher aerobic activity for heart health. The patient is to check blood pressure readings as an outpatient and either fax , call, or email the readings to the office next week for practicioner to review. The pt is to call for acute concerns. Pt to change her blood pressure medication dosing at bedtime, and report pressures to the office. Back pain, chronic - need to check leg length xray. . Diabetes Mellitus - Uncontrolled - per recent FSBS reports. I have recommended for the patient to have follow up labs prior to the next office visit. The patient has been instructed to continue with current medications as previously directed, continue with regular FSBS monitoring to assure continued control of diabetes. Pt to call for any acute concerns, complaints, or if the blood glucose readings are starting to become less controlled. I have recommended for the patient to follow more strictly to the diabetic diet as discussed in clinic to allow for greater blood glucose control. The pt has been instructed to increase her lantus to 21 units sq bid, I had wanted to increase up to 25 units sq bid, but the pt refused. She agreed to follow my directions at the 21 units for an attempt at improved blood glucose control. Hypertension - well controlled - continue with current medications, continue with no added salt diet. Pt has been encouraged to exercise daily. The pt has been advised to call the office if there are any acute concerns about change in blood pressure readings at home. Hyperlipidemia - pt has been counseled about appropriate diet, exercise, and need for low fat food choices. I have discussed the need for the patient to take medications as prescribed. If the patient has negative side effects from the medication, they are to CALL the office and not abruptly discontinue the medication without discussion with a practicioner in the office. We will check labs in 3-6 months for follow up on the patient's chronic medical problem and to assure normal liver response to medications. Restart on the gemfibrozil twice a day. Obesity - chronic issue with this patient. The pt has been counseled about diet changes, calorie restriction, and need to exercise. Pt will RTC in one month for weight check. Cerumen impaction- sweet oil to ear before bed nightly x 5 days then come to clinic on Saturday for removal of the wax. . Diabetes Mellitus - Uncontrolled - per recent FSBS reports. I have recommended for the patient to have follow up labs prior to the next office visit. The patient has been instructed to continue with current medications as previously directed, continue with regular FSBS monitoring to assure continued control of diabetes. Pt to call for any acute concerns, complaints, or if the blood glucose readings are starting to become less controlled. I have recommended for the patient to follow more strictly to the diabetic diet as discussed in clinic to allow for greater blood glucose control. Pt has been instructed to change the glimepiride to noon time dosing. No other medication changes today. Hypertension - well controlled - continue with current medications, continue with no added salt diet. Pt has been encouraged to exercise daily. The pt has been advised to call the office if there are any acute concerns about change in blood pressure readings at home. Hyperlipidemia - pt has been counseled about appropriate diet, exercise, and need for low fat food choices. I have discussed the need for the patient to take medications as prescribed. If the patient has negative side effects from the medication, they are to CALL the office and not abruptly discontinue the medication without discussion with a practicioner in the office. We will check labs in 3-6 months for follow up on the patient's chronic medical problem and to assure normal liver response to medications. Continue with fish oil - two pills in the morning and one pill in the evening. Pt has been encouraged to increase her physical activity. Start exercising at 10minutes daily, and increase up to 30 minutes daily. . Hypertension - well controlled - continue with current medications, continue with no added salt diet. Pt has been encouraged to exercise daily. The pt has been advised to call the office if there are any acute concerns about change in blood pressure readings at home. Diabetes Mellitus - controlled - per recent FSBS reports. I have recommended for the patient to have follow up labs prior to the next office visit. The patient has been instructed to continue with current medications as previously directed, continue with regular FSBS monitoring to assure continued control of diabetes. Pt to call for any acute concerns, complaints, or if the blood glucose readings are starting to become less controlled. Chronic Pain Syndrome - pt has chronic pain - has been maintained on current medications, has not sought out other medications, only uses PRN pain medications as directed, and understands the consequences of over-medication. . Diabetes Mellitus - controlled - per recent FSBS reports. I have recommended for the patient to have follow up labs prior to the next office visit. The patient has been instructed to continue with current medications as previously directed, continue with regular FSBS monitoring to assure continued control of diabetes. Pt to call for any acute concerns, complaints, or if the blood glucose readings are starting to become less controlled. Hypertension - well controlled - continue with current medications, continue with no added salt diet. Pt has been encouraged to exercise daily. The pt has been advised to call the office if there are any acute concerns about change in blood pressure readings at home. Chronic Pain Syndrome - pt has chronic pain - has been maintained on current medications, has not sought out other medications, only uses PRN pain medications as directed, and understands the consequences of over-medication. Peripheral neuropathy - multifactorial - diabetes and spine surgery as well as surgery on right lower leg after a complicated fracture may have caused peripheral neuropathy symptoms. I have recommended starting metanex bid and monitor symptoms of the patient on the medication after a 90 day trial. . Diabetes Mellitus - controlled - per recent FSBS reports. I have recommended for the patient to have follow up labs prior to the next office visit. The patient has been instructed to continue with current medications as previously directed, continue with regular FSBS monitoring to assure continued control of diabetes. Pt to call for any acute concerns, complaints, or if the blood glucose readings are starting to become less controlled. Hypertension - well controlled - continue with current medications, continue with no added salt diet. Pt has been encouraged to exercise daily. The pt has been advised to call the office if there are any acute concerns about change in blood pressure readings at home. Hyperlipidemia - pt has been counseled about appropriate diet, exercise, and need for low fat food choices. I have discussed the need for the patient to take medications as prescribed. If the patient has negative side effects from the medication, they are to CALL the office and not abruptly discontinue the medication without discussion with a practicioner in the office. We will check labs in 3-6 months for follow up on the patient's chronic medical problem and to assure normal liver response to medications. PT STARTED ON WELCHOL 625MG THREE PILLS DAILY. . Hypertension - well controlled - continue with current medications, continue with no added salt diet. Pt has been encouraged to exercise daily. The pt has been advised to call the office if there are any acute concerns about change in blood pressure readings at home. Diabetes Mellitus - Uncontrolled - per recent FSBS reports. I have recommended for the patient to have follow up labs prior to the next office visit. The patient has been instructed to continue with current medications as previously directed, continue with regular FSBS monitoring to assure continued control of diabetes. Pt to call for any acute concerns, complaints, or if the blood glucose readings are starting to become less controlled. I have recommended for the patient to follow more strictly to the diabetic diet as discussed in clinic to allow for greater blood glucose control. Discussed diet, exercise and the need to control carbohydrate intake. Obesity - discussed need to loose weight, become more physically active. Encouraged pt to join the [facility] for only 10 dollars a year and have access to great exercise equiptment. bring by the blood glucose log in 2 weeks. . Diabetes Mellitus - Uncontrolled - per recent FSBS reports. I have recommended for the patient to have follow up labs prior to the next office visit. The patient has been instructed to continue with current medications as previously directed, continue with regular FSBS monitoring to assure continued control of diabetes. Pt to call for any acute concerns, complaints, or if the blood glucose readings are starting to become less controlled. I have recommended for the patient to follow more strictly to the diabetic diet as discussed in clinic to allow for greater blood glucose control. increase insulin as directed. Recommended diabetes classes - pt wants to think about it. Hypertension - well controlled - continue with current medications, continue with no added salt diet. Pt has been encouraged to exercise daily. The pt has been advised to call the office if there are any acute concerns about change in blood pressure readings at home. Renal insufficiency - increase fluids - repeat labs in 4 months - if worsening - referral to [facility]. take the omeprazole at 3pm every day . Hypertension - well controlled per home report - continue with current medications, continue with no added salt diet. Pt has been encouraged to exercise daily. The pt has been advised to call the office if there are any acute concerns about change in blood pressure readings at home. Diabetes Mellitus - controlled - per recent FSBS reports. I have recommended for the patient to have follow up labs prior to the next office visit. The patient has been instructed to continue with current medications as previously directed, continue with regular FSBS monitoring to assure continued control of diabetes. Pt to call for any acute concerns, complaints, or if the blood glucose readings are starting to become less controlled. Chronic Pain Syndrome - pt has chronic pain - has been maintained on current medications, has not sought out other medications, only uses PRN pain medications as directed, and understands the consequences of over-medication. . Diabetes Mellitus - controlled - per recent FSBS reports. I have recommended for the patient to have follow up labs prior to the next office visit. The patient has been instructed to continue with current medications as previously directed, continue with regular FSBS monitoring to assure continued control of diabetes. Pt to call for any acute concerns, complaints, or if the blood glucose readings are starting to become less controlled. Hyperlipidemia - pt has been counseled about appropriate diet, exercise, and need for low fat food choices. I have discussed the need for the patient to take medications as prescribed. If the patient has negative side effects from the medication, they are to CALL the office and not abruptly discontinue the medication without discussion with a practicioner in the office. We will check labs in 3-6 months for follow up on the patient's chronic medical problem and to assure normal liver response to medications. Hypertension - well controlled - continue with current medications, continue with no added salt diet. Pt has been encouraged to exercise daily. The pt has been advised to call the office if there are any acute concerns about change in blood pressure readings at home. . Hypertension - well controlled - continue with current medications, continue with no added salt diet. Pt has been encouraged to exercise daily. The pt has been advised to call the office if there are any acute concerns about change in blood pressure readings at home. Diabetes Mellitus - controlled - per recent FSBS reports. I have recommended for the patient to have follow up labs prior to the next office visit. The patient has been instructed to continue with current medications as previously directed, continue with regular FSBS monitoring to assure continued control of diabetes. Pt to call for any acute concerns, complaints, or if the blood glucose readings are starting to become less controlled. Chronic Pain Syndrome - pt has chronic pain - has been maintained on current medications, has not sought out other medications, only uses PRN pain medications as directed, and understands the consequences of over-medication. get your labs for diabetes one week before next appt. Chronic constipation - due to pain medication use - samples of linzess 145mg daily - pt to call if symptoms do not improve on her samples of linzess, can increase dose to 290mg, if not improved on that then will try movantik. Chronic Pain Syndrome - pt has chronic pain from knee and back - has been maintained on current medications, has not sought out other medications, only uses PRN pain medications as directed, and understands the consequences of over- medication. refill duragesic patch 25mcg. Diabetes Mellitus - controlled - per recent FSBS reports. I have recommended for the patient to have follow up labs prior to the next office visit. The patient has been instructed to continue with current medications as previously directed, continue with regular FSBS monitoring to assure continued control of diabetes. Pt to call for any acute concerns, complaints, or if the blood glucose readings are starting to become less controlled. . Diabetes Mellitus - controlled - per recent FSBS reports. I have recommended for the patient to have follow up labs prior to the next office visit. The patient has been instructed to continue with current medications as previously directed, continue with regular FSBS monitoring to assure continued control of diabetes. Pt to call for any acute concerns, complaints, or if the blood glucose readings are starting to become less controlled. Decrease gabapentin to 400mg daily. Increase fentanyl to 25mcg daily. Hypertension - well controlled - continue with current medications, continue with no added salt diet. Pt has been encouraged to exercise daily. The pt has been advised to call the office if there are any acute concerns about change in blood pressure readings at home. . Hypertension - uncontrolled - improved with better pain control. No change in medications today. The patient has been counseled to cut back on salt in diet for a no added salt diet, low fat diet, start an exercise program with low weight bearing exercises and higher aerobic activity for heart health. The patient is to check blood pressure readings as an outpatient and either fax , call, or email the readings to the office next week for practicioner to review. The pt is to call for acute concerns. Joint Injection-left shoulder- Pt was given post - injection instructions. The pt has been advised to use antiinflammatories post injection today, ice to the injected site, call if redness, warmth, or increased pain occurs at the site of injection. change the losartan to a 100mg pill one time daily. . Hypertension - uncontrolled - the patient's medications have been modified as documented in the visit note. The patient has been counseled to cut back on salt in diet for a no added salt diet, low fat diet, start an exercise program with low weight bearing exercises and higher aerobic activity for heart health. The patient is to check blood pressure readings as an outpatient and either fax , call, or email the readings to the office next week for practitioner to review. The pt is to call for acute concerns. Diabetes Mellitus - controlled - per recent FSBS reports. I have recommended for the patient to have follow up labs prior to the next office visit. The patient has been instructed to continue with current medications as previously directed, continue with regular FSBS monitoring to assure continued control of diabetes. Pt to call for any acute concerns, complaints, or if the blood glucose readings are starting to become less controlled. Constipation - recommended pt to increase water intake, start on senna change metformin to one time daily - take in the morning increase lantus to 28 units in the morning and 20 units in the evening. ferrous gluconate - over the counter - take one time daily. - this is an iron supplement and this should help improve hemoglobin levels . Diabetes Mellitus - controlled - per recent FSBS reports. I have recommended for the patient to have follow up labs prior to the next office visit. The patient has been instructed to continue with current medications as previously directed, continue with regular FSBS monitoring to assure continued control of diabetes. Pt to call for any acute concerns, complaints, or if the blood glucose readings are starting to become less controlled. Hypertension - well controlled - continue with current medications, continue with no added salt diet. Pt has been encouraged to exercise daily. The pt has been advised to call the office if there are any acute concerns about change in blood pressure readings at home. Chronic pain syndrome - refill pain medications. . Diabetes Mellitus - controlled - per recent FSBS reports. I have recommended for the patient to have follow up labs prior to the next office visit. The patient has been instructed to continue with current medications as previously directed, continue with regular FSBS monitoring to assure continued control of diabetes. Pt to call for any acute concerns, complaints, or if the blood glucose readings are starting to become less controlled. Hypertension - well controlled - continue with current medications, continue with no added salt diet. Pt has been encouraged to exercise daily. The pt has been advised to call the office if there are any acute concerns about change in blood pressure readings at home. . Dysuria, discharge, pelvic pain - UA negative - Discussed with pt the possible need for pelvic exam - will send RX and if symptoms do not improve will perform pelvic exam. Pt is to notify clinic with any changes, questions, or concerns. labs within the week before appt. Hyperlipidemia - pt has been counseled about appropriate diet, exercise, and need for low fat food choices. I have discussed the need for the patient to take medications as prescribed. If the patient has negative side effects from the medication, they are to CALL the office and not abruptly discontinue the medication without discussion with a practicioner in the office. We will check labs in 3-6 months for follow up on the patient's chronic medical problem and to assure normal liver response to medications. PT TO START ON NIACIN 500mg, take yout aspirin and niacin together.. est 1/2 an apple with the niacin. Diabetes Mellitus - controlled - per recent FSBS reports. I have recommended for the patient to have follow up labs prior to the next office visit. The patient has been instructed to continue with current medications as previously directed, continue with regular FSBS monitoring to assure continued control of diabetes. Pt to call for any acute concerns, complaints, or if the blood glucose readings are starting to become less controlled. INCREASE THE LANTUS TO 22 units twice a day. HTN - controlled - no change in medications at this time. . Hypertension - well controlled - continue with current medications, continue with no added salt diet. Pt has been encouraged to exercise daily. The pt has been advised to call the office if there are any acute concerns about change in blood pressure readings at home. Diabetes Mellitus - controlled - per recent FSBS reports. I have recommended for the patient to have follow up labs prior to the next office visit. The patient has been instructed to continue with current medications as previously directed, continue with regular FSBS monitoring to assure continued control of diabetes. Pt to call for any acute concerns, complaints, or if the blood glucose readings are starting to become less controlled. Weakness - post operative due to back surgery and expected recovery - then pt had fx of leg - pt recovering - at [facility] - and continues to require rehab. Hyperlipidemia- uncontrolled - pt has been intolerant of statins, but has agreed to try restarting GEMFIBROZIL 600 mg ONE PILL TWICE DAILY AND TAKING THE PILLS EVERY OTHER DAY.. Diabetes Mellitus - controlled - per recent FSBS reports. I have recommended for the patient to have follow up labs prior to the next office visit. The patient has been instructed to continue with current medications as previously directed, continue with regular FSBS monitoring to assure continued control of diabetes. Pt to call for any acute concerns, complaints, or if the blood glucose readings are starting to become less controlled. Hypertension - well controlled - continue with current medications, continue with no added salt diet. Pt has been encouraged to exercise daily. The pt has been advised to call the office if there are any acute concerns about change in blood pressure readings at home. Hyperlipidemia- uncontrolled - pt has been intolerant of statins, but has agreed to try restarting GEMFIBROZIL 600 mg ONE PILL TWICE DAILY AND TAKING THE PILLS EVERY OTHER DAY. . Diabetes Mellitus - improved control - per recent FSBS reports. I have recommended for the patient to have follow up labs prior to the next office visit. The patient has been instructed to continue with current medications as previously directed, continue with regular FSBS monitoring to assure continued control of diabetes. Pt to call for any acute concerns, complaints, or if the blood glucose readings are starting to become less controlled. Hypertension - well controlled - continue with current medications, continue with no added salt diet. Pt has been encouraged to exercise daily. The pt has been advised to call the office if there are any acute concerns about change in blood pressure readings at home. Chronic Pain Syndrome - pt has chronic pain - has been maintained on current medications, has not sought out other medications, only uses PRN pain medications as directed, and understands the consequences of over-medication.
--- OUTSIDE RECORDS SUMMARY | 2017-07-12 10:24 | XMS REPORT | CCD ---
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 Unknown Has never used illegal drugs 01/22/2011 Allergies, Adverse Reactions, Alerts Allergies, Adverse Reactions, Alerts data not found Past Medical History Illness Codes Condition Status Onset Date Resolved Date Chronic pain syndrome ICD-9: 338.4 ICD-10: G89.4 Active 01/27/2014 Unknown Essential (primary) hypertension ICD-9: 401.1 ICD-10: I10 Active 02/26/2016 Unknown Type 2 diabetes mellitus without complications ICD-9: 250.00 ICD-10: E11.9 Active 11/11/2013 Unknown Dysuria ICD-9: 788.1 ICD-10: R30.0 Active 01/07/2017 Unknown Slow transit constipation ICD-9: 564.01 ICD-10: K59.01 Active 02/07/2016 Unknown Chronic kidney disease, stage 2 (mild) ICD-9: 585.2 ICD-10: N18.2 Active 10/11/2016 Unknown Type 2 diabetes mellitus with hyperglycemia ICD-9: 250.02 ICD-10: E11.65 Active 10/11/2016 Unknown Calculus of gallbladder without cholecystitis without obstruction ICD-9: 574.20 ICD-10: K80.20 Active 02/07/2016 Unknown Essential (primary) hypertension ICD-9: 401.9 ICD-10: I10 Active 11/11/2013 Unknown Other fdc (current) drug therapy ICD-9: V58.69 ICD-10: Z79.899 [...] Unknown Hypertension Unknown Active 03/21/2011 Unknown 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 Active 03/21/2011 Unknown Diabetes Unknown [...] Problems Condition Codes Effective Dates Condition Status Chronic pain syndrome ICD-9: 338.4 ICD-10: G89.4 01/27/2014 Active Essential (primary) hypertension ICD-9: 401.1 ICD-10: I10 02/26/2016 Active Type 2 diabetes mellitus without complications ICD-9: 250.00 ICD-10: E11.9 11/11/2013 Active Dysuria ICD-9: 788.1 ICD-10: R30.0 01/07/2017 Active Slow transit constipation ICD-9: 564.01 ICD-10: K59.01 02/07/2016 Active Chronic kidney disease, stage 2 (mild) ICD-9: 585.2 ICD-10: N18.2 10/11/2016 Active Type 2 diabetes mellitus with hyperglycemia ICD-9: 250.02 ICD-10: E11.65 10/11/2016 Active Calculus of gallbladder without cholecystitis without obstruction ICD-9: 574.20 ICD-10: K80.20 02/07/2016 Active Essential (primary) hypertension ICD-9: 401.9 ICD-10: I10 11/11/2013 Active Other termite helper (current) drug therapy ICD-9: V58.69 ICD-10: Z79.899 [...] 08/22/2011 Active Hypertension Unknown 03/21/2011 Active 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 03/21/2011 Active Diabetes Unknown 03/19/2011 [...] Start Date Stop Date Status Fill Instructions metoprolol succinate ER 25 mg tablet,extended release 24 hr RxNorm: 681277 TAKE ONE TABLET BY MOUTH EVERY EVENING 06/13/2017 06/07/2018 Active gabapentin 100 mg capsule RxNorm: 729651 TAKE ONE CAPSULE BY MOUTH EVERY EVENING 06/13/2017 06/07/2018 Active Zithromax Z-Joseph 250 mg tablet RxNorm: 849700 1 Tablet(s) PO UD as directed 05/15/2017 05/19/2017 Inactive Duragesic 25 mcg/hr transdermal patch RxNorm: 539335 1 Patch TD Q72H 05/01/2017 07/29/2017 Active Duragesic 25 mcg/hr transdermal patch RxNorm: 864231 1 Patch TD Q72H 01/30/2017 02/28/2017 Inactive Diflucan 150 mg tablet RxNorm: 892349 1 Tablet(s) PO daily 01/09/2017 Inactive Lantus Solostar 100 unit/mL (3 mL) subcutaneous insulin pen RxNorm: 828043 Unit( s) INJECT 25 UNITS UNDER THE SKIN EVERY MORNING AND 15 UNITS AT BEDTIME, dr to adjust based on glucose readings. 10/11/2016 10/05/2017 Active Duragesic 25 mcg/hr transdermal patch RxNorm: 221219 1 Patch TD Q72H 10/01/2016 10/30/2016 Inactive Duragesic 25 mcg/hr transdermal patch RxNorm: 101757 1 Patch TD Q72H 08/28/2016 09/26/2016 Inactive senna 8.6 mg tablet RxNorm: 394681 1 Tablet(s) PO TIW 201606/09/2017 Inactive losartan 100 mg tablet RxNorm: 015110 1 Tablet(s) PO daily 07/09/2017 Active omeprazole 40 mg capsule,delayed release RxNorm: 241374 1 Capsule(s) PO QPM 06/15/2016 06/09/2017 Inactive metformin ER 500 mg tablet,extended release 24 hr RxNorm: 864467 1 Tablet(s) daily 06/15/2016 07/09/2017 Active gabapentin 100 mg capsule RxNorm: 527059 1 Capsule(s) TAKE ONE CAPSULES BY MOUTH EVERY EVENING 06/15/2016 06/12/2017 Inactive metoprolol succinate ER 25 mg tablet,extended release 24 hr RxNorm: 468109 1 Tablet(s) PO QPM 06/15/2016 06/12/2017 Inactive metformin ER 500 mg tablet,extended release 24 hr RxNorm: 011371 1 Tablet(s) daily 06/14/2016 06/14/2016 Inactive Lantus Solostar 100 unit/mL (3 mL) subcutaneous insulin pen RxNorm: 868253 Unit( s) INJECT 28 UNITS UNDER THE SKIN EVERY MORNING AND 20 UNITS AT BEDTIME 06/14/2016 10/10/2016 Inactive Duragesic 25 mcg/hr transdermal patch RxNorm: 271697 1 Patch TD Q72H 05/29/2016 06/27/2016 Inactive Duragesic 25 mcg/hr transdermal patch RxNorm: 031816 1 TD Q72H 04/25/2016 05/24/2016 Inactive metoprolol succinate ER 25 mg tablet,extended release 24 hr RxNorm: 048894 1 Tablet(s) PO QPM 12/26/2015 06/14/2016 Inactive gabapentin 100 mg capsule RxNorm: 426453 1 Capsule(s) TAKE ONE CAPSULES BY MOUTH EVERY EVENING 12/26/2015 06/14/2016 Inactive Duragesic 25 mcg/hr transdermal patch RxNorm: 477831 1 TD Q72H 12/26/2015 02/23/2016 Inactive Augmentin 500 mg-125 mg tablet RxNorm: 658883 1 Tablet(s) PO TID 11/15/2015 11/21/2015 Inactive Duragesic 25 mcg/hr transdermal patch RxNorm: 396270 1 TD Q72H 10/25/2015 11/23/2015 Inactive [SAVINGS FOR NON-COVERED DRUGS -- BIN:[id number], PCN: ASPROD1, Group: XXXXX, ID# [id number], Questions: . THIS IS NOT INSURANCE.] Duragesic 25 mcg/hr transdermal patch RxNorm: 231812 1 TD Q72H 08/29/2015 10/24/2015 Inactive [SAVINGS FOR NON-COVERED DRUGS -- BIN:790970, PCN: ASPROD1, Group: XXXXX, ID# [id number], Questions: . THIS IS NOT INSURANCE.] gabapentin 100 mg capsule RxNorm: 750122 1 Capsule(s) TAKE ONE CAPSULES BY MOUTH EVERY EVENING 08/29/2015 10/27/2015 Inactive glimepiride 2 mg tablet RxNorm: 813247 TAKE ONE TABLET BY MOUTH EVERY MORNING 08/08/2015 12/25/2015 Inactive Duragesic 25 mcg/hr transdermal patch RxNorm: 492315 1 TD Q72H 08/01/2015 08/28/2015 Inactive [SAVINGS FOR NON-COVERED DRUGS -- BIN:995215, PCN: ASPROD1, Group: XXXXX, ID# [id number], Questions: . THIS IS NOT INSURANCE.] Lantus Solostar 100 unit/mL (3 mL) subcutaneous insulin pen RxNorm: 897591 Unit( s) INJECT 23 UNITS UNDER THE SKIN EVERY MORNING AND 15 UNITS AT BEDTIME 07/13/2015 06/13/2016 Inactive gabapentin 100 mg capsule RxNorm: 610257 1 Capsule(s) TAKE ONE CAPSULES BY MOUTH EVERY EVENING 07/04/2015 08/28/2015 Inactive losartan 100 mg tablet RxNorm: 941900 1 Tablet(s) PO daily 12/201506/14/2016 Inactive senna 8.6 mg tablet RxNorm: 150316 1 Tablet(s) PO TIW 201506/14/2016 Inactive metformin ER 500 mg tablet,extended release 24 hr RxNorm: 724441 Tablet(s) TAKE 1 TABLET BY MOUTH TWO TIMES A DAY. 06/29/2015 06/28/2015 Inactive metformin ER 500 mg tablet,extended release 24 hr RxNorm: 192943 TAKE 1 TABLET BY MOUTH TWO TIMES A DAY. 06/29/20152016 Inactive Duragesic 25 mcg/hr transdermal patch RxNorm: 755557 1 TD Q72H 05/24/2015 07/22/2015 Inactive [SAVINGS FOR NON-COVERED DRUGS -- BIN:254753, PCN: ASPROD1, Group: XXXXX, ID# [id number], Questions: . THIS IS NOT INSURANCE.] Augmentin 500 mg-125 mg tablet RxNorm: 129688 1 Tablet(s) PO TID 05/11/2015 05/10/2015 Inactive Augmentin 500 mg-125 mg tablet RxNorm: 691118 1 Tablet(s) PO TID 05/11/2015 05/17/2015 Inactive Keflex 500 mg capsule RxNorm: 719558 1 Capsule(s) PO TID 201405/09/2015 Inactive Keflex 500 mg capsule RxNorm: 755113 1 Capsule(s) PO TID 201405/02/2015 Inactive gabapentin 100 mg capsule RxNorm: 632612 TAKE TWO CAPSULES BY MOUTH EVERY EVENING 04/25/2015 06/23/2015 Inactive omeprazole 40 mg capsule,delayed release RxNorm: 434621 1 Capsule(s) PO daily as needed 02/28/2015 06/27/2015 Inactive omeprazole 40 mg capsule,delayed release RxNorm: 400950 1 Capsule(s) PO QPM 02/28/2015 02/22/2016 Inactive Duragesic 25 mcg/hr transdermal patch RxNorm: 337305 1 TD Q72H 02/21/2015 04/21/2015 Inactive [SAVINGS FOR NON-COVERED DRUGS -- BIN:714083, PCN: ASPROD1, Group: XXXXX, ID# [id number], Questions: . THIS IS NOT INSURANCE.] losartan 25 mg tablet RxNorm: 185242 1 Tablet(s) PO BID 201407/03/2015 Inactive Duragesic 25 mcg/hr transdermal patch RxNorm: 586017 1 TD Q72H 12/21/2014 02/18/2015 Inactive [SAVINGS FOR NON-COVERED DRUGS -- BIN:142607, PCN: ASPROD1, Group: XXXXX, ID# [id number], Questions: . THIS IS NOT INSURANCE.] losartan 25 mg tablet RxNorm: 452217 1 Tablet(s) PO BID 201401/05/2015 Inactive losartan 25 mg tablet RxNorm: 733578 TAKE ONE TABLET BY MOUTH EVERY EVENING 11/18/2014 07/25/2015 Inactive losartan 25 mg tablet RxNorm: 292376 TAKE ONE TABLET BY MOUTH EVERY EVENING 11/18/2014 07/31/2015 Inactive Bactrim DS 800 mg-160 mg tablet RxNorm: 569001 1 Tablet(s) PO BID 10/27/2014 10/26/2014 Inactive take a probiotic TID while on the ABT Bactrim DS 800 mg-160 mg tablet RxNorm: 047833 1 Tablet(s) PO BID 10/27/2014 11/05/2014 Inactive take a probiotic TID while on the ABT losartan 25 mg tablet RxNorm: 665113 1 Tablet(s) PO BID 201411/18/2014 Inactive gabapentin 100 mg capsule RxNorm: 029422 TAKE TWO CAPSULES BY MOUTH EVERY EVENING 10/11/2014 01/08/2015 Inactive Duragesic 25 mcg/hr transdermal patch RxNorm: 057203 1 TD Q72H 09/08/2014 10/07/2014 Inactive [SAVINGS FOR NON-COVERED DRUGS -- BIN:300858, PCN: ASPROD1, Group: XXXXX, ID# [id number], Questions: . THIS IS NOT INSURANCE.] meloxicam 15 mg tablet RxNorm: 251571 1 Tablet(s) PO QPM 201409/07/2014 Inactive [SAVINGS FOR NON-COVERED DRUGS -- BIN:592125, PCN: ASPROD1, Group: XXXXX, ID # [id number], Questions: . THIS IS NOT INSURANCE.] meloxicam 15 mg tablet RxNorm: 688257 1 Tablet(s) PO QPM 201407/03/2015 Inactive [SAVINGS FOR NON-COVERED DRUGS -- BIN:225171, PCN: ASPROD1, Group: XXXXX, ID # [id number], Questions: . THIS IS NOT INSURANCE.] Duragesic 25 mcg/hr transdermal patch RxNorm: 560646 1 TD Q72H 08/23/2014 09/07/2014 Inactive [SAVINGS FOR NON-COVERED DRUGS -- BIN:694103, PCN: ASPROD1, Group: XXXXX, ID# [id number], Questions: . THIS IS NOT INSURANCE.] glimepiride 2 mg tablet RxNorm: 553302 TAKE ONE TABLET BY MOUTH EVERY MORNING 07/08/2014 01/03/2015 Inactive ketorolac 60 mg/2 mL intramuscular solution RxNorm: 675643 Milliliter(s) IM 07/07/2014 07/07/2014 Inactive [SAVINGS FOR UNINSURED PATIENTS -- BIN:069190, PCN: ASPROD1, Group: AME08, ID# [id number], Process claim through [employer], for questions: . THIS IS NOT INSURANCE.] Duragesic 25 mcg/hr transdermal patch RxNorm: 506489 1 TD Q72H 07/07/2014 08/05/2014 Inactive [SAVINGS FOR UNINSURED PATIENTS -- BIN:071867, PCN: ASPROD1, Group: AME08, ID# [id number], Process claim through [employer], for questions: [phone]. THIS IS NOT INSURANCE.] meloxicam 15 mg tablet RxNorm: 223642 1 Tablet(s) PO QPM 201409/04/2014 Inactive [SAVINGS FOR UNINSURED PATIENTS -- BIN:205118, PCN: ASPROD1, Group: AME08, ID # [id number], Process claim through [employer], for questions: . THIS IS NOT INSURANCE.] glimepiride 2 mg tablet RxNorm: 827162 1 Tablet(s) QAM TAKE ONE TABLET BY MOUTH EVERY MORNING 07/07/2014 07/07/2014 Inactive [SAVINGS FOR UNINSURED PATIENTS -- BIN :336232, PCN: ASPROD1, Group: AME08, ID# [id number], Process claim through [employer], for questions: . THIS IS NOT INSURANCE.] Duragesic 25 mcg/hr transdermal patch RxNorm: 830991 1 TD Q72H 06/22/2014 07/06/2014 Inactive [SAVINGS FOR UNINSURED PATIENTS -- BIN:944470, PCN: ASPROD1, Group: AME08, ID# [id number], Process claim through [employer], for questions: [phone]. THIS IS NOT INSURANCE.] Lantus Solostar 100 unit/mL (3 mL) subcutaneous insulin pen RxNorm: 605188 INJECT 23 UNITS UNDER THE SKIN EVERY MORNING AND 15 UNITS AT BEDTIME 06/20/2014 06/14/2015 Inactive metformin ER 500 mg tablet,extended release 24 hr RxNorm: 484064 TAKE 1 TABLET BY MOUTH TWO TIMES A DAY. 06/20/20142015 Inactive glimepiride 2 mg tablet RxNorm: 163368 TAKE ONE TABLET BY MOUTH EVERY MORNING 05/18/2014 07/06/2014 Inactive glimepiride 2 mg tablet RxNorm: 139296 Tablet(s) PO TAKE ONE TABLET BY MOUTH EVERY MORNING 05/18/2014 05/17/2014 Inactive Voltaren 1 % topical gel RxNorm: 884115 4 Gram(s) TOP QID 05/0308/30/2014 Inactive gabapentin 100 mg capsule RxNorm: 909160 2 Capsule(s) PO QPM 08/30/2014 Inactive Duragesic 25 mcg/hr transdermal patch RxNorm: 705426 1 TD Q72H 04/12/2014 05/11/2014 Inactive Duragesic 25 mcg/hr transdermal patch RxNorm: 763614 1 TD Q72H 03/08/2014 04/06/2014 Inactive gabapentin 300 mg capsule RxNorm: 235534 1 Capsule(s) PO QPM 05/02/2014 Inactive Lantus Solostar 100 unit/mL (3 mL) subcutaneous insulin pen RxNorm: 045716 25 q am 18 hs Unit(s) SQ BID patient states she recieves 5 pens at a time 02/01/2014 02/25/2015 Inactive Duragesic 25 mcg/hr transdermal patch RxNorm: 070025 1 TD Q72H 01/27/2014 02/25/2014 Inactive gabapentin 400 mg capsule RxNorm: 839643 1 Capsule(s) PO QPM 03/07/2014 Inactive Duragesic 12 mcg/hr transdermal patch RxNorm: 701435 1 TD Q72H 01/15/2014 01/26/2014 Inactive gabapentin 600 mg tablet RxNorm: 164281 1 Tablet(s) PO QPM 01/26/2014 Inactive gabapentin 800 mg tablet RxNorm: 474806 1 Capsule(s) PO QPM 01/06/2014 Inactive Duragesic 25 mcg/hr transdermal patch RxNorm: 000720 1 Patch TD Q72H 11/11/2013 12/10/2013 Inactive losartan 25 mg tablet RxNorm: 775439 1 Tablet(s) PO QPM 201310/25/2014 Inactive glimepiride 2 mg tablet RxNorm: 707414 Tablet(s) PO TAKE ONE TABLET BY MOUTH EVERY MORNING 08/28/2013 05/17/2014 Inactive cefdinir 300 mg capsule RxNorm: 730874 1 Capsule(s) PO BID 08/28/2013 Inactive Rocephin 500 mg solution for injection RxNorm: 463450 1 Inj 08/19/2013 Inactive Zithromax Z-Joseph 250 mg tablet RxNorm: 685362 Tablet(s) PO as directed 08/14/2013 No Stop Date Active gabapentin 800 mg tablet RxNorm: 446241 1 Capsule(s) PO TID 04/201411/10/2013 Inactive metformin ER 500 mg tablet,extended release 24 hr RxNorm: 685876 Tablet(s) PO TAKE 1 TABLET BY MOUTH TWO TIMES A DAY. 06/22/2013 06/19/2014 Inactive Lantus Solostar 100 unit/mL (3 mL) subcutaneous insulin pen RxNorm: 212438 23 q am 15 hs Unit(s) SQ BID patient states she recieves 5 pens at a time 05/15/2013 01/31/2014 Inactive Metanx 3 mg-35 mg-2 mg tablet RxNorm: 1 Tablet(s) PO BID 04/2707/03/2015 Inactive Lantus Solostar 100 unit/mL (3 mL) subcutaneous insulin pen RxNorm: 485303 23 q am 15 hs Unit(s) SQ BID 04/27/20132012 Inactive folic acid 1 mg tablet RxNorm: 199808 1 Tablet(s) PO daily 06/201207/03/2015 Inactive Neurontin 300 mg capsule RxNorm: 327580 1 Capsule(s) PO TID 06/201207/07/2013 Inactive fentanyl 75 mcg/hr transdermal patch RxNorm: 513915 1 TD q 3 days 04/27/2013 05/26/2013 Inactive Dilaudid 2 mg tablet RxNorm: 040975 1 Tablet(s) PO Q4 PRN 04/2205/13/2013 Inactive Lantus Solostar 100 unit/mL (3 mL) subcutaneous insulin pen RxNorm: 917995 21 Unit(s) SQ BID 02/11/2013 04/26/2013 Inactive glimepiride 2 mg tablet RxNorm: 281554 1 Tablet(s) PO daily TAKE ONE TABLET BY MOUTH EVERY MORNING 02/11/2013 08/27/2013 Inactive ibuprofen 600 mg tablet RxNorm: 246883 1 Tablet(s) PO Q8 PRN 02/13/2017 Inactive fentanyl 100 mcg/hr Transderm Patch RxNorm: 832309 1 TD q 3 days 02/09/2013 04/26/2013 Inactive Contour Test Strips RxNorm: 1 test Miscellaneous BID 201210/07/2015 Inactive Cymbalta 30 mg capsule,delayed release RxNorm: 407237 1 Capsule(s) PO daily 10/14/2012 02/10/2013 Inactive prednisone 20 mg tablet RxNorm: 244737 2 Tablet(s) PO daily 10/17/2012 Inactive 2 daily x 4 days Cymbalta 30 mg capsule,delayed release RxNorm: 609181 1 Capsule(s) PO daily 10/14/2012 10/13/2012 Inactive Cymbalta 30 mg capsule,delayed release RxNorm: 998632 1 Capsule(s) PO daily 10/14/2012 10/13/2012 Inactive Voltaren 1 % Topical Gel RxNorm: 173162 3 Gram(s) TOP QID 09/1910/18/2012 Inactive prednisone 20 mg tablet RxNorm: 121092 Tablet(s) PO UD 3 tabs daily x2 days, 2 tabs daily x2 days, 1 tab daily x2 days, 1/2 tab daily x 2 days, 1/2 tab every other day x2 doses 09/19/2012 No Stop Date Active Kenalog 40 mg/mL Susp for Injection RxNorm: 5298024 1 Milliliter(s) Inj 09/10/2012 09/10/2012 Inactive WelChol 625 mg tablet RxNorm: 915887 3 Tablet(s) PO daily 201202/10/2013 Inactive Zithromax Z-Joseph 250 mg tablet RxNorm: 739009 Tablet(s) PO as directed 07/24/2012 08/31/2012 Inactive Kenalog 40 mg/mL Susp for Injection RxNorm: 6083924 2 Milliliter(s) Inj 06/03/2012 06/03/2012 Inactive prednisone 10 mg tablets in a dose pack RxNorm: 436878 Tablet(s) PO 6-5-4-3-2-1 05/28/2012 06/02/2012 Inactive metformin ER 500 mg tablet,extended release 24 hr RxNorm: 368666 1 Tablet(s) PO BID 05/28/2012 05/22/2013 Inactive metformin ER 500 mg tablet,extended release 24 hr RxNorm: 941934 Tablet(s) PO TAKE 1 TABLET BY MOUTH TWO TIMES A DAY. 05/26/2012 05/27/2012 Inactive glimepiride 2 mg tablet RxNorm: 406594 Tablet(s) PO TAKE ONE TABLET BY MOUTH EVERY MORNING 05/21/2012 02/10/2013 Inactive gemfibrozil 600 mg tablet RxNorm: 194057 1 Tablet(s) PO BID pt taking one pill twice daily every other day. 05/06/2012 Inactive cefdinir 300 mg capsule RxNorm: 455202 1 Capsule(s) PO BID 04/08/2012 Inactive cefdinir 300 mg capsule RxNorm: 599636 1 Capsule(s) PO BID 04/15/2012 Inactive prednisone 20 mg tablet RxNorm: 687828 1/2 Tablet(s) PO 201103/27/2012 Inactive Flexeril 5 mg tablet RxNorm: 086993 1 Tablet(s) PO Q6 PRN 03/1708/31/2012 Inactive Kenalog 40 mg/mL Susp for Injection RxNorm: 9207253 Milliliter(s) Inj 03/12/2012 03/12/2012 Inactive Lantus Solostar 100 unit/mL (3 mL) Sub-Q Insulin Pen RxNorm: 406858 22 Unit(s) SQ BID 02/01/2012 02/10/2013 Inactive Lantus Solostar 100 unit/mL (3 mL) Sub-Q Insulin Pen RxNorm: 545487 21 Unit(s) SQ BID 08/06/2011 01/31/2012 Inactive glimepiride 2 mg tablet RxNorm: 091328 1 Tablet(s) PO QAM 07/3001/26/2012 Inactive pt may have 90 day supply if nec glimepiride 2 mg Tab RxNorm: 361468 1 Tablet(s) PO QAM 201107/30/2011 Inactive Zithromax Z-Joseph 250 mg Tab RxNorm: 748698 Tablet(s) PO UD 07/2605/05/2012 Inactive metformin ER 500 mg tablet,extended release 24 hr RxNorm: 858709 1 Tablet(s) PO BID 05/19/2011 05/25/2012 Inactive gemfibrozil 600 mg Tab RxNorm: 169675 1 Tablet(s) PO BID take one by mouth thirty minutes before morning and evening meals. 01/23/2011 03/23/2011 Inactive Lantus Solostar 100 unit/mL (3 mL) Sub-Q Insulin Pen RxNorm: 828543 21 Unit(s) SQ BID 37 units q hs 01/23/2011 08/05/2011 Inactive aspirin 81 mg Tab, Delayed Release RxNorm: 659900 1 Tablet(s) PO daily No Start Date Active [employer] Aut[employer] Test Strips RxNorm: 1 Miscellaneous BID No Start Date Active metformin ER 500 mg 24 hr Tab RxNorm: 692376 1 Tablet(s) PO BID No Start Date 05/18/2011 Inactive hydrocodone 5 mg-acetaminophen 325 mg tablet RxNorm: 2222542 1 Tablet(s) PO Q6 PRN No Start Date 02/10/2013 Inactive meloxicam 15 mg tablet RxNorm: 914820 1 Tablet(s) PO daily No Start Date 02/10/2013 Inactive Miralax 17 gram/dose oral powder RxNorm: 457538 1 PO daily No Start Date 12/25/2015 Inactive fentanyl 50 mcg/hr transdermal patch RxNorm: 378938 1 TD Q72H No Start Date 11/10/2013 Inactive Nevanac 0.1 % Eye Drops RxNorm: 798447 1 Drop(s) OPH BID 1 drop to left eye bid No Start Date 02/10/2013 Inactive folic acid 1 mg tablet RxNorm: 298603 1 Tablet(s) PO daily No Start Date 04/26/2013 Inactive Naprosyn 500 mg Tab RxNorm: 154231 1 Tablet(s) PO BID No Start Date 03/20/2011 Inactive diazepam 5 mg tablet RxNorm: 479516 1/2 Tablet(s) PO Q8 PRN No Start Date 04/26/2013 Inactive Calcium 600 + D(3) 600 mg calcium-200 unit Cap RxNorm: 334418 1 Capsule(s) PO daily No Start Date 07/03/2015 Inactive ibuprofen Oral RxNorm : Oral No Start Date 03/16/2012 Inactive Neurontin 300 mg capsule RxNorm: 372625 1 Capsule(s) PO TID No Start Date 04/26/2013 Inactive prednisone 20 mg tablet RxNorm: 020920 Tablet(s) PO No Start Date 10/13/2012 Inactive 2 daily x 4 days prednisolone acetate 1 % Eye Drops, Susp RxNorm: 1079478 1 Drop(s) OPH QID 1 drop each eye qid No Start Date 02/10/2013 Inactive Fish Oil 360 mg-1,200 mg Cap, Delayed Release RxNorm: 2 Capsule(s) PO daily No Start Date 02/10/2013 Inactive Polysaccharide Iron 150 mg iron capsule RxNorm: 348862 1 Capsule(s) PO daily No Start Date 07/03/2015 Inactive Lantus Solostar 100 unit/mL (3 mL) Sub-Q Insulin Pen RxNorm: 156630 37 Unit(s) SQ QHS 37 units q hs No Start Date 2010 Inactive Naprosyn 500 mg Tab RxNorm: 268254 1 Tablet(s) PO PRN pt takes prn arthritis pain No Start Date 03/16/2012 Inactive fentanyl 75 mcg/hr transdermal patch RxNorm: 404543 1 TD q 3 days No Start Date 04/26/2013 Inactive Zithromax Z-Joseph 250 mg Tab RxNorm: 432969 Oral No Start Date 07/26/2011 Inactive hydromorphone 2 mg tablet RxNorm: 034744 1 Tablet(s) PO Q4 PRN No Start Date 02/10/2013 Inactive docusate potassium 100 mg capsule RxNorm: 8087198 1 Capsule(s) PO BID No Start Date 07/03/2015 Inactive Xyzal 5 mg Tab RxNorm : 850186 1 Tablet(s) PO daily No Start Date 08/31/2012 Inactive Ambien 5 mg tablet RxNorm: 707930 1 Tablet(s) PO PRN No Start Date 04/26/2013 Inactive prednisone 20 mg tablet RxNorm: 049634 Tablet(s) PO UD 2 tabs on day 1 1 tab on day 2 1/2 tab on day 3 No Start Date 08/31 Inactive glimepiride 2 mg Tab RxNorm: 257398 1 Tablet(s) PO QAM No Start Date 07/29/2011 Inactive Dilaudid 2 mg tablet RxNorm: 944166 1 Tablet(s) PO Q4 PRN No Start Date 04/21/2013 Inactive Zithromax Z-Joseph 250 mg tablet RxNorm: 478801 Tablet(s) PO as directed No Start Date 07/23/2012 Inactive gemfibrozil 600 mg Tab RxNorm: 979335 1 Tablet(s) PO BID No Start Date 01/22/2011 Inactive ibuprofen 600 mg tablet RxNorm: 739971 1 Tablet(s) PO Q8 PRN No Start Date 02/10/2013 Inactive Medication Administered Medication Codes Instructions Start Date Status ketorolac 60 mg/2 mL intramuscular solution RxNorm: 424827 Milliliter 07/07/2014 No longer Active Rocephin 500 mg solution for injection RxNorm: 376182 1 08/19/2013 No longer Active Kenalog 40 mg/mL Susp for Injection RxNorm: 7171295 1Milliliter 09/10/2012 No longer Active Kenalog 40 mg/mL Susp for Injection RxNorm: 2271731 2Milliliter 06/03/2012 No longer Active Kenalog 40 mg/mL Susp for Injection RxNorm: 6051438 Milliliter 03/12/2012 No longer Active Immunizations Vaccine Codes Date Status Pneumococcal CVX: 33 05/03/2014 completed Pneumococcal (Adult) CVX: 33 05/03/2014 completed Influenza CVX: 141 03/21/2011 completed Assessments Condition Codes Effective Dates Type 2 diabetes mellitus without complications ICD-10: E11.9 ICD-9: 250.00 02/14/2017 Chronic pain syndrome ICD-10: G89.4 ICD-9: 338.4 02/14/2017 Essential (primary) hypertension ICD-10: I10 ICD-9: 401.1 02/14/2017 Dysuria ICD-10: R30.0 ICD-9: 788.1 01/07/2017 Slow transit constipation ICD-10: K59.01 ICD-9: 564.01 11/14/2016 Type 2 diabetes mellitus with hyperglycemia ICD-10: E11.65 ICD-9: 250.02 10/11/2016 Chronic kidney disease, stage 2 (mild) ICD-10: N18.2 ICD-9: 585.2 10/11/2016 Calculus of gallbladder without cholecystitis without obstruction ICD-10: K80.20 ICD-9: 574.20 02/08/2016 Essential (primary) hypertension ICD-10: I10 ICD-9: 401.9 12/26/2015 Other fdc (current) drug therapy ICD-10: Z79.899 ICD-9: V58.69 [...] DM W/O COMPLICATION TYPE II, UNCONTROLLED SNOMED: 48166966 ICD-9: 250.02 07/15/2013 HYPERLIPIDEMIA ICD-9: 272.4 07/15/2013 [...] and allied disorder ICD-9: 726.19 05/28/2012 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 OBESITY ICD-9: 278.00 03/21/2011 IMPACTED CERUMEN ICD-9: 380.4 01/30/2011 DM W/O COMPLICATION TYPE I, UNCONTROLLED SNOMED: 24313399 ICD-9: 250.03 01/23/2011 Reason For Visit Reason For Visit Effective Dates Notes diabetes mellitus 02/14/2017 back pain 01/07/2017 diabetes [...] Observation Code Item Item Code Result Date Comp Metabolic Yto950 NA 142 mEq/L 02/12/2017 Comp Metabolic Zsa852 K 4.6 mEq/L 02/12/2017 Comp Metabolic Xsy915 CL 111 mEq/L 02/12/2017 Comp Metabolic Jei910 CO2 23.0 mEq/L 02/12/2017 Comp Metabolic Pmu654 ANION GAP 13 02/12/2017 Comp Metabolic Aul811 GLUCOSE 51 mg/dL 02/12/2017 Comp Metabolic Ngx267 Creat 1.3 mg/dL 02/12/2017 Comp Metabolic Hug319 eGFR 41 ml/min/1.73m2 02/12/2017 Comp Metabolic Esk859 BUN 39 mg/dL 02/12/2017 Comp Metabolic Wga769 B/C Ratio 29.5 Ratio 02/12/2017 Comp Metabolic Eye435 CALCIUM 8.5 mg/dL 02/12/2017 Comp Metabolic Fbl125 ALK PHOS 61 U/L 02/12/2017 Comp Metabolic Xdf903 AST(SGOT) 12 U/L 02/12/2017 Comp Metabolic Tqt671 ALT(SGPT) 12 U/L 02/12/2017 Comp Metabolic Aja726 BILI T 0.4 mg/dL 02/12/2017 Comp Metabolic Egc118 ALBUMIN 3.3 g/dL 02/12/2017 Comp Metabolic Ani248 TPRO 5.5 g/dL 02/12/2017 Comp Metabolic Lkz879 GLOB 2.2 g/dL 02/12/2017 Comp Metabolic Dzz075 A/G Ratio 1.5 Ratio 02/12/2017 Comp Metabolic Tnb073 Osmo 290 mOsmo 02/12/2017 Lipid Ord30 CHOL 186 mg/dL 02/12/2017 Lipid Ord30 HDL 40.0 mg/dl 02/12/2017 Lipid Ord30 TRIG 110 mg/dL 02/12/2017 Lipid Ord30 LDL 124 mg/dL 02/12/2017 Lipid Ord30 C/HDL 4.7 Ratio 02/12/2017 %Hba1C Jjx512 % HbA1c 72114-4 6.8 % 02/12/2017 %Hba1C Pdj710 Gluc Ave 148 mg/dL 02/12/2017 Cbc With Differential Ord2 WBC 9.20 K/ul 02/12/2017 Cbc With Differential Ord2 RBC 3.68 M/ul 02/12/2017 Cbc With Differential Ord2 HGB 10.4 g/dl 02/12/2017 Cbc With Differential Ord2 Neut% 54.4 % 02/12/2017 Cbc With Differential Ord2 HCT 33.4 % 02/12/2017 Cbc With Differential Ord2 Lymph% 35.3 % 02/12/2017 Cbc With Differential Ord2 MCV 90.8 fl 02/12/2017 Cbc With Differential Ord2 MCH 28.3 pg 02/12/2017 Cbc With Differential Ord2 [place]% 7.4 % 02/12/2017 Cbc With Differential Ord2 MCHC 31.1 pg 02/12/2017 Cbc With Differential Ord2 Eos% 2.5 % 02/12/2017 Cbc With Differential Ord2 PLT 256 K/ul 02/12/2017 Cbc With Differential Ord2 Baso% 0.4 % 02/12/2017 Cbc With Differential Ord2 RDW 15.0 % 02/12/2017 Cbc With Differential Ord2 Neut ABS# 5.00 K/ul 02/12/2017 Cbc With Differential Ord2 Lymph ABS# 3.25 K/ul 02/12/2017 Cbc With Differential Ord2 [place] ABS# 0.7 K/ul 02/12/2017 Cbc With Differential Ord2 Eos ABS# 0.2 K/ul 02/12/2017 Cbc With Differential Ord2 Baso ABS# 0.0 K/ul 02/12/2017 Lipid Ord30 CHOL 220 mg/dL 10/08/2016 Lipid Ord30 HDL 40.0 mg/dl 10/08/2016 Lipid Ord30 TRIG 161 mg/dL 10/08/2016 Lipid Ord30 LDL 148 mg/dL 10/08/2016 Lipid Ord30 C/HDL 5.5 Ratio 10/08/2016 Cbc With Differential Ord2 WBC 8.71 K/ul 10/08/2016 Cbc With Differential Ord2 RBC 3.87 M/ul 10/08/2016 Cbc With Differential Ord2 HGB 11.2 g/dl 10/08/2016 Cbc With Differential Ord2 HCT 35.2 % 10/08/2016 Cbc With Differential Ord2 Neut% 53.0 % 10/08/2016 Cbc With Differential Ord2 MCV 91.0 fl 10/08/2016 Cbc With Differential Ord2 Lymph% 35.0 % 10/08/2016 Cbc With Differential Ord2 MCH 28.9 pg 10/08/2016 Cbc With Differential Ord2 [place]% 8.2 % 10/08/2016 Cbc With Differential Ord2 Eos% 3.3 % 10/08/2016 Cbc With Differential Ord2 MCHC 31.8 pg 10/08/2016 Cbc With Differential Ord2 PLT 253 K/ul 10/08/2016 Cbc With Differential Ord2 Baso% 0.5 % 10/08/2016 Cbc With Differential Ord2 RDW 14.6 % 10/08/2016 Cbc With Differential Ord2 Neut ABS# 4.62 K/ul 10/08/2016 Cbc With Differential Ord2 Lymph ABS# 3.05 K/ul 10/08/2016 Cbc With Differential Ord2 [place] ABS# 0.7 K/ul 10/08/2016 Cbc With Differential Ord2 Eos ABS# 0.3 K/ul 10/08/2016 Cbc With Differential Ord2 Baso ABS# 0.0 K/ul 10/08/2016 Tsh Ord6 hTSH II 3.92 uIU/mL 10/08/2016 Comp Metabolic Pdq658 NA 142 mEq/L 10/08/2016 Comp Metabolic Vfo901 K 5.2 mEq/L 10/08/2016 Comp Metabolic Rjy015 CL 110 mEq/L 10/08/2016 Comp Metabolic Spl179 CO2 25.0 mEq/L 10/08/2016 Comp Metabolic Dmp664 ANION GAP 12 10/08/2016 Comp Metabolic Bzq937 GLUCOSE 74 mg/dL 10/08/2016 Comp Metabolic Rai505 Creat 1.6 mg/dL 10/08/2016 Comp Metabolic Wbs132 eGFR 33 ml/min/1.73m2 10/08/2016 Comp Metabolic Pdd908 BUN 45 mg/dL 10/08/2016 Comp Metabolic Zyu992 B/C Ratio 28.1 Ratio 10/08/2016 Comp Metabolic Tny277 CALCIUM 9.1 mg/dL 10/08/2016 Comp Metabolic Mck936 ALK PHOS 62 U/L 10/08/2016 Comp Metabolic Vik200 AST(SGOT) 14 U/L 10/08/2016 Comp Metabolic Vou427 ALT(SGPT) 12 U/L 10/08/2016 Comp Metabolic Iui927 BILI T 0.4 mg/dL 10/08/2016 Comp Metabolic Rdd814 ALBUMIN 3.5 g/dL 10/08/2016 Comp Metabolic Gyl059 TPRO 5.9 g/dL 10/08/2016 Comp Metabolic Cxy754 GLOB 2.4 g/dL 10/08/2016 Comp Metabolic Maa580 A/G Ratio 1.4 Ratio 10/08/2016 Comp Metabolic Fsl572 Osmo 293 mOsmo 10/08/2016 %Hba1C Vbi285 % HbA1c 16282-7 7.1 % 10/08/2016 %Hba1C Yqo611 Gluc Ave 157 mg/dL 10/08/2016 Lipid Ord30 CHOL 216 mg/dL 06/06/2016 Lipid Ord30 HDL 45.0 mg/dl 06/06/2016 Lipid Ord30 TRIG 134 mg/dL 06/06/2016 Lipid Ord30 LDL 144 mg/dL 06/06/2016 Lipid Ord30 C/HDL 4.8 Ratio 06/06/2016 Tsh Ord6 hTSH II 3.88 uIU/mL 06/06/2016 Comp Metabolic Coc424 NA 139 mEq/L 06/06/2016 Comp Metabolic Jtr388 K 5.1 mEq/L 06/06/2016 Comp Metabolic Zvd636 CL 106 mEq/L 06/06/2016 Comp Metabolic Zwv773 CO2 27.0 mEq/L 06/06/2016 Comp Metabolic Hqp985 ANION GAP 11 06/06/2016 Comp Metabolic Mtx960 GLUCOSE 63 mg/dL 06/06/2016 Comp Metabolic Whc095 Creat 1.4 mg/dL 06/06/2016 Comp Metabolic Qbd726 eGFR 40 ml/min/1.73m2 06/06/2016 Comp Metabolic Fhk936 BUN 38 mg/dL 06/06/2016 Comp Metabolic Wot129 B/C Ratio 27.9 Ratio 06/06/2016 Comp Metabolic Did554 CALCIUM 9.3 mg/dL 06/06/2016 Comp Metabolic Gom645 ALK PHOS 66 U/L 06/06/2016 Comp Metabolic Dia603 AST(SGOT) 14 U/L 06/06/2016 Comp Metabolic Llc045 ALT(SGPT) 12 U/L 06/06/2016 Comp Metabolic Wyf958 BILI T 0.4 mg/dL 06/06/2016 Comp Metabolic Csu761 ALBUMIN 3.6 g/dL 06/06/2016 Comp Metabolic Qua112 TPRO 5.9 g/dL 06/06/2016 Comp Metabolic Szu462 GLOB 2.3 g/dL 06/06/2016 Comp Metabolic Xlt325 A/G Ratio 1.5 Ratio 06/06/2016 Comp Metabolic Arn825 Osmo 285 mOsmo 06/06/2016 Cbc With Differential Ord2 WBC 8.57 K/ul 06/06/2016 Cbc With Differential Ord2 RBC 3.63 M/ul 06/06/2016 Cbc With Differential Ord2 HGB 10.3 g/dl 06/06/2016 Cbc With Differential Ord2 Neut% 53.2 % 06/06/2016 Cbc With Differential Ord2 HCT 33.4 % 06/06/2016 Cbc With Differential Ord2 Lymph% 35.4 % 06/06/2016 Cbc With Differential Ord2 MCV 92.0 fl 06/06/2016 Cbc With Differential Ord2 [place]% 8.3 % 06/06/2016 Cbc With Differential Ord2 MCH 28.4 pg 06/06/2016 Cbc With Differential Ord2 MCHC 30.8 pg 06/06/2016 Cbc With Differential Ord2 Eos% 2.7 % 06/06/2016 Cbc With Differential Ord2 Baso% 0.4 % 06/06/2016 Cbc With Differential Ord2 PLT 279 K/ul 06/06/2016 Cbc With Differential Ord2 RDW 15.3 % 06/06/2016 Cbc With Differential Ord2 Neut ABS# 4.57 K/ul 06/06/2016 Cbc With Differential Ord2 Lymph ABS# 3.03 K/ul 06/06/2016 Cbc With Differential Ord2 [place] ABS# 0.7 K/ul 06/06/2016 Cbc With Differential Ord2 Eos ABS# 0.2 K/ul 06/06/2016 Cbc With Differential Ord2 Baso ABS# 0.0 K/ul 06/06/2016 %Hba1C Pgi927 % HbA1c 07018-5 6.7 % 06/06/2016 %Hba1C Soq558 Gluc Ave 146 mg/dL 06/06/2016 Lipid Ord30 CHOL 214 mg/dL 12/19/2015 Lipid Ord30 HDL 44.0 mg/dl 12/19/2015 Lipid Ord30 TRIG 121 mg/dL 12/19/2015 Lipid Ord30 LDL 146 mg/dL 12/19/2015 Lipid Ord30 C/HDL 4.9 Ratio 12/19/2015 Comp Metabolic Ial756 NA 139 mEq/L 12/19/2015 Comp Metabolic Rrg686 K 4.5 mEq/L 12/19/2015 Comp Metabolic Rzw695 CL 107 mEq/L 12/19/2015 Comp Metabolic Rcu642 CO2 25.0 mEq/L 12/19/2015 Comp Metabolic Jka109 ANION GAP 12 12/19/2015 Comp Metabolic Fjv303 GLUCOSE 72 mg/dL 12/19/2015 Comp Metabolic Qiz535 Creat 1.3 mg/dL 12/19/2015 Comp Metabolic Aqw837 eGFR 42 ml/min/1.73m2 12/19/2015 Comp Metabolic Zxh214 BUN 37 mg/dL 12/19/2015 Comp Metabolic Dry677 B/C Ratio 28.2 Ratio 12/19/2015 Comp Metabolic Gzg851 CALCIUM 9.0 mg/dL 12/19/2015 Comp Metabolic Zdd527 ALK PHOS 62 U/L 12/19/2015 Comp Metabolic Xgw057 AST(SGOT) 13 U/L 12/19/2015 Comp Metabolic Bfk682 ALT(SGPT) 12 U/L 12/19/2015 Comp Metabolic Lgb767 BILI T 0.4 mg/dL 12/19/2015 Comp Metabolic Dyr388 ALBUMIN 3.6 g/dL 12/19/2015 Comp Metabolic Clq158 TPRO 6.0 g/dL 12/19/2015 Comp Metabolic Ytr027 GLOB 2.5 g/dL 12/19/2015 Comp Metabolic Qek393 A/G Ratio 1.4 Ratio 12/19/2015 Comp Metabolic Vnl741 Osmo 285 mOsmo 12/19/2015 Cbc With Differential Ord2 WBC 7.83 [...] 28.2 pg 12/19/2015 Cbc With Differential Ord2 [place]% 7.5 % 12/19/2015 Cbc With Differential Ord2 MCHC 31.4 pg 12/19/2015 Cbc With Differential Ord2 Eos% 2.6 % 12/19/2015 Cbc With Differential Ord2 Baso% 0.5 % 12/19/2015 Cbc With Differential Ord2 PLT 281 K/ul 12/19/2015 Cbc With Differential Ord2 Neut ABS# 4.41 K/ul 12/19/2015 Cbc With Differential Ord2 RDW 15.1 % 12/19/2015 Cbc With Differential Ord2 Lymph ABS# 2.59 K/ul 12/19/2015 Cbc With Differential Ord2 [place] ABS# 0.6 K/ul 12/19/2015 Cbc With Differential Ord2 Eos ABS# 0.2 K/ul 12/19/2015 Cbc With Differential Ord2 Baso ABS# 0.0 K/ul 12/19/2015 %Hba1C Ndz439 % HbA1c 33469-7 6.1 % 12/19/2015 %Hba1C Omr923 Gluc Ave 128 mg/dL 12/19/2015 A1C HPLC 2380254 A1C HPLC 55947-0 7.1 % 01/27/2014 CBC 1585002 WBC 9.9 10e9/L 01/07/2014 CBC 4270600 RBC 4.08 10e12/L 01/07/2014 CBC 9121235 HGB 11.7 g/dL 01/07/2014 CBC 4813106 HCT DET 36.7 % 01/07/2014 CBC 2672263 MCV 90.0 fL 01/07/2014 CBC 5237220 MCH 28.7 pg 01/07/2014 CBC 3717125 MCHC 31.9 g/dL 01/07/2014 CBC 3318064 PLT 311 10e9/L 01/07/2014 CBC 2401830 MPV 10.5 fL 01/07/2014 CBC 2042110 YAKOV % 68.2 % 01/07/2014 CBC 6517998 LY % 22.4 % 01/07/2014 CBC 7121025 MON % 7.2 % 01/07/2014 CBC 8707182 EOS % 1.7 % 01/07/2014 CBC 0974764 BASO % 0.5 % 01/07/2014 CBC 0827393 RDW 14.9 % 01/07/2014 CBC 2008527 ABS YAKOV 6.75 10e9/L 01/07/2014 CBC 8135307 ABS LYMPH 2.22 10e9/L 01/07/2014 CBC 2266125 ABS MONO 0.71 10e9/L 01/07/2014 CBC 2302093 ABS EOS 0.17 10e9/L 01/07/2014 CBC 1635195 ABS BASO 0.05 10e9/L 01/07/2014 CBC 2879330 RDW-SD 48.3 fL 01/07/2014 CHEM 14 9920996 ALT 13 U/L 01/07/2014 CHEM 14 8886408 BUN 24 MG/DL 01/07/2014 CHEM 14 6910846 CHLORIDE 103 MMOL/L 01/07/2014 CHEM 14 9018259 BILI TOT 0.4 MG/DL 01/07/2014 CHEM 14 2506893 SODIUM 139 MMOL/L 01/07/2014 CHEM 14 4387336 CREATININE 0.99 MG/DL 01/07/2014 CHEM 14 8898606 CALCIUM 9.3 MG/DL 01/07/2014 CHEM 14 9652759 POTASSIUM 4.1 MMOL/L 01/07/2014 CHEM 14 7065412 GLUCOSE 187 MG/DL 01/07/2014 CHEM 14 6327579 BICARB 25 MMOL/L 01/07/2014 CHEM 14 8347783 ANION GAP 11 MMOL/L 01/07/2014 GFR CALC 9306073 GFR AA >60 ML/MIN 01/07/2014 GFR CALC 6659815 GFR NON-AA 55.0L ML/MIN 01/07/2014 CHEM 14 8566867 AST 13 U/L 01/07/2014 CHEM 14 7283979 ALT 13 U/L 01/07/2014 CHEM 14 5793843 BUN 24 MG/DL 01/07/2014 CHEM 14 1083066 ALBUMIN 3.8 GM/DL 01/07/2014 CHEM 14 3983171 CHLORIDE 103 MMOL/L 01/07/2014 CHEM 14 6068691 BILI TOT 0.4 MG/DL 01/07/2014 CHEM 14 9532766 ALK PHOS 71 U/L 01/07/2014 CHEM 14 5754961 SODIUM 139 MMOL/L 01/07/2014 CHEM 14 0997649 CREATININE 0.99 MG/DL 01/07/2014 CHEM 14 6343252 CALCIUM 9.3 MG/DL 01/07/2014 CHEM 14 0303032 POTASSIUM 4.1 MMOL/L 01/07/2014 CHEM 14 0952804 PROT TOT 6.3 GM/DL 01/07/2014 CHEM 14 9268236 GLUCOSE 187 MG/DL 01/07/2014 CHEM 14 8946406 BICARB 25 MMOL/L 01/07/2014 CHEM 14 4838565 ANION GAP 11 MMOL/L 01/07/2014 GFR CALC 2956737 GFR AA >60 ML/MIN 07/15/2013 GFR CALC 3643121 GFR NON-AA 60.0L ML/MIN 07/15/2013 A1C HPLC 1889917 A1C HPLC 24459-8 6.3 % 07/15/2013 FREE T4 0393902 FREE T4 1.32 NG/DL 07/15/2013 TSH 4621360 TSH 3.961 uIU/ML 07/15/2013 CHEM 14 7317812 AST 13 U/L 07/15/2013 CHEM 14 6776238 ALT 13 IU/L 07/15/2013 CHEM 14 2701839 BUN 33 MG/DL 07/15/2013 CHEM 14 4011703 ALBUMIN 3.9 GM/DL 07/15/2013 CHEM 14 8359000 CHLORIDE 105 MMOL/L 07/15/2013 CHEM 14 4431963 BILI TOT 0.3 MG/DL 07/15/2013 CHEM 14 3303449 ALK PHOS 63 U/L 07/15/2013 CHEM 14 4009134 SODIUM 140 MMOL/L 07/15/2013 CHEM 14 9942753 CREATININE 0.92 MG/DL 07/15/2013 CHEM 14 1101519 CALCIUM 9.8 MG/DL 07/15/2013 CHEM 14 1380317 POTASSIUM 4.4 MMOL/L 07/15/2013 CHEM 14 3613519 PROT TOT 6.2 GM/DL 07/15/2013 CHEM 14 2557750 GLUCOSE 53 MG/DL 07/15/2013 CHEM 14 1840669 BICARB 30 MMOL/L 07/15/2013 CHEM 14 5486599 ANION GAP 5 MEQ/L 07/15/2013 LIPID GRP HDL TEST 55 MG/DL 07/15/2013 LIPID GRP TRIG 90 MG/DL 07/15/2013 LIPID GRP TEST LDL 140 MG/DL 07/15/2013 LIPID GRP CHOL 213 MG/DL 07/15/2013 LIPID GRP RCHOL/HDL 3.87 RATIO 07/15/2013 CBC 3738460 WBC 9.1 10e9/L 07/15/2013 CBC 4170794 RBC 3.70 10e12/L 07/15/2013 CBC 5817177 HGB 10.7 g/dL 07/15/2013 CBC 6454701 HCT DET 34.2 % 07/15/2013 CBC 6431894 MCV 92.4 fL 07/15/2013 CBC 4019373 MCH 28.9 pg 07/15/2013 CBC 7119742 MCHC 31.3 g/dL 07/15/2013 CBC 5703270 PLT 317 10e9/L 07/15/2013 CBC 7648485 MPV 10.5 fL 07/15/2013 CBC 1687690 YAKOV % 60.8 % 07/15/2013 CBC 4190269 LY % 30.3 % 07/15/2013 CBC 3202224 MON % 7.8 % 07/15/2013 CBC 2426098 EOS % 1.0 % 07/15/2013 CBC 8302498 BASO % 0.1 % 07/15/2013 CBC 8655507 RDW 15.1 % 07/15/2013 CBC 7288336 ABS YAKOV 5.53 10e9/L 07/15/2013 CBC 8724999 ABS LYMPH 2.76 10e9/L 07/15/2013 CBC 6799005 ABS MONO 0.71 10e9/L 07/15/2013 CBC 5598924 ABS EOS 0.09 10e9/L 07/15/2013 CBC 5994870 ABS BASO 0.01 10e9/L 07/15/2013 CBC 0495557 RDW-SD 49.9 fL 07/15/2013 LIPID GRP HDL TEST 48 MG/DL 09/01/2012 LIPID GRP TRIG 136 MG/DL 09/01/2012 LIPID GRP TEST LDL 160 MG/DL 09/01/2012 LIPID GRP CHOL 235 MG/DL 09/01/2012 LIPID GRP RCHOL/HDL 4.90 RATIO 09/01/2012 FREE T4 1556560 FREE T4 1.24 NG/DL 09/01/2012 CHEM 14 2472748 AST 14 U/L 09/01/2012 CHEM 14 3227472 ALT 17 IU/L 09/01/2012 CHEM 14 2508348 BUN 23 MG/DL 09/01/2012 CHEM 14 7536497 ALBUMIN 4.1 GM/DL 09/01/2012 CHEM 14 7391491 CHLORIDE 106 MMOL/L 09/01/2012 CHEM 14 3838427 BILI TOT 0.6 MG/DL 09/01/2012 CHEM 14 1522705 ALK PHOS 56 U/L 09/01/2012 CHEM 14 8696682 SODIUM 142 MMOL/L 09/01/2012 CHEM 14 5617742 CREATININE 0.90 MG/DL 09/01/2012 CHEM 14 6950781 CALCIUM 9.9 MG/DL 09/01/2012 CHEM 14 4361732 POTASSIUM 4.0 MMOL/L 09/01/2012 CHEM 14 5579946 PROT TOT 6.1 GM/DL 09/01/2012 CHEM 14 5986708 GLUCOSE 77 MG/DL 09/01/2012 CHEM 14 3891127 BICARB 28 MMOL/L 09/01/2012 CHEM 14 0174432 ANION GAP 8 MEQ/L 09/01/2012 TSH 9688947 TSH 3.674 uIU/ML 09/01/2012 GFR CALC 9256757 GFR AA >60 ML/MIN 09/01/2012 GFR CALC 9565232 GFR NON-AA >60 ML/MIN 09/01/2012 A1C HPLC 1441456 A1C HPLC 57083-9 6.8 % 09/01/2012 CBC 2753595 WBC 8.7 10e9/L 09/01/2012 CBC 7655949 RBC 4.43 10e12/L 09/01/2012 CBC 9967057 HGB 12.9 g/dL 09/01/2012 CBC 5673700 HCT DET 39.6 % 09/01/2012 CBC 4766367 MCV 89.4 fL 09/01/2012 CBC 7248599 MCH 29.1 pg 09/01/2012 CBC 4683514 MCHC 32.6 g/dL 09/01/2012 CBC 8626127 PLT 305 10e9/L 09/01/2012 CBC 1702986 MPV 10.5 fL 09/01/2012 CBC 1896324 YAKOV % 59.1 % 09/01/2012 CBC 5137370 LY % 30.3 % 09/01/2012 CBC 4998490 MON % 8.5 % 09/01/2012 CBC 2129204 EOS % 1.6 % 09/01/2012 CBC 7455377 BASO % 0.5 % 09/01/2012 CBC 1861536 RDW 14.6 % 09/01/2012 CBC 8086385 ABS YAKOV 5.14 10e9/L 09/01/2012 CBC 5731794 ABS LYMPH 2.64 10e9/L 09/01/2012 CBC 8892529 ABS MONO 0.74 10e9/L 09/01/2012 CBC 5128961 ABS EOS 0.14 10e9/L 09/01/2012 CBC 1122673 ABS BASO 0.04 10e9/L 09/01/2012 CBC 1390326 RDW-SD 47.1 fL 09/01/2012 CHEM 14 0648883 AST 13 U/L 04/30/2012 CHEM 14 7274854 ALT 15 IU/L 04/30/2012 CHEM 14 8951348 BUN 33 MG/DL 04/30/2012 CHEM 14 9682471 ALBUMIN 4.1 GM/DL 04/30/2012 CHEM 14 0358633 CHLORIDE 107 MMOL/L 04/30/2012 CHEM 14 7642940 BILI TOT 0.5 MG/DL 04/30/2012 CHEM 14 9828353 ALK PHOS 62 U/L 04/30/2012 CHEM 14 8298594 SODIUM 141 MMOL/L 04/30/2012 CHEM 14 8543041 CREATININE 1.01 MG/DL 04/30/2012 CHEM 14 0307194 CALCIUM 9.7 MG/DL 04/30/2012 CHEM 14 0093626 POTASSIUM 4.2 MMOL/L 04/30/2012 CHEM 14 6294776 PROT TOT 6.3 GM/DL 04/30/2012 CHEM 14 4355002 GLUCOSE 74 MG/DL 04/30/2012 CHEM 14 8255145 BICARB 27 MMOL/L 04/30/2012 CHEM 14 2854743 ANION GAP 7 MEQ/L 04/30/2012 TSH 3736466 TSH 3.394 uIU/ML 04/30/2012 GFR CALC 0320320 GFR AA >60 ML/MIN 04/30/2012 GFR CALC 3801511 GFR NON-AA 54.0L ML/MIN 04/30/2012 LIPID GRP HDL TEST 49 MG/DL 04/30/2012 LIPID GRP TRIG 129 MG/DL 04/30/2012 LIPID GRP TEST LDL 149 MG/DL 04/30/2012 LIPID GRP CHOL 224 MG/DL 04/30/2012 LIPID GRP RCHOL/HDL 4.57 RATIO 04/30/2012 A1C HPLC 3123348 A1C HPLC 94766-0 7.2 % 04/30/2012 CBC 8660149 WBC 8.2 10e9/L 04/30/2012 CBC 3146814 RBC 4.39 10e12/L 04/30/2012 CBC 6146533 HGB 12.7 g/dL 04/30/2012 CBC 2712550 HCT DET 39.3 % 04/30/2012 CBC 1001652 MCV 89.5 fL 04/30/2012 CBC 6764356 MCH 28.9 pg 04/30/2012 CBC 7066344 MCHC 32.3 g/dL 04/30/2012 CBC 9086731 PLT 305 10e9/L 04/30/2012 CBC 6427301 MPV 10.9 fL 04/30/2012 CBC 0580409 YAKOV % 60.1 % 04/30/2012 CBC 1922656 LY % 30.7 % 04/30/2012 CBC 1676336 MON % 7.7 % 04/30/2012 CBC 3129129 EOS % 1.1 % 04/30/2012 CBC 4187329 BASO % 0.4 % 04/30/2012 CBC 8859847 RDW 14.8 % 04/30/2012 CBC 0840815 ABS YAKOV 4.93 10e9/L 04/30/2012 CBC 9744170 ABS LYMPH 2.52 10e9/L 04/30/2012 CBC 2897550 ABS MONO 0.63 10e9/L 04/30/2012 CBC 0167978 ABS EOS 0.09 10e9/L 04/30/2012 CBC 7204844 ABS BASO 0.03 10e9/L 04/30/2012 CBC 8813683 RDW-SD 47.8 fL 04/30/2012 CHEM 14 4332565 AST 14 U/L 12/26/2011 CHEM 14 9397874 ALT 15 IU/L 12/26/2011 CHEM 14 8877513 BUN 28 MG/DL 12/26/2011 CHEM 14 2960277 ALBUMIN 4.2 GM/DL 12/26/2011 CHEM 14 0917129 CHLORIDE 106 MMOL/L 12/26/2011 CHEM 14 7600869 BILI TOT 0.5 MG/DL 12/26/2011 CHEM 14 7401471 ALK PHOS 55 U/L 12/26/2011 CHEM 14 7024514 SODIUM 141 MMOL/L 12/26/2011 CHEM 14 3610866 CREATININE 1.01 MG/DL 12/26/2011 CHEM 14 5638621 CALCIUM 9.7 MG/DL 12/26/2011 CHEM 14 3311668 POTASSIUM 4.6 MMOL/L 12/26/2011 CHEM 14 1020893 PROT TOT 6.4 GM/DL 12/26/2011 CHEM 14 0189183 GLUCOSE 83 MG/DL 12/26/2011 CHEM 14 2880510 BICARB 27 MMOL/L 12/26/2011 CHEM 14 0498341 ANION GAP 8 MEQ/L 12/26/2011 A1C HPLC 9301328 A1C HPLC 31060-8 7.2 % 12/26/2011 GFR CALC 3695617 GFR AA >60 ML/MIN 12/26/2011 GFR CALC 1317534 GFR NON-AA 54.0L ML/MIN 12/26/2011 MAGNESIUM 0808660 MAGNESIUM 1.8 MEQ/L 12/26/2011 CBC 7928159 WBC 7.8 10e9/L 12/26/2011 CBC 6218445 RBC 4.44 10e12/L 12/26/2011 CBC 6827465 HGB 12.4 g/dL 12/26/2011 CBC 6172978 HCT DET 38.5 % 12/26/2011 CBC 0413275 MCV 86.7 fL 12/26/2011 CBC 8409064 MCH 27.9 pg 12/26/2011 CBC 5765131 MCHC 32.2 g/dL 12/26/2011 CBC 9610634 PLT 290 10e9/L 12/26/2011 CBC 3116735 MPV 10.5 fL 12/26/2011 CBC 6156127 YAKOV % 55.1 % 12/26/2011 CBC 5604412 LY % 35.0 % 12/26/2011 CBC 6786518 MON % 6.7 % 12/26/2011 CBC 5812883 EOS % 2.7 % 12/26/2011 CBC 3055989 BASO % 0.5 % 12/26/2011 CBC 1533311 RDW 14.5 % 12/26/2011 CBC 3542215 ABS YAKOV 4.30 10e9/L 12/26/2011 CBC 6125549 ABS LYMPH 2.73 10e9/L 12/26/2011 CBC 5868010 ABS MONO 0.52 10e9/L 12/26/2011 CBC 6037981 ABS EOS 0.21 10e9/L 12/26/2011 CBC 5990382 ABS BASO 0.04 10e9/L 12/26/2011 CBC 1099867 RDW-SD 45.2 fL 12/26/2011 A1C 7802897 A1C HPLC 87834-5 7.4 % 10/08/2011 LIPID GRP HDL TEST 45 MG/DL 10/08/2011 LIPID GRP TRIG 188 MG/DL 10/08/2011 LIPID GRP TEST LDL 145 MG/DL 10/08/2011 LIPID GRP CHOL 228 MG/DL 10/08/2011 LIPID GRP RCHOL/HDL 5.07 RATIO 10/08/2011 CBC 6101017 WBC 8.9 10e9/L 10/08/2011 CBC 7319625 RBC 4.55 10e12/L 10/08/2011 CBC 0038690 HGB 12.5 g/dL 10/08/2011 CBC 0994613 HCT DET 39.7 % 10/08/2011 CBC 7062439 MCV 87.3 fL 10/08/2011 CBC 0838212 MCH 27.5 pg 10/08/2011 CBC 7232549 MCHC 31.5 g/dL 10/08/2011 CBC 7033471 PLT 291 10e9/L 10/08/2011 CBC 5362513 MPV 10.7 fL 10/08/2011 CBC 5841779 YAKOV % 57.1 % 10/08/2011 CBC 3069273 LY % 32.9 % 10/08/2011 CBC 2447778 MON % 6.6 % 10/08/2011 CBC 3495478 EOS % 2.9 % 10/08/2011 CBC 2807858 BASO % 0.5 % 10/08/2011 CBC 2673522 RDW 15.0 % 10/08/2011 CBC 0945685 ABS YAKOV 5.08 10e9/L 10/08/2011 CBC 4404231 ABS LYMPH 2.93 10e9/L 10/08/2011 CBC 7386838 ABS MONO 0.59 10e9/L 10/08/2011 CBC 2293418 ABS EOS 0.26 10e9/L 10/08/2011 CBC 0463267 ABS BASO 0.04 10e9/L 10/08/2011 CBC 5968887 RDW-SD 47.6 fL 10/08/2011 GFR CALC 6561780 GFR AA 57.0L ML/MIN 10/08/2011 GFR CALC 5277811 GFR NON-AA 47.0L ML/MIN 10/08/2011 CHEM 14 [id number] AST 13 U/L 10/08/2011 CHEM 14 [id number] ALT 19 IU/L 10/08/2011 CHEM 14 [id number] BUN 35 MG/DL 10/08/2011 CHEM 14 [id number] ALBUMIN 4.2 GM/DL 10/08/2011 CHEM 14 [id number] CHLORIDE 104 MMOL/L 10/08/2011 CHEM 14 [id number] BILI TOT 0.4 MG/DL 10/08/2011 CHEM 14 [id number] ALK PHOS 54 U/L 10/08/2011 CHEM 14 [id number] SODIUM 139 MMOL/L 10/08/2011 CHEM 14 [id number] CREATININE 1.13 MG/DL 10/08/2011 CHEM 14 [id number] CALCIUM 9.5 MG/DL 10/08/2011 CHEM 14 [id number] POTASSIUM 4.5 MMOL/L 10/08/2011 CHEM 14 [id number] PROT TOT 7.1 GM/DL 10/08/2011 CHEM 14 [id number] GLUCOSE 148 MG/DL 10/08/2011 CHEM 14 [id number] BICARB 26 MMOL/L 10/08/2011 CHEM 14 [id number] ANION GAP 9 MEQ/L 10/08/2011 Review of Systems System Result Effective Dates Constitutional No recent illness 2016 Constitutional No [...] affect 07/08/2013 None Full Exam - General 1995 Constitutional general appearance Development: well developed 04/27/2013 [...] injection 04/27/2013 None Full Exam - General 1994 Ears/Nose/Throat otoscopic exam Overall: external auditory canals clear 04/27/2013 None Full Exam - General 1994 Ears/Nose/Throat otoscopic exam Overall: tympanic membranes clear 04/27/2013 None Full Exam - General 1994 Ears/Nose/Throat oral cavity/pharynx/larynx Overall: oral mucosa clear 04/27/2013 None Full Exam - General 1994 Ears/Nose/Throat oral cavity/pharynx/larynx Overall: oropharyngeal mucosa clear 04/27/2013 None Full Exam - General 1994 Ears/Nose/Throat oral cavity/pharynx/larynx Overall: no masses 04/27/2013 [...] sounds 04/27/2013 None Full Exam - General 1995 Cardiovascular auscultation of heart Overall: no murmurs 04/27/2013 None Full Exam - General 1995 Abdomen abdominal exam Overall: no tenderness 04/27/2013 None Full Exam - General 1995 Abdomen [...] distress 02/09/2013 None Full Exam - General 1995 Constitutional [...] 1994 Ears/Nose/Throat oral cavity/pharynx/larynx Overall: no masses 09/03/2012 None Full Exam - General 1994 Respiratory auscultation Overall: breath sounds clear bilaterally 09/03/2012 None Full Exam - General 1994 Respiratory respiratory effort/rhythm Overall: no retractions 09/03/2012 None Full Exam - General 1994 Respiratory respiratory effort/rhythm Overall: normal rate 09/03/2012 None Full Exam - General 1994 Cardiovascular auscultation of heart Overall: regular rate 09/03/2012 None Full Exam - General 1994 Cardiovascular auscultation of heart Overall: normal heart sounds 09/03/2012 None Full Exam - General 1994 Cardiovascular auscultation of heart Overall: no murmurs 09/03/2012 None Full Exam - General 1994 Abdomen abdominal exam Overall: no tenderness 09/03/2012 None Full Exam - General 1994 Abdomen abdominal exam Overall: normal bowel sounds 09/03/2012 None Full Exam - General 1994 Musculoskeletal head and neck Overall: head atraumatic 09/03/2012 None Full Exam - General 1994 Musculoskeletal head and neck Overall: cervical spine benign 09/03/2012 None Full Exam - General 1994 Neurologic gait Overall: no ataxia, no unsteadiness 09/03/2012 None Full Exam - General 1994 Psychiatric orientation/consciousness Overall: oriented to person, place and time 09/03/2012 None Full Exam - General 1994 Psychiatric mood and affect Overall: normal mood and affect 09/03/2012 None Full Exam - General 1994 Constitutional general appearance Development: well developed 06/03/2012 None Full Exam - General 1995 Constitutional general appearance Development: appears stated age 0106/03/2012 None Full Exam - General 1995 Constitutional general appearance Stature/Body Habitus: short stature 06/03/2012 None Full Exam - General 1995 Constitutional general appearance Nourishment: obese 06/03/2012 None Full Exam - General 1995 Constitutional general appearance Evidence of Distress: in no acute distress 06/03/2012 None Full Exam - General 1995 Respiratory respiratory effort/rhythm Overall: no retractions 06/03/2012 None Full Exam - General 1995 Respiratory respiratory effort/rhythm Overall: normal rate 06/03/2012 None Full Exam - General 1995 Cardiovascular auscultation of heart Overall: regular rate 06/03/2012 None Full Exam - General 1995 Cardiovascular auscultation of heart Overall: normal heart sounds 06/03/2012 None Full Exam - General 1995 Cardiovascular auscultation of heart Overall: no murmurs 06/03/2012 None Full Exam - General 1995 Musculoskeletal upper extremity Inspection - shoulder: a normal exam 06/03/2012 None Full Exam - General 1994 Musculoskeletal upper extremity Palpation - shoulder: tenderness @ bicipital groove 06/03/2012 None Full Exam - General 1994 Musculoskeletal head and neck Cervical Spine: a normal exam 06/03/2012 tenderness of trapezius of left neck and upper shoulder Full Exam - General 1994 Psychiatric orientation/consciousness Overall: oriented to person, place and time 06/03/2012 None Full Exam - General 1994 Psychiatric mood and affect Overall: normal mood and affect 06/03/2012 None Full Exam - General 1994 Constitutional general appearance Hygiene/Attention to Grooming: good hygiene 06/03/2012 None Full Exam - General 1994 Constitutional general appearance Hygiene/Attention to Grooming: normal grooming 06/03/2012 None Full Exam - General 1994 Respiratory auscultation Overall: breath sounds clear bilaterally 06/03/2012 None Full Exam - General 1994 Musculoskeletal head and neck Overall: head atraumatic 06/03/2012 None Full Exam - General 1994 Musculoskeletal head and neck Overall: cervical spine benign 06/03/2012 None Full Exam - General 1994 Neurologic gait Overall: no ataxia, no unsteadiness 06/03/2012 None Full Exam - General 1994 Eyes conjunctiva /eyelids Overall: conjunctiva clear 06/03/2012 None Full Exam - General 1994 Musculoskeletal upper extremity Palpation - shoulder: glenohumeral [...] age 0105/28/2012 None Full Exam - General 1995 Constitutional general appearance Stature/Body Habitus: short stature 05/28/2012 None Full Exam - General 1995 Constitutional general appearance Nourishment: obese 05/28/2012 None Full Exam - General 1995 Constitutional general appearance Evidence of Distress: in no acute distress 05/28/2012 None Full Exam - General 1995 Respiratory respiratory effort/rhythm Overall: no retractions 05/28/2012 [...] murmurs 05/28/2012 None Full Exam - General 1994 Musculoskeletal upper extremity Inspection - shoulder: a normal exam 05/28/2012 None Full Exam - General 1994 [...] and upper shoulder Full Exam - General 1994 Ears/Nose/Throat oral [...] tenderness 05/06/2012 None Full Exam - General 1995 Abdomen [...] distress 05/06/2012 None Full Exam - General 1994 Constitutional general appearance Hygiene/Attention to Grooming: good hygiene 05/06/2012 None Full Exam - General 1994 Constitutional general appearance Hygiene/Attention to Grooming: normal grooming 05/06/2012 None Full Exam - General 1994 Eyes conjunctiva /eyelids Conjunctiva: injection 05/06/2012 None Full Exam - General 1994 [...] time 03/12/2012 None Full Exam - General 1995 Psychiatric [...] 1994 Ears/Nose/Throat oral cavity/pharynx/larynx Overall: no masses 01/02/2012 None Full Exam - General 1994 Respiratory auscultation Overall: breath sounds clear bilaterally 01/02/2012 None Full Exam - General 1994 Respiratory respiratory effort/rhythm Overall: no retractions 01/02/2012 None Full Exam - General 1994 Respiratory respiratory effort/rhythm Overall: normal rate 01/02/2012 None Full Exam - General 1994 Cardiovascular auscultation of heart Overall: regular rate 01/02/2012 None Full Exam - General 1994 Cardiovascular auscultation of heart Overall: normal heart sounds 01/02/2012 None Full Exam - General 1994 Cardiovascular auscultation of heart Overall: no murmurs 01/02/2012 None Full Exam - General 1994 Abdomen abdominal exam Overall: no tenderness 01/02/2012 None Full Exam - General 1994 Abdomen [...] murmurs 10/10/2011 None Full Exam - General 1995 Abdomen abdominal exam Overall: no tenderness 10/10/2011 None Full Exam - General 1995 Abdomen abdominal exam Overall: normal bowel sounds 10/10/2011 None Full Exam - General 1995 Musculoskeletal head and neck Overall: head atraumatic 10/10/2011 None Full Exam - General 1995 Musculoskeletal [...] tenderness 08/22/2011 None Full Exam - General 1994 Abdomen abdominal exam Overall: normal bowel sounds 08/22/2011 None Full Exam - General 1994 Cardiovascular auscultation of heart Overall: regular rate 08/22/2011 None Full Exam - General 1994 Cardiovascular auscultation of heart Overall: normal heart sounds 08/22/2011 None Full Exam - General 1994 Cardiovascular auscultation of heart Overall: no murmurs 08/22/2011 None Full Exam - General 1994 Constitutional general appearance Development: well developed 08/22/2011 None Full Exam - General 1994 Constitutional general appearance Development: appears stated age 0308/22/2011 None Full Exam - General 1994 Constitutional general appearance Stature/Body Habitus: short stature 08/22/2011 None Full Exam - General 1994 Constitutional general appearance Nourishment: obese 08/22/2011 None Full Exam - General 1994 Constitutional general appearance Evidence of Distress: in no acute distress 08/22/2011 None Full Exam - General 1994 Constitutional general appearance Hygiene/Attention to Grooming: good hygiene 08/22/2011 None Full Exam - General 1994 Constitutional general appearance Hygiene/Attention to Grooming: normal grooming 08/22/2011 None Full Exam - General 1994 [...] CPT-4: G8553 02/28/2015 THER/PROPH/DIAG INJ SC/IM CPT-4: 03556 07/07/2014 KETOROLAC TROMETHAMINE INJ CPT-4: J1885 07/07/2014 ADMIN PNEUMOCOCCAL VACCINE SNOMED CT: 99871415 CPT-4: G0009 05/03/2014 Pneumococcal Polysaccharide Vaccine, 23-Valent, Ad CPT-4: 26538 05/03/2014 ROUTINE VENIPUNCTURE CPT-4: 94172 01/27/2014 ROUTINE VENIPUNCTURE CPT-4: 36944 01/07/2014 THER/PROPH/DIAG INJ SC/IM CPT-4: 07873 08/19/2013 ROCEPHIN, PER 250 MG CPT-4: J0696 08/19/2013 31944 EST. PATIENT, LEVEL IV CPT-4: 00377 07/29/2013 PRESCRIP TRANSMIT VIA ERX SY CPT-4: G8553 07/29/2013 ROUTINE VENIPUNCTURE CPT-4: 90077 07/15/2013 62485 EST. PATIENT, LEVEL IV CPT-4: 44215 07/08/2013 PRESCRIP TRANSMIT VIA ERX SY CPT-4: G8553 07/08/2013 PRESCRIP TRANSMIT VIA ERX SY CPT-4: G8553 04/27/2013 PRESCRIP TRANSMIT VIA ERX SY CPT-4: G8553 09/19/2012 DRAIN/INJECT JOINT/BURSA CPT-4: 60504 09/10/2012 PRESCRIP TRANSMIT VIA ERX SY CPT-4: G8553 09/03/2012 ROUTINE VENIPUNCTURE CPT-4: 54766 09/01/2012 DRAIN/INJECT JOINT/BURSA CPT-4: 94030 06/03/2012 PRESCRIP TRANSMIT VIA ERX SY CPT-4: G8553 06/03/2012 INJ TRIGGER POINT 1/2 MUSCL CPT-4: 01865 05/28/2012 PRESCRIP TRANSMIT VIA ERX SY CPT-4: G8553 05/28/2012 PRESCRIP TRANSMIT VIA ERX SY CPT-4: G8553 05/06/2012 ROUTINE VENIPUNCTURE CPT-4: 07758 04/30/2012 PRESCRIP TRANSMIT VIA ERX SY CPT-4: G8553 03/17/2012 TRIAMCINOLONE ACET INJ NOS CPT-4: J3301 03/12/2012 THER/PROPH/DIAG INJ SC/IM CPT-4: 40135 03/12/2012 ROUTINE VENIPUNCTURE CPT-4: 76306 12/26/2011 ROUTINE VENIPUNCTURE CPT-4: 54186 10/08/2011 ROUTINE VENIPUNCTURE CPT-4: 50463 06/18/2011 ROUTINE VENIPUNCTURE CPT-4: 22978 03/19/2011 REMOVE IMPACTED EAR WAX UNI CPT-4: 66548 01/30/2011 PRESCRIP TRANSMIT VIA ERX SY CPT-4: G8553 01/23/2011 ROUTINE VENIPUNCTURE CPT-4: 79370 01/22/2011 Vital Signs Date Vital 02/14/2017 Blood Pressure 1: 150/70 Code : 8480-6 BMI: 36.4 Code : 70415-7 Heart Rate 1 : 60 bpm Height: 4'11" SpO2: 98% Weight: 180 lbs 01/07/2017 Blood Pressure 1: 144/80 Code : 8480-6 BMI: 36.2 Code : 51441-7 Heart Rate 1 : 72 bpm Height: 4'11" SpO2: 98% Weight: 179 lbs 11/14/2016 Blood Pressure 1: 140/84 Code : 8480-6 BMI: 36.4 Code : 44776-1 Heart Rate 1 : 84 bpm Height: 4'11" SpO2: 96% Weight: 180 lbs 10/11/2016 Blood Pressure 1: 148/76 Code : 8480-6 BMI: 36.0 Code : 77976-9 Heart Rate 1 : 71 bpm Height: 4'11" SpO2: 97% Weight: 178 lbs 06/14/2016 Blood Pressure 1: 148/58 Code : 8480-6 BMI: 36.2 Code : 04184-6 Heart Rate 1 : 70 bpm Height: 4'11" SpO2: 95% Weight: 179 lbs 02/27/2016 Blood Pressure 1: 138/68 Code : 8480-6 BMI: 35.2 Code : 76025-3 Heart Rate 1 : 69 bpm Height: 4'12" SpO2: 98% Weight: 177 lbs 02/08/2016 Blood Pressure 1: 138/64 Code : 8480-6 BMI: 35.3 Code : 76477-2 Heart Rate 1 : 73 bpm Height: 4'12" SpO2: 98% Weight: 178 lbs 12/26/2015 Blood Pressure 1: 160/62 Code : 8480-6 BMI: 35.5 Code : 75748-8 Heart Rate 1 : 95 bpm Height: 4'12" SpO2: 97% Weight: 179 lbs 11/29/2015 Height: 4'12" 11/15/2015 Blood Pressure 1: 160/62 Code : 8480-6 BMI: 35.7 Code : 31706-7 Heart Rate 1 : 81 bpm Height: 4'12" SpO2: 97% Weight: 180 lbs 08/01/2015 Blood Pressure 1: 139/72 Code : 8480-6 Blood Pressure 1: 154/72 Code: 8480-6 BMI: 35.7 Code: 38117-6 Heart Rate 1: 78 bpm Height: 4'12" SpO2: 97% Weight: 180 lbs 07/04/2015 Blood Pressure 1: 162/78 Code : 8480-6 BMI: 35.3 Code : 86599-1 Heart Rate 1 : 80 bpm Height: 4'12" SpO2: 98% Weight: 177 lbs 8 oz 02/28/2015 Blood Pressure 1: 146/64 Code : 8480-6 BMI: 35.5 Code : 17135-5 Heart Rate 1 : 80 bpm Height: 4'12" SpO2: 96% Weight: 179 lbs 11/03/2014 Blood Pressure 1: 142/76 Code : 8480-6 BMI: 36.3 Code : 59854-4 Heart Rate 1 : 80 bpm Height: 4'12" Weight: 183 lbs 09/08/2014 Blood Pressure 1: 132/74 Code : 8480-6 Heart Rate 1: 96 bpm Height: SpO2: 96% Weight: 183 lbs 07/07/2014 Blood Pressure 1: 128/78 Code : 8480-6 BMI: 36.7 Code : 28043-8 Heart Rate 1 : 72 bpm Height: 4'12" Weight: 185 lbs 05/03/2014 Blood Pressure 1: 128/72 Code : 8480-6 BMI: 36.9 Code : 33774-2 Heart Rate 1 : 68 bpm Height: 4'12" Weight: 186 lbs 01/27/2014 Blood Pressure 1: 142/64 Code : 8480-6 BMI: 37.1 Code : 30720-4 Heart Rate 1 : 98 bpm Height: 4'12" SpO2: 99% Weight: 187 lbs 01/07/2014 Blood Pressure 1: 140/76 Code : 8480-6 BMI: 36.1 Code : 74600-4 Heart Rate 1 : 78 bpm Height: 4'12" SpO2: 96% Weight: 182 lbs 11/11/2013 Blood Pressure 1: 152/92 Code : 8480-6 BMI: 36.5 Code : 23868-9 Heart Rate 1 : 72 bpm Height: 4'12" Weight: 184 lbs 08/19/2013 Blood Pressure 1: 124/70 Code : 8480-6 BMI: 35.3 Code : 36901-4 Heart Rate 1 : 87 bpm Height: 4'12" SpO2: 98% Temperature: 36.7 (C) / 98.1 (F) Weight: 178 lbs 07/29/2013 Blood Pressure 1: 120/70 Code : 8480-6 BMI: 35.2 Code : 82457-1 Heart Rate 1 : 80 bpm Height: 4'12" Weight: 177 lbs 07/08/2013 Blood Pressure 1: 152/72 Code : 8480-6 BMI: 31.0 Code : 85544-7 Heart Rate 1 : 80 bpm Height: 4'12" SpO2: 94% Weight: 156 lbs 04/27/2013 Blood Pressure 1: 132/72 Code : 8480-6 BMI: 34.4 Code : 49284-4 Heart Rate 1 : 88 bpm Height: [...] Code : 8480-6 BMI: 35.9 Code : 93177-1 Heart Rate 1 : 72 bpm Height: 4'12" Weight: 181 lbs 06/03/2012 Blood Pressure 1: 148/60 Code : 8480-6 Heart Rate 1: 88 bpm Weight: 177 lbs 05/28/2012 Blood Pressure 1: 172/90 Code : 8480-6 Blood Pressure 2: 170/88 Code: 8480-6 Heart Rate 1: 68 bpm Respiratory Rate: 20 bpm 05/06/2012 Blood Pressure 1: 134/60 Code : 8480-6 BMI: 35.3 Code : 84402-4 Heart Rate 1 : 84 bpm Height: 4'12" Respiratory Rate: 24 bpm Weight: 178 lbs 03/17/2012 Blood Pressure 1: 132/80 Code : 8480-6 Heart Rate 1: 68 bpm Weight: 186 lbs 03/12/2012 Blood Pressure 1: 126/80 Code : 8480-6 Heart Rate 1: 76 bpm Weight: 185 lbs 01/02/2012 Blood Pressure 1: 128/74 Code : 8480-6 BMI: 36.9 Code : 74458-1 Heart Rate 1 : 72 bpm Height: 4'12" Respiratory Rate: 16 bpm Weight: 186 lbs 10/10/2011 Blood Pressure 1: 124/48 Code : 8480-6 BMI: 36.3 Code : 71410-5 Heart Rate 1 : 68 bpm Height: [...] Code : 8480-6 BMI: 36.6 Code : 10850-0 Heart Rate 1 : 70 bpm Height: 4'12" Respiratory Rate: 16 bpm Weight: 184 lbs 8 oz 01/30/2011 Blood Pressure 1: 136/64 Code : 8480-6 Heart Rate 1: 77 bpm Weight: 184 lbs 01/23/2011 Blood Pressure 1: 132/60 Code : 8480-6 BMI: 37.3 Code : 16326-9 Heart Rate 1 : 88 bpm Height: [...] data Encounters Encounter Performer Location Codes Date 08641 EST. PATIENT, LEVEL IV Diagnosis: Type 2 diabetes mellitus without complications[ICD10: E11.9] Diagnosis: Chronic pain syndrome[ICD10: G89.4] Diagnosis: Essential (primary) hypertension[ICD10: I10] Morenita Beal MD, [facility] CPT-4: 91341 02/14/2017 35799 EST. PATIENT, LEVEL III Diagnosis: Dysuria[ICD10: R30.0] Agueda Beal MD [facility] CPT-4: 63772 01/07/2017 ([id number] EST. PATIENT, LEVEL IV Diagnosis: Chronic pain syndrome[ICD10: G89.4] Diagnosis: Type 2 diabetes mellitus without complications[ICD10: E11.9] Diagnosis: Slow transit constipation[ICD10: K59.01] Morenita Beal MD, [facility] CPT-4: 63805 11/14/2016 ([id number]) 44481 EST. PATIENT, LEVEL IV Diagnosis: Type 2 diabetes mellitus with hyperglycemia[ICD10: E11.65] Diagnosis: Essential (primary) hypertension[ICD10: I10] Diagnosis: Chronic kidney disease, stage 2 (mild)[ICD10: N18.2] Morenita Beal MD, [facility] CPT-4: 17865 10/11/2016 ([id number]) 29963 EST. PATIENT, LEVEL IV Diagnosis: Type 2 diabetes mellitus without complications[ICD10: E11.9] Diagnosis: Chronic pain syndrome[ICD10: G89.4] Diagnosis: Essential (primary) hypertension[ICD10: I10] Morenita Beal MD, [facility] CPT-4: 89105 06/14/2016 ([id number]) 58197 EST. PATIENT, LEVEL IV Diagnosis: Type 2 diabetes mellitus without complications[ICD10: E11.9] Diagnosis: Essential (primary) hypertension[ICD10: I10] Morenita Beal MD [facility] CPT-4: 39218 02/27/2016 ([id number]) 59770 EST. PATIENT, LEVEL III Diagnosis: Calculus of gallbladder without cholecystitis without obstruction[ ICD10: K80.20] Diagnosis: Slow transit constipation[ICD10: K59.01] Morenita Beal MD [facility] CPT-4: 82092 02/08/2016 ([id number]) 21024 EST. 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 PATIENT, LEVEL IV Diagnosis: Acute laryngopharyngitis[ICD10: J06.0] Diagnosis: Other acute sinusitis[ICD10: J01.80] Agueda Beal MD [facility] CPT-4: 08704 11/15/2015 ([id number]) 98688 EST. PATIENT, LEVEL III Diagnosis: Essential (primary) hypertension[ICD10: I10] Diagnosis: Chronic pain syndrome[ICD10: G89.4] Morenita Beal MD [facility] CPT-4: 29597 08/01/2015 ([id number]) 14770 EST. PATIENT, LEVEL IV Diagnosis: Type 2 diabetes mellitus with hyperglycemia[ICD10: E11.65] Diagnosis: Essential (primary) hypertension[ICD10: I10] Diagnosis: Slow transit constipation[ICD10: K59.01] Morenita Bela MD [facility] CPT-4: 08958 07/04/2015 ([id number]) 79011 EST. PATIENT, LEVEL IV Diagnosis: Essential (primary) hypertension[ICD10: I10] Diagnosis: Type 2 diabetes mellitus with hyperglycemia[ICD10: E11.65] Diagnosis: Other forms of dyspnea[ICD10: R06.09] Diagnosis: Shortness of breath[ICD10: R06.02] Diagnosis: Other chest pain[ICD10: R07.89] Diagnosis: Calculus of gallbladder without cholecystitis without obstruction[ ICD10: K80.20] Morenita Beal MD [facility] CPT-4: 86558 02/28/2015 ([id number]) 05081 EST. PATIENT, LEVEL IV Diagnosis: ESSENTIAL HYPERTENSION[ICD9: 401.9] Diagnosis: DIABETES TYPE II[ICD9: 250.00] Diagnosis: CHRONIC PAIN SYNDROME[ICD9: 338.4] Morenita Beal MD [facility] CPT-4: 97672 11/03/2014 ([id number]) 30877 EST. PATIENT, LEVEL IV Diagnosis: DIABETES TYPE II[ICD9: 250.00] Diagnosis: ESSENTIAL HYPERTENSION[ICD9: 401.9] Diagnosis: CHRONIC PAIN SYNDROME[ICD9: 338.4] Morenita Beal MD [facility] CPT-4: 00089 09/08/2014 ([id number]) 36528 EST. PATIENT, LEVEL IV Diagnosis: DIABETES TYPE II[ICD9: 250.00] Diagnosis: CHRONIC PAIN SYNDROME[ICD9: 338.4] Diagnosis: ESSENTIAL HYPERTENSION[ICD9: 401.9] Diagnosis: CARPAL TUNNEL SYNDROME[ICD9: 354.0] Morenita Beal MD [facility] CPT-4: 67796 07/07/2014 ([id number]) 77165 EST. PATIENT, LEVEL IV Diagnosis: ESSENTIAL HYPERTENSION[ICD9: 401.9] Diagnosis: DIABETES TYPE II[ICD9: 250.00] Diagnosis: Biceps tendonitis[ICD9: 726.12] Diagnosis: Osteoarthritis[ICD9: 715.90] Morenita Beal MD [facility] CPT- 4: 61630 05/03/2014 ([id number]) 08828 EST. PATIENT, LEVEL IV Diagnosis: DIABETES TYPE II[ICD9: 250.00] Diagnosis: ESSENTIAL HYPERTENSION[ICD9: 401.9] Diagnosis: Peripheral neuropathy[ICD9: 356.9] Diagnosis: CHRONIC PAIN SYNDROME[ICD9: 338.4] Morenita Beal MD [facility] CPT-4: 51765 01/27/2014 ([id number]) 81820 EST. PATIENT, LEVEL III Diagnosis: Diarrhea[ICD9: 787.91] Diagnosis: ESSENTIAL HYPERTENSION[ICD9: 401.9] Diagnosis: Medication side effect[ICD9: 995.20] Diagnosis: DIABETES TYPE II[ICD9: 250.00] Dorie Beal MD, [facility] CPT-4: 10346 01/07/2014 ([id number]) 90007 EST. PATIENT, LEVEL IV Diagnosis: ESSENTIAL HYPERTENSION[ICD9: 401.9] Diagnosis: DIABETES TYPE II[ICD9: 250.00] Diagnosis: Back pain[ICD9: 724.5] Diagnosis: UNEQUAL LEG LENGTH[ICD9: 736.81] Morenita Beal MD, [facility] CPT-4: 11688 11/11/2013 ([id number]) 52046 EST. PATIENT, LEVEL III Diagnosis: BACTERIAL PNEUMONIA[ICD9: 482.9] Diagnosis: Cough[ICD9: 786.2] Morenita Beal MD, [facility] CPT-4: 46410 08/19/2013 ([id number]) 70960 EST. PATIENT, LEVEL IV Diagnosis: DIABETES TYPE II[SNOMED: 917333869] Diagnosis: ESSENTIAL HYPERTENSION[SNOMED: 36913628] Diagnosis: Chronic pain syndrome[ICD9: 338.4] Diagnosis: Peripheral neuropathy[ICD9: 356.9] Morenita Beal MD, [facility] CPT-4: 35187 04/27/2013 ([id number]) 84914 EST. PATIENT, LEVEL IV Diagnosis: ESSENTIAL HYPERTENSION[SNOMED: 50373959] Diagnosis: DIABETES TYPE II[SNOMED: 186475191] Diagnosis: Weakness[ICD9: 780.79] Morenita Beal MD, [facility] CPT-4: 98338 02/09/2013 ([id number]) 28496 EST. PATIENT, LEVEL III Diagnosis: OSTEOARTH NOS-UNSPEC[ICD9: 715.90] Dorie Beal MD, [facility] CPT-4: 42788 09/19/2012 ([id number]) 58719 EST. PATIENT, LEVEL III Diagnosis: Sacroiliitis[ICD9: 720.2] Diagnosis: Sciatica[ICD9: 724.3] Diagnosis: Lumbago[ICD9: 724.2] Dorie Beal MD [facility] CPT-4: 97934 09/10/2012 ([id number]) 10481 EST. PATIENT, LEVEL IV Diagnosis: DIABETES TYPE II[SNOMED: 134356993] Diagnosis: HYPERLIPIDEMIA[ICD9: 272.4] Diagnosis: ESSENTIAL HYPERTENSION[SNOMED: 83934744] Morenita Beal MD [facility] CPT-4: 09664 09/03/2012 ([id number]) 60808 EST. PATIENT, LEVEL III Diagnosis: ESSENTIAL HYPERTENSION[SNOMED: 10086355] Morenita Beal MD [facility] CPT-4: 74690 06/03/2012 ([id number]) 34088 EST. PATIENT, LEVEL III Diagnosis: JOINT PAIN-SHLDER[ICD9: 719.41] Diagnosis: Musculoskeletal disorder and symptoms referable to neck[ICD9: 723.9] Diagnosis: Spasm of muscle[ICD9: 728.85] Morenita Beal MD [facility] CPT- 4: 95455 05/28/2012 ([id number]) 27911 EST. PATIENT, LEVEL IV Diagnosis: DIABETES TYPE II[SNOMED: 950808906] Diagnosis: ESSENTIAL HYPERTENSION[SNOMED: 56338296] Diagnosis: HYPERLIPIDEMIA[ICD9: 272.4] Morenita Beal MD [facility] CPT- 4: 08539 05/06/2012 ([id number]) 01547 EST. PATIENT, LEVEL III Diagnosis: Biceps tendonitis[ICD9: 726.12] Morenita Beal MD [facility] CPT- 4: 32568 03/17/2012 77335 EST. PATIENT, LEVEL III Diagnosis: Biceps tendonitis[ICD9: 726.12] Diagnosis: Shoulder pain[ICD9: 719.41] Morenita Beal MD [facility] CPT- 4: 54840 03/12/2012 ([id number]) 71601 EST. PATIENT, LEVEL IV Diagnosis: DIABETES TYPE II[SNOMED: 740842908] Diagnosis: ESSENTIAL HYPERTENSION[SNOMED: 21704483] Diagnosis: HYPERLIPIDEMIA[ICD9: 272.4] Morenita Beal MD [facility] CPT- 4: 05856 01/02/2012 ([id number]) 50464 EST. PATIENT, LEVEL IV Diagnosis: ESSENTIAL HYPERTENSION[SNOMED: 89959618] Diagnosis: DM W/O COMPLICATION TYPE II, UNCONTROLLED[SNOMED: 85573936] Diagnosis: HYPERLIPIDEMIA[ICD9: 272.4] Morenita Beal MD, [facility] CPT- 4: 64721 10/10/[id number]) 25932 EST. PATIENT, LEVEL IV Diagnosis: Osteoarthritis[ICD9: 715.90] Diagnosis: Fatigue[ICD9: 780.79] Dorie Beal MD, [facility] CPT-4: 93553 08/22/2011 [id number] 12972 EST. PATIENT, LEVEL IV Diagnosis: Diabetes mellitus type 2, uncontrolled[SNOMED: 47381512] Diagnosis: ESSENTIAL HYPERTENSION[SNOMED: 90072293] Diagnosis: HYPERLIPIDEMIA[ICD9: 272.4] Morenita Beal MD, [facility] CPT- 4: 68584 06/20/2011 01793 EST. 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 PATIENT, LEVEL IV Diagnosis: DM W/O COMPLICATION TYPE I, UNCONTROLLED[SNOMED: 73830225] Diagnosis: HYPERLIPIDEMIA[ICD9: 272.4] Diagnosis: ESSENTIAL HYPERTENSION[SNOMED: 15374654] Diagnosis: OBESITY[ICD9: 278.00] Diagnosis: Cerumen impaction[ICD9: 380.4] Morenita Beal MD, [facility] CPT- 4: 05809 01/23/2011 Plan of Care Planned Activity Notes Codes Status Date Visit Plan: Hypertension - well controlled per [...] of over-medication. 02/14/2017 Appointment: Morenita Beal W[facility]el[facility] (15 min) Moderate 02/14/2017 Patient Education: Patient [...] or concerns. 01/07/2017 Appointment: [facility] [phone] [facility] (30 min) Complex 01/07/2017 Patient Education: Patient [...] controlled. 11/14/2016 Appointment: [facility] Beal [facility] [phone] [facility] (15 min) Moderate 11/14/2016 Patient Education: Patient [...] months - if worsening - referral to [employer]. 10/11/2016 Appointment: [facility]al [facility] [phone] [facility] (15 min) Moderate 10/11/2016 Patient Education: Patient [...] pain medications. 06/14/2016 Appointment: [facility] [phone] [facility] (15 min) Moderate 06/14/2016 Patient Education: Patient [...] Gallbladder ultrasound 02/08/2016 Appointment: [facility]al [facility] [phone] [facility] [place] (15 min) Moderate 02/08/2016 Patient Education: [...] of over-medication. 12/26/2015 Appointment: [facility] Beal [facility] [phone] [facility] (15 min) Moderate 12/26/2015 Patient Education: Patient [...] by surgeon. 02/28/2015 Appointment: Morenita Beal WPtel: [facility] (15 min) Moderate 02/28/2015 Patient Education: Patient Medication Summary Completed 02/28/2015 Patient Education: Hypertension Completed 02/28/2015 Care Plan: Referral Order SNOMED-CT : [id number] Ordered 02/28/2015 Visit Plan: Hypertension - well [...] of over-medication. 11/03/2014 Appointment: [facility] Beal [facility] [phone] [facility] (15 min) Moderate 11/03/2014 Patient Education: Patient [...] understands the consequences of over-medication. 09/08/2014 Appointment: [facility] [phone] [facility] Follow [facility] 09/08/2014 Patient Education: Patient Medication [...] 07/07/2014 Appointment: Morenita Beal WPtel: [phone] [facility] [facility] 07/07/2014 Patient Education: Patient Medication Summary Completed [...] 05/03/2014 Appointment: Morenita Beal WPtel: [phone] [facility] Follow up 04/29/2014 Visit Plan: Diabetes Mellitus [...] at home. 01/27/2014 Appointment: [facility] [phone] [facility] Follow [facility] 01/27/2014 Patient Education: Patient Medication [...] length xray. 11/11/2013 Appointment: [facility] [phone] [facility] Follow [facility] 11/11/2013 Patient Education: Patient Medication Summary Completed 11/11/2013 Patient Education: Hypertension Completed 11/11/2013 Appointment: Morenita Beal WPtel: [facility] Follow [facility] 09/02/2013 Visit Plan: Pneumonia - Pt has been diagnosed with pneumonia by physical exam. A chest xray has been ordered as have antibiotics. The pt is aware of the diagnosis and the need for acute treatment of this illness. Cough - pt to start on corcidin hbp 08/19/2013 Appointment: Morenita Beal WPtel: [facility] S[place] 08/19/2013 Patient Education: Patient Medication Summary [...] of over-medication. 07/29/2013 Appointment: Morenita Beal WPtel: [facility] Follow [facility] 07/29/2013 Appointment: Morenita Beal WPtel: [address] [place] [address] Follow up 07/29/2013 Patient Education: Patient Medication [...] chronic pain. 07/08/2013 Appointment: [facility] [phone] [facility] Follow [facility] 07/08/2013 Patient Education: Patient Medication Summary Completed 07/08/2013 Patient Education: Hypertension Completed 07/08/2013 Appointment: [facility] [phone] [facility] [place] Follow up 07/06/2013 Visit Plan: Diabetes Mellitus [...] day trial. 04/27/2013 Appointment: Morenita Beal WPtel: [address] [place], [place] [id number] [place] Follow up 04/27/2013 Patient Education: Patient Medication Summary Completed 04/27/2013 Patient Education: Hypertension Completed 04/27/2013 Appointment: Morenita Beal WPtel: [address] [place], [place] [phone] [place] Follow up 04/20/2013 Visit Plan: Hypertension - [...] of leg - pt recovering - at [facility] facility - and continues to require rehab. 02/09/2013 Appointment: Morenita Beal WPtel: [address] [place], [place] [phone] [place] Follow up 02/09/2013 Patient Education: Patient Medication Summary Completed 02/09/2013 Patient Education: Hypertension Completed 02/09/2013 Appointment: Morenita Bela WPtel: [address] [place], [place] [phone] [place] Follow up 12/03/2012 Visit Plan: Arthritis-uncontrolled symptoms- recommend pt to take antiinflammatory as directed for pain control. Plan for prednisone taper for acute pain as well as starting volteran gel. Okay to use hydrocodone prn pain. Hold mobic until prednisone complete. Patient verbalized understanding of plan. 09/19/2012 Appointment: Dorie Ho WPtel: [phone] [phone] Other 09/19/2012 Patient Education: Patient Medication Summary [...] of injection. 09/10/2012 Appointment: Dorie Ho WPtel: [phone] [id number] Other 09/10/2012 Patient Education: Patient Medication [...] DAILY. 09/03/2012 Appointment: [phone] Follow up 09/03/2012 Patient Education: Patient Medication [...] of injection. 06/03/2012 Appointment: Dorie Ho WPtel: [phone] Other 06/03/2012 Patient Education: Patient Medication Summary [...] process. 05/28/2012 Appointment: [phone] Other 05/28/2012 Patient Education: Patient Medication Summary [...] OTHER DAY. 05/06/2012 Appointment: Morenita Beal WPtel: [address] [place], [place] [phone] Follow up 05/06/2012 Patient Education: Patient Medication Summary Completed 05/06/2012 Patient Education: Hypertension Completed 05/06/2012 Patient Education: Patient Medication Summary Completed 04/30/2012 Patient Education: Hypertension Completed 04/30/2012 Appointment: Dorie Ho WPtel: [address] [place], [place] [id number] Sick 04/09/2012 Visit Plan: Biceps tendonitis- recommended pt to strat on prednisone and then flexeril for muscle relaxation. 03/17/2012 Appointment: Morenita Beal WPtel: [address] [place], [place] [phone] Follow up 03/17/2012 Patient Education: Patient Medication Summary Completed 03/17/2012 Visit Plan: Shoulder pain-discussed natural and expected course of this diagnosis and to alert me if symptoms do not follow expected course, or if any worse. Recommend rest and anti-inflammatories as needed for pain/discomfort. Call for any weakness in extremity. 03/12/2012 Appointment: Dorie Ho WPtel: [phone] Other 03/12/2012 Patient Education: Patient Medication [...] at home. 01/02/2012 Appointment: Morenita Beal WPtel: [facility]5 [facility] Other 01/02/2012 Patient Education: Patient Medication Summary Completed 01/02/2012 Patient Education: High Blood Pressure: Essential Hypertension Completed 2011 Appointment: Morenita Beal WPtel: [facility] Lab Draw 12/26/2011 Patient Education: Patient Medication Summary Completed 12/26/2011 Patient Education: High Blood Pressure: Essential Hypertension Completed 2011 Appointment: Morenita Beal WPtel: [facility] Other 10/17/2011 Visit Plan: Hyperlipidemia - pt [...] this time. 10/10/2011 Appointment: [facility]al [facility]el[phone] Other 10/10/2011 Patient Education: Patient Medication Summary [...] check labs 08/22/2011 Appointment: [facility] Ho [facility]Ptel[phone] Other 08/22/2011 Patient Education: Patient Medication Summary [...] to 30 minutes daily. 06/20/2011 Appointment: Morenita Bealtel: [phone] [facility] Other 06/20/2011 Patient Education: Patient Medication Summary Completed 06/20/2011 Patient Education: High Blood Pressure: Essential Hypertension Completed 2011 Appointment: [facility] Beall[phone] [facility] 06/18/2011 Patient Education: Patient Medication [...] physically active. Encouraged pt to join the [facility] for only 10 dollars a year and have access to [employer] exercise equiptment. 03/21/2011 Appointment: [facility]ita Bealtel: [phone] Other 03/21/2011 Patient Education: Patient Medication Summary Completed 03/21/2011 Patient Education: High Blood Pressure: Essential Hypertension Completed 2010 Patient Education: .Amazing charts Diabetic meal planning guide Completed 03/21 Patient Education: Obesity Completed 03/21/2011 Appointment: Morenita Beal WPtel: [facility] [facility] 03/19/2011 Patient Education: Patient Medication Summary Completed 03/19/2011 Visit Plan: Cerumen Impaction - The impacted cerumen was removed with the use of either ear currette alone or in combination with ear curette and water pick. The patient tolerated the procedure without incident and had improvement in hearing. 01/30/2011 Appointment: Dor[facility] Ho [facility]Ptel[phone] Follow up 01/30/2011 Patient Education: Patient Medication [...] the wax. 01/23/2011 Appointment: Morenita Beal WPtel: [phone] [facility] Other 01/23/2011 Patient Education: Patient Medication Summary Completed 01/23/2011 Appointment: [facility] Beal [facility]Ptel: [phone] [facility] 01/22/2011 Patient Education: Patient Medication Summary Completed 01/22/2011 Referral: [facility] [facility] Appointment Requested Instructions Comment . Hypertension [...] with fentanyl patch for chronic pain. . Hypertension - well controlled - continue [...] and understands the consequences of over-medication. . URI - Pt advised to increase [...] - recommended pt to continue with duragesic Celebrex samples-take 1 daily Stop the ibuprofen. [...] miralax, senna. Avoid fatty foods. Gallbladder ultrasound Corcidin hbp - for decongestion of sinuses. Pneumonia - Pt has been diagnosed with pneumonia by physical exam. A chest xray has been ordered as have antibiotics. The pt is aware of the diagnosis and the need for acute treatment of this illness. Cough - pt to start on corcidin hbp . Hypertension - well controlled - continue [...] of leg - pt recovering - at [facility] - and continues to require rehab. . Hypertension - well controlled - continue [...] medication after a 90 day trial. . Hypertension - well controlled - continue [...] physically active. Encouraged pt to join the [facility] for only 10 dollars a year [...] months - if worsening - referral to [employer]. take the omeprazole at 3pm every day [...] and understands the consequences of over-medication. . Left shoulder pain-recommend MRI and Ortho [...] Call for any weakness in extremity. . Diabetes Mellitus - controlled - per [...] change in blood pressure readings at home. get your labs for diabetes one week [...] become less controlled. . Diabetes Mellitus - Uncontrolled - per [...] increase up to 30 minutes daily. . Diabetes Mellitus - controlled - per [...] in blood pressure readings at home. . Diabetes Mellitus - controlled - per [...] before we recommend further treatment/work-up by surgeon. referral to Dr. Guzman for bilateral hand [...] directed, and understands the consequences of over-medication. Declined Procedure: (Flu Given elsewhere) Flu given elsewhere; Declined Reason: does not want vaccine Plan: (56061) Pneumococcal Polysaccharide Vaccine, 23-Valent, Ad . Hypertension [...] not improved. pneumonia vaccine given today . Low back pain- the patient was instructed in appropriate posture, need for weight loss to alleviate abdominal obesity that is worsening the patient's back pain.. The pt is to use prn antiinflammatories to manage acute pain. The patient is to call the office if the pain is worsening or does not improve. Refilled hydrocodone for PRN use. Sciatica-handouts with exercises provided for hannatent. Joint Injection-right SI joint - Pt was [...] incident and had improvement in hearing. . Hypertension - uncontrolled - improved with [...] change in medications at this time. . N/V/Diarrhea - recommended bland diet, low [...] DONE IN THE NEXT TWO WEEKS AT [facility]. . Diabetes Mellitus - controlled - [...] - need to check leg length xray. Hyperlipidemia- uncontrolled - pt has been intolerant [...] EVERY OTHER DAY. . Diabetes Mellitus - Uncontrolled - per [...] of the wax. . Diabetes Mellitus - improved control - [...] ON WELCHOL 625MG THREE PILLS DAILY. . Biceps tendonitis- recommended pt to strat on prednisone and then flexeril for muscle relaxation.
--- OUTSIDE RECORDS SUMMARY | 2017-07-12 10:30 | XMS REPORT | CCD ---
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/[address]: 621105445 Never smoker 01/22/[address]: 369652342 Never drinks alcohol 01/22/2011 Has the patient [...] 401.9 ICD-10: I10 Active 11/11/2013 Unknown Other [facility] (current[facility] drug therapy ICD-9: V58.69 ICD-10: Z79.899 [...] Unknown Hypertension Unknown Active 03/21/2011 Unknown 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 03/21/2011 Unknown Diabetes Unknown [...] ICD-9: 401.9 ICD-10: I10 11/11/2013 Active Other guide visitor (current) drug therapy ICD-9: V58.69 ICD-10: Z79.899 [...] 08/22/2011 Active Hypertension Unknown 03/21/2011 Active 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 03/21/2011 Active Diabetes Unknown 03/19/2011 [...] 25 mg tablet,extended release 24 hr RxNorm: 323907 TAKE ONE TABLET BY MOUTH EVERY EVENING 06/13/2017 06/07/2018 Active gabapentin 100 mg capsule RxNorm: 953969 TAKE ONE CAPSULE BY MOUTH EVERY EVENING 06/13/2017 06/07/2018 Active Zithromax Z-Joseph 250 mg tablet RxNorm: 500982 1 Tablet(s) PO UD as directed 05/15/2017 05/19/2017 Inactive Duragesic 25 mcg/hr transdermal patch RxNorm: 298406 1 Patch TD Q72H 05/01/2017 07/29/2017 Active Duragesic 25 mcg/hr transdermal patch RxNorm: 330233 1 Patch TD Q72H 01/30/2017 02/28/2017 Inactive Diflucan 150 mg tablet RxNorm: 943385 1 Tablet(s) PO daily 01/09/2017 Inactive Lantus Solostar 100 unit/mL (3 mL) subcutaneous insulin pen RxNorm: 025176 Unit( s) INJECT 25 UNITS UNDER THE SKIN EVERY MORNING AND 15 UNITS AT BEDTIME, dr to adjust based on glucose readings. 10/11/2016 10/05/2017 Active Duragesic 25 mcg/hr transdermal patch RxNorm: 983184 1 Patch TD Q72H 10/01/2016 10/30/2016 Inactive Duragesic 25 mcg/hr transdermal patch RxNorm: 106242 1 Patch TD Q72H 08/28/2016 09/26/2016 Inactive senna 8.6 mg tablet RxNorm: 266670 1 Tablet(s) PO TIW 201606/09/2017 Inactive losartan 100 mg tablet RxNorm: 971944 1 Tablet(s) PO daily 07/09/2017 Active omeprazole 40 mg capsule,delayed release RxNorm: 429050 1 Capsule(s) PO QPM 06/15/2016 06/09/2017 Inactive gabapentin 100 mg capsule RxNorm: 976169 1 Capsule(s) TAKE ONE CAPSULES BY MOUTH EVERY EVENING 06/15/2016 06/12/2017 Inactive metoprolol succinate ER 25 mg tablet,extended release 24 hr RxNorm: 170656 1 Tablet(s) PO QPM 06/15/2016 06/12/2017 Inactive metformin ER 500 mg tablet,extended release 24 hr RxNorm: 401884 1 Tablet(s) daily 06/15/2016 06/18/2017 Inactive metformin ER 500 mg tablet,extended release 24 hr RxNorm: 316926 1 Tablet(s) daily 06/14/2016 06/14/2016 Inactive Lantus Solostar 100 unit/mL (3 mL) subcutaneous insulin pen RxNorm: 648023 Unit( s) INJECT 28 UNITS UNDER THE SKIN EVERY MORNING AND 20 UNITS AT BEDTIME 06/14/2016 10/10/2016 Inactive Duragesic 25 mcg/hr transdermal patch RxNorm: 292936 1 Patch TD Q72H 05/29/2016 06/27/2016 Inactive Duragesic 25 mcg/hr transdermal patch RxNorm: 327288 1 TD Q72H 04/25/2016 05/24/2016 Inactive metoprolol succinate ER 25 mg tablet,extended release 24 hr RxNorm: 848962 1 Tablet(s) PO QPM 12/26/2015 06/14/2016 Inactive gabapentin 100 mg capsule RxNorm: 981244 1 Capsule(s) TAKE ONE CAPSULES BY MOUTH EVERY EVENING 12/26/2015 06/14/2016 Inactive Duragesic 25 mcg/hr transdermal patch RxNorm: 249019 1 TD Q72H 12/26/2015 02/23/2016 Inactive Augmentin 500 mg-125 mg tablet RxNorm: 880763 1 Tablet(s) PO TID 11/15/2015 11/21/2015 Inactive Duragesic 25 mcg/hr transdermal patch RxNorm: 436650 1 TD Q72H 10/25/2015 11/23/2015 Inactive [SAVINGS FOR NON-COVERED DRUGS -- BIN:[id number], PCN: ASPROD1, Group: XXXXX, ID# [id number], Questions: . THIS IS NOT INSURANCE.] Duragesic 25 mcg/hr transdermal patch RxNorm: 534653 1 TD Q72H 08/29/2015 10/24/2015 Inactive [SAVINGS FOR NON-COVERED DRUGS -- BIN:750273, PCN: ASPROD1, Group: XXXXX, ID# [id number], Questions: . THIS IS NOT INSURANCE.] gabapentin 100 mg capsule RxNorm: 811502 1 Capsule(s) TAKE ONE CAPSULES BY MOUTH EVERY EVENING 08/29/2015 10/27/2015 Inactive glimepiride 2 mg tablet RxNorm: 409397 TAKE ONE TABLET BY MOUTH EVERY MORNING 08/08/2015 12/25/2015 Inactive Duragesic 25 mcg/hr transdermal patch RxNorm: 188325 1 TD Q72H 08/01/2015 08/28/2015 Inactive [SAVINGS FOR NON-COVERED DRUGS -- BIN:[id number], PCN: ASPROD1, Group: XXXXX, ID# [id number], Questions: . THIS IS NOT INSURANCE.] Lantus Solostar 100 unit/mL (3 mL) subcutaneous insulin pen RxNorm: 749534 Unit( s) INJECT 23 UNITS UNDER THE SKIN EVERY MORNING AND 15 UNITS AT BEDTIME 07/13/2015 06/13/2016 Inactive gabapentin 100 mg capsule RxNorm: 886431 1 Capsule(s) TAKE ONE CAPSULES BY MOUTH EVERY EVENING 07/04/2015 08/28/2015 Inactive losartan 100 mg tablet RxNorm: 926147 1 Tablet(s) PO daily 12/201506/14/2016 Inactive senna 8.6 mg tablet RxNorm: 041848 1 Tablet(s) PO TIW 201506/14/2016 Inactive metformin ER 500 mg tablet,extended release 24 hr RxNorm: 419688 Tablet(s) TAKE 1 TABLET BY MOUTH TWO TIMES A DAY. 06/29/2015 06/28/2015 Inactive metformin ER 500 mg tablet,extended release 24 hr RxNorm: 674072 TAKE 1 TABLET BY MOUTH TWO TIMES A DAY. 06/29/20152016 Inactive Duragesic 25 mcg/hr transdermal patch RxNorm: 316754 1 TD Q72H 05/24/2015 07/22/2015 Inactive [SAVINGS FOR NON-COVERED DRUGS -- BIN:530026, PCN: ASPROD1, Group: XXXXX, ID# [id number], Questions: . THIS IS NOT INSURANCE.] Augmentin 500 mg-125 mg tablet RxNorm: 577524 1 Tablet(s) PO TID 05/11/2015 05/10/2015 Inactive Augmentin 500 mg-125 mg tablet RxNorm: 256127 1 Tablet(s) PO TID 05/11/2015 05/17/2015 Inactive Keflex 500 mg capsule RxNorm: 114210 1 Capsule(s) PO TID 201405/09/2015 Inactive Keflex 500 mg capsule RxNorm: 576122 1 Capsule(s) PO TID 201405/02/2015 Inactive gabapentin 100 mg capsule RxNorm: 615543 TAKE TWO CAPSULES BY MOUTH EVERY EVENING 04/25/2015 06/23/2015 Inactive omeprazole 40 mg capsule,delayed release RxNorm: 760981 1 Capsule(s) PO daily as needed 02/28/2015 06/27/2015 Inactive omeprazole 40 mg capsule,delayed release RxNorm: 286209 1 Capsule(s) PO QPM 02/28/2015 02/22/2016 Inactive Duragesic 25 mcg/hr transdermal patch RxNorm: 852760 1 TD Q72H 02/21/2015 04/21/2015 Inactive [SAVINGS FOR NON-COVERED DRUGS -- BIN:729548, PCN: ASPROD1, Group: XXXXX, ID# [id number], Questions: . THIS IS NOT INSURANCE.] losartan 25 mg tablet RxNorm: 058954 1 Tablet(s) PO BID 201407/03/2015 Inactive Duragesic 25 mcg/hr transdermal patch RxNorm: 467037 1 TD Q72H 12/21/2014 02/18/2015 Inactive [SAVINGS FOR NON-COVERED DRUGS -- BIN:970406, PCN: ASPROD1, Group: XXXXX, ID# [id number], Questions: . THIS IS NOT INSURANCE.] losartan 25 mg tablet RxNorm: 823765 1 Tablet(s) PO BID 201401/05/2015 Inactive losartan 25 mg tablet RxNorm: 898012 TAKE ONE TABLET BY MOUTH EVERY EVENING 11/18/2014 07/25/2015 Inactive losartan 25 mg tablet RxNorm: 503951 TAKE ONE TABLET BY MOUTH EVERY EVENING 11/18/2014 07/31/2015 Inactive Bactrim DS 800 mg-160 mg tablet RxNorm: 875441 1 Tablet(s) PO BID 10/27/2014 10/26/2014 Inactive take a probiotic TID while on the ABT Bactrim DS 800 mg-160 mg tablet RxNorm: 031536 1 Tablet(s) PO BID 10/27/2014 11/05/2014 Inactive take a probiotic TID while on the ABT losartan 25 mg tablet RxNorm: 155939 1 Tablet(s) PO BID 201411/18/2014 Inactive gabapentin 100 mg capsule RxNorm: 187678 TAKE TWO CAPSULES BY MOUTH EVERY EVENING 10/11/2014 01/08/2015 Inactive Duragesic 25 mcg/hr transdermal patch RxNorm: 497307 1 TD Q72H 09/08/2014 10/07/2014 Inactive [SAVINGS FOR NON-COVERED DRUGS -- BIN:552878, PCN: ASPROD1, Group: XXXXX, ID# [id number], Questions: . THIS IS NOT INSURANCE.] meloxicam 15 mg tablet RxNorm: 650628 1 Tablet(s) PO QPM 201409/07/2014 Inactive [SAVINGS FOR NON-COVERED DRUGS -- BIN:205360, PCN: ASPROD1, Group: XXXXX, ID # [id number], Questions: . THIS IS NOT INSURANCE.] meloxicam 15 mg tablet RxNorm: 960285 1 Tablet(s) PO QPM 201407/03/2015 Inactive [SAVINGS FOR NON-COVERED DRUGS -- BIN:862960, PCN: ASPROD1, Group: XXXXX, ID # [id number], Questions: . THIS IS NOT INSURANCE.] Duragesic 25 mcg/hr transdermal patch RxNorm: 576716 1 TD Q72H 08/23/2014 09/07/2014 Inactive [SAVINGS FOR NON-COVERED DRUGS -- BIN:694214, PCN: ASPROD1, Group: XXXXX, ID# [id number], Questions: . THIS IS NOT INSURANCE.] glimepiride 2 mg tablet RxNorm: 964349 TAKE ONE TABLET BY MOUTH EVERY MORNING 07/08/2014 01/03/2015 Inactive ketorolac 60 mg/2 mL intramuscular solution RxNorm: 919519 Milliliter(s) IM 07/07/2014 07/07/2014 Inactive [SAVINGS FOR UNINSURED PATIENTS -- BIN:519140, PCN: ASPROD1, Group: AME08, ID# [id number], Process claim through [employer], for questions: . THIS IS NOT INSURANCE.] Duragesic 25 mcg/hr transdermal patch RxNorm: 713481 1 TD Q72H 07/07/2014 08/05/2014 Inactive [SAVINGS FOR UNINSURED PATIENTS -- BIN:325207, PCN: ASPROD1, Group: AME08, ID# [id number], Process claim through [employer], for questions: [phone]. THIS IS NOT INSURANCE.] meloxicam 15 mg tablet RxNorm: 027419 1 Tablet(s) PO QPM 201409/04/2014 Inactive [SAVINGS FOR UNINSURED PATIENTS -- BIN:375945, PCN: ASPROD1, Group: AME08, ID # [id number], Process claim through [employer], for questions: . THIS IS NOT INSURANCE.] glimepiride 2 mg tablet RxNorm: 323100 1 Tablet(s) QAM TAKE ONE TABLET BY MOUTH EVERY MORNING 07/07/2014 07/07/2014 Inactive [SAVINGS FOR UNINSURED PATIENTS -- BIN :667211, PCN: ASPROD1, Group: AME08, ID# [id number], Process claim through [employer], for questions: . THIS IS NOT INSURANCE.] Duragesic 25 mcg/hr transdermal patch RxNorm: 222231 1 TD Q72H 06/22/2014 07/06/2014 Inactive [SAVINGS FOR UNINSURED PATIENTS -- BIN:901624, PCN: ASPROD1, Group: AME08, ID# [id number], Process claim through [employer], for questions: [phone]. THIS IS NOT INSURANCE.] Lantus Solostar 100 unit/mL (3 mL) subcutaneous insulin pen RxNorm: 644863 INJECT 23 UNITS UNDER THE SKIN EVERY MORNING AND 15 UNITS AT BEDTIME 06/20/2014 06/14/2015 Inactive metformin ER 500 mg tablet,extended release 24 hr RxNorm: 549315 TAKE 1 TABLET BY MOUTH TWO TIMES A DAY. 06/20/20142015 Inactive glimepiride 2 mg tablet RxNorm: 734898 TAKE ONE TABLET BY MOUTH EVERY MORNING 05/18/2014 07/06/2014 Inactive glimepiride 2 mg tablet RxNorm: 246538 Tablet(s) PO TAKE ONE TABLET BY MOUTH EVERY MORNING 05/18/2014 05/17/2014 Inactive Voltaren 1 % topical gel RxNorm: 489609 4 Gram(s) TOP QID 05/0308/30/2014 Inactive gabapentin 100 mg capsule RxNorm: 085450 2 Capsule(s) PO QPM 08/30/2014 Inactive Duragesic 25 mcg/hr transdermal patch RxNorm: 676350 1 TD Q72H 04/12/2014 05/11/2014 Inactive Duragesic 25 mcg/hr transdermal patch RxNorm: 499390 1 TD Q72H 03/08/2014 04/06/2014 Inactive gabapentin 300 mg capsule RxNorm: 648189 1 Capsule(s) PO QPM 05/02/2014 Inactive Lantus Solostar 100 unit/mL (3 mL) subcutaneous insulin pen RxNorm: 402552 25 q am 18 hs Unit(s) SQ BID patient states she recieves 5 pens at a time 02/01/2014 02/25/2015 Inactive Duragesic 25 mcg/hr transdermal patch RxNorm: 339864 1 TD Q72H 01/27/2014 02/25/2014 Inactive gabapentin 400 mg capsule RxNorm: 365078 1 Capsule(s) PO QPM 03/07/2014 Inactive Duragesic 12 mcg/hr transdermal patch RxNorm: 815360 1 TD Q72H 01/15/2014 01/26/2014 Inactive gabapentin 600 mg tablet RxNorm: 857123 1 Tablet(s) PO QPM 01/26/2014 Inactive gabapentin 800 mg tablet RxNorm: 763508 1 Capsule(s) PO QPM 01/06/2014 Inactive Duragesic 25 mcg/hr transdermal patch RxNorm: 363208 1 Patch TD Q72H 11/11/2013 12/10/2013 Inactive losartan 25 mg tablet RxNorm: 112460 1 Tablet(s) PO QPM 201310/25/2014 Inactive glimepiride 2 mg tablet RxNorm: 402600 Tablet(s) PO TAKE ONE TABLET BY MOUTH EVERY MORNING 08/28/2013 05/17/2014 Inactive cefdinir 300 mg capsule RxNorm: 014360 1 Capsule(s) PO BID 08/28/2013 Inactive Rocephin 500 mg solution for injection RxNorm: 245229 1 Inj 08/19/2013 Inactive Zithromax Z-Joseph 250 mg tablet RxNorm: 113148 Tablet(s) PO as directed 08/14/2013 No Stop Date Active gabapentin 800 mg tablet RxNorm: 034557 1 Capsule(s) PO TID 04/201411/10/2013 Inactive metformin ER 500 mg tablet,extended release 24 hr RxNorm: 170657 Tablet(s) PO TAKE 1 TABLET BY MOUTH TWO TIMES A DAY. 06/22/2013 06/19/2014 Inactive Lantus Solostar 100 unit/mL (3 mL) subcutaneous insulin pen RxNorm: 615438 23 q am 15 hs Unit(s) SQ BID patient states she recieves 5 pens at a time 05/15/2013 01/31/2014 Inactive Metanx 3 mg-35 mg-2 mg tablet RxNorm: 1 Tablet(s) PO BID 04/2707/03/2015 Inactive Lantus Solostar 100 unit/mL (3 mL) subcutaneous insulin pen RxNorm: 429053 23 q am 15 hs Unit(s) SQ BID 04/27/20132012 Inactive folic acid 1 mg tablet RxNorm: 748495 1 Tablet(s) PO daily 06/201207/03/2015 Inactive Neurontin 300 mg capsule RxNorm: 603064 1 Capsule(s) PO TID 06/201207/07/2013 Inactive fentanyl 75 mcg/hr transdermal patch RxNorm: 325681 1 TD q 3 days 04/27/2013 05/26/2013 Inactive Dilaudid 2 mg tablet RxNorm: 803332 1 Tablet(s) PO Q4 PRN 04/2205/13/2013 Inactive Lantus Solostar 100 unit/mL (3 mL) subcutaneous insulin pen RxNorm: 575330 21 Unit(s) SQ BID 02/11/2013 04/26/2013 Inactive glimepiride 2 mg tablet RxNorm: 893558 1 Tablet(s) PO daily TAKE ONE TABLET BY MOUTH EVERY MORNING 02/11/2013 08/27/2013 Inactive ibuprofen 600 mg tablet RxNorm: 873227 1 Tablet(s) PO Q8 PRN 02/13/2017 Inactive fentanyl 100 mcg/hr Transderm Patch RxNorm: 206757 1 TD q 3 days 02/09/2013 04/26/2013 Inactive Contour Test Strips RxNorm: 1 test Miscellaneous BID 201210/07/2015 Inactive Cymbalta 30 mg capsule,delayed release RxNorm: 620057 1 Capsule(s) PO daily 10/14/2012 02/10/2013 Inactive prednisone 20 mg tablet RxNorm: 189671 2 Tablet(s) PO daily 10/17/2012 Inactive 2 daily x 4 days Cymbalta 30 mg capsule,delayed release RxNorm: 232281 1 Capsule(s) PO daily 10/14/2012 10/13/2012 Inactive Cymbalta 30 mg capsule,delayed release RxNorm: 053743 1 Capsule(s) PO daily 10/14/2012 10/13/2012 Inactive Voltaren 1 % Topical Gel RxNorm: 823665 3 Gram(s) TOP QID 09/1910/18/2012 Inactive prednisone 20 mg tablet RxNorm: 744499 Tablet(s) PO UD 3 tabs daily x2 days, 2 tabs daily x2 days, 1 tab daily x2 days, 1/2 tab daily x 2 days, 1/2 tab every other day x2 doses 09/19/2012 No Stop Date Active Kenalog 40 mg/mL Susp for Injection RxNorm: 6404818 1 Milliliter(s) Inj 09/10/2012 09/10/2012 Inactive WelChol 625 mg tablet RxNorm: 439430 3 Tablet(s) PO daily 201202/10/2013 Inactive Zithromax Z-Joseph 250 mg tablet RxNorm: 938684 Tablet(s) PO as directed 07/24/2012 08/31/2012 Inactive Kenalog 40 mg/mL Susp for Injection RxNorm: 4407674 2 Milliliter(s) Inj 06/03/2012 06/03/2012 Inactive prednisone 10 mg tablets in a dose pack RxNorm: 103543 Tablet(s) PO 6-5-4-3-2-1 05/28/2012 06/02/2012 Inactive metformin ER 500 mg tablet,extended release 24 hr RxNorm: 821270 1 Tablet(s) PO BID 05/28/2012 05/22/2013 Inactive metformin ER 500 mg tablet,extended release 24 hr RxNorm: 472738 Tablet(s) PO TAKE 1 TABLET BY MOUTH TWO TIMES A DAY. 05/26/2012 05/27/2012 Inactive glimepiride 2 mg tablet RxNorm: 908021 Tablet(s) PO TAKE ONE TABLET BY MOUTH EVERY MORNING 05/21/2012 02/10/2013 Inactive gemfibrozil 600 mg tablet RxNorm: 528571 1 Tablet(s) PO BID pt taking one pill twice daily every other day. 05/06/2012 Inactive cefdinir 300 mg capsule RxNorm: 456944 1 Capsule(s) PO BID 04/08/2012 Inactive cefdinir 300 mg capsule RxNorm: 515032 1 Capsule(s) PO BID 04/15/2012 Inactive prednisone 20 mg tablet RxNorm: 306042 1/2 Tablet(s) PO 201103/27/2012 Inactive Flexeril 5 mg tablet RxNorm: 008567 1 Tablet(s) PO Q6 PRN 03/1708/31/2012 Inactive Kenalog 40 mg/mL Susp for Injection RxNorm: 1039362 Milliliter(s) Inj 03/12/2012 03/12/2012 Inactive Lantus Solostar 100 unit/mL (3 mL) Sub-Q Insulin Pen RxNorm: 441675 22 Unit(s) SQ BID 02/01/2012 02/10/2013 Inactive Lantus Solostar 100 unit/mL (3 mL) Sub-Q Insulin Pen RxNorm: 366105 21 Unit(s) SQ BID 08/06/2011 01/31/2012 Inactive glimepiride 2 mg tablet RxNorm: 471969 1 Tablet(s) PO QAM 07/3001/26/2012 Inactive pt may have 90 day supply if nec glimepiride 2 mg Tab RxNorm: 983009 1 Tablet(s) PO QAM 201107/30/2011 Inactive Zithromax Z-Joseph 250 mg Tab RxNorm: 678036 Tablet(s) PO UD 07/2605/05/2012 Inactive metformin ER 500 mg tablet,extended release 24 hr RxNorm: 398772 1 Tablet(s) PO BID 05/19/2011 05/25/2012 Inactive gemfibrozil 600 mg Tab RxNorm: 919054 1 Tablet(s) PO BID take one by mouth thirty minutes before morning and evening meals. 01/23/2011 03/23/2011 Inactive Lantus Solostar 100 unit/mL (3 mL) Sub-Q Insulin Pen RxNorm: 718645 21 Unit(s) SQ BID 37 units q hs 01/23/2011 08/05/2011 Inactive aspirin 81 mg Tab, Delayed Release RxNorm: 014497 1 Tablet(s) PO daily No Start Date Active [employer] Autodisc Test Strips RxNorm: 1 Miscellaneous BID No Start Date Active metformin ER 500 mg 24 hr Tab RxNorm: 429444 1 Tablet(s) PO BID No Start Date 05/18/2011 Inactive hydrocodone 5 mg-acetaminophen 325 mg tablet RxNorm: 0578265 1 Tablet(s) PO Q6 PRN No Start Date 02/10/2013 Inactive meloxicam 15 mg tablet RxNorm: 032801 1 Tablet(s) PO daily No Start Date 02/10/2013 Inactive Miralax 17 gram/dose oral powder RxNorm: 870379 1 PO daily No Start Date 12/25/2015 Inactive fentanyl 50 mcg/hr transdermal patch RxNorm: 630410 1 TD Q72H No Start Date 11/10/2013 Inactive Nevanac 0.1 % Eye Drops RxNorm: 948697 1 Drop(s) OPH BID 1 drop to left eye bid No Start Date 02/10/2013 Inactive folic acid 1 mg tablet RxNorm: 587529 1 Tablet(s) PO daily No Start Date 04/26/2013 Inactive Naprosyn 500 mg Tab RxNorm: 280434 1 Tablet(s) PO BID No Start Date 03/20/2011 Inactive diazepam 5 mg tablet RxNorm: 274738 1/2 Tablet(s) PO Q8 PRN No Start Date 04/26/2013 Inactive Calcium 600 + D(3) 600 mg calcium-200 unit Cap RxNorm: 937293 1 Capsule(s) PO daily No Start Date 07/03/2015 Inactive ibuprofen Oral RxNorm : Oral No Start Date 03/16/2012 Inactive Neurontin 300 mg capsule RxNorm: 612770 1 Capsule(s) PO TID No Start Date 04/26/2013 Inactive prednisone 20 mg tablet RxNorm: 853527 Tablet(s) PO No Start Date 10/13/2012 Inactive 2 daily x 4 days prednisolone acetate 1 % Eye Drops, Susp RxNorm: 5838590 1 Drop(s) OPH QID 1 drop each eye qid No Start Date 02/10/2013 Inactive Fish Oil 360 mg-1,200 mg Cap, Delayed Release RxNorm: 2 Capsule(s) PO daily No Start Date 02/10/2013 Inactive Polysaccharide Iron 150 mg iron capsule RxNorm: 928002 1 Capsule(s) PO daily No Start Date 07/03/2015 Inactive Lantus Solostar 100 unit/mL (3 mL) Sub-Q Insulin Pen RxNorm: 027695 37 Unit(s) SQ QHS 37 units q hs No Start Date 2010 Inactive Naprosyn 500 mg Tab RxNorm: 931077 1 Tablet(s) PO PRN pt takes prn arthritis pain No Start Date 03/16/2012 Inactive fentanyl 75 mcg/hr transdermal patch RxNorm: 626124 1 TD q 3 days No Start Date 04/26/2013 Inactive Zithromax Z-Joseph 250 mg Tab RxNorm: 623290 Oral No Start Date 07/26/2011 Inactive hydromorphone 2 mg tablet RxNorm: 877932 1 Tablet(s) PO Q4 PRN No Start Date 02/10/2013 Inactive docusate potassium 100 mg capsule RxNorm: 7470717 1 Capsule(s) PO BID No Start Date 07/03/2015 Inactive Xyzal 5 mg Tab RxNorm : 404351 1 Tablet(s) PO daily No Start Date 08/31/2012 Inactive Ambien 5 mg tablet RxNorm: 901455 1 Tablet(s) PO PRN No Start Date 04/26/2013 Inactive prednisone 20 mg tablet RxNorm: 480818 Tablet(s) PO UD 2 tabs on day 1 1 tab on day 2 1/2 tab on day 3 No Start Date 08/31 Inactive glimepiride 2 mg Tab RxNorm: 239518 1 Tablet(s) PO QAM No Start Date 07/29/2011 Inactive Dilaudid 2 mg tablet RxNorm: 659313 1 Tablet(s) PO Q4 PRN No Start Date 04/21/2013 Inactive Zithromax Z-Joseph 250 mg tablet RxNorm: 043727 Tablet(s) PO as directed No Start Date 07/23/2012 Inactive gemfibrozil 600 mg Tab RxNorm: 179634 1 Tablet(s) PO BID No Start Date 01/22/2011 Inactive ibuprofen 600 mg tablet RxNorm: 046084 1 Tablet(s) PO Q8 PRN No Start Date 02/10/2013 Inactive Medication Administered Medication Codes Instructions Start Date Status ketorolac 60 mg/2 mL intramuscular solution RxNorm: 095562 Milliliter 07/07/2014 No longer Active Rocephin 500 mg solution for injection RxNorm: 706558 1 08/19/2013 No longer Active Kenalog 40 mg/mL Susp for Injection RxNorm: 5645234 1Milliliter 09/10/2012 No longer Active Kenalog 40 mg/mL Susp for Injection RxNorm: 8672060 2Milliliter 06/03/2012 No longer Active Kenalog 40 mg/mL Susp for Injection RxNorm: 3688850 Milliliter 03/12/2012 No longer Active Immunizations Vaccine [...] hypertension ICD-10: I10 ICD-9: 401.9 12/26/2015 Other guide visitor (current) drug therapy ICD-10: Z79.899 ICD-9: V58.69 [...] DM W/O COMPLICATION TYPE II, UNCONTROLLED SNOMED: 63212590 ICD-9: 250.02 07/15/2013 HYPERLIPIDEMIA ICD-9: 272.4 07/15/2013 [...] and allied disorder ICD-9: 726.19 05/28/2012 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 OBESITY ICD-9: 278.00 03/21/2011 IMPACTED CERUMEN ICD-9: 380.4 01/30/2011 DM W/O COMPLICATION TYPE I, UNCONTROLLED SNOMED: 85257325 ICD-9: 250.03 01/23/2011 Reason For Visit Reason [...] hTSH II 3.81 uIU/mL 06/17/2017 Comp Metabolic Viv678 NA 140 mEq/L 06/17/2017 Comp Metabolic Weg858 K 4.8 mEq/L 06/17/2017 Comp Metabolic Pfh465 CL 108 mEq/L 06/17/2017 Comp Metabolic Gky639 CO2 26.0 mEq/L 06/17/2017 Comp Metabolic Ked034 ANION GAP 11 06/17/2017 Comp Metabolic Zeo904 GLUCOSE 48 mg/dL 06/17/2017 Comp Metabolic Jxa356 Creat 1.6 mg/dL 06/17/2017 Comp Metabolic Zag378 eGFR 32 ml/min/1.73m2 06/17/2017 Comp Metabolic Ibu933 BUN 41 mg/dL 06/17/2017 Comp Metabolic Tgw731 B/C Ratio 25.2 Ratio 06/17/2017 Comp Metabolic Cic649 CALCIUM 8.9 mg/dL 06/17/2017 Comp Metabolic Clb886 ALK PHOS 69 U/L 06/17/2017 Comp Metabolic Dos269 AST(SGOT) 15 U/L 06/17/2017 Comp Metabolic Aoj091 ALT(SGPT) 12 U/L 06/17/2017 Comp Metabolic Ckz239 BILI T 0.4 mg/dL 06/17/2017 Comp Metabolic Pzr330 ALBUMIN 3.5 g/dL 06/17/2017 Comp Metabolic Dby173 TPRO 5.8 g/dL 06/17/2017 Comp Metabolic Lld560 GLOB 2.3 g/dL 06/17/2017 Comp Metabolic Rzt433 A/G Ratio 1.5 Ratio 06/17/2017 Comp Metabolic Jco172 Osmo 287 mOsmo 06/17/2017 Cbc With Differential Ord2 WBC 9.05 K/ul 06/17/2017 Cbc With Differential Ord2 RBC 3.80 M/ul 06/17/2017 Cbc With Differential Ord2 HGB 10.6 g/dl 06/17/2017 Cbc With Differential Ord2 HCT 34.5 % 06/17/2017 Cbc With Differential Ord2 Neut% 48.8 % 06/17/2017 Cbc With Differential Ord2 Lymph% 39.2 % 06/17/2017 Cbc With Differential Ord2 MCV 90.8 fl 06/17/2017 Cbc With Differential Ord2 [place]% 8.8 % 06/17/2017 Cbc With Differential Ord2 MCH 27.9 pg 06/17/2017 Cbc With Differential Ord2 Eos% 2.9 % 06/17/2017 Cbc With Differential Ord2 MCHC 30.7 pg 06/17/2017 Cbc With Differential Ord2 PLT 254 K/ul 06/17/2017 Cbc With Differential Ord2 Baso% 0.3 % 06/17/2017 Cbc With Differential Ord2 RDW 15.0 % 06/17/2017 Cbc With Differential Ord2 Neut ABS# 4.41 K/ul 06/17/2017 Cbc With Differential Ord2 Lymph ABS# 3.55 K/ul 06/17/2017 Cbc With Differential Ord2 [place] ABS# 0.8 K/ul 06/17/2017 Cbc With Differential Ord2 Eos ABS# 0.3 K/ul 06/17/2017 Cbc With Differential Ord2 Baso ABS# 0.0 K/ul 06/17/2017 Lipid Ord30 CHOL 216 mg/dL 06/17/2017 Lipid Ord30 HDL 45.0 mg/dl 06/17/2017 Lipid Ord30 TRIG 131 mg/dL 06/17/2017 Lipid Ord30 LDL 145 mg/dL 06/17/2017 Lipid Ord30 C/HDL 4.8 Ratio 06/17/2017 %Hba1C Upw202 % HbA1c 24291-0 6.8 % 06/17/2017 %Hba1C [id number] Gluc Ave 148 mg/dL 06/17/2017 Cbc With [...] 90.8 fl 02/12/2017 Cbc With Differential Ord2 [place]% 7.4 % 02/12/2017 Cbc With Differential Ord2 MCH 28.3 pg 02/12/2017 Cbc With Differential Ord2 MCHC 31.1 pg 02/12/2017 Cbc With Differential Ord2 Eos% 2.5 % 02/12/2017 Cbc With Differential Ord2 Baso% 0.4 % 02/12/2017 Cbc With Differential Ord2 PLT 256 K/ul 02/12/2017 Cbc With Differential Ord2 RDW 15.0 % 02/12/2017 Cbc With Differential Ord2 Neut ABS# 5.00 K/ul 02/12/2017 Cbc With Differential Ord2 Lymph ABS# 3.25 K/ul 02/12/2017 Cbc With Differential Ord2 [place] ABS# 0.7 K/ul 02/12/2017 Cbc With Differential Ord2 Eos ABS# 0.2 K/ul 02/12/2017 Cbc With Differential Ord2 Baso ABS# 0.0 K/ul 02/12/2017 %Hba1C Ump035 % HbA1c 87627-3 6.8 % 02/12/2017 %Hba1C Tmf422 Gluc Ave 148 mg/dL 02/12/2017 Comp Metabolic Xij069 NA 142 mEq/L 02/12/2017 Comp Metabolic Amy302 K 4.6 mEq/L 02/12/2017 Comp Metabolic Tux476 CL 111 mEq/L 02/12/2017 Comp Metabolic Ssg529 CO2 23.0 mEq/L 02/12/2017 Comp Metabolic Vjl012 ANION GAP 13 02/12/2017 Comp Metabolic Nzn389 GLUCOSE 51 mg/dL 02/12/2017 Comp Metabolic Qnv247 Creat 1.3 mg/dL 02/12/2017 Comp Metabolic Ujk407 eGFR 41 ml/min/1.73m2 02/12/2017 Comp Metabolic Bjb117 BUN 39 mg/dL 02/12/2017 Comp Metabolic Ktb337 B/C Ratio 29.5 Ratio 02/12/2017 Comp Metabolic Anc562 CALCIUM 8.5 mg/dL 02/12/2017 Comp Metabolic Ned359 ALK PHOS 61 U/L 02/12/2017 Comp Metabolic Qas720 AST(SGOT) 12 U/L 02/12/2017 Comp Metabolic Shj550 ALT(SGPT) 12 U/L 02/12/2017 Comp Metabolic Ram260 BILI T 0.4 mg/dL 02/12/2017 Comp Metabolic Ovw209 ALBUMIN 3.3 g/dL 02/12/2017 Comp Metabolic Pgq016 TPRO 5.5 g/dL 02/12/2017 Comp Metabolic Puq611 GLOB 2.2 g/dL 02/12/2017 Comp Metabolic Dxf841 A/G Ratio 1.5 Ratio 02/12/2017 Comp Metabolic Ekj886 Osmo 290 mOsmo 02/12/2017 Lipid Ord30 CHOL 186 mg/dL 02/12/2017 Lipid Ord30 HDL 40.0 mg/dl 02/12/2017 Lipid Ord30 TRIG 110 mg/dL 02/12/2017 Lipid Ord30 LDL 124 mg/dL 02/12/2017 Lipid Ord30 C/HDL 4.7 Ratio 02/12/2017 %Hba1C Eqb611 % HbA1c 39087-6 7.1 % 10/08/2016 %Hba1C Tya873 Gluc Ave 157 mg/dL 10/08/2016 Lipid Ord30 CHOL 220 mg/dL 10/08/2016 Lipid Ord30 HDL 40.0 mg/dl 10/08/2016 Lipid Ord30 TRIG 161 mg/dL 10/08/2016 Lipid Ord30 LDL 148 mg/dL 10/08/2016 Lipid Ord30 C/HDL 5.5 Ratio 10/08/2016 Comp Metabolic Lee449 NA 142 mEq/L 10/08/2016 Comp Metabolic Ggd948 K 5.2 mEq/L 10/08/2016 Comp Metabolic Mrg364 CL 110 mEq/L 10/08/2016 Comp Metabolic Fmw748 CO2 25.0 mEq/L 10/08/2016 Comp Metabolic Prv031 ANION GAP 12 10/08/2016 Comp Metabolic Sse486 GLUCOSE 74 mg/dL 10/08/2016 Comp Metabolic Uzq275 Creat 1.6 mg/dL 10/08/2016 Comp Metabolic Gxw194 eGFR 33 ml/min/1.73m2 10/08/2016 Comp Metabolic Ctp815 BUN 45 mg/dL 10/08/2016 Comp Metabolic Avp037 B/C Ratio 28.1 Ratio 10/08/2016 Comp Metabolic Iut279 CALCIUM 9.1 mg/dL 10/08/2016 Comp Metabolic Ytp725 ALK PHOS 62 U/L 10/08/2016 Comp Metabolic Xyz853 AST(SGOT) 14 U/L 10/08/2016 Comp Metabolic Ogu253 ALT(SGPT) 12 U/L 10/08/2016 Comp Metabolic Zbp720 BILI T 0.4 mg/dL 10/08/2016 Comp Metabolic Wmk472 ALBUMIN 3.5 g/dL 10/08/2016 Comp Metabolic Lvu648 TPRO 5.9 g/dL 10/08/2016 Comp Metabolic Jlg075 GLOB 2.4 g/dL 10/08/2016 Comp Metabolic Hfb371 A/G Ratio 1.4 Ratio 10/08/2016 Comp Metabolic Mvj412 Osmo 293 mOsmo 10/08/2016 Tsh Ord6 hTSH [...] 28.9 pg 10/08/2016 Cbc With Differential Ord2 [place]% 8.2 % 10/08/2016 Cbc With Differential Ord2 Eos% 3.3 % 10/08/2016 Cbc With Differential Ord2 MCHC 31.8 pg 10/08/2016 Cbc With Differential Ord2 Baso% 0.5 % 10/08/2016 Cbc With Differential Ord2 PLT 253 K/ul 10/08/2016 Cbc With Differential Ord2 Neut ABS# 4.62 K/ul 10/08/2016 Cbc With Differential Ord2 RDW 14.6 % 10/08/2016 Cbc With Differential Ord2 Lymph ABS# 3.05 K/ul 10/08/2016 Cbc With Differential Ord2 [place] ABS# 0.7 K/ul 10/08/2016 Cbc With Differential Ord2 Eos ABS# 0.3 K/ul 10/08/2016 Cbc With Differential Ord2 Baso ABS# 0.0 K/ul 10/08/2016 %Hba1C Nmj819 % HbA1c 77836-3 6.7 % 06/06/2016 %Hba1C Tif044 Gluc Ave 146 mg/dL 06/06/2016 Tsh Ord6 hTSH II 3.88 uIU/mL 06/06/2016 Comp Metabolic Nea385 NA 139 mEq/L 06/06/2016 Comp Metabolic Iyx471 K 5.1 mEq/L 06/06/2016 Comp Metabolic Gar707 CL 106 mEq/L 06/06/2016 Comp Metabolic Aws973 CO2 27.0 mEq/L 06/06/2016 Comp Metabolic Upr112 ANION GAP 11 06/06/2016 Comp Metabolic Oho874 GLUCOSE 63 mg/dL 06/06/2016 Comp Metabolic Vzt188 Creat 1.4 mg/dL 06/06/2016 Comp Metabolic Roe067 eGFR 40 ml/min/1.73m2 06/06/2016 Comp Metabolic Wmv296 BUN 38 mg/dL 06/06/2016 Comp Metabolic Wbc716 B/C Ratio 27.9 Ratio 06/06/2016 Comp Metabolic Ure760 CALCIUM 9.3 mg/dL 06/06/2016 Comp Metabolic Cve639 ALK PHOS 66 U/L 06/06/2016 Comp Metabolic Uwr334 AST(SGOT) 14 U/L 06/06/2016 Comp Metabolic Aey832 ALT(SGPT) 12 U/L 06/06/2016 Comp Metabolic Lib065 BILI T 0.4 mg/dL 06/06/2016 Comp Metabolic Bvu078 ALBUMIN 3.6 g/dL 06/06/2016 Comp Metabolic Odz373 TPRO 5.9 g/dL 06/06/2016 Comp Metabolic Zpw898 GLOB 2.3 g/dL 06/06/2016 Comp Metabolic Bxk140 A/G Ratio 1.5 Ratio 06/06/2016 Comp Metabolic Dup955 Osmo 285 mOsmo 06/06/2016 Lipid Ord30 CHOL 216 mg/dL 06/06/2016 Lipid Ord30 HDL 45.0 mg/dl 06/06/2016 Lipid Ord30 TRIG 134 mg/dL 06/06/2016 Lipid Ord30 LDL 144 mg/dL 06/06/2016 Lipid Ord30 C/HDL 4.8 Ratio 06/06/2016 Cbc With Differential Ord2 WBC 8.57 K/ul 06/06/2016 Cbc With Differential Ord2 RBC 3.63 M/ul 06/06/2016 Cbc With Differential Ord2 HGB 10.3 g/dl 06/06/2016 Cbc With Differential Ord2 HCT 33.4 % 06/06/2016 Cbc With Differential Ord2 Neut% 53.2 % 06/06/2016 Cbc With Differential Ord2 Lymph% 35.4 % 06/06/2016 Cbc With Differential Ord2 MCV 92.0 fl 06/06/2016 Cbc With Differential Ord2 MCH 28.4 pg 06/06/2016 Cbc With Differential Ord2 [place]% 8.3 % 06/06/2016 Cbc With Differential Ord2 Eos% 2.7 % 06/06/2016 Cbc With Differential Ord2 MCHC 30.8 pg 06/06/2016 Cbc With Differential Ord2 PLT 279 K/ul 06/06/2016 Cbc With Differential Ord2 Baso% 0.4 % 06/06/2016 Cbc With Differential Ord2 Neut ABS# 4.57 K/ul 06/06/2016 Cbc With Differential Ord2 RDW 15.3 % 06/06/2016 Cbc With Differential Ord2 Lymph ABS# 3.03 K/ul 06/06/2016 Cbc With Differential Ord2 [place] ABS# 0.7 K/ul 06/06/2016 Cbc With Differential Ord2 Eos ABS# 0.2 K/ul 06/06/2016 Cbc With Differential Ord2 Baso ABS# 0.0 K/ul 06/06/2016 Comp Metabolic Cqf757 NA 139 mEq/L 12/19/2015 Comp Metabolic Act904 K 4.5 mEq/L 12/19/2015 Comp Metabolic Jfr986 CL 107 mEq/L 12/19/2015 Comp Metabolic Hng005 CO2 25.0 mEq/L 12/19/2015 Comp Metabolic Sgw277 ANION GAP 12 12/19/2015 Comp Metabolic Ird253 GLUCOSE 72 mg/dL 12/19/2015 Comp Metabolic Fdi380 Creat 1.3 mg/dL 12/19/2015 Comp Metabolic Lpk922 eGFR 42 ml/min/1.73m2 12/19/2015 Comp Metabolic Ogi414 BUN 37 mg/dL 12/19/2015 Comp Metabolic Rxx959 B/C Ratio 28.2 Ratio 12/19/2015 Comp Metabolic Jwt466 CALCIUM 9.0 mg/dL 12/19/2015 Comp Metabolic Zvf768 ALK PHOS 62 U/L 12/19/2015 Comp Metabolic Pcm409 AST(SGOT) 13 U/L 12/19/2015 Comp Metabolic Inp493 ALT(SGPT) 12 U/L 12/19/2015 Comp Metabolic Gco880 BILI T 0.4 mg/dL 12/19/2015 Comp Metabolic Hab417 ALBUMIN 3.6 g/dL 12/19/2015 Comp Metabolic Ywv268 TPRO 6.0 g/dL 12/19/2015 Comp Metabolic Qaw288 GLOB 2.5 g/dL 12/19/2015 Comp Metabolic Geq449 A/G Ratio 1.4 Ratio 12/19/2015 Comp Metabolic Twq873 Osmo 285 mOsmo 12/19/2015 Lipid Ord30 CHOL 214 mg/dL 12/19/2015 Lipid Ord30 HDL 44.0 mg/dl 12/19/2015 Lipid Ord30 TRIG 121 mg/dL 12/19/2015 Lipid Ord30 LDL 146 mg/dL 12/19/2015 Lipid Ord30 C/HDL 4.9 Ratio 12/19/2015 Cbc With Differential Ord2 WBC 7.83 K/ul 12/19/2015 Cbc With Differential Ord2 RBC 3.79 M/ul 12/19/2015 Cbc With Differential Ord2 HGB 10.7 g/dl 12/19/2015 Cbc With Differential Ord2 Neut% 56.3 % 12/19/2015 Cbc With Differential Ord2 HCT 34.1 % 12/19/2015 Cbc With Differential Ord2 Lymph% 33.1 % 12/19/2015 Cbc With Differential Ord2 MCV 90.0 fl 12/19/2015 Cbc With Differential Ord2 [place]% 7.5 % 12/19/2015 Cbc With Differential Ord2 MCH 28.2 pg 12/19/2015 Cbc With Differential Ord2 MCHC 31.4 pg 12/19/2015 Cbc With Differential Ord2 Eos% 2.6 % 12/19/2015 Cbc With Differential Ord2 PLT 281 K/ul 12/19/2015 Cbc With Differential Ord2 Baso% 0.5 % 12/19/2015 Cbc With Differential Ord2 Neut ABS# 4.41 K/ul 12/19/2015 Cbc With Differential Ord2 RDW 15.1 % 12/19/2015 Cbc With Differential Ord2 Lymph ABS# 2.59 K/ul 12/19/2015 Cbc With Differential Ord2 [place] ABS# 0.6 K/ul 12/19/2015 Cbc With Differential Ord2 Eos ABS# 0.2 K/ul 12/19/2015 Cbc With Differential Ord2 Baso ABS# 0.0 K/ul 12/19/2015 %Hba1C Ibt116 % HbA1c 38202-2 6.1 % 12/19/2015 %Hba1C Bug255 Gluc Ave 128 mg/dL 12/19/2015 A1C HPLC 9445555 A1C HPLC 09283-2 7.1 % 01/27/2014 CHEM 14 5573943 AST 13 U/L 01/07/2014 CHEM 14 2624071 ALT 13 U/L 01/07/2014 CHEM 14 5780248 BUN 24 MG/DL 01/07/2014 CHEM 14 0471676 ALBUMIN 3.8 GM/DL 01/07/2014 CHEM 14 7715312 CHLORIDE 103 MMOL/L 01/07/2014 CHEM 14 1933110 BILI TOT 0.4 MG/DL 01/07/2014 CHEM 14 2817325 ALK PHOS 71 U/L 01/07/2014 CHEM 14 9695775 SODIUM 139 MMOL/L 01/07/2014 CHEM 14 7314546 CREATININE 0.99 MG/DL 01/07/2014 CHEM 14 6332639 CALCIUM 9.3 MG/DL 01/07/2014 CHEM 14 2292458 POTASSIUM 4.1 MMOL/L 01/07/2014 CHEM 14 9891457 PROT TOT 6.3 GM/DL 01/07/2014 CHEM 14 9988639 GLUCOSE 187 MG/DL 01/07/2014 CHEM 14 2993512 BICARB 25 MMOL/L 01/07/2014 CHEM 14 3540822 ANION GAP 11 MMOL/L 01/07/2014 GFR CALC 5088240 GFR AA >60 ML/MIN 01/07/2014 GFR CALC 7901341 GFR NON-AA 55.0L ML/MIN 01/07/2014 CBC 7863584 WBC 9.9 10e9/L 01/07/2014 CBC 9898772 RBC 4.08 10e12/L 01/07/2014 CBC 6773828 HGB 11.7 g/dL 01/07/2014 CBC 1847976 HCT DET 36.7 % 01/07/2014 CBC 7819321 MCV 90.0 fL 01/07/2014 CBC 0425693 MCH 28.7 pg 01/07/2014 CBC 2739640 MCHC 31.9 g/dL 01/07/2014 CBC 0568599 PLT 311 10e9/L 01/07/2014 CBC 3367403 MPV 10.5 fL 01/07/2014 CBC 4867295 YAKOV % 68.2 % 01/07/2014 CBC 8053843 LY % 22.4 % 01/07/2014 CBC 9815664 MON % 7.2 % 01/07/2014 CBC 5013177 EOS % 1.7 % 01/07/2014 CBC 7555249 BASO % 0.5 % 01/07/2014 CBC 2411091 RDW 14.9 % 01/07/2014 CBC 1051618 ABS YAKOV 6.75 10e9/L 01/07/2014 CBC 3415971 ABS LYMPH 2.22 10e9/L 01/07/2014 CBC 7604626 ABS MONO 0.71 10e9/L 01/07/2014 CBC 1966194 ABS EOS 0.17 10e9/L 01/07/2014 CBC 9216611 ABS BASO 0.05 10e9/L 01/07/2014 CBC 8144187 RDW-SD 48.3 fL 01/07/2014 CHEM 14 7869103 ALT 13 U/L 01/07/2014 CHEM 14 8972116 BUN 24 MG/DL 01/07/2014 CHEM 14 3080006 CHLORIDE 103 MMOL/L 01/07/2014 CHEM 14 5557048 BILI TOT 0.4 MG/DL 01/07/2014 CHEM 14 1280599 SODIUM 139 MMOL/L 01/07/2014 CHEM 14 8305592 CREATININE 0.99 MG/DL 01/07/2014 CHEM 14 9328641 CALCIUM 9.3 MG/DL 01/07/2014 CHEM 14 6411416 POTASSIUM 4.1 MMOL/L 01/07/2014 CHEM 14 3438290 GLUCOSE 187 MG/DL 01/07/2014 CHEM 14 5979898 BICARB 25 MMOL/L 01/07/2014 CHEM 14 4927637 ANION GAP 11 MMOL/L 01/07/2014 GFR CALC 9529083 GFR AA >60 ML/MIN 07/15/2013 GFR CALC 3979712 GFR NON-AA 60.0L ML/MIN 07/15/2013 A1C HPLC 7523984 A1C HPLC 68297-3 6.3 % 07/15/2013 LIPID GRP HDL TEST 55 MG/DL 07/15/2013 LIPID GRP TRIG 90 MG/DL 07/15/2013 LIPID GRP TEST LDL 140 MG/DL 07/15/2013 LIPID GRP CHOL 213 MG/DL 07/15/2013 LIPID GRP RCHOL/HDL 3.87 RATIO 07/15/2013 FREE T4 8851100 FREE T4 1.32 NG/DL 07/15/2013 TSH 1780358 TSH 3.961 uIU/ML 07/15/2013 CHEM 14 3218194 AST 13 U/L 07/15/2013 CHEM 14 5029354 ALT 13 IU/L 07/15/2013 CHEM 14 3589582 BUN 33 MG/DL 07/15/2013 CHEM 14 9894722 ALBUMIN 3.9 GM/DL 07/15/2013 CHEM 14 2747914 CHLORIDE 105 MMOL/L 07/15/2013 CHEM 14 5423801 BILI TOT 0.3 MG/DL 07/15/2013 CHEM 14 9421274 ALK PHOS 63 U/L 07/15/2013 CHEM 14 4174374 SODIUM 140 MMOL/L 07/15/2013 CHEM 14 2298185 CREATININE 0.92 MG/DL 07/15/2013 CHEM 14 5968239 CALCIUM 9.8 MG/DL 07/15/2013 CHEM 14 6958990 POTASSIUM 4.4 MMOL/L 07/15/2013 CHEM 14 3713599 PROT TOT 6.2 GM/DL 07/15/2013 CHEM 14 2075886 GLUCOSE 53 MG/DL 07/15/2013 CHEM 14 4379739 BICARB 30 MMOL/L 07/15/2013 CHEM 14 4584075 ANION GAP 5 MEQ/L 07/15/2013 CBC 8509186 WBC 9.1 10e9/L 07/15/2013 CBC 4043568 RBC 3.70 10e12/L 07/15/2013 CBC 9121108 HGB 10.7 g/dL 07/15/2013 CBC 0543141 HCT DET 34.2 % 07/15/2013 CBC 6566660 MCV 92.4 fL 07/15/2013 CBC 0595995 MCH 28.9 pg 07/15/2013 CBC 3359745 MCHC 31.3 g/dL 07/15/2013 CBC 6133558 PLT 317 10e9/L 07/15/2013 CBC 6279689 MPV 10.5 fL 07/15/2013 CBC 6217560 YAKOV % 60.8 % 07/15/2013 CBC 7339470 LY % 30.3 % 07/15/2013 CBC 6878352 MON % 7.8 % 07/15/2013 CBC 9901900 EOS % 1.0 % 07/15/2013 CBC 3483706 BASO % 0.1 % 07/15/2013 CBC 3018819 RDW 15.1 % 07/15/2013 CBC 1132591 ABS YAKOV 5.53 10e9/L 07/15/2013 CBC 4921213 ABS LYMPH 2.76 10e9/L 07/15/2013 CBC 4187892 ABS MONO 0.71 10e9/L 07/15/2013 CBC 7436422 ABS EOS 0.09 10e9/L 07/15/2013 CBC 1955380 ABS BASO 0.01 10e9/L 07/15/2013 CBC 1551687 RDW-SD 49.9 fL 07/15/2013 LIPID GRP HDL TEST 48 MG/DL 09/01/2012 LIPID GRP TRIG 136 MG/DL 09/01/2012 LIPID GRP TEST LDL 160 MG/DL 09/01/2012 LIPID GRP CHOL 235 MG/DL 09/01/2012 LIPID GRP RCHOL/HDL 4.90 RATIO 09/01/2012 CBC 5571659 WBC 8.7 10e9/L 09/01/2012 CBC 4020480 RBC 4.43 10e12/L 09/01/2012 CBC 7693249 HGB 12.9 g/dL 09/01/2012 CBC 2378923 HCT DET 39.6 % 09/01/2012 CBC 6957773 MCV 89.4 fL 09/01/2012 CBC 8967067 MCH 29.1 pg 09/01/2012 CBC 5216440 MCHC 32.6 g/dL 09/01/2012 CBC 3700553 PLT 305 10e9/L 09/01/2012 CBC 7642891 MPV 10.5 fL 09/01/2012 CBC 3231501 YAKOV % 59.1 % 09/01/2012 CBC 0426983 LY % 30.3 % 09/01/2012 CBC 5284404 MON % 8.5 % 09/01/2012 CBC 3646403 EOS % 1.6 % 09/01/2012 CBC 1455627 BASO % 0.5 % 09/01/2012 CBC 2136740 RDW 14.6 % 09/01/2012 CBC 9305812 ABS YAKOV 5.14 10e9/L 09/01/2012 CBC 8797519 ABS LYMPH 2.64 10e9/L 09/01/2012 CBC 0769177 ABS MONO 0.74 10e9/L 09/01/2012 CBC 5578233 ABS EOS 0.14 10e9/L 09/01/2012 CBC 8887610 ABS BASO 0.04 10e9/L 09/01/2012 CBC 0982128 RDW-SD 47.1 fL 09/01/2012 FREE T4 5409030 FREE T4 1.24 NG/DL 09/01/2012 CHEM 14 2742626 AST 14 U/L 09/01/2012 CHEM 14 4835196 ALT 17 IU/L 09/01/2012 CHEM 14 4322926 BUN 23 MG/DL 09/01/2012 CHEM 14 4072738 ALBUMIN 4.1 GM/DL 09/01/2012 CHEM 14 2272674 CHLORIDE 106 MMOL/L 09/01/2012 CHEM 14 2317526 BILI TOT 0.6 MG/DL 09/01/2012 CHEM 14 9614021 ALK PHOS 56 U/L 09/01/2012 CHEM 14 2543494 SODIUM 142 MMOL/L 09/01/2012 CHEM 14 4858449 CREATININE 0.90 MG/DL 09/01/2012 CHEM 14 5730747 CALCIUM 9.9 MG/DL 09/01/2012 CHEM 14 3066315 POTASSIUM 4.0 MMOL/L 09/01/2012 CHEM 14 6498466 PROT TOT 6.1 GM/DL 09/01/2012 CHEM 14 3460857 GLUCOSE 77 MG/DL 09/01/2012 CHEM 14 4139763 BICARB 28 MMOL/L 09/01/2012 CHEM 14 5436364 ANION GAP 8 MEQ/L 09/01/2012 TSH 0213511 TSH 3.674 uIU/ML 09/01/2012 A1C HPLC 8788335 A1C HPLC 30888-4 6.8 % 09/01/2012 GFR CALC 8894581 GFR AA >60 ML/MIN 09/01/2012 GFR CALC 3689329 GFR NON-AA >60 ML/MIN 09/01/2012 CHEM 14 5451516 AST 13 U/L 04/30/2012 CHEM 14 5087880 ALT 15 IU/L 04/30/2012 CHEM 14 4858874 BUN 33 MG/DL 04/30/2012 CHEM 14 6843309 ALBUMIN 4.1 GM/DL 04/30/2012 CHEM 14 3885565 CHLORIDE 107 MMOL/L 04/30/2012 CHEM 14 3775859 BILI TOT 0.5 MG/DL 04/30/2012 CHEM 14 9836525 ALK PHOS 62 U/L 04/30/2012 CHEM 14 2416917 SODIUM 141 MMOL/L 04/30/2012 CHEM 14 2718543 CREATININE 1.01 MG/DL 04/30/2012 CHEM 14 9244715 CALCIUM 9.7 MG/DL 04/30/2012 CHEM 14 7848996 POTASSIUM 4.2 MMOL/L 04/30/2012 CHEM 14 0557194 PROT TOT 6.3 GM/DL 04/30/2012 CHEM 14 2690418 GLUCOSE 74 MG/DL 04/30/2012 CHEM 14 6945907 BICARB 27 MMOL/L 04/30/2012 CHEM 14 1310071 ANION GAP 7 MEQ/L 04/30/2012 CBC 1799102 WBC 8.2 10e9/L 04/30/2012 CBC 0698503 RBC 4.39 10e12/L 04/30/2012 CBC 5966480 HGB 12.7 g/dL 04/30/2012 CBC 4020420 HCT DET 39.3 % 04/30/2012 CBC 7970376 MCV 89.5 fL 04/30/2012 CBC 7814539 MCH 28.9 pg 04/30/2012 CBC 8932471 MCHC 32.3 g/dL 04/30/2012 CBC 6487705 PLT 305 10e9/L 04/30/2012 CBC 9185292 MPV 10.9 fL 04/30/2012 CBC 9314414 YAKOV % 60.1 % 04/30/2012 CBC 3439427 LY % 30.7 % 04/30/2012 CBC 1042952 MON % 7.7 % 04/30/2012 CBC 8978409 EOS % 1.1 % 04/30/2012 CBC 7813534 BASO % 0.4 % 04/30/2012 CBC 5816662 RDW 14.8 % 04/30/2012 CBC 0274347 ABS YAKOV 4.93 10e9/L 04/30/2012 CBC 5729008 ABS LYMPH 2.52 10e9/L 04/30/2012 CBC 5558084 ABS MONO 0.63 10e9/L 04/30/2012 CBC 8693535 ABS EOS 0.09 10e9/L 04/30/2012 CBC 3022198 ABS BASO 0.03 10e9/L 04/30/2012 CBC 1874333 RDW-SD 47.8 fL 04/30/2012 TSH 0309997 TSH 3.394 uIU/ML 04/30/2012 A1C HPLC 4919655 A1C HPLC 49728-7 7.2 % 04/30/2012 GFR CALC 2709546 GFR AA >60 ML/MIN 04/30/2012 GFR CALC 2740706 GFR NON-AA 54.0L ML/MIN 04/30/2012 LIPID GRP HDL TEST 49 MG/DL 04/30/2012 LIPID GRP TRIG 129 MG/DL 04/30/2012 LIPID GRP TEST LDL 149 MG/DL 04/30/2012 LIPID GRP CHOL 224 MG/DL 04/30/2012 LIPID GRP RCHOL/HDL 4.57 RATIO 04/30/2012 CHEM 14 4305208 AST 14 U/L 12/26/2011 CHEM 14 3370755 ALT 15 IU/L 12/26/2011 CHEM 14 5925486 BUN 28 MG/DL 12/26/2011 CHEM 14 2105663 ALBUMIN 4.2 GM/DL 12/26/2011 CHEM 14 6694811 CHLORIDE 106 MMOL/L 12/26/2011 CHEM 14 7558122 BILI TOT 0.5 MG/DL 12/26/2011 CHEM 14 9424023 ALK PHOS 55 U/L 12/26/2011 CHEM 14 4338916 SODIUM 141 MMOL/L 12/26/2011 CHEM 14 3845629 CREATININE 1.01 MG/DL 12/26/2011 CHEM 14 8527117 CALCIUM 9.7 MG/DL 12/26/2011 CHEM 14 8991581 POTASSIUM 4.6 MMOL/L 12/26/2011 CHEM 14 1693666 PROT TOT 6.4 GM/DL 12/26/2011 CHEM 14 9094112 GLUCOSE 83 MG/DL 12/26/2011 CHEM 14 2731762 BICARB 27 MMOL/L 12/26/2011 CHEM 14 5882633 ANION GAP 8 MEQ/L 12/26/2011 GFR CALC 2490576 GFR AA >60 ML/MIN 12/26/2011 GFR CALC 8242811 GFR NON-AA 54.0L ML/MIN 12/26/2011 MAGNESIUM 8149950 MAGNESIUM 1.8 MEQ/L 12/26/2011 A1C HPLC 8226513 A1C HPLC 71983-6 7.2 % 12/26/2011 CBC 6934672 WBC 7.8 10e9/L 12/26/2011 CBC 1720776 RBC 4.44 10e12/L 12/26/2011 CBC 8021519 HGB 12.4 g/dL 12/26/2011 CBC 4043289 HCT DET 38.5 % 12/26/2011 CBC 1390368 MCV 86.7 fL 12/26/2011 CBC 5133671 MCH 27.9 pg 12/26/2011 CBC 3071316 MCHC 32.2 g/dL 12/26/2011 CBC 0304785 PLT 290 10e9/L 12/26/2011 CBC 5096564 MPV 10.5 fL 12/26/2011 CBC 6423450 YAKOV % 55.1 % 12/26/2011 CBC 9591038 LY % 35.0 % 12/26/2011 CBC 1694328 MON % 6.7 % 12/26/2011 CBC 5821987 EOS % 2.7 % 12/26/2011 CBC 3865340 BASO % 0.5 % 12/26/2011 CBC 2150083 RDW 14.5 % 12/26/2011 CBC 0808394 ABS YAKOV 4.30 10e9/L 12/26/2011 CBC 2838979 ABS LYMPH 2.73 10e9/L 12/26/2011 CBC 5361163 ABS MONO 0.52 10e9/L 12/26/2011 CBC 5099802 ABS EOS 0.21 10e9/L 12/26/2011 CBC 1810075 ABS BASO 0.04 10e9/L 12/26/2011 CBC 7628560 RDW-SD 45.2 fL 12/26/2011 A1C 2981155 A1C HPLC 82328-6 7.4 % 10/08/2011 LIPID GRP HDL TEST 45 MG/DL 10/08/2011 LIPID GRP TRIG 188 MG/DL 10/08/2011 LIPID GRP TEST LDL 145 MG/DL 10/08/2011 LIPID GRP CHOL 228 MG/DL 10/08/2011 LIPID GRP RCHOL/HDL 5.07 RATIO 10/08/2011 GFR CALC 3289330 GFR AA 57.0L ML/MIN 10/08/2011 GFR CALC 9224999 GFR NON-AA 47.0L ML/MIN 10/08/2011 CBC 9607413 WBC 8.9 10e9/L 10/08/2011 CBC 0199923 RBC 4.55 10e12/L 10/08/2011 CBC 1651434 HGB 12.5 g/dL 10/08/2011 CBC 4123569 HCT DET 39.7 % 10/08/2011 CBC 0446400 MCV 87.3 fL 10/08/2011 CBC 5526135 MCH 27.5 pg 10/08/2011 CBC 3601735 MCHC 31.5 g/dL 10/08/2011 CBC 9454029 PLT 291 10e9/L 10/08/2011 CBC 4814508 MPV 10.7 fL 10/08/2011 CBC 8051373 YAKOV % 57.1 % 10/08/2011 CBC 5601980 LY % 32.9 % 10/08/2011 CBC 8646721 MON % 6.6 % 10/08/2011 CBC 3360256 EOS % 2.9 % 10/08/2011 CBC 8709974 BASO % 0.5 % 10/08/2011 CBC 7692837 RDW 15.0 % 10/08/2011 CBC 0783637 ABS YAKOV 5.08 10e9/L 10/08/2011 CBC 5901905 ABS LYMPH 2.93 10e9/L 10/08/2011 CBC 4505807 ABS MONO 0.59 10e9/L 10/08/2011 CBC 8543752 ABS EOS 0.26 10e9/L 10/08/2011 CBC 7361530 ABS BASO 0.04 10e9/L 10/08/2011 CBC 2610765 RDW-SD 47.6 fL 10/08/2011 CHEM 14 2964101 AST 13 U/L 10/08/2011 CHEM 14 8958615 ALT 19 IU/L 10/08/2011 CHEM 14 8914327 BUN 35 MG/DL 10/08/2011 CHEM 14 6655515 ALBUMIN 4.2 GM/DL 10/08/2011 CHEM 14 5058068 CHLORIDE 104 MMOL/L 10/08/2011 CHEM 14 4030354 BILI TOT 0.4 MG/DL 10/08/2011 CHEM 14 2507902 ALK PHOS 54 U/L 10/08/2011 CHEM 14 1482054 SODIUM 139 MMOL/L 10/08/2011 CHEM 14 9318219 CREATININE 1.13 MG/DL 10/08/2011 CHEM 14 2246696 CALCIUM 9.5 MG/DL 10/08/2011 CHEM 14 4236222 POTASSIUM 4.5 MMOL/L 10/08/2011 CHEM 14 1762643 PROT TOT 7.1 GM/DL 10/08/2011 CHEM 14 0788723 GLUCOSE 148 MG/DL 10/08/2011 CHEM 14 4294210 BICARB 26 MMOL/L 10/08/2011 CHEM 14 4953052 ANION GAP 9 MEQ/L 10/08/2011 Review of [...] clear 01/27/2014 None Full Exam - General 1995 Ears/Nose/Throat oral cavity/pharynx/larynx Overall: no masses 01/27/2014 [...] rate 07/08/2013 None Full Exam - General 1995 Cardiovascular auscultation of heart Overall: regular rate 07/08/2013 None Full Exam - General 1995 Cardiovascular auscultation of heart Overall: normal heart sounds 07/08/2013 None Full Exam - General 1995 Cardiovascular auscultation of heart Overall: no murmurs 07/08/2013 None Full Exam - General 1995 Abdomen abdominal exam Overall: no tenderness 07/08/2013 None Full Exam - General 1995 Abdomen abdominal exam Overall: normal bowel sounds 07/08/2013 None Full Exam - General 1994 Musculoskeletal gait and station Gait: asymmetric 07/08/2013 None Full Exam - General 1994 Musculoskeletal gait and station Gait: unable to turn quickly 07/08/2013 None Full Exam - General 1995 Musculoskeletal [...] masses 04/27/2013 None Full Exam - General 1995 Respiratory auscultation Overall: breath sounds clear bilaterally 04/27/2013 None Full Exam - General 1994 Respiratory respiratory effort/rhythm Overall: no retractions 04/27/2013 None Full Exam - General 1995 Respiratory respiratory effort/rhythm Overall: normal rate 04/27/2013 None Full Exam - General 1995 [...] rate 02/09/2013 None Full Exam - General 1995 Cardiovascular auscultation of heart Overall: regular rate 02/09/2013 None Full Exam - General 1995 Cardiovascular auscultation of heart Overall: normal heart sounds 02/09/2013 None Full Exam - General 1995 Cardiovascular auscultation of heart Overall: no murmurs 02/09/2013 None Full Exam - General 1995 Abdomen abdominal exam Overall: no tenderness 02/09/2013 None Full Exam - General 1995 Abdomen abdominal exam Overall: normal bowel sounds 02/09/2013 None Full Exam - General 1995 Neurologic gait Overall: no ataxia, no unsteadiness 02/09/2013 None Full Exam - General 1995 Psychiatric orientation/consciousness Overall: oriented to person, place and time 02/09/2013 None Full Exam - General 1995 Psychiatric mood and affect Overall: normal mood and affect 02/09/2013 None Full Exam - General 1995 Constitutional general appearance Development: well developed 02/09/2013 None Full Exam - General 1995 [...] rate 09/10/2012 None Full Exam - General 1995 Cardiovascular auscultation of heart Overall: normal heart sounds 09/10/2012 None Full Exam - General 1994 Cardiovascular auscultation of heart Overall: no murmurs 09/10/2012 None Full Exam - General 1994 Cardiovascular extremities Overall: no clubbing 09/10/2012 None Full Exam - General 1995 Constitutional general appearance Development: well developed 09/03/2012 None Full Exam - General 1995 Constitutional general appearance Development: appears stated age 0409/03/2012 None Full Exam - General 1995 Constitutional general appearance Stature/Body Habitus: short stature 09/03/2012 None Full Exam - General 1995 Constitutional general appearance Nourishment: obese 09/03/2012 None Full Exam - General 1995 Constitutional general appearance Evidence of Distress: in no acute distress 09/03/2012 None Full Exam - General 1995 Constitutional general appearance Hygiene/Attention to Grooming: good hygiene 09/03/2012 None Full Exam - General 1995 Constitutional general appearance Hygiene/Attention to Grooming: normal grooming 09/03/2012 None Full Exam - General 1994 Eyes conjunctiva /eyelids Conjunctiva: injection 09/03/2012 None Full Exam - General 1995 [...] time 09/03/2012 None Full Exam - General 1995 [...] developed 05/28/2012 None Full Exam - General 1994 Constitutional general appearance Development: appears stated age 0105/28/2012 None Full Exam - General 1995 Constitutional general appearance Stature/Body Habitus: short stature 05/28/2012 None Full Exam - General 1994 Constitutional general appearance Nourishment: obese 05/28/2012 None Full Exam - General 1994 [...] 01/02/2012 None Full Exam - General 1995 Musculoskeletal head and neck Overall: head atraumatic 01/02/2012 None Full Exam - General 1995 Constitutional general appearance Development: well developed 01/02/2012 None Full Exam - General 1995 Constitutional general appearance Development: appears stated age 0801/02/2012 None Full Exam - General 1994 Constitutional general appearance Stature/Body Habitus: short stature 01/02/2012 None Full Exam - General 1994 Constitutional general appearance Nourishment: obese 01/02/2012 None Full Exam - General 1994 Constitutional general appearance Evidence of Distress: in no acute distress 01/02/2012 None Full Exam - General 1995 Constitutional general appearance Hygiene/Attention to Grooming: good hygiene 01/02/2012 None Full Exam - General 1995 Constitutional [...] 1995 Ears/Nose/Throat oral cavity/pharynx/larynx Overall: no masses 08/22/2011 [...] CPT-4: G8553 02/28/2015 THER/PROPH/DIAG INJ SC/IM CPT-4: 31753 07/07/2014 KETOROLAC TROMETHAMINE INJ CPT-4: J1885 07/07/2014 ADMIN PNEUMOCOCCAL VACCINE SNOMED CT: [id number] CPT-4: G0009 05/03/2014 Pneumococcal Polysaccharide Vaccine, 23-Valent, Ad CPT-4: 79986 05/03/2014 ROUTINE VENIPUNCTURE CPT-4: 16132 01/27/2014 ROUTINE VENIPUNCTURE CPT-4: 17207 01/07/2014 THER/PROPH/DIAG INJ SC/IM CPT-4: 80218 08/19/2013 ROCEPHIN, PER 250 MG CPT-4: J0696 08/19/2013 87094 EST. PATIENT, LEVEL IV CPT-4: 56136 07/29/2013 PRESCRIP TRANSMIT VIA ERX SY CPT-4: G8553 07/29/2013 ROUTINE VENIPUNCTURE CPT-4: 95444 07/15/2013 41178 EST. PATIENT, LEVEL IV CPT-4: 36078 07/08/2013 PRESCRIP TRANSMIT VIA ERX SY CPT-4: G8553 07/08/2013 PRESCRIP TRANSMIT VIA ERX SY CPT-4: G8553 04/27/2013 PRESCRIP TRANSMIT VIA ERX SY CPT-4: G8553 09/19/2012 DRAIN/INJECT JOINT/BURSA CPT-4: 11863 09/10/2012 PRESCRIP TRANSMIT VIA ERX SY CPT-4: G8553 09/03/2012 ROUTINE VENIPUNCTURE CPT-4: 57074 09/01/2012 DRAIN/INJECT JOINT/BURSA CPT-4: 55651 06/03/2012 PRESCRIP TRANSMIT VIA ERX SY CPT-4: G8553 06/03/2012 INJ TRIGGER POINT 1/2 MUSCL CPT-4: 61920 05/28/2012 PRESCRIP TRANSMIT VIA ERX SY CPT-4: G8553 05/28/2012 PRESCRIP TRANSMIT VIA ERX SY CPT-4: G8553 05/06/2012 ROUTINE VENIPUNCTURE CPT-4: 53114 04/30/2012 PRESCRIP TRANSMIT VIA ERX SY CPT-4: G8553 03/17/2012 TRIAMCINOLONE ACET INJ NOS CPT-4: J3301 03/12/2012 THER/PROPH/DIAG INJ SC/IM CPT-4: 84426 03/12/2012 ROUTINE VENIPUNCTURE CPT-4: 75558 12/26/2011 ROUTINE VENIPUNCTURE CPT-4: 50275 10/08/2011 ROUTINE VENIPUNCTURE CPT-4: 26441 06/18/2011 ROUTINE VENIPUNCTURE CPT-4: 69629 03/19/2011 REMOVE IMPACTED EAR WAX UNI CPT-4: 08025 01/30/2011 PRESCRIP TRANSMIT VIA ERX SY CPT-4: G8553 01/23/2011 ROUTINE VENIPUNCTURE CPT-4: 61554 01/22/2011 Vital Signs Date Vital 06/19/2017 Blood Pressure 1: 150/72 Code : 8480-6 BMI: 36.8 Code : 68859-2 Heart Rate 1 : 74 bpm Height: 4'11" SpO2: 98% Weight: 182 lbs 02/14/2017 Blood Pressure 1: 150/70 Code : 8480-6 BMI: 36.4 Code : 54846-3 Heart Rate 1 : 60 bpm Height: 4'11" SpO2: 98% Weight: 180 lbs 01/07/2017 Blood Pressure 1: 144/80 Code : 8480-6 BMI: 36.2 Code : 48732-0 Heart Rate 1 : 72 bpm Height: 4'11" SpO2: 98% Weight: 179 lbs 11/14/2016 Blood Pressure 1: 140/84 Code : 8480-6 BMI: 36.4 Code : 98708-7 Heart Rate 1 : 84 bpm Height: 4'11" SpO2: 96% Weight: 180 lbs 10/11/2016 Blood Pressure 1: 148/76 Code : 8480-6 BMI: 36.0 Code : 24436-5 Heart Rate 1 : 71 bpm Height: 4'11" SpO2: 97% Weight: 178 lbs 06/14/2016 Blood Pressure 1: 148/58 Code : 8480-6 BMI: 36.2 Code : 95814-1 Heart Rate 1 : 70 bpm Height: 4'11" SpO2: 95% Weight: 179 lbs 02/27/2016 Blood Pressure 1: 138/68 Code : 8480-6 BMI: 35.2 Code : 78553-3 Heart Rate 1 : 69 bpm Height: 4'12" SpO2: 98% Weight: 177 lbs 02/08/2016 Blood Pressure 1: 138/64 Code : 8480-6 BMI: 35.3 Code : 08763-0 Heart Rate 1 : 73 bpm Height: 4'12" SpO2: 98% Weight: 178 lbs 12/26/2015 Blood Pressure 1: 160/62 Code : 8480-6 BMI: 35.5 Code : 77682-5 Heart Rate 1 : 95 bpm Height: 4'12" SpO2: 97% Weight: 179 lbs 11/29/2015 Height: 4'12" 11/15/2015 Blood Pressure 1: 160/62 Code : 8480-6 BMI: 35.7 Code : 34885-0 Heart Rate 1 : 81 bpm Height: 4'12" SpO2: 97% Weight: 180 lbs 08/01/2015 Blood Pressure 1: 139/72 Code : 8480-6 Blood Pressure 1: 154/72 Code: 8480-6 BMI: 35.7 Code: 26832-4 Heart Rate 1: 78 bpm Height: 4'12" SpO2: 97% Weight: 180 lbs 07/04/2015 Blood Pressure 1: 162/78 Code : 8480-6 BMI: 35.3 Code : 52186-7 Heart Rate 1 : 80 bpm Height: 4'12" SpO2: 98% Weight: 177 lbs 8 oz 02/28/2015 Blood Pressure 1: 146/64 Code : 8480-6 BMI: 35.5 Code : 68829-9 Heart Rate 1 : 80 bpm Height: 4'12" SpO2: 96% Weight: 179 lbs 11/03/2014 Blood Pressure 1: 142/76 Code : 8480-6 BMI: 36.3 Code : 74360-9 Heart Rate 1 : 80 bpm Height: 4'12" Weight: 183 lbs 09/08/2014 Blood Pressure 1: 132/74 Code : 8480-6 Heart Rate 1: 96 bpm Height: SpO2: 96% Weight: 183 lbs 07/07/2014 Blood Pressure 1: 128/78 Code : 8480-6 BMI: 36.7 Code : 76891-1 Heart Rate 1 : 72 bpm Height: 4'12" Weight: 185 lbs 05/03/2014 Blood Pressure 1: 128/72 Code : 8480-6 BMI: 36.9 Code : 93079-6 Heart Rate 1 : 68 bpm Height: 4'12" Weight: 186 lbs 01/27/2014 Blood Pressure 1: 142/64 Code : 8480-6 BMI: 37.1 Code : 95173-9 Heart Rate 1 : 98 bpm Height: 4'12" SpO2: 99% Weight: 187 lbs 01/07/2014 Blood Pressure 1: 140/76 Code : 8480-6 BMI: 36.1 Code : 61872-3 Heart Rate 1 : 78 bpm Height: 4'12" SpO2: 96% Weight: 182 lbs 11/11/2013 Blood Pressure 1: 152/92 Code : 8480-6 BMI: 36.5 Code : 49327-7 Heart Rate 1 : 72 bpm Height: 4'12" Weight: 184 lbs 08/19/2013 Blood Pressure 1: 124/70 Code : 8480-6 BMI: 35.3 Code : 99883-3 Heart Rate 1 : 87 bpm Height: 4'12" SpO2: 98% Temperature: 36.7 (C) / 98.1 (F) Weight: 178 lbs 07/29/2013 Blood Pressure 1: 120/70 Code : 8480-6 BMI: 35.2 Code : 94314-9 Heart Rate 1 : 80 bpm Height: 4'12" Weight: 177 lbs 07/08/2013 Blood Pressure 1: 152/72 Code : 8480-6 BMI: 31.0 Code : 06347-3 Heart Rate 1 : 80 bpm Height: 4'12" SpO2: 94% Weight: 156 lbs 04/27/2013 Blood Pressure 1: 132/72 Code : 8480-6 BMI: 34.4 Code : 14959-4 Heart Rate 1 : 88 bpm Height: [...] Code : 8480-6 BMI: 35.9 Code : 45021-6 Heart Rate 1 : 72 bpm Height: 4'12" Weight: 181 lbs 06/03/2012 Blood Pressure 1: 148/60 Code : 8480-6 Heart Rate 1: 88 bpm Weight: 177 lbs 05/28/2012 Blood Pressure 1: 172/90 Code : 8480-6 Blood Pressure 2: 170/88 Code: 8480-6 Heart Rate 1: 68 bpm Respiratory Rate: 20 bpm 05/06/2012 Blood Pressure 1: 134/60 Code : 8480-6 BMI: 35.3 Code : 45313-1 Heart Rate 1 : 84 bpm Height: 4'12" Respiratory Rate: 24 bpm Weight: 178 lbs 03/17/2012 Blood Pressure 1: 132/80 Code : 8480-6 Heart Rate 1: 68 bpm Weight: 186 lbs 03/12/2012 Blood Pressure 1: 126/80 Code : 8480-6 Heart Rate 1: 76 bpm Weight: 185 lbs 01/02/2012 Blood Pressure 1: 128/74 Code : 8480-6 BMI: 36.9 Code : 97633-2 Heart Rate 1 : 72 bpm Height: 4'12" Respiratory Rate: 16 bpm Weight: 186 lbs 10/10/2011 Blood Pressure 1: 124/48 Code : 8480-6 BMI: 36.3 Code : 14385-0 Heart Rate 1 : 68 bpm Height: [...] Code : 8480-6 BMI: 36.6 Code : 27936-4 Heart Rate 1 : 70 bpm Height: 4'12" Respiratory Rate: 16 bpm Weight: 184 lbs 8 oz 01/30/2011 Blood Pressure 1: 136/64 Code : 8480-6 Heart Rate 1: 77 bpm Weight: 184 lbs 01/23/2011 Blood Pressure 1: 132/60 Code : 8480-6 BMI: 37.3 Code : 44986-9 Heart Rate 1 : 88 bpm Height: [...] data Encounters Encounter Performer Location Codes Date ([id number]) 99284 EST. PATIENT, LEVEL IV Diagnosis: Type 2 diabetes mellitus with hyperglycemia[ICD10: E11.65] Diagnosis: Chronic pain syndrome[ICD10: G89.4] Diagnosis: Essential (primary) hypertension[ICD10: I10] Diagnosis: Calculus of gallbladder without cholecystitis without obstruction[ ICD10: K80.20] Morenita Beal MD, [facility] CPT-4: 84516 06/19/2017 ([id number]) 88200 EST. PATIENT, LEVEL IV Diagnosis: Type 2 diabetes mellitus without complications[ICD10: E11.9] Diagnosis: Chronic pain syndrome[ICD10: G89.4] Diagnosis: Essential (primary) hypertension[ICD10: I10] Morenita Beal MD, [facility] CPT-4: 73103 02/14/2017 67140 EST. PATIENT, LEVEL III Diagnosis: Dysuria[ICD10: R30.0] Agueda Beal MD, [facility] CPT-4: 93218 01/07/2017 ([id number]) 53265 EST. PATIENT, LEVEL IV Diagnosis: Chronic pain syndrome[ICD10: G89.4] Diagnosis: Type 2 diabetes mellitus without complications[ICD10: E11.9] Diagnosis: Slow transit constipation[ICD10: K59.01] Morenita Beal MD, [facility] CPT-4: 72223 11/14/2016 ([id number]) 17666 EST. PATIENT, LEVEL IV Diagnosis: Type 2 diabetes mellitus with hyperglycemia[ICD10: E11.65] Diagnosis: Essential (primary) hypertension[ICD10: I10] Diagnosis: Chronic kidney disease, stage 2 (mild)[ICD10: N18.2] Morenita Beal MD [facility] CPT-4: 36300 10/11/2016 ([id number]) 93859 EST. PATIENT, LEVEL IV Diagnosis: Type 2 diabetes mellitus without complications[ICD10: E11.9] Diagnosis: Chronic pain syndrome[ICD10: G89.4] Diagnosis: Essential (primary) hypertension[ICD10: I10] ADDIE Mcgregor MD CPT-4: 89767 06/14/2016 ([id number]) 79824 EST. PATIENT, LEVEL IV Diagnosis: Type 2 diabetes mellitus without complications[ICD10: E11.9] Diagnosis: Essential (primary) hypertension[ICD10: I10] Morenita Beal MD [facility] CPT-4: 40797 02/27/2016 ([id number]) 02753 EST. PATIENT, LEVEL III Diagnosis: Calculus of gallbladder without cholecystitis without obstruction[ ICD10: K80.20] Diagnosis: Slow transit constipation[ICD10: K59.01] Morenita Beal MD [facility] CPT-4: 19909 02/08/2016 ([id number]) 74386 EST. PATIENT, LEVEL IV Diagnosis: Essential (primary) hypertension[ICD10: I10] Diagnosis: Chronic pain syndrome[ICD10: G89.4] Diagnosis: Slow transit constipation[ICD10: K59.01] Morenita Beal MD [facility] CPT-4: 17346 12/26/2015 ([id number]) Miscellaneous no charge Diagnosis: Other [facility] (current[facility] drug therapy[ICD10: Z79.899] Morenita Beal MD [facility] CPT-4: 61839 11/29/2015 14999 EST. PATIENT, LEVEL IV Diagnosis: Acute laryngopharyngitis[ICD10: J06.0] Diagnosis: Other acute sinusitis[ICD10: J01.80] Agueda Beal MD [facility] CPT-4: 05800 11/15/2015 ([id number]) 34255 EST. PATIENT, LEVEL III Diagnosis: Essential (primary) hypertension[ICD10: I10] Diagnosis: Chronic pain syndrome[ICD10: G89.4] Morenita Beal MD, [facility] CPT-4: 58426 08/01/2015 ([id number]) 54799 EST. PATIENT, LEVEL IV Diagnosis: Type 2 diabetes mellitus with hyperglycemia[ICD10: E11.65] Diagnosis: Essential (primary) hypertension[ICD10: I10] Diagnosis: Slow transit constipation[ICD10: K59.01] Morenita Beal MD, [facility] CPT-4: 98944 07/04/2015 ([id number]) 54125 EST. PATIENT, LEVEL IV Diagnosis: Essential (primary) hypertension[ICD10: I10] Diagnosis: Type 2 diabetes mellitus with hyperglycemia[ICD10: E11.65] Diagnosis: Other forms of dyspnea[ICD10: R06.09] Diagnosis: Shortness of breath[ICD10: R06.02] Diagnosis: Other chest pain[ICD10: R07.89] Diagnosis: Calculus of gallbladder without cholecystitis without obstruction[ ICD10: K80.20] Morenita Beal MD, [facility] CPT-4: 61696 02/28/2015 ([id number]) 84282 EST. PATIENT, LEVEL IV Diagnosis: ESSENTIAL HYPERTENSION[ICD9: 401.9] Diagnosis: DIABETES TYPE II[ICD9: 250.00] Diagnosis: CHRONIC PAIN SYNDROME[ICD9: 338.4] Morenita Beal MD [facility] CPT-4: 73300 11/03/2014 ([id number]) 95065 EST. PATIENT, LEVEL IV Diagnosis: DIABETES TYPE II[ICD9: 250.00] Diagnosis: ESSENTIAL HYPERTENSION[ICD9: 401.9] Diagnosis: CHRONIC PAIN SYNDROME[ICD9: 338.4] Morenita Beal MD, [facility] CPT-4: 58319 09/08/2014 ([id number]) 32440 EST. PATIENT, LEVEL IV Diagnosis: DIABETES TYPE II[ICD9: 250.00] Diagnosis: CHRONIC PAIN SYNDROME[ICD9: 338.4] Diagnosis: ESSENTIAL HYPERTENSION[ICD9: 401.9] Diagnosis: CARPAL TUNNEL SYNDROME[ICD9: 354.0] Morenita Beal MD, [facility] CPT-4: 35834 07/07/2014 ([id number]) 71597 EST. PATIENT, LEVEL IV Diagnosis: ESSENTIAL HYPERTENSION[ICD9: 401.9] Diagnosis: DIABETES TYPE II[ICD9: 250.00] Diagnosis: Biceps tendonitis[ICD9: 726.12] Diagnosis: Osteoarthritis[ICD9: 715.90] Morenita Beal MD [facility] CPT- 4: 07922 05/03/2014 ([id number]) 09011 EST. PATIENT, LEVEL IV Diagnosis: DIABETES TYPE II[ICD9: 250.00] Diagnosis: ESSENTIAL HYPERTENSION[ICD9: 401.9] Diagnosis: Peripheral neuropathy[ICD9: 356.9] Diagnosis: CHRONIC PAIN SYNDROME[ICD9: 338.4] Morenita Beal MD [facility] CPT-4: 28867 01/27/2014 ([id number]) 62340 EST. PATIENT, LEVEL III Diagnosis: Diarrhea[ICD9: 787.91] Diagnosis: ESSENTIAL HYPERTENSION[ICD9: 401.9] Diagnosis: Medication side effect[ICD9: 995.20] Diagnosis: DIABETES TYPE II[ICD9: 250.00] Dorie Beal MD, [facility] CPT-4: 19712 01/07/2014 ([id number]) 22485 EST. PATIENT, LEVEL IV Diagnosis: ESSENTIAL HYPERTENSION[ICD9: 401.9] Diagnosis: DIABETES TYPE II[ICD9: 250.00] Diagnosis: Back pain[ICD9: 724.5] Diagnosis: UNEQUAL LEG LENGTH[ICD9: 736.81] Morenita Beal MD [facility] CPT-4: 89853 11/11/2013 ([id number]) 26720 EST. PATIENT, LEVEL III Diagnosis: BACTERIAL PNEUMONIA[ICD9: 482.9] Diagnosis: Cough[ICD9: 786.2] Morenita Beal MD [facility] CPT-4: 31765 08/19/2013 ([id number]) 15032 EST. PATIENT, LEVEL IV Diagnosis: DIABETES TYPE II[SNOMED: 763570798] Diagnosis: ESSENTIAL HYPERTENSION[SNOMED: 44408788] Diagnosis: Chronic pain syndrome[ICD9: 338.4] Diagnosis: Peripheral neuropathy[ICD9: 356.9] Morenita Beal MD, [facility] CPT-4: 62314 04/27/2013 ([id number]) 91563 EST. PATIENT, LEVEL IV Diagnosis: ESSENTIAL HYPERTENSION[SNOMED: 69515123] Diagnosis: DIABETES TYPE II[SNOMED: 981943138] Diagnosis: Weakness[ICD9: 780.79] Morenita Beal MD [facility] CPT-4: 45674 02/09/2013 ([id number]) 80512 EST. PATIENT, LEVEL III Diagnosis: OSTEOARTH NOS-UNSPEC[ICD9: 715.90] Dorie Beal MD [facility] CPT-4: 39629 09/19/2012 ([id number]) 52149 EST. PATIENT, LEVEL III Diagnosis: Sacroiliitis[ICD9: 720.2] Diagnosis: Sciatica[ICD9: 724.3] Diagnosis: Lumbago[ICD9: 724.2] Dorie Beal MD [facility] CPT-4: 31217 09/10/2012 ([id number]) 36452 EST. PATIENT, LEVEL IV Diagnosis: DIABETES TYPE II[SNOMED: 426681571] Diagnosis: HYPERLIPIDEMIA[ICD9: 272.4] Diagnosis: ESSENTIAL HYPERTENSION[SNOMED: 46140034] Morenita Beal MD [facility] CPT-4: 42003 09/03/2012 ([id number]) 14521 EST. PATIENT, LEVEL III Diagnosis: ESSENTIAL HYPERTENSION[SNOMED: 86842798] Morenita Beal MD [facility] CPT-4: 24269 06/03/2012 ([id number]) 89374 EST. PATIENT, LEVEL III Diagnosis: JOINT PAIN-SHLDER[ICD9: 719.41] Diagnosis: Musculoskeletal disorder and symptoms referable to neck[ICD9: 723.9] Diagnosis: Spasm of muscle[ICD9: 728.85] Morenita Beal MD [facility] CPT- 4: 79955 05/28/2012 ([id number]) 79109 EST. PATIENT, LEVEL IV Diagnosis: DIABETES TYPE II[SNOMED: 869106060] Diagnosis: ESSENTIAL HYPERTENSION[SNOMED: 03146285] Diagnosis: HYPERLIPIDEMIA[ICD9: 272.4] Morenita Beal MD [facility] CPT- 4: 50959 05/06/2012 ([id number]) 77640 EST. PATIENT, LEVEL III Diagnosis: Biceps tendonitis[ICD9: 726.12] Morenita Beal MD, [facility] CPT- 4: 21316 03/17/2012 90663 EST. PATIENT, LEVEL III Diagnosis: Biceps tendonitis[ICD9: 726.12] Diagnosis: Shoulder pain[ICD9: 719.41] Morenita Beal MD [facility] CPT- 4: 13464 03/12/2012 ([id number]) 52515 EST. PATIENT, LEVEL IV Diagnosis: DIABETES TYPE II[SNOMED: 544056977] Diagnosis: ESSENTIAL HYPERTENSION[SNOMED: 59726691] Diagnosis: HYPERLIPIDEMIA[ICD9: 272.4] Morenita Beal MD [facility] CPT- 4: 72080 01/02/2012 ([id number]) 08977 EST. PATIENT, LEVEL IV Diagnosis: ESSENTIAL HYPERTENSION[SNOMED: 09624778] Diagnosis: DM W/O COMPLICATION TYPE II, UNCONTROLLED[SNOMED: 37679820] Diagnosis: HYPERLIPIDEMIA[ICD9: 272.4] Morenita Beal MD, [facility] CPT- 4: 32155 10/10/2011 ([id number]) 85126 EST. PATIENT, LEVEL IV Diagnosis: Osteoarthritis[ICD9: 715.90] Diagnosis: Fatigue[ICD9: 780.79] Dorie Beal MD [facility] CPT-4: 96840 08/22/2011 ([id number]) 48300 EST. PATIENT, LEVEL IV Diagnosis: Diabetes mellitus type 2, uncontrolled[SNOMED: 08708359] Diagnosis: ESSENTIAL HYPERTENSION[SNOMED: 16935858] Diagnosis: HYPERLIPIDEMIA[ICD9: 272.4] Morenita Beal MD, [facility] CPT- 4: 27608 06/20/2011 15206 EST. 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 PATIENT, LEVEL IV Diagnosis: DM W/O COMPLICATION TYPE I, UNCONTROLLED[SNOMED: 26148396] Diagnosis: HYPERLIPIDEMIA[ICD9: 272.4] Diagnosis: ESSENTIAL HYPERTENSION[SNOMED: 28565837] Diagnosis: OBESITY[ICD9: 278.00] Diagnosis: Cerumen impaction[ICD9: 380.4] Morenita Beal MD, [facility] CPT- 4: 23299 01/23/2011 Plan of Care Planned Activity Notes Codes Status Date Patient Education: Patient Medication Summary Completed 06/19/2017 Care Plan: Referral Order SNOMED-CT : 408707889 Pending 06/19/2017 Appointment: Morenita Beal WPtel: [phone] [facility] (15 min) Moderate 02/14/2017 Patient Education: Patient Medication Summary Completed 02/14/2017 Patient Education: Obesity Completed 02/14/2017 App[facility]ment[phone] [place] (30 min) Complex 01/07/2017 Patient Education: Patient Medication Summary Completed 01/07/2017 Care Plan: Urine Culture Cancelled 01/07/2017 App[facility]ment[phone] [place] (15 min) Moderate 11/14/2016 Patient Education: Patient Medication Summary Completed 11/14/2016 Patient Education: Obesity Completed 11/14/2016 Appointment: Morenita Beal [facility]Ptel: [facility] [place] (15 min) Moderate 10/11/2016 Patient Education: Patient Medication Summary Completed 10/11/2016 Patient Education: Obesity Completed 10/11/2016 Appointment: [phone] [facility] [place] (15 min) Moderate 06/14/2016 Patient Education: Patient Medication Summary Completed 06/14/2016 Patient Education: Obesity Completed 06/14/2016 Patient Education: Patient Medication Summary Completed 02/27/2016 Patient Education: Obesity Completed 02/27/2016 Appointment: [phone] [facility] [place] (15 min) Moderate 02/08/2016 Patient Education: Patient Medication Summary Completed 02/08/2016 Patient Education: Obesity Completed 02/08/2016 Care Plan: ECHO EXAM OF ABDOMEN Pending 02/08/2016 Appointment: Morenita Beal WPtel: [address] [place], [place] [address] [place] (15 min) Moderate 12/26/2015 Patient Education: Patient Medication Summary Completed 12/26/2015 Patient Education: Obesity Completed 12/26/2015 Patient Education: Hypertension Completed 12/26/2015 Patient Education: Patient Medication Summary Completed 11/29/2015 Patient Education: Patient Medication Summary Completed 11/15/2015 Patient Education: Obesity Completed 11/15/2015 Patient Education: Patient Medication Summary Completed 08/01/2015 Patient Education: Obesity Completed 08/01/2015 Patient Education: Hypertension Completed 08/01/2015 Patient Education: Patient Medication Summary Completed 07/04/2015 Patient Education: Hypertension Completed 07/04/2015 Appointment: Morenita Beal WPtel: [address] [place] [address] (15 min) Moderate 02/28/2015 Patient Education: Patient Medication Summary Completed 02/28/2015 Patient Education: Hypertension Completed 02/28/2015 Care Plan: Referral Order SNOMED-CT : [id number] Ordered 02/28/2015 Appointment: Morenita Beal WPtel: [address] [place] [address] (15 min) Moderate 11/03/2014 Patient Education: Patient Medication Summary Completed 11/03/2014 Patient Education: Hypertension Completed 11/03/2014 Appointment: Morenita Beal [facility]el: [facility] Follow up 09/08/2014 Patient Education: Patient Medication Summary Completed 09/08/2014 Patient Education: Hypertension Completed 09/08/2014 Appointment: Morenita Beal WPtel: [facility] Sick 07/07/2014 Patient Education: Patient Medication Summary Completed 07/07/2014 Patient Education: Hypertension Completed 07/07/2014 Patient Education: Patient Medication Summary Completed 05/03/2014 Patient Education: Hypertension Completed 05/03/2014 Appointment: Morenita Beal WPtel: [address] [place], [place] [phone] Follow up 04/29/2014 Appointment: Morenita Beal WPtel: [address] [place] [phone] Follow up 01/27/2014 Patient Education: Patient Medication Summary Completed 01/27/2014 Patient Education: Hypertension Completed 01/27/2014 Appointment: Sick 01/07/2014 Patient Education: Patient Medication Summary Completed 01/07/2014 Patient Education: Hypertension Completed 01/07/2014 Appointment: Morenita Beal WPtel: [address] [place] [phone] Follow up 11/11/2013 Patient Education: Patient Medication Summary Completed 11/11/2013 Patient Education: Hypertension Completed 11/11/2013 Appointment: Morenita Beal WPtel: [address] [place] [phone] Follow up 09/02/2013 Appointment: Morenita Beal WPtel: [address] [place] [phone] Sick 08/19/2013 Patient Education: Patient Medication Summary Completed 08/19/2013 Appointment: Morenita Beal WPtel: [address] [place] [phone] Follow up 07/29/2013 Appointment: Morenita Beal WPtel: [address] [place] [phone] Follow up 07/29/2013 Patient Education: Patient Medication Summary Completed 07/29/2013 Patient Education: Hypertension Completed 07/29/2013 Patient Education: Patient Medication Summary Completed 07/15/2013 Patient Education: Hypertension Completed 07/15/2013 Appointment: Morenita Beal WPtel: [address] [place] [phone] Follow up 07/08/2013 Patient Education: Patient Medication Summary Completed 07/08/2013 Patient Education: Hypertension Completed 07/08/2013 Appointment: Morenita Beal [facility]Ptel: [facility] Follow up 07/06/2013 Appointment: Morenita Beal WPtel: [address] [place] [phone] Follow up 04/27/2013 Patient Education: Patient Medication Summary Completed 04/27/2013 Patient Education: Hypertension Completed 04/27/2013 Appointment: Morenita Beal WPtel: [address] [place] [phone] Follow up 04/20/2013 Appointment: Morenita Beal WPtel: [address] [place] [address] Follow up 02/09/2013 Patient Education: Patient Medication Summary Completed 02/09/2013 Patient Education: Hypertension Completed 02/09/2013 Appointment: Morenita Beal WPtel: [address] [place] [address] Follow up 12/03/2012 Appointment: Dorie Ho WPtel: [phone] Other 09/19/2012 Patient Education: Patient Medication Summary Completed 09/19/2012 Appointment: Dorie Ho WPtel: [phone] Other 09/10/2012 Patient Education: Patient Medication Summary Completed 09/10/2012 Patient Education: .Amazing charts Exercise for Sciatica Completed 09/10/2012 Appointment: Morenita Beal WPtel: [facility] Follow up 09/03/2012 Patient Education: Patient Medication Summary Completed 09/03/2012 Patient Education: Hypertension Completed 09/03/2012 Patient Education: Patient Medication Summary Completed 09/01/2012 Patient Education: Hypertension Completed 09/01/2012 Appointment: [facility] Ho [facility]el[phone] [place] Other 06/03/2012 Patient Education: Patient Medication Summary Completed 06/03/2012 Patient Education: Hypertension Completed 06/03/2012 Appointment: Dorie Ho WPtel: [phone] [place] Other 05/28/2012 Patient Education: Patient Medication Summary Completed 05/28/2012 Patient Education: .Cervicalgia Neck Pain Completed 05/28/2012 Appointment: Morenita Beal WPtel: [address] [place], [place] [phone] Follow up 05/06/2012 Patient Education: Patient Medication Summary Completed 05/06/2012 Patient Education: Hypertension Completed 05/06/2012 Patient Education: Patient Medication Summary Completed 04/30/2012 Patient Education: Hypertension Completed 04/30/2012 Appointment: Dorie Ho WPtel: [phone] Sick 04/09/2012 Appointment: Morenita Beal WPtel: [address] [place] [phone] Follow up 03/17/2012 Patient Education: Patient Medication Summary Completed 03/17/2012 Appointment: Dorie Ho WPtel: [address] [place], [place] [phone] [place] Other 03/12/2012 Patient Education: Patient Medication Summary Completed 03/12/2012 Appointment: Morenita Beal WPtel: [facility] Other 01/02/2012 Patient Education: Patient Medication Summary Completed 01/02/2012 Patient Education: High Blood Pressure: Essential Hypertension Completed 2011 Appointment: Morenita Beal WPtel: [facility] [place] Lab Draw 12/26/2011 Patient Education: Patient Medication Summary Completed 12/26/2011 Patient Education: High Blood Pressure: Essential Hypertension Completed 2011 Appointment: Morenita Beal WPtel: [facility] Other 10/17/2011 Appointment: Morenita Beal WPtel: [address] [place] [address] Other 10/10/2011 Patient Education: Patient Medication Summary Completed 10/10/2011 Patient Education: High Blood Pressure: Essential Hypertension Completed 2011 Patient Education: Patient Medication Summary Completed 10/08/2011 Patient Education: High Blood Pressure: Essential Hypertension Completed 2011 App[facility]ment[id number] Other 08/22/2011 Patient Education: Patient Medication Summary Completed 08/22/2011 Appointment: Morenita Beal WPtel: [address] [place], [place] [id number] Other 06/20/2011 Patient Education: Patient Medication Summary Completed 06/20/2011 Patient Education: High Blood Pressure: Essential Hypertension Completed 2011 Appointment: Morenita Beal WPtel: [address] [place], [place] [id number] Lab Draw 06/18/2011 Patient Education: Patient Medication Summary Completed 06/18/2011 Patient Education: High Blood Pressure: Essential Hypertension Completed 2011 Appointment: Morenita Beal WPtel: [address] [place], [place] [id number] Other 03/21/2011 Patient Education: Patient Medication Summary Completed 03/21/2011 Patient Education: High Blood Pressure: Essential Hypertension Completed 2010 Patient Education: .Amazing charts Diabetic meal planning guide Completed 03/21 Patient Education: Obesity Completed 03/21/2011 Appointment: Morenita Beal WPtel: [address] [place], [place] [id number] Lab Draw 03/19/2011 Patient Education: Patient Medication Summary Completed 03/19/2011 Appointment: Dorie Ho WPtel: [address] [place], [place] [id number] Follow up 01/30/2011 Patient Education: Patient Medication Summary Completed 01/30/2011 Appointment: Morenita Beal WPtel: [address] [place], [place] [id number] Other 01/23/2011 Patient Education: Patient Medication Summary Completed 01/23/2011 Appointment: Morenita Beal WPtel: [id number] [place] Lab Draw 01/22/2011 Patient Education: Patient Medication Summary Completed 01/22/2011 Referral: Helder Vila [address] [facility] [place] Referral Appointment Requested Referral: Mar Garcia [address] [facility] [address] [id number] [place] Referral Appointment Requested Instructions No Instructions
--- OUTSIDE RECORDS SUMMARY | 2017-07-12 10:37 | XMS REPORT | CCD ---
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/[address]: [id number] Never smoker 01/22/[address]: 093297962 Never drinks alcohol 01/22/2011 Has the patient [...] 401.9 ICD-10: I10 Active 11/11/2013 Unknown Other skilled nursing (current) drug therapy ICD-9: V58.69 ICD-10: Z79.899 [...] Unknown Hypertension Unknown Active 03/21/2011 Unknown 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 03/21/2011 Unknown Diabetes Unknown [...] ICD-9: 401.9 ICD-10: I10 11/11/2013 Active 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 ICD-9: V58.69 ICD-10: Z79.899 [...] 08/22/2011 Active Hypertension Unknown 03/21/2011 Active 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 03/21/2011 Active Diabetes Unknown 03/19/2011 [...] 25 mg tablet,extended release 24 hr RxNorm: 016899 TAKE ONE TABLET BY MOUTH EVERY EVENING 06/13/2017 06/07/2018 Active gabapentin 100 mg capsule RxNorm: 137615 TAKE ONE CAPSULE BY MOUTH EVERY EVENING 06/13/2017 06/07/2018 Active Zithromax Z-Joseph 250 mg tablet RxNorm: 789775 1 Tablet(s) PO UD as directed 05/15/2017 05/19/2017 Inactive Duragesic 25 mcg/hr transdermal patch RxNorm: 708089 1 Patch TD Q72H 05/01/2017 07/29/2017 Active Duragesic 25 mcg/hr transdermal patch RxNorm: 559970 1 Patch TD Q72H 01/30/2017 02/28/2017 Inactive Diflucan 150 mg tablet RxNorm: 083091 1 Tablet(s) PO daily 01/09/2017 Inactive Lantus Solostar 100 unit/mL (3 mL) subcutaneous insulin pen RxNorm: 235450 Unit( s) INJECT 25 UNITS UNDER THE SKIN EVERY MORNING AND 15 UNITS AT BEDTIME, dr to adjust based on glucose readings. 10/11/2016 10/05/2017 Active Duragesic 25 mcg/hr transdermal patch RxNorm: 840585 1 Patch TD Q72H 10/01/2016 10/30/2016 Inactive Duragesic 25 mcg/hr transdermal patch RxNorm: 950438 1 Patch TD Q72H 08/28/2016 09/26/2016 Inactive senna 8.6 mg tablet RxNorm: 059778 1 Tablet(s) PO TIW 201606/09/2017 Inactive losartan 100 mg tablet RxNorm: 041973 1 Tablet(s) PO daily 07/09/2017 Active omeprazole 40 mg capsule,delayed release RxNorm: 425624 1 Capsule(s) PO QPM 06/15/2016 06/09/2017 Inactive metformin ER 500 mg tablet,extended release 24 hr RxNorm: 414893 1 Tablet(s) daily 06/15/2016 07/09/2017 Active gabapentin 100 mg capsule RxNorm: 029236 1 Capsule(s) TAKE ONE CAPSULES BY MOUTH EVERY EVENING 06/15/2016 06/12/2017 Inactive metoprolol succinate ER 25 mg tablet,extended release 24 hr RxNorm: 665654 1 Tablet(s) PO QPM 06/15/2016 06/12/2017 Inactive metformin ER 500 mg tablet,extended release 24 hr RxNorm: 168684 1 Tablet(s) daily 06/14/2016 06/14/2016 Inactive Lantus Solostar 100 unit/mL (3 mL) subcutaneous insulin pen RxNorm: 539645 Unit( s) INJECT 28 UNITS UNDER THE SKIN EVERY MORNING AND 20 UNITS AT BEDTIME 06/14/2016 10/10/2016 Inactive Duragesic 25 mcg/hr transdermal patch RxNorm: 129066 1 Patch TD Q72H 05/29/2016 06/27/2016 Inactive Duragesic 25 mcg/hr transdermal patch RxNorm: 143582 1 TD Q72H 04/25/2016 05/24/2016 Inactive metoprolol succinate ER 25 mg tablet,extended release 24 hr RxNorm: 027501 1 Tablet(s) PO QPM 12/26/2015 06/14/2016 Inactive gabapentin 100 mg capsule RxNorm: 653973 1 Capsule(s) TAKE ONE CAPSULES BY MOUTH EVERY EVENING 12/26/2015 06/14/2016 Inactive Duragesic 25 mcg/hr transdermal patch RxNorm: 345095 1 TD Q72H 12/26/2015 02/23/2016 Inactive Augmentin 500 mg-125 mg tablet RxNorm: 998830 1 Tablet(s) PO TID 11/15/2015 11/21/2015 Inactive Duragesic 25 mcg/hr transdermal patch RxNorm: 820306 1 TD Q72H 10/25/2015 11/23/2015 Inactive [SAVINGS FOR NON-COVERED DRUGS -- BIN:[id number], PCN: ASPROD1, Group: XXXXX, ID# [id number], Questions: . THIS IS NOT INSURANCE.] Duragesic 25 mcg/hr transdermal patch RxNorm: 466998 1 TD Q72H 08/29/2015 10/24/2015 Inactive [SAVINGS FOR NON-COVERED DRUGS -- BIN:270758, PCN: ASPROD1, Group: XXXXX, ID# [id number], Questions: . THIS IS NOT INSURANCE.] gabapentin 100 mg capsule RxNorm: 732147 1 Capsule(s) TAKE ONE CAPSULES BY MOUTH EVERY EVENING 08/29/2015 10/27/2015 Inactive glimepiride 2 mg tablet RxNorm: 609993 TAKE ONE TABLET BY MOUTH EVERY MORNING 08/08/2015 12/25/2015 Inactive Duragesic 25 mcg/hr transdermal patch RxNorm: 261171 1 TD Q72H 08/01/2015 08/28/2015 Inactive [SAVINGS FOR NON-COVERED DRUGS -- BIN:[id number], PCN: ASPROD1, Group: XXXXX, ID# [id number], Questions: . THIS IS NOT INSURANCE.] Lantus Solostar 100 unit/mL (3 mL) subcutaneous insulin pen RxNorm: 460054 Unit( s) INJECT 23 UNITS UNDER THE SKIN EVERY MORNING AND 15 UNITS AT BEDTIME 07/13/2015 06/13/2016 Inactive gabapentin 100 mg capsule RxNorm: 661462 1 Capsule(s) TAKE ONE CAPSULES BY MOUTH EVERY EVENING 07/04/2015 08/28/2015 Inactive losartan 100 mg tablet RxNorm: 699009 1 Tablet(s) PO daily 12/201506/14/2016 Inactive senna 8.6 mg tablet RxNorm: 576299 1 Tablet(s) PO TIW 201506/14/2016 Inactive metformin ER 500 mg tablet,extended release 24 hr RxNorm: 319659 Tablet(s) TAKE 1 TABLET BY MOUTH TWO TIMES A DAY. 06/29/2015 06/28/2015 Inactive metformin ER 500 mg tablet,extended release 24 hr RxNorm: 071787 TAKE 1 TABLET BY MOUTH TWO TIMES A DAY. 06/29/20152016 Inactive Duragesic 25 mcg/hr transdermal patch RxNorm: 010595 1 TD Q72H 05/24/2015 07/22/2015 Inactive [SAVINGS FOR NON-COVERED DRUGS -- BIN:692222, PCN: ASPROD1, Group: XXXXX, ID# [id number], Questions: . THIS IS NOT INSURANCE.] Augmentin 500 mg-125 mg tablet RxNorm: 490163 1 Tablet(s) PO TID 05/11/2015 05/10/2015 Inactive Augmentin 500 mg-125 mg tablet RxNorm: 729831 1 Tablet(s) PO TID 05/11/2015 05/17/2015 Inactive Keflex 500 mg capsule RxNorm: 425149 1 Capsule(s) PO TID 201405/09/2015 Inactive Keflex 500 mg capsule RxNorm: 484820 1 Capsule(s) PO TID 201405/02/2015 Inactive gabapentin 100 mg capsule RxNorm: 998653 TAKE TWO CAPSULES BY MOUTH EVERY EVENING 04/25/2015 06/23/2015 Inactive omeprazole 40 mg capsule,delayed release RxNorm: 967407 1 Capsule(s) PO daily as needed 02/28/2015 06/27/2015 Inactive omeprazole 40 mg capsule,delayed release RxNorm: 314464 1 Capsule(s) PO QPM 02/28/2015 02/22/2016 Inactive Duragesic 25 mcg/hr transdermal patch RxNorm: 834301 1 TD Q72H 02/21/2015 04/21/2015 Inactive [SAVINGS FOR NON-COVERED DRUGS -- BIN:126331, PCN: ASPROD1, Group: XXXXX, ID# [id number], Questions: . THIS IS NOT INSURANCE.] losartan 25 mg tablet RxNorm: 310059 1 Tablet(s) PO BID 201407/03/2015 Inactive Duragesic 25 mcg/hr transdermal patch RxNorm: 543202 1 TD Q72H 12/21/2014 02/18/2015 Inactive [SAVINGS FOR NON-COVERED DRUGS -- BIN:980630, PCN: ASPROD1, Group: XXXXX, ID# [id number], Questions: . THIS IS NOT INSURANCE.] losartan 25 mg tablet RxNorm: 264958 1 Tablet(s) PO BID 201401/05/2015 Inactive losartan 25 mg tablet RxNorm: 961243 TAKE ONE TABLET BY MOUTH EVERY EVENING 11/18/2014 07/25/2015 Inactive losartan 25 mg tablet RxNorm: 277738 TAKE ONE TABLET BY MOUTH EVERY EVENING 11/18/2014 07/31/2015 Inactive Bactrim DS 800 mg-160 mg tablet RxNorm: 939795 1 Tablet(s) PO BID 10/27/2014 10/26/2014 Inactive take a probiotic TID while on the ABT Bactrim DS 800 mg-160 mg tablet RxNorm: 042380 1 Tablet(s) PO BID 10/27/2014 11/05/2014 Inactive take a probiotic TID while on the ABT losartan 25 mg tablet RxNorm: 274176 1 Tablet(s) PO BID 201411/18/2014 Inactive gabapentin 100 mg capsule RxNorm: 678907 TAKE TWO CAPSULES BY MOUTH EVERY EVENING 10/11/2014 01/08/2015 Inactive Duragesic 25 mcg/hr transdermal patch RxNorm: 629543 1 TD Q72H 09/08/2014 10/07/2014 Inactive [SAVINGS FOR NON-COVERED DRUGS -- BIN:124021, PCN: ASPROD1, Group: XXXXX, ID# [id number], Questions: . THIS IS NOT INSURANCE.] meloxicam 15 mg tablet RxNorm: 519645 1 Tablet(s) PO QPM 201409/07/2014 Inactive [SAVINGS FOR NON-COVERED DRUGS -- BIN:847978, PCN: ASPROD1, Group: XXXXX, ID # [id number], Questions: . THIS IS NOT INSURANCE.] meloxicam 15 mg tablet RxNorm: 507469 1 Tablet(s) PO QPM 201407/03/2015 Inactive [SAVINGS FOR NON-COVERED DRUGS -- BIN:478997, PCN: ASPROD1, Group: XXXXX, ID # [id number], Questions: . THIS IS NOT INSURANCE.] Duragesic 25 mcg/hr transdermal patch RxNorm: 994343 1 TD Q72H 08/23/2014 09/07/2014 Inactive [SAVINGS FOR NON-COVERED DRUGS -- BIN:984156, PCN: ASPROD1, Group: XXXXX, ID# [id number], Questions: . THIS IS NOT INSURANCE.] glimepiride 2 mg tablet RxNorm: 017708 TAKE ONE TABLET BY MOUTH EVERY MORNING 07/08/2014 01/03/2015 Inactive ketorolac 60 mg/2 mL intramuscular solution RxNorm: 286664 Milliliter(s) IM 07/07/2014 07/07/2014 Inactive [SAVINGS FOR UNINSURED PATIENTS -- BIN:825760, PCN: ASPROD1, Group: AME08, ID# [id number], Process claim through [employer], for questions: . THIS IS NOT INSURANCE.] Duragesic 25 mcg/hr transdermal patch RxNorm: 120052 1 TD Q72H 07/07/2014 08/05/2014 Inactive [SAVINGS FOR UNINSURED PATIENTS -- BIN:722522, PCN: ASPROD1, Group: AME08, ID# [id number], Process claim through [employer], for questions: [phone]. THIS IS NOT INSURANCE.] meloxicam 15 mg tablet RxNorm: 897164 1 Tablet(s) PO QPM 201409/04/2014 Inactive [SAVINGS FOR UNINSURED PATIENTS -- BIN:972380, PCN: ASPROD1, Group: AME08, ID # [id number], Process claim through [employer], for questions: . THIS IS NOT INSURANCE.] glimepiride 2 mg tablet RxNorm: 120474 1 Tablet(s) QAM TAKE ONE TABLET BY MOUTH EVERY MORNING 07/07/2014 07/07/2014 Inactive [SAVINGS FOR UNINSURED PATIENTS -- BIN :987617, PCN: ASPROD1, Group: AME08, ID# [id number], Process claim through [employer], for questions: . THIS IS NOT INSURANCE.] Duragesic 25 mcg/hr transdermal patch RxNorm: 242331 1 TD Q72H 06/22/2014 07/06/2014 Inactive [SAVINGS FOR UNINSURED PATIENTS -- BIN:520019, PCN: ASPROD1, Group: AME08, ID# [id number], Process claim through [employer], for questions: [phone]. THIS IS NOT INSURANCE.] Lantus Solostar 100 unit/mL (3 mL) subcutaneous insulin pen RxNorm: 008063 INJECT 23 UNITS UNDER THE SKIN EVERY MORNING AND 15 UNITS AT BEDTIME 06/20/2014 06/14/2015 Inactive metformin ER 500 mg tablet,extended release 24 hr RxNorm: 450582 TAKE 1 TABLET BY MOUTH TWO TIMES A DAY. 06/20/20142015 Inactive glimepiride 2 mg tablet RxNorm: 497578 TAKE ONE TABLET BY MOUTH EVERY MORNING 05/18/2014 07/06/2014 Inactive glimepiride 2 mg tablet RxNorm: 019470 Tablet(s) PO TAKE ONE TABLET BY MOUTH EVERY MORNING 05/18/2014 05/17/2014 Inactive Voltaren 1 % topical gel RxNorm: 959541 4 Gram(s) TOP QID 05/0308/30/2014 Inactive gabapentin 100 mg capsule RxNorm: 082733 2 Capsule(s) PO QPM 08/30/2014 Inactive Duragesic 25 mcg/hr transdermal patch RxNorm: 091899 1 TD Q72H 04/12/2014 05/11/2014 Inactive Duragesic 25 mcg/hr transdermal patch RxNorm: 857085 1 TD Q72H 03/08/2014 04/06/2014 Inactive gabapentin 300 mg capsule RxNorm: 602744 1 Capsule(s) PO QPM 05/02/2014 Inactive Lantus Solostar 100 unit/mL (3 mL) subcutaneous insulin pen RxNorm: 943409 25 q am 18 hs Unit(s) SQ BID patient states she recieves 5 pens at a time 02/01/2014 02/25/2015 Inactive Duragesic 25 mcg/hr transdermal patch RxNorm: 619731 1 TD Q72H 01/27/2014 02/25/2014 Inactive gabapentin 400 mg capsule RxNorm: 409861 1 Capsule(s) PO QPM 03/07/2014 Inactive Duragesic 12 mcg/hr transdermal patch RxNorm: 515834 1 TD Q72H 01/15/2014 01/26/2014 Inactive gabapentin 600 mg tablet RxNorm: 346280 1 Tablet(s) PO QPM 01/26/2014 Inactive gabapentin 800 mg tablet RxNorm: 600806 1 Capsule(s) PO QPM 01/06/2014 Inactive Duragesic 25 mcg/hr transdermal patch RxNorm: 523272 1 Patch TD Q72H 11/11/2013 12/10/2013 Inactive losartan 25 mg tablet RxNorm: 501363 1 Tablet(s) PO QPM 201310/25/2014 Inactive glimepiride 2 mg tablet RxNorm: 943436 Tablet(s) PO TAKE ONE TABLET BY MOUTH EVERY MORNING 08/28/2013 05/17/2014 Inactive cefdinir 300 mg capsule RxNorm: 143830 1 Capsule(s) PO BID 08/28/2013 Inactive Rocephin 500 mg solution for injection RxNorm: 269589 1 Inj 08/19/2013 Inactive Zithromax Z-Joseph 250 mg tablet RxNorm: 452900 Tablet(s) PO as directed 08/14/2013 No Stop Date Active gabapentin 800 mg tablet RxNorm: 535288 1 Capsule(s) PO TID 04/201411/10/2013 Inactive metformin ER 500 mg tablet,extended release 24 hr RxNorm: 898724 Tablet(s) PO TAKE 1 TABLET BY MOUTH TWO TIMES A DAY. 06/22/2013 06/19/2014 Inactive Lantus Solostar 100 unit/mL (3 mL) subcutaneous insulin pen RxNorm: 555768 23 q am 15 hs Unit(s) SQ BID patient states she recieves 5 pens at a time 05/15/2013 01/31/2014 Inactive Metanx 3 mg-35 mg-2 mg tablet RxNorm: 1 Tablet(s) PO BID 04/2707/03/2015 Inactive Lantus Solostar 100 unit/mL (3 mL) subcutaneous insulin pen RxNorm: 611258 23 q am 15 hs Unit(s) SQ BID 04/27/20132012 Inactive folic acid 1 mg tablet RxNorm: 869537 1 Tablet(s) PO daily 06/201207/03/2015 Inactive Neurontin 300 mg capsule RxNorm: 706912 1 Capsule(s) PO TID 06/201207/07/2013 Inactive fentanyl 75 mcg/hr transdermal patch RxNorm: 686948 1 TD q 3 days 04/27/2013 05/26/2013 Inactive Dilaudid 2 mg tablet RxNorm: 574643 1 Tablet(s) PO Q4 PRN 04/2205/13/2013 Inactive Lantus Solostar 100 unit/mL (3 mL) subcutaneous insulin pen RxNorm: 851137 21 Unit(s) SQ BID 02/11/2013 04/26/2013 Inactive glimepiride 2 mg tablet RxNorm: 905347 1 Tablet(s) PO daily TAKE ONE TABLET BY MOUTH EVERY MORNING 02/11/2013 08/27/2013 Inactive ibuprofen 600 mg tablet RxNorm: 381493 1 Tablet(s) PO Q8 PRN 02/13/2017 Inactive fentanyl 100 mcg/hr Transderm Patch RxNorm: 542488 1 TD q 3 days 02/09/2013 04/26/2013 Inactive Contour Test Strips RxNorm: 1 test Miscellaneous BID 201210/07/2015 Inactive Cymbalta 30 mg capsule,delayed release RxNorm: 905366 1 Capsule(s) PO daily 10/14/2012 02/10/2013 Inactive prednisone 20 mg tablet RxNorm: 229968 2 Tablet(s) PO daily 10/17/2012 Inactive 2 daily x 4 days Cymbalta 30 mg capsule,delayed release RxNorm: 108632 1 Capsule(s) PO daily 10/14/2012 10/13/2012 Inactive Cymbalta 30 mg capsule,delayed release RxNorm: 185634 1 Capsule(s) PO daily 10/14/2012 10/13/2012 Inactive Voltaren 1 % Topical Gel RxNorm: 481634 3 Gram(s) TOP QID 09/1910/18/2012 Inactive prednisone 20 mg tablet RxNorm: 683266 Tablet(s) PO UD 3 tabs daily x2 days, 2 tabs daily x2 days, 1 tab daily x2 days, 1/2 tab daily x 2 days, 1/2 tab every other day x2 doses 09/19/2012 No Stop Date Active Kenalog 40 mg/mL Susp for Injection RxNorm: 7907976 1 Milliliter(s) Inj 09/10/2012 09/10/2012 Inactive WelChol 625 mg tablet RxNorm: 084689 3 Tablet(s) PO daily 201202/10/2013 Inactive Zithromax Z-Joseph 250 mg tablet RxNorm: 240065 Tablet(s) PO as directed 07/24/2012 08/31/2012 Inactive Kenalog 40 mg/mL Susp for Injection RxNorm: 7640450 2 Milliliter(s) Inj 06/03/2012 06/03/2012 Inactive prednisone 10 mg tablets in a dose pack RxNorm: 224739 Tablet(s) PO 6-5-4-3-2-1 05/28/2012 06/02/2012 Inactive metformin ER 500 mg tablet,extended release 24 hr RxNorm: 709688 1 Tablet(s) PO BID 05/28/2012 05/22/2013 Inactive metformin ER 500 mg tablet,extended release 24 hr RxNorm: 846919 Tablet(s) PO TAKE 1 TABLET BY MOUTH TWO TIMES A DAY. 05/26/2012 05/27/2012 Inactive glimepiride 2 mg tablet RxNorm: 942714 Tablet(s) PO TAKE ONE TABLET BY MOUTH EVERY MORNING 05/21/2012 02/10/2013 Inactive gemfibrozil 600 mg tablet RxNorm: 976276 1 Tablet(s) PO BID pt taking one pill twice daily every other day. 05/06/2012 Inactive cefdinir 300 mg capsule RxNorm: 592542 1 Capsule(s) PO BID 04/08/2012 Inactive cefdinir 300 mg capsule RxNorm: 810887 1 Capsule(s) PO BID 04/15/2012 Inactive prednisone 20 mg tablet RxNorm: 126418 1/2 Tablet(s) PO 201103/27/2012 Inactive Flexeril 5 mg tablet RxNorm: 533865 1 Tablet(s) PO Q6 PRN 03/1708/31/2012 Inactive Kenalog 40 mg/mL Susp for Injection RxNorm: 6871648 Milliliter(s) Inj 03/12/2012 03/12/2012 Inactive Lantus Solostar 100 unit/mL (3 mL) Sub-Q Insulin Pen RxNorm: 240246 22 Unit(s) SQ BID 02/01/2012 02/10/2013 Inactive Lantus Solostar 100 unit/mL (3 mL) Sub-Q Insulin Pen RxNorm: 829431 21 Unit(s) SQ BID 08/06/2011 01/31/2012 Inactive glimepiride 2 mg tablet RxNorm: 031425 1 Tablet(s) PO QAM 07/3001/26/2012 Inactive pt may have 90 day supply if nec glimepiride 2 mg Tab RxNorm: 329431 1 Tablet(s) PO QAM 201107/30/2011 Inactive Zithromax Z-Joseph 250 mg Tab RxNorm: 355051 Tablet(s) PO UD 07/2605/05/2012 Inactive metformin ER 500 mg tablet,extended release 24 hr RxNorm: 282743 1 Tablet(s) PO BID 05/19/2011 05/25/2012 Inactive gemfibrozil 600 mg Tab RxNorm: 499595 1 Tablet(s) PO BID take one by mouth thirty minutes before morning and evening meals. 01/23/2011 03/23/2011 Inactive Lantus Solostar 100 unit/mL (3 mL) Sub-Q Insulin Pen RxNorm: 229411 21 Unit(s) SQ BID 37 units q hs 01/23/2011 08/05/2011 Inactive aspirin 81 mg Tab, Delayed Release RxNorm: 202958 1 Tablet(s) PO daily No Start Date Active [employer] Autodisc Test Strips RxNorm: 1 Miscellaneous BID No Start Date Active metformin ER 500 mg 24 hr Tab RxNorm: 318829 1 Tablet(s) PO BID No Start Date 05/18/2011 Inactive hydrocodone 5 mg-acetaminophen 325 mg tablet RxNorm: 9766205 1 Tablet(s) PO Q6 PRN No Start Date 02/10/2013 Inactive meloxicam 15 mg tablet RxNorm: 423120 1 Tablet(s) PO daily No Start Date 02/10/2013 Inactive Miralax 17 gram/dose oral powder RxNorm: 731163 1 PO daily No Start Date 12/25/2015 Inactive fentanyl 50 mcg/hr transdermal patch RxNorm: 853447 1 TD Q72H No Start Date 11/10/2013 Inactive Nevanac 0.1 % Eye Drops RxNorm: 378043 1 Drop(s) OPH BID 1 drop to left eye bid No Start Date 02/10/2013 Inactive folic acid 1 mg tablet RxNorm: 913786 1 Tablet(s) PO daily No Start Date 04/26/2013 Inactive Naprosyn 500 mg Tab RxNorm: 162155 1 Tablet(s) PO BID No Start Date 03/20/2011 Inactive diazepam 5 mg tablet RxNorm: 734542 1/2 Tablet(s) PO Q8 PRN No Start Date 04/26/2013 Inactive Calcium 600 + D(3) 600 mg calcium-200 unit Cap RxNorm: 458409 1 Capsule(s) PO daily No Start Date 07/03/2015 Inactive ibuprofen Oral RxNorm : Oral No Start Date 03/16/2012 Inactive Neurontin 300 mg capsule RxNorm: 460871 1 Capsule(s) PO TID No Start Date 04/26/2013 Inactive prednisone 20 mg tablet RxNorm: 115681 Tablet(s) PO No Start Date 10/13/2012 Inactive 2 daily x 4 days prednisolone acetate 1 % Eye Drops, Susp RxNorm: 3531804 1 Drop(s) OPH QID 1 drop each eye qid No Start Date 02/10/2013 Inactive Fish Oil 360 mg-1,200 mg Cap, Delayed Release RxNorm: 2 Capsule(s) PO daily No Start Date 02/10/2013 Inactive Polysaccharide Iron 150 mg iron capsule RxNorm: 815183 1 Capsule(s) PO daily No Start Date 07/03/2015 Inactive Lantus Solostar 100 unit/mL (3 mL) Sub-Q Insulin Pen RxNorm: 730003 37 Unit(s) SQ QHS 37 units q hs No Start Date 2010 Inactive Naprosyn 500 mg Tab RxNorm: 089951 1 Tablet(s) PO PRN pt takes prn arthritis pain No Start Date 03/16/2012 Inactive fentanyl 75 mcg/hr transdermal patch RxNorm: 905649 1 TD q 3 days No Start Date 04/26/2013 Inactive Zithromax Z-Joseph 250 mg Tab RxNorm: 585694 Oral No Start Date 07/26/2011 Inactive hydromorphone 2 mg tablet RxNorm: 751275 1 Tablet(s) PO Q4 PRN No Start Date 02/10/2013 Inactive docusate potassium 100 mg capsule RxNorm: 6298305 1 Capsule(s) PO BID No Start Date 07/03/2015 Inactive Xyzal 5 mg Tab RxNorm : 078219 1 Tablet(s) PO daily No Start Date 08/31/2012 Inactive Ambien 5 mg tablet RxNorm: 239597 1 Tablet(s) PO PRN No Start Date 04/26/2013 Inactive prednisone 20 mg tablet RxNorm: 278806 Tablet(s) PO UD 2 tabs on day 1 1 tab on day 2 1/2 tab on day 3 No Start Date 08/31 Inactive glimepiride 2 mg Tab RxNorm: 839794 1 Tablet(s) PO QAM No Start Date 07/29/2011 Inactive Dilaudid 2 mg tablet RxNorm: 614151 1 Tablet(s) PO Q4 PRN No Start Date 04/21/2013 Inactive Zithromax Z-Joseph 250 mg tablet RxNorm: 195008 Tablet(s) PO as directed No Start Date 07/23/2012 Inactive gemfibrozil 600 mg Tab RxNorm: 380317 1 Tablet(s) PO BID No Start Date 01/22/2011 Inactive ibuprofen 600 mg tablet RxNorm: 985180 1 Tablet(s) PO Q8 PRN No Start Date 02/10/2013 Inactive Medication Administered Medication Codes Instructions Start Date Status ketorolac 60 mg/2 mL intramuscular solution RxNorm: 040888 Milliliter 07/07/2014 No longer Active Rocephin 500 mg solution for injection RxNorm: 945800 1 08/19/2013 No longer Active Kenalog 40 mg/mL Susp for Injection RxNorm: 8241078 1Milliliter 09/10/2012 No longer Active Kenalog 40 mg/mL Susp for Injection RxNorm: 0695414 2Milliliter 06/03/2012 No longer Active Kenalog 40 mg/mL Susp for Injection RxNorm: 8387514 Milliliter 03/12/2012 No longer Active Immunizations Vaccine [...] hypertension ICD-10: I10 ICD-9: 401.9 12/26/2015 Other skilled nursing (current) drug therapy ICD-10: Z79.899 ICD-9: V58.69 [...] DM W/O COMPLICATION TYPE II, UNCONTROLLED SNOMED: 21484756 ICD-9: 250.02 07/15/2013 HYPERLIPIDEMIA ICD-9: 272.4 07/15/2013 [...] and allied disorder ICD-9: 726.19 05/28/2012 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 OBESITY ICD-9: 278.00 03/21/2011 IMPACTED CERUMEN ICD-9: 380.4 01/30/2011 DM W/O COMPLICATION TYPE I, UNCONTROLLED SNOMED: 56909197 ICD-9: 250.03 01/23/2011 Reason For Visit Reason [...] hTSH II 3.81 uIU/mL 06/17/2017 Comp Metabolic Ipo880 NA 140 mEq/L 06/17/2017 Comp Metabolic Cam126 K 4.8 mEq/L 06/17/2017 Comp Metabolic Twb006 CL 108 mEq/L 06/17/2017 Comp Metabolic Wsz420 CO2 26.0 mEq/L 06/17/2017 Comp Metabolic Xao337 ANION GAP 11 06/17/2017 Comp Metabolic Qsz754 GLUCOSE 48 mg/dL 06/17/2017 Comp Metabolic Elv436 Creat 1.6 mg/dL 06/17/2017 Comp Metabolic Yrr751 eGFR 32 ml/min/1.73m2 06/17/2017 Comp Metabolic Bzb433 BUN 41 mg/dL 06/17/2017 Comp Metabolic Cia090 B/C Ratio 25.2 Ratio 06/17/2017 Comp Metabolic Cca635 CALCIUM 8.9 mg/dL 06/17/2017 Comp Metabolic Jxt915 ALK PHOS 69 U/L 06/17/2017 Comp Metabolic Wpv652 AST(SGOT) 15 U/L 06/17/2017 Comp Metabolic Nuj732 ALT(SGPT) 12 U/L 06/17/2017 Comp Metabolic Msf464 BILI T 0.4 mg/dL 06/17/2017 Comp Metabolic Otj757 ALBUMIN 3.5 g/dL 06/17/2017 Comp Metabolic Sdu127 TPRO 5.8 g/dL 06/17/2017 Comp Metabolic Zmi967 GLOB 2.3 g/dL 06/17/2017 Comp Metabolic Lai888 A/G Ratio 1.5 Ratio 06/17/2017 Comp Metabolic Xiw359 Osmo 287 mOsmo 06/17/2017 Cbc With Differential Ord2 WBC 9.05 K/ul 06/17/2017 Cbc With Differential Ord2 RBC 3.80 M/ul 06/17/2017 Cbc With Differential Ord2 HGB 10.6 g/dl 06/17/2017 Cbc With Differential Ord2 Neut% 48.8 % 06/17/2017 Cbc With Differential Ord2 HCT 34.5 % 06/17/2017 Cbc With Differential Ord2 MCV 90.8 fl 06/17/2017 Cbc With Differential Ord2 Lymph% 39.2 % 06/17/2017 Cbc With Differential Ord2 MCH 27.9 pg 06/17/2017 Cbc With Differential Ord2 [place]% 8.8 % 06/17/2017 Cbc With Differential Ord2 MCHC [...] 3.55 K/ul 06/17/2017 Cbc With Differential Ord2 [place] ABS# 0.8 K/ul 06/17/2017 Cbc With Differential Ord2 Eos ABS# 0.3 K/ul 06/17/2017 Cbc With Differential Ord2 Baso ABS# 0.0 K/ul 06/17/2017 Lipid Ord30 CHOL 216 mg/dL 06/17/2017 Lipid Ord30 HDL 45.0 mg/dl 06/17/2017 Lipid Ord30 TRIG 131 mg/dL 06/17/2017 Lipid Ord30 LDL 145 mg/dL 06/17/2017 Lipid Ord30 C/HDL 4.8 Ratio 06/17/2017 Cbc With Differential Ord2 WBC 9.20 K/ul 02/12/2017 Cbc With Differential Ord2 RBC 3.68 M/ul 02/12/2017 Cbc With Differential Ord2 HGB 10.4 g/dl 02/12/2017 Cbc With Differential Ord2 Neut% 54.4 % 02/12/2017 Cbc With Differential Ord2 HCT 33.4 % 02/12/2017 Cbc With Differential Ord2 MCV 90.8 fl 02/12/2017 Cbc With Differential Ord2 Lymph% 35.3 % 02/12/2017 Cbc With Differential Ord2 MCH 28.3 pg 02/12/2017 Cbc With Differential Ord2 [place]% 7.4 % 02/12/2017 Cbc With Differential Ord2 [...] 3.25 K/ul 02/12/2017 Cbc With Differential Ord2 [place] ABS# 0.7 K/ul 02/12/2017 Cbc With Differential Ord2 Eos ABS# 0.2 K/ul 02/12/2017 Cbc With Differential Ord2 Baso ABS# 0.0 K/ul 02/12/2017 %Hba1C Jtx335 % HbA1c 82190-2 6.8 % 02/12/2017 %Hba1C Lrp711 Gluc Ave 148 mg/dL 02/12/2017 Comp Metabolic Czz000 NA 142 mEq/L 02/12/2017 Comp Metabolic Iid959 K 4.6 mEq/L 02/12/2017 Comp Metabolic Mhg884 CL 111 mEq/L 02/12/2017 Comp Metabolic Iqb152 CO2 23.0 mEq/L 02/12/2017 Comp Metabolic Twj228 ANION GAP 13 02/12/2017 Comp Metabolic Utz761 GLUCOSE 51 mg/dL 02/12/2017 Comp Metabolic Bxo845 Creat 1.3 mg/dL 02/12/2017 Comp Metabolic Sqf633 eGFR 41 ml/min/1.73m2 02/12/2017 Comp Metabolic Pke459 BUN 39 mg/dL 02/12/2017 Comp Metabolic Sgo228 B/C Ratio 29.5 Ratio 02/12/2017 Comp Metabolic Znv832 CALCIUM 8.5 mg/dL 02/12/2017 Comp Metabolic Riw508 ALK PHOS 61 U/L 02/12/2017 Comp Metabolic Dhc157 AST(SGOT) 12 U/L 02/12/2017 Comp Metabolic Qst920 ALT(SGPT) 12 U/L 02/12/2017 Comp Metabolic Lie592 BILI T 0.4 mg/dL 02/12/2017 Comp Metabolic Qka710 ALBUMIN 3.3 g/dL 02/12/2017 Comp Metabolic Wjk514 TPRO 5.5 g/dL 02/12/2017 Comp Metabolic Zvo531 GLOB 2.2 g/dL 02/12/2017 Comp Metabolic Lve163 A/G Ratio 1.5 Ratio 02/12/2017 Comp Metabolic Klw936 Osmo 290 mOsmo 02/12/2017 Lipid Ord30 CHOL 186 mg/dL 02/12/2017 Lipid Ord30 HDL 40.0 mg/dl 02/12/2017 Lipid Ord30 TRIG 110 mg/dL 02/12/2017 Lipid Ord30 LDL 124 mg/dL 02/12/2017 Lipid Ord30 C/HDL 4.7 Ratio 02/12/2017 %Hba1C Zpt930 % HbA1c 31402-6 7.1 % 10/08/2016 %Hba1C Zso862 Gluc Ave 157 mg/dL 10/08/2016 Lipid Ord30 CHOL 220 mg/dL 10/08/2016 Lipid Ord30 HDL 40.0 mg/dl 10/08/2016 Lipid Ord30 TRIG 161 mg/dL 10/08/2016 Lipid Ord30 LDL 148 mg/dL 10/08/2016 Lipid Ord30 C/HDL 5.5 Ratio 10/08/2016 Comp Metabolic Wvm696 NA 142 mEq/L 10/08/2016 Comp Metabolic Ytz423 K 5.2 mEq/L 10/08/2016 Comp Metabolic Kcx925 CL 110 mEq/L 10/08/2016 Comp Metabolic Fmj088 CO2 25.0 mEq/L 10/08/2016 Comp Metabolic Jze264 ANION GAP 12 10/08/2016 Comp Metabolic Hfa949 GLUCOSE 74 mg/dL 10/08/2016 Comp Metabolic Vqi663 Creat 1.6 mg/dL 10/08/2016 Comp Metabolic Ngb935 eGFR 33 ml/min/1.73m2 10/08/2016 Comp Metabolic Ytf569 BUN 45 mg/dL 10/08/2016 Comp Metabolic Fse800 B/C Ratio 28.1 Ratio 10/08/2016 Comp Metabolic Tlk999 CALCIUM 9.1 mg/dL 10/08/2016 Comp Metabolic Ljj612 ALK PHOS 62 U/L 10/08/2016 Comp Metabolic Lun290 AST(SGOT) 14 U/L 10/08/2016 Comp Metabolic Asx742 ALT(SGPT) 12 U/L 10/08/2016 Comp Metabolic Eqw588 BILI T 0.4 mg/dL 10/08/2016 Comp Metabolic Kne456 ALBUMIN 3.5 g/dL 10/08/2016 Comp Metabolic Zts075 TPRO 5.9 g/dL 10/08/2016 Comp Metabolic Uog809 GLOB 2.4 g/dL 10/08/2016 Comp Metabolic Viq743 A/G Ratio 1.4 Ratio 10/08/2016 Comp Metabolic Gei196 Osmo 293 mOsmo 10/08/2016 Tsh Ord6 hTSH [...] 28.9 pg 10/08/2016 Cbc With Differential Ord2 [place]% 8.2 % 10/08/2016 Cbc With Differential Ord2 MCHC 31.8 pg 10/08/2016 Cbc With Differential Ord2 Eos% 3.3 % 10/08/2016 Cbc With Differential Ord2 Baso% 0.5 % 10/08/2016 Cbc With Differential Ord2 PLT 253 K/ul 10/08/2016 Cbc With Differential Ord2 RDW 14.6 % 10/08/2016 Cbc With Differential Ord2 Neut ABS# 4.62 K/ul 10/08/2016 Cbc With Differential Ord2 Lymph ABS# 3.05 K/ul 10/08/2016 Cbc With Differential Ord2 [place] ABS# 0.7 K/ul 10/08/2016 Cbc With Differential Ord2 Eos ABS# 0.3 K/ul 10/08/2016 Cbc With Differential Ord2 Baso ABS# 0.0 K/ul 10/08/2016 %Hba1C Kfk243 % HbA1c 70904-4 6.7 % 06/06/2016 %Hba1C Bcn475 Gluc Ave 146 mg/dL 06/06/2016 Tsh Ord6 hTSH II 3.88 uIU/mL 06/06/2016 Comp Metabolic Ibj689 NA 139 mEq/L 06/06/2016 Comp Metabolic Fgy398 K 5.1 mEq/L 06/06/2016 Comp Metabolic Cxp816 CL 106 mEq/L 06/06/2016 Comp Metabolic Vvx071 CO2 27.0 mEq/L 06/06/2016 Comp Metabolic Fpa763 ANION GAP 11 06/06/2016 Comp Metabolic Ycz109 GLUCOSE 63 mg/dL 06/06/2016 Comp Metabolic Qnh512 Creat 1.4 mg/dL 06/06/2016 Comp Metabolic Bpk451 eGFR 40 ml/min/1.73m2 06/06/2016 Comp Metabolic Gqr045 BUN 38 mg/dL 06/06/2016 Comp Metabolic Ubo017 B/C Ratio 27.9 Ratio 06/06/2016 Comp Metabolic Eia527 CALCIUM 9.3 mg/dL 06/06/2016 Comp Metabolic Heg166 ALK PHOS 66 U/L 06/06/2016 Comp Metabolic Ncv397 AST(SGOT) 14 U/L 06/06/2016 Comp Metabolic Tuv602 ALT(SGPT) 12 U/L 06/06/2016 Comp Metabolic Feb789 BILI T 0.4 mg/dL 06/06/2016 Comp Metabolic Gkl952 ALBUMIN 3.6 g/dL 06/06/2016 Comp Metabolic Inv862 TPRO 5.9 g/dL 06/06/2016 Comp Metabolic Rst668 GLOB 2.3 g/dL 06/06/2016 Comp Metabolic Usy734 A/G Ratio 1.5 Ratio 06/06/2016 Comp Metabolic Znv105 Osmo 285 mOsmo 06/06/2016 Lipid Ord30 CHOL [...] 53.2 % 06/06/2016 Cbc With Differential Ord2 MCV 92.0 fl 06/06/2016 Cbc With Differential Ord2 Lymph% 35.4 % 06/06/2016 Cbc With Differential Ord2 [place]% 8.3 % 06/06/2016 Cbc With Differential Ord2 MCH 28.4 pg 06/06/2016 Cbc With Differential Ord2 Eos% [...] 3.03 K/ul 06/06/2016 Cbc With Differential Ord2 [place] ABS# 0.7 K/ul 06/06/2016 Cbc With Differential Ord2 Eos ABS# 0.2 K/ul 06/06/2016 Cbc With Differential Ord2 Baso ABS# 0.0 K/ul 06/06/2016 Comp Metabolic Qqz690 NA 139 mEq/L 12/19/2015 Comp Metabolic Jpm451 K 4.5 mEq/L 12/19/2015 Comp Metabolic Vtf248 CL 107 mEq/L 12/19/2015 Comp Metabolic Wyz301 CO2 25.0 mEq/L 12/19/2015 Comp Metabolic Tnh266 ANION GAP 12 12/19/2015 Comp Metabolic Cdg831 GLUCOSE 72 mg/dL 12/19/2015 Comp Metabolic Wrv902 Creat 1.3 mg/dL 12/19/2015 Comp Metabolic Ybv108 eGFR 42 ml/min/1.73m2 12/19/2015 Comp Metabolic Fnb820 BUN 37 mg/dL 12/19/2015 Comp Metabolic Dpv599 B/C Ratio 28.2 Ratio 12/19/2015 Comp Metabolic Nxv486 CALCIUM 9.0 mg/dL 12/19/2015 Comp Metabolic Uch710 ALK PHOS 62 U/L 12/19/2015 Comp Metabolic Iyn131 AST(SGOT) 13 U/L 12/19/2015 Comp Metabolic Jfn564 ALT(SGPT) 12 U/L 12/19/2015 Comp Metabolic Aro533 BILI T 0.4 mg/dL 12/19/2015 Comp Metabolic Qgx577 ALBUMIN 3.6 g/dL 12/19/2015 Comp Metabolic Jtx140 TPRO 6.0 g/dL 12/19/2015 Comp Metabolic Fjs054 GLOB 2.5 g/dL 12/19/2015 Comp Metabolic Abf154 A/G Ratio 1.4 Ratio 12/19/2015 Comp Metabolic Aco802 Osmo 285 mOsmo 12/19/2015 Lipid Ord30 CHOL [...] 56.3 % 12/19/2015 Cbc With Differential Ord2 Lymph% 33.1 % 12/19/2015 Cbc With Differential Ord2 MCV 90.0 fl 12/19/2015 Cbc With Differential Ord2 [place]% 7.5 % 12/19/2015 Cbc With Differential Ord2 MCH 28.2 pg 12/19/2015 Cbc With Differential Ord2 Eos% [...] 2.59 K/ul 12/19/2015 Cbc With Differential Ord2 [place] ABS# 0.6 K/ul 12/19/2015 Cbc With Differential Ord2 Eos ABS# 0.2 K/ul 12/19/2015 Cbc With Differential Ord2 Baso ABS# 0.0 K/ul 12/19/2015 %Hba1C Hur321 % HbA1c 56495-7 6.1 % 12/19/2015 %Hba1C Nrf665 Gluc Ave 128 mg/dL 12/19/2015 A1C HPLC 5536822 A1C HPLC 03742-1 7.1 % 01/27/2014 CHEM 14 1970676 AST 13 U/L 01/07/2014 CHEM 14 4302123 ALT 13 U/L 01/07/2014 CHEM 14 0511083 BUN 24 MG/DL 01/07/2014 CHEM 14 7371399 ALBUMIN 3.8 GM/DL 01/07/2014 CHEM 14 6658749 CHLORIDE 103 MMOL/L 01/07/2014 CHEM 14 5345232 BILI TOT 0.4 MG/DL 01/07/2014 CHEM 14 8665569 ALK PHOS 71 U/L 01/07/2014 CHEM 14 0256827 SODIUM 139 MMOL/L 01/07/2014 CHEM 14 2472695 CREATININE 0.99 MG/DL 01/07/2014 CHEM 14 2764228 CALCIUM 9.3 MG/DL 01/07/2014 CHEM 14 5528817 POTASSIUM 4.1 MMOL/L 01/07/2014 CHEM 14 6437740 PROT TOT 6.3 GM/DL 01/07/2014 CHEM 14 2746744 GLUCOSE 187 MG/DL 01/07/2014 CHEM 14 6598414 BICARB 25 MMOL/L 01/07/2014 CHEM 14 7324366 ANION GAP 11 MMOL/L 01/07/2014 GFR CALC 2073658 GFR AA >60 ML/MIN 01/07/2014 GFR CALC 2726855 GFR NON-AA 55.0L ML/MIN 01/07/2014 CBC 1622117 WBC 9.9 10e9/L 01/07/2014 CBC 4990487 RBC 4.08 10e12/L 01/07/2014 CBC 5013889 HGB 11.7 g/dL 01/07/2014 CBC 0869281 HCT DET 36.7 % 01/07/2014 CBC 0467844 MCV 90.0 fL 01/07/2014 CBC 2114989 MCH 28.7 pg 01/07/2014 CBC 5409882 MCHC 31.9 g/dL 01/07/2014 CBC 5549538 PLT 311 10e9/L 01/07/2014 CBC 6412344 MPV 10.5 fL 01/07/2014 CBC 2361100 YAKOV % 68.2 % 01/07/2014 CBC 8094824 LY % 22.4 % 01/07/2014 CBC 9071918 MON % 7.2 % 01/07/2014 CBC 0519102 EOS % 1.7 % 01/07/2014 CBC 6618185 BASO % 0.5 % 01/07/2014 CBC 4218171 RDW 14.9 % 01/07/2014 CBC 7448963 ABS YAKOV 6.75 10e9/L 01/07/2014 CBC 8513510 ABS LYMPH 2.22 10e9/L 01/07/2014 CBC 8506680 ABS MONO 0.71 10e9/L 01/07/2014 CBC 3145861 ABS EOS 0.17 10e9/L 01/07/2014 CBC 7296914 ABS BASO 0.05 10e9/L 01/07/2014 CBC 9084783 RDW-SD 48.3 fL 01/07/2014 CHEM 14 7345048 ALT 13 U/L 01/07/2014 CHEM 14 5191620 BUN 24 MG/DL 01/07/2014 CHEM 14 2804129 CHLORIDE 103 MMOL/L 01/07/2014 CHEM 14 1404393 BILI TOT 0.4 MG/DL 01/07/2014 CHEM 14 5295121 SODIUM 139 MMOL/L 01/07/2014 CHEM 14 3937570 CREATININE 0.99 MG/DL 01/07/2014 CHEM 14 7574823 CALCIUM 9.3 MG/DL 01/07/2014 CHEM 14 5512898 POTASSIUM 4.1 MMOL/L 01/07/2014 CHEM 14 8575115 GLUCOSE 187 MG/DL 01/07/2014 CHEM 14 6636409 BICARB 25 MMOL/L 01/07/2014 CHEM 14 4739967 ANION GAP 11 MMOL/L 01/07/2014 GFR CALC 3421681 GFR AA >60 ML/MIN 07/15/2013 GFR CALC 1179198 GFR NON-AA 60.0L ML/MIN 07/15/2013 A1C HPLC 1869811 A1C HPLC 46102-4 6.3 % 07/15/2013 LIPID GRP HDL TEST 55 MG/DL 07/15/2013 LIPID GRP TRIG 90 MG/DL 07/15/2013 LIPID GRP TEST LDL 140 MG/DL 07/15/2013 LIPID GRP CHOL 213 MG/DL 07/15/2013 LIPID GRP RCHOL/HDL 3.87 RATIO 07/15/2013 FREE T4 5070406 FREE T4 1.32 NG/DL 07/15/2013 TSH 5167165 TSH 3.961 uIU/ML 07/15/2013 CHEM 14 2350151 AST 13 U/L 07/15/2013 CHEM 14 6178603 ALT 13 IU/L 07/15/2013 CHEM 14 3644591 BUN 33 MG/DL 07/15/2013 CHEM 14 0239422 ALBUMIN 3.9 GM/DL 07/15/2013 CHEM 14 2245470 CHLORIDE 105 MMOL/L 07/15/2013 CHEM 14 4120456 BILI TOT 0.3 MG/DL 07/15/2013 CHEM 14 2032844 ALK PHOS 63 U/L 07/15/2013 CHEM 14 8632954 SODIUM 140 MMOL/L 07/15/2013 CHEM 14 3885276 CREATININE 0.92 MG/DL 07/15/2013 CHEM 14 5286392 CALCIUM 9.8 MG/DL 07/15/2013 CHEM 14 1233400 POTASSIUM 4.4 MMOL/L 07/15/2013 CHEM 14 3821702 PROT TOT 6.2 GM/DL 07/15/2013 CHEM 14 5085785 GLUCOSE 53 MG/DL 07/15/2013 CHEM 14 1278096 BICARB 30 MMOL/L 07/15/2013 CHEM 14 6930293 ANION GAP 5 MEQ/L 07/15/2013 CBC 3824099 WBC 9.1 10e9/L 07/15/2013 CBC 9875959 RBC 3.70 10e12/L 07/15/2013 CBC 7099146 HGB 10.7 g/dL 07/15/2013 CBC 0767109 HCT DET 34.2 % 07/15/2013 CBC 0896231 MCV 92.4 fL 07/15/2013 CBC 6284929 MCH 28.9 pg 07/15/2013 CBC 4426454 MCHC 31.3 g/dL 07/15/2013 CBC 8508562 PLT 317 10e9/L 07/15/2013 CBC 7351481 MPV 10.5 fL 07/15/2013 CBC 7183972 YAKOV % 60.8 % 07/15/2013 CBC 3401268 LY % 30.3 % 07/15/2013 CBC 7807354 MON % 7.8 % 07/15/2013 CBC 3877072 EOS % 1.0 % 07/15/2013 CBC 8076686 BASO % 0.1 % 07/15/2013 CBC 3347073 RDW 15.1 % 07/15/2013 CBC 4257016 ABS YAKOV 5.53 10e9/L 07/15/2013 CBC 6436531 ABS LYMPH 2.76 10e9/L 07/15/2013 CBC 3762461 ABS MONO 0.71 10e9/L 07/15/2013 CBC 3931369 ABS EOS 0.09 10e9/L 07/15/2013 CBC 7738997 ABS BASO 0.01 10e9/L 07/15/2013 CBC 1680364 RDW-SD 49.9 fL 07/15/2013 LIPID GRP HDL TEST 48 MG/DL 09/01/2012 LIPID GRP TRIG 136 MG/DL 09/01/2012 LIPID GRP TEST LDL 160 MG/DL 09/01/2012 LIPID GRP CHOL 235 MG/DL 09/01/2012 LIPID GRP 0583835 RCHOL/HDL 4.90 RATIO 09/01/2012 CBC 6838967 WBC 8.7 10e9/L 09/01/2012 CBC 9147015 RBC 4.43 10e12/L 09/01/2012 CBC 2103303 HGB 12.9 g/dL 09/01/2012 CBC 3860836 HCT DET 39.6 % 09/01/2012 CBC 6345670 MCV 89.4 fL 09/01/2012 CBC 4443854 MCH 29.1 pg 09/01/2012 CBC 7997957 MCHC 32.6 g/dL 09/01/2012 CBC 5147863 PLT 305 10e9/L 09/01/2012 CBC 7631357 MPV 10.5 fL 09/01/2012 CBC 6152197 YAKOV % 59.1 % 09/01/2012 CBC 3844363 LY % 30.3 % 09/01/2012 CBC 4795903 MON % 8.5 % 09/01/2012 CBC 2033757 EOS % 1.6 % 09/01/2012 CBC 3637080 BASO % 0.5 % 09/01/2012 CBC 0634905 RDW 14.6 % 09/01/2012 CBC 2626467 ABS YAKOV 5.14 10e9/L 09/01/2012 CBC 2880896 ABS LYMPH 2.64 10e9/L 09/01/2012 CBC 9147845 ABS MONO 0.74 10e9/L 09/01/2012 CBC 5679715 ABS EOS 0.14 10e9/L 09/01/2012 CBC 1845067 ABS BASO 0.04 10e9/L 09/01/2012 CBC 2816136 RDW-SD 47.1 fL 09/01/2012 FREE T4 1042545 FREE T4 1.24 NG/DL 09/01/2012 CHEM 14 3934764 AST 14 U/L 09/01/2012 CHEM 14 7401788 ALT 17 IU/L 09/01/2012 CHEM 14 4125745 BUN 23 MG/DL 09/01/2012 CHEM 14 6032875 ALBUMIN 4.1 GM/DL 09/01/2012 CHEM 14 6810808 CHLORIDE 106 MMOL/L 09/01/2012 CHEM 14 4026983 BILI TOT 0.6 MG/DL 09/01/2012 CHEM 14 2224439 ALK PHOS 56 U/L 09/01/2012 CHEM 14 7755739 SODIUM 142 MMOL/L 09/01/2012 CHEM 14 6916089 CREATININE 0.90 MG/DL 09/01/2012 CHEM 14 4895067 CALCIUM 9.9 MG/DL 09/01/2012 CHEM 14 4979240 POTASSIUM 4.0 MMOL/L 09/01/2012 CHEM 14 9943803 PROT TOT 6.1 GM/DL 09/01/2012 CHEM 14 5097679 GLUCOSE 77 MG/DL 09/01/2012 CHEM 14 5997504 BICARB 28 MMOL/L 09/01/2012 CHEM 14 3036576 ANION GAP 8 MEQ/L 09/01/2012 TSH 2322575 TSH 3.674 uIU/ML 09/01/2012 A1C HPLC 7814622 A1C HPLC 26143-9 6.8 % 09/01/2012 GFR CALC 6238657 GFR AA >60 ML/MIN 09/01/2012 GFR CALC 8478478 GFR NON-AA >60 ML/MIN 09/01/2012 CHEM 14 8559404 AST 13 U/L 04/30/2012 CHEM 14 3254767 ALT 15 IU/L 04/30/2012 CHEM 14 8556272 BUN 33 MG/DL 04/30/2012 CHEM 14 1197185 ALBUMIN 4.1 GM/DL 04/30/2012 CHEM 14 4477590 CHLORIDE 107 MMOL/L 04/30/2012 CHEM 14 3720901 BILI TOT 0.5 MG/DL 04/30/2012 CHEM 14 3008407 ALK PHOS 62 U/L 04/30/2012 CHEM 14 1314969 SODIUM 141 MMOL/L 04/30/2012 CHEM 14 9994083 CREATININE 1.01 MG/DL 04/30/2012 CHEM 14 0119506 CALCIUM 9.7 MG/DL 04/30/2012 CHEM 14 1582901 POTASSIUM 4.2 MMOL/L 04/30/2012 CHEM 14 2206916 PROT TOT 6.3 GM/DL 04/30/2012 CHEM 14 8519115 GLUCOSE 74 MG/DL 04/30/2012 CHEM 14 5374126 BICARB 27 MMOL/L 04/30/2012 CHEM 14 2806765 ANION GAP 7 MEQ/L 04/30/2012 CBC 0777150 WBC 8.2 10e9/L 04/30/2012 CBC 1585524 RBC 4.39 10e12/L 04/30/2012 CBC 6205350 HGB 12.7 g/dL 04/30/2012 CBC 8749457 HCT DET 39.3 % 04/30/2012 CBC 8431667 MCV 89.5 fL 04/30/2012 CBC 2339008 MCH 28.9 pg 04/30/2012 CBC 4563113 MCHC 32.3 g/dL 04/30/2012 CBC 5292119 PLT 305 10e9/L 04/30/2012 CBC 5461178 MPV 10.9 fL 04/30/2012 CBC 7610683 YAKOV % 60.1 % 04/30/2012 CBC 8796569 LY % 30.7 % 04/30/2012 CBC 4120326 MON % 7.7 % 04/30/2012 CBC 6001714 EOS % 1.1 % 04/30/2012 CBC 5631862 BASO % 0.4 % 04/30/2012 CBC 6313900 RDW 14.8 % 04/30/2012 CBC 7884461 ABS YAKOV 4.93 10e9/L 04/30/2012 CBC 2474828 ABS LYMPH 2.52 10e9/L 04/30/2012 CBC 6257083 ABS MONO 0.63 10e9/L 04/30/2012 CBC 4305711 ABS EOS 0.09 10e9/L 04/30/2012 CBC 3705183 ABS BASO 0.03 10e9/L 04/30/2012 CBC 1720742 RDW-SD 47.8 fL 04/30/2012 TSH 1048581 TSH 3.394 uIU/ML 04/30/2012 A1C HPLC 6089771 A1C HPLC 64851-1 7.2 % 04/30/2012 GFR CALC 2116906 GFR AA >60 ML/MIN 04/30/2012 GFR CALC 0217727 GFR NON-AA 54.0L ML/MIN 04/30/2012 LIPID GRP HDL TEST 49 MG/DL 04/30/2012 LIPID GRP TRIG 129 MG/DL 04/30/2012 LIPID GRP TEST LDL 149 MG/DL 04/30/2012 LIPID GRP CHOL 224 MG/DL 04/30/2012 LIPID GRP RCHOL/HDL 4.57 RATIO 04/30/2012 CHEM 14 0612239 AST 14 U/L 12/26/2011 CHEM 14 6068907 ALT 15 IU/L 12/26/2011 CHEM 14 2480478 BUN 28 MG/DL 12/26/2011 CHEM 14 1085267 ALBUMIN 4.2 GM/DL 12/26/2011 CHEM 14 9784290 CHLORIDE 106 MMOL/L 12/26/2011 CHEM 14 8338695 BILI TOT 0.5 MG/DL 12/26/2011 CHEM 14 5400265 ALK PHOS 55 U/L 12/26/2011 CHEM 14 4720639 SODIUM 141 MMOL/L 12/26/2011 CHEM 14 4334983 CREATININE 1.01 MG/DL 12/26/2011 CHEM 14 2083040 CALCIUM 9.7 MG/DL 12/26/2011 CHEM 14 3324256 POTASSIUM 4.6 MMOL/L 12/26/2011 CHEM 14 9300138 PROT TOT 6.4 GM/DL 12/26/2011 CHEM 14 1095666 GLUCOSE 83 MG/DL 12/26/2011 CHEM 14 8960414 BICARB 27 MMOL/L 12/26/2011 CHEM 14 1009439 ANION GAP 8 MEQ/L 12/26/2011 GFR CALC 3690547 GFR AA >60 ML/MIN 12/26/2011 GFR CALC 5866908 GFR NON-AA 54.0L ML/MIN 12/26/2011 MAGNESIUM 0042512 MAGNESIUM 1.8 MEQ/L 12/26/2011 A1C HPLC 3641704 A1C HPLC 04957-9 7.2 % 12/26/2011 CBC 6872920 WBC 7.8 10e9/L 12/26/2011 CBC 8949853 RBC 4.44 10e12/L 12/26/2011 CBC 2346236 HGB 12.4 g/dL 12/26/2011 CBC 4567389 HCT DET 38.5 % 12/26/2011 CBC 1566729 MCV 86.7 fL 12/26/2011 CBC 6328633 MCH 27.9 pg 12/26/2011 CBC 7875139 MCHC 32.2 g/dL 12/26/2011 CBC 0047906 PLT 290 10e9/L 12/26/2011 CBC 2443189 MPV 10.5 fL 12/26/2011 CBC 4995615 YAKOV % 55.1 % 12/26/2011 CBC 3978802 LY % 35.0 % 12/26/2011 CBC 0541459 MON % 6.7 % 12/26/2011 CBC 1019116 EOS % 2.7 % 12/26/2011 CBC 4742000 BASO % 0.5 % 12/26/2011 CBC 6506628 RDW 14.5 % 12/26/2011 CBC 7878365 ABS YAKOV 4.30 10e9/L 12/26/2011 CBC 2739125 ABS LYMPH 2.73 10e9/L 12/26/2011 CBC 3770521 ABS MONO 0.52 10e9/L 12/26/2011 CBC 4610242 ABS EOS 0.21 10e9/L 12/26/2011 CBC 2673319 ABS BASO 0.04 10e9/L 12/26/2011 CBC 1724915 RDW-SD 45.2 fL 12/26/2011 A1C 4551366 A1C HPLC 92988-0 7.4 % 10/08/2011 LIPID GRP HDL TEST 45 MG/DL 10/08/2011 LIPID GRP TRIG 188 MG/DL 10/08/2011 LIPID GRP TEST LDL 145 MG/DL 10/08/2011 LIPID GRP CHOL 228 MG/DL 10/08/2011 LIPID GRP RCHOL/HDL 5.07 RATIO 10/08/2011 GFR CALC 8275563 GFR AA 57.0L ML/MIN 10/08/2011 GFR CALC 4051269 GFR NON-AA 47.0L ML/MIN 10/08/2011 CBC 6061950 WBC 8.9 10e9/L 10/08/2011 CBC 5137462 RBC 4.55 10e12/L 10/08/2011 CBC 1765151 HGB 12.5 g/dL 10/08/2011 CBC 1445986 HCT DET 39.7 % 10/08/2011 CBC 3717589 MCV 87.3 fL 10/08/2011 CBC 5602996 MCH 27.5 pg 10/08/2011 CBC 1243767 MCHC 31.5 g/dL 10/08/2011 CBC 1501416 PLT 291 10e9/L 10/08/2011 CBC 9923719 MPV 10.7 fL 10/08/2011 CBC 0255896 YAKOV % 57.1 % 10/08/2011 CBC 5329933 LY % 32.9 % 10/08/2011 CBC 0471876 MON % 6.6 % 10/08/2011 CBC 5874188 EOS % 2.9 % 10/08/2011 CBC 8188484 BASO % 0.5 % 10/08/2011 CBC 6454908 RDW 15.0 % 10/08/2011 CBC 5730163 ABS YAKOV 5.08 10e9/L 10/08/2011 CBC 9665127 ABS LYMPH 2.93 10e9/L 10/08/2011 CBC 0827520 ABS MONO 0.59 10e9/L 10/08/2011 CBC 3283876 ABS EOS 0.26 10e9/L 10/08/2011 CBC 6248216 ABS BASO 0.04 10e9/L 10/08/2011 CBC 1410354 RDW-SD 47.6 fL 10/08/2011 CHEM 20271129 AST 13 U/L 10/08/2011 CHEM 14 3003797 ALT 19 IU/L 10/08/2011 CHEM 14 1980072 BUN 35 MG/DL 10/08/2011 CHEM 14 6381052 ALBUMIN 4.2 GM/DL 10/08/2011 CHEM 14 8718066 CHLORIDE 104 MMOL/L 10/08/2011 CHEM 14 4276760 BILI TOT 0.4 MG/DL 10/08/2011 CHEM 14 3488165 ALK PHOS 54 U/L 10/08/2011 CHEM 14 1959104 SODIUM 139 MMOL/L 10/08/2011 CHEM 14 9480272 CREATININE 1.13 MG/DL 10/08/2011 CHEM 14 3450105 CALCIUM 9.5 MG/DL 10/08/2011 CHEM 14 8927748 POTASSIUM 4.5 MMOL/L 10/08/2011 CHEM 14 8049256 PROT TOT 7.1 GM/DL 10/08/2011 CHEM 14 4308469 GLUCOSE 148 MG/DL 10/08/2011 CHEM 14 5475675 BICARB 26 MMOL/L 10/08/2011 CHEM 14 4219986 ANION GAP 9 MEQ/L 10/08/2011 Review of [...] bilaterally 07/08/2013 None Full Exam - General 1995 Respiratory respiratory effort/rhythm Overall: no retractions 07/08/2013 None Full Exam - General 1995 Respiratory respiratory effort/rhythm Overall: normal rate 07/08/2013 [...] age 0409/19/2012 None Full Exam - General 1995 Constitutional general appearance Stature/Body Habitus: short stature 09/19/2012 None Full Exam - General 1994 Constitutional general appearance Nourishment: obese 09/19/2012 None Full Exam - General 1995 Constitutional [...] retractions 05/28/2012 None Full Exam - General 1995 Respiratory respiratory effort/rhythm Overall: normal rate 05/28/2012 None Full Exam - General 1994 Cardiovascular auscultation of heart Overall: regular rate 05/28/2012 None Full Exam - General 1995 Cardiovascular auscultation of heart Overall: normal heart sounds 05/28/2012 None Full Exam - General 1995 Cardiovascular [...] CPT-4: G8553 02/28/2015 THER/PROPH/DIAG INJ SC/IM CPT-4: 28049 07/07/2014 KETOROLAC TROMETHAMINE INJ CPT-4: J1885 07/07/2014 ADMIN PNEUMOCOCCAL VACCINE SNOMED CT: [id number] CPT-4: G0009 05/03/2014 Pneumococcal Polysaccharide Vaccine, 23-Valent, Ad CPT-4: 36377 05/03/2014 ROUTINE VENIPUNCTURE CPT-4: 14566 01/27/2014 ROUTINE VENIPUNCTURE CPT-4: 07468 01/07/2014 THER/PROPH/DIAG INJ SC/IM CPT-4: 17935 08/19/2013 ROCEPHIN, PER 250 MG CPT-4: J0696 08/19/2013 21709 EST. PATIENT, LEVEL IV CPT-4: 02019 07/29/2013 PRESCRIP TRANSMIT VIA ERX SY CPT-4: G8553 07/29/2013 ROUTINE VENIPUNCTURE CPT-4: 01807 07/15/2013 60846 EST. PATIENT, LEVEL IV CPT-4: 10145 07/08/2013 PRESCRIP TRANSMIT VIA ERX SY CPT-4: G8553 07/08/2013 PRESCRIP TRANSMIT VIA ERX SY CPT-4: G8553 04/27/2013 PRESCRIP TRANSMIT VIA ERX SY CPT-4: G8553 09/19/2012 DRAIN/INJECT JOINT/BURSA CPT-4: 09465 09/10/2012 PRESCRIP TRANSMIT VIA ERX SY CPT-4: G8553 09/03/2012 ROUTINE VENIPUNCTURE CPT-4: 75466 09/01/2012 DRAIN/INJECT JOINT/BURSA CPT-4: 98339 06/03/2012 PRESCRIP TRANSMIT VIA ERX SY CPT-4: G8553 06/03/2012 INJ TRIGGER POINT 1/2 MUSCL CPT-4: 92381 05/28/2012 PRESCRIP TRANSMIT VIA ERX SY CPT-4: G8553 05/28/2012 PRESCRIP TRANSMIT VIA ERX SY CPT-4: G8553 05/06/2012 ROUTINE VENIPUNCTURE CPT-4: 58176 04/30/2012 PRESCRIP TRANSMIT VIA ERX SY CPT-4: G8553 03/17/2012 TRIAMCINOLONE ACET INJ NOS CPT-4: J3301 03/12/2012 THER/PROPH/DIAG INJ SC/IM CPT-4: 84719 03/12/2012 ROUTINE VENIPUNCTURE CPT-4: 97528 12/26/2011 ROUTINE VENIPUNCTURE CPT-4: 18648 10/08/2011 ROUTINE VENIPUNCTURE CPT-4: 41077 06/18/2011 ROUTINE VENIPUNCTURE CPT-4: 86010 03/19/2011 REMOVE IMPACTED EAR WAX UNI CPT-4: 72881 01/30/2011 PRESCRIP TRANSMIT VIA ERX SY CPT-4: G8553 01/23/2011 ROUTINE VENIPUNCTURE CPT-4: 02554 01/22/2011 Vital Signs Date Vital 02/14/2017 Blood Pressure 1: 150/70 Code : 8480-6 BMI: 36.4 Code : 89299-2 Heart Rate 1 : 60 bpm Height: 4'11" SpO2: 98% Weight: 180 lbs 01/07/2017 Blood Pressure 1: 144/80 Code : 8480-6 BMI: 36.2 Code : 65507-2 Heart Rate 1 : 72 bpm Height: 4'11" SpO2: 98% Weight: 179 lbs 11/14/2016 Blood Pressure 1: 140/84 Code : 8480-6 BMI: 36.4 Code : 83701-0 Heart Rate 1 : 84 bpm Height: 4'11" SpO2: 96% Weight: 180 lbs 10/11/2016 Blood Pressure 1: 148/76 Code : 8480-6 BMI: 36.0 Code : 12417-3 Heart Rate 1 : 71 bpm Height: 4'11" SpO2: 97% Weight: 178 lbs 06/14/2016 Blood Pressure 1: 148/58 Code : 8480-6 BMI: 36.2 Code : 07339-6 Heart Rate 1 : 70 bpm Height: 4'11" SpO2: 95% Weight: 179 lbs 02/27/2016 Blood Pressure 1: 138/68 Code : 8480-6 BMI: 35.2 Code : 38607-8 Heart Rate 1 : 69 bpm Height: 4'12" SpO2: 98% Weight: 177 lbs 02/08/2016 Blood Pressure 1: 138/64 Code : 8480-6 BMI: 35.3 Code : 27643-9 Heart Rate 1 : 73 bpm Height: 4'12" SpO2: 98% Weight: 178 lbs 12/26/2015 Blood Pressure 1: 160/62 Code : 8480-6 BMI: 35.5 Code : 90537-1 Heart Rate 1 : 95 bpm Height: 4'12" SpO2: 97% Weight: 179 lbs 11/29/2015 Height: 4'12" 11/15/2015 Blood Pressure 1: 160/62 Code : 8480-6 BMI: 35.7 Code : 80328-4 Heart Rate 1 : 81 bpm Height: 4'12" SpO2: 97% Weight: 180 lbs 08/01/2015 Blood Pressure 1: 154/72 Code : 8480-6 Blood Pressure 1: 139/72 Code: 8480-6 BMI: 35.7 Code: 51241-6 Heart Rate 1: 78 bpm Height: 4'12" SpO2: 97% Weight: 180 lbs 07/04/2015 Blood Pressure 1: 162/78 Code : 8480-6 BMI: 35.3 Code : 94929-1 Heart Rate 1 : 80 bpm Height: 4'12" SpO2: 98% Weight: 177 lbs 8 oz 02/28/2015 Blood Pressure 1: 146/64 Code : 8480-6 BMI: 35.5 Code : 28882-6 Heart Rate 1 : 80 bpm Height: 4'12" SpO2: 96% Weight: 179 lbs 11/03/2014 Blood Pressure 1: 142/76 Code : 8480-6 BMI: 36.3 Code : 98767-6 Heart Rate 1 : 80 bpm Height: 4'12" Weight: 183 lbs 09/08/2014 Blood Pressure 1: 132/74 Code : 8480-6 Heart Rate 1: 96 bpm Height: SpO2: 96% Weight: 183 lbs 07/07/2014 Blood Pressure 1: 128/78 Code : 8480-6 BMI: 36.7 Code : 74196-5 Heart Rate 1 : 72 bpm Height: 4'12" Weight: 185 lbs 05/03/2014 Blood Pressure 1: 128/72 Code : 8480-6 BMI: 36.9 Code : 54979-5 Heart Rate 1 : 68 bpm Height: 4'12" Weight: 186 lbs 01/27/2014 Blood Pressure 1: 142/64 Code : 8480-6 BMI: 37.1 Code : 03262-2 Heart Rate 1 : 98 bpm Height: 4'12" SpO2: 99% Weight: 187 lbs 01/07/2014 Blood Pressure 1: 140/76 Code : 8480-6 BMI: 36.1 Code : 11475-0 Heart Rate 1 : 78 bpm Height: 4'12" SpO2: 96% Weight: 182 lbs 11/11/2013 Blood Pressure 1: 152/92 Code : 8480-6 BMI: 36.5 Code : 11181-6 Heart Rate 1 : 72 bpm Height: 4'12" Weight: 184 lbs 08/19/2013 Blood Pressure 1: 124/70 Code : 8480-6 BMI: 35.3 Code : 55877-8 Heart Rate 1 : 87 bpm Height: 4'12" SpO2: 98% Temperature: 36.7 (C) / 98.1 (F) Weight: 178 lbs 07/29/2013 Blood Pressure 1: 120/70 Code : 8480-6 BMI: 35.2 Code : 28490-7 Heart Rate 1 : 80 bpm Height: 4'12" Weight: 177 lbs 07/08/2013 Blood Pressure 1: 152/72 Code : 8480-6 BMI: 31.0 Code : 56147-8 Heart Rate 1 : 80 bpm Height: 4'12" SpO2: 94% Weight: 156 lbs 04/27/2013 Blood Pressure 1: 132/72 Code : 8480-6 BMI: 34.4 Code : 28884-8 Heart Rate 1 : 88 bpm Height: [...] Code : 8480-6 BMI: 35.9 Code : 05043-5 Heart Rate 1 : 72 bpm Height: 4'12" Weight: 181 lbs 06/03/2012 Blood Pressure 1: 148/60 Code : 8480-6 Heart Rate 1: 88 bpm Weight: 177 lbs 05/28/2012 Blood Pressure 1: 172/90 Code : 8480-6 Blood Pressure 2: 170/88 Code: 8480-6 Heart Rate 1: 68 bpm Respiratory Rate: 20 bpm 05/06/2012 Blood Pressure 1: 134/60 Code : 8480-6 BMI: 35.3 Code : 13356-8 Heart Rate 1 : 84 bpm Height: 4'12" Respiratory Rate: 24 bpm Weight: 178 lbs 03/17/2012 Blood Pressure 1: 132/80 Code : 8480-6 Heart Rate 1: 68 bpm Weight: 186 lbs 03/12/2012 Blood Pressure 1: 126/80 Code : 8480-6 Heart Rate 1: 76 bpm Weight: 185 lbs 01/02/2012 Blood Pressure 1: 128/74 Code : 8480-6 BMI: 36.9 Code : 47502-8 Heart Rate 1 : 72 bpm Height: 4'12" Respiratory Rate: 16 bpm Weight: 186 lbs 10/10/2011 Blood Pressure 1: 124/48 Code : 8480-6 BMI: 36.3 Code : 72237-7 Heart Rate 1 : 68 bpm Height: [...] Code : 8480-6 BMI: 36.6 Code : 52189-7 Heart Rate 1 : 70 bpm Height: 4'12" Respiratory Rate: 16 bpm Weight: 184 lbs 8 oz 01/30/2011 Blood Pressure 1: 136/64 Code : 8480-6 Heart Rate 1: 77 bpm Weight: 184 lbs 01/23/2011 Blood Pressure 1: 132/60 Code : 8480-6 BMI: 37.3 Code : 07304-9 Heart Rate 1 : 88 bpm Height: [...] data Encounters Encounter Performer Location Codes Date ([id number]) 74517 EST. PATIENT, LEVEL IV Diagnosis: Type 2 diabetes mellitus without complications[ICD10: E11.9] Diagnosis: Chronic pain syndrome[ICD10: G89.4] Diagnosis: Essential (primary) hypertension[ICD10: I10] [facility] CPT-4: 93205 02/14/2017 33227 EST. PATIENT, LEVEL III Diagnosis: Dysuria[ICD10: R30.0] Agueda Beal MD, [facility] CPT-4: 31143 01/07/2017 ([id number]) 12617 EST. PATIENT, LEVEL IV Diagnosis: Chronic pain syndrome[ICD10: G89.4] Diagnosis: Type 2 diabetes mellitus without complications[ICD10: E11.9] Diagnosis: Slow transit constipation[ICD10: K59.01] Morenita Beal MD [facility] CPT-4: 82169 11/14/2016 ([id number]) 75002 EST. PATIENT, LEVEL IV Diagnosis: Type 2 diabetes mellitus with hyperglycemia[ICD10: E11.65] Diagnosis: Essential (primary) hypertension[ICD10: I10] Diagnosis: Chronic kidney disease, stage 2 (mild)[ICD10: N18.2] Morenita Beal MD [facility] CPT-4: 73064 10/11/2016 ([id number]) 06580 EST. PATIENT, LEVEL IV Diagnosis: Type 2 diabetes mellitus without complications[ICD10: E11.9] Diagnosis: Chronic pain syndrome[ICD10: G89.4] Diagnosis: Essential (primary) hypertension[ICD10: I10] Morenita Beal MD [facility] CPT-4: 34132 06/14/2016 ([id number]) 46087 EST. PATIENT, LEVEL IV Diagnosis: Type 2 diabetes mellitus without complications[ICD10: E11.9] Diagnosis: Essential (primary) hypertension[ICD10: I10] Morenita Beal MD [facility] CPT-4: 07901 02/27/2016 ([id number]) 26591 EST. PATIENT, LEVEL III Diagnosis: Calculus of gallbladder without cholecystitis without obstruction[ ICD10: K80.20] Diagnosis: Slow transit constipation[ICD10: K59.01] Morenita Beal MD [facility] CPT-4: 35122 02/08/2016 ([id number]) 12007 EST. 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 PATIENT, LEVEL IV Diagnosis: Acute laryngopharyngitis[ICD10: J06.0] Diagnosis: Other acute sinusitis[ICD10: J01.80] Agueda Beal MD, [facility] CPT-4: 59799 11/15/2015 ([id number]) 41671 EST. PATIENT, LEVEL III Diagnosis: Essential (primary) hypertension[ICD10: I10] Diagnosis: Chronic pain syndrome[ICD10: G89.4] Morenita Beal MD, [facility] CPT-4: 55156 08/01/2015 ([id number]) 01135 EST. PATIENT, LEVEL IV Diagnosis: Type 2 diabetes mellitus with hyperglycemia[ICD10: E11.65] Diagnosis: Essential (primary) hypertension[ICD10: I10] Diagnosis: Slow transit constipation[ICD10: K59.01] Morenita Beal MD, [facility] CPT-4: 80764 07/04/2015 ([id number]) 39856 EST. PATIENT, LEVEL IV Diagnosis: Essential (primary) hypertension[ICD10: I10] Diagnosis: Type 2 diabetes mellitus with hyperglycemia[ICD10: E11.65] Diagnosis: Other forms of dyspnea[ICD10: R06.09] Diagnosis: Shortness of breath[ICD10: R06.02] Diagnosis: Other chest pain[ICD10: R07.89] Diagnosis: Calculus of gallbladder without cholecystitis without obstruction[ ICD10: K80.20] Morenita Beal MD, [facility] CPT-4: 15019 02/28/2015 ([id number]) 55207 EST. PATIENT, LEVEL IV Diagnosis: ESSENTIAL HYPERTENSION[ICD9: 401.9] Diagnosis: DIABETES TYPE II[ICD9: 250.00] Diagnosis: CHRONIC PAIN SYNDROME[ICD9: 338.4] Morenita Beal MD, [facility] CPT-4: 42356 11/03/2014 ([id number]) 18877 EST. PATIENT, LEVEL IV Diagnosis: DIABETES TYPE II[ICD9: 250.00] Diagnosis: ESSENTIAL HYPERTENSION[ICD9: 401.9] Diagnosis: CHRONIC PAIN SYNDROME[ICD9: 338.4] Morenita Beal MD, [facility] CPT-4: 80116 09/08/2014 ([id number]) 74747 EST. PATIENT, LEVEL IV Diagnosis: DIABETES TYPE II[ICD9: 250.00] Diagnosis: CHRONIC PAIN SYNDROME[ICD9: 338.4] Diagnosis: ESSENTIAL HYPERTENSION[ICD9: 401.9] Diagnosis: CARPAL TUNNEL SYNDROME[ICD9: 354.0] Morenita Beal MD [facility] CPT-4: 12807 07/07/2014 ([id number]) 38479 EST. PATIENT, LEVEL IV Diagnosis: ESSENTIAL HYPERTENSION[ICD9: 401.9] Diagnosis: DIABETES TYPE II[ICD9: 250.00] Diagnosis: Biceps tendonitis[ICD9: 726.12] Diagnosis: Osteoarthritis[ICD9: 715.90] Morenita Beal MD [facility] CPT- 4: 60536 05/03/2014 ([id number]) 77428 EST. PATIENT, LEVEL IV Diagnosis: DIABETES TYPE II[ICD9: 250.00] Diagnosis: ESSENTIAL HYPERTENSION[ICD9: 401.9] Diagnosis: Peripheral neuropathy[ICD9: 356.9] Diagnosis: CHRONIC PAIN SYNDROME[ICD9: 338.4] Morenita Beal MD [facility] CPT-4: 85936 01/27/2014 ([id number]) 45521 EST. PATIENT, LEVEL III Diagnosis: Diarrhea[ICD9: 787.91] Diagnosis: ESSENTIAL HYPERTENSION[ICD9: 401.9] Diagnosis: Medication side effect[ICD9: 995.20] Diagnosis: DIABETES TYPE II[ICD9: 250.00] Dorie Beal MD [facility] CPT-4: 83894 01/07/2014 ([id number]) 61545 EST. PATIENT, LEVEL IV Diagnosis: ESSENTIAL HYPERTENSION[ICD9: 401.9] Diagnosis: DIABETES TYPE II[ICD9: 250.00] Diagnosis: Back pain[ICD9: 724.5] Diagnosis: UNEQUAL LEG LENGTH[ICD9: 736.81] Morenita Beal MD [facility] CPT-4: 84238 11/11/2013 ([id number]) 63053 EST. PATIENT, LEVEL III Diagnosis: BACTERIAL PNEUMONIA[ICD9: 482.9] Diagnosis: Cough[ICD9: 786.2] Morenita Beal MD [facility] CPT-4: 00730 08/19/2013 ([id number]) 50164 EST. PATIENT, LEVEL IV Diagnosis: DIABETES TYPE II[SNOMED: 930548623] Diagnosis: ESSENTIAL HYPERTENSION[SNOMED: 40926156] Diagnosis: Chronic pain syndrome[ICD9: 338.4] Diagnosis: Peripheral neuropathy[ICD9: 356.9] Morenita Beal MD [facility] CPT-4: 67690 04/27/2013 ([id number]) 88149 EST. PATIENT, LEVEL IV Diagnosis: ESSENTIAL HYPERTENSION[SNOMED: 43425044] Diagnosis: DIABETES TYPE II[SNOMED: 717931757] Diagnosis: Weakness[ICD9: 780.79] Morenita Beal MD [facility] CPT-4: 32503 02/09/2013 ([id number]) 13625 EST. PATIENT, LEVEL III Diagnosis: OSTEOARTH NOS-UNSPEC[ICD9: 715.90] Dorie Beal MD [facility] CPT-4: 73846 09/19/2012 ([id number]) 41339 EST. PATIENT, LEVEL III Diagnosis: Sacroiliitis[ICD9: 720.2] Diagnosis: Sciatica[ICD9: 724.3] Diagnosis: Lumbago[ICD9: 724.2] Dorie Beal MD, [facility] CPT-4: 98394 09/10/2012 ([id number]) 38143 EST. PATIENT, LEVEL IV Diagnosis: DIABETES TYPE II[SNOMED: 177612882] Diagnosis: HYPERLIPIDEMIA[ICD9: 272.4] Diagnosis: ESSENTIAL HYPERTENSION[SNOMED: 74006351] Morenita Beal MD [facility] CPT-4: 80838 09/03/2012 ([id number]) 23599 EST. PATIENT, LEVEL III Diagnosis: ESSENTIAL HYPERTENSION[SNOMED: 54429206] Morenita Beal MD [facility] CPT-4: 53092 06/03/2012 ([id number]) 12674 EST. PATIENT, LEVEL III Diagnosis: JOINT PAIN-SHLDER[ICD9: 719.41] Diagnosis: Musculoskeletal disorder and symptoms referable to neck[ICD9: 723.9] Diagnosis: Spasm of muscle[ICD9: 728.85] Morenita Beal MD [facility] CPT- 4: 27416 05/28/2012 ([id number]) 23112 EST. PATIENT, LEVEL IV Diagnosis: DIABETES TYPE II[SNOMED: 166555373] Diagnosis: ESSENTIAL HYPERTENSION[SNOMED: 40561202] Diagnosis: HYPERLIPIDEMIA[ICD9: 272.4] Morenita Beal MD [facility] CPT- 4: 37621 05/06/2012 ([id number]) 62651 EST. PATIENT, LEVEL III Diagnosis: Biceps tendonitis[ICD9: 726.12] Morenita Beal MD [facility] CPT- 4: 87314 03/17/2012 06480 EST. PATIENT, LEVEL III Diagnosis: Biceps tendonitis[ICD9: 726.12] Diagnosis: Shoulder pain[ICD9: 719.41] Morenita Beal MD [facility] CPT- 4: 41262 03/12/2012 ([id number]) 35094 EST. PATIENT, LEVEL IV Diagnosis: DIABETES TYPE II[SNOMED: 353380025] Diagnosis: ESSENTIAL HYPERTENSION[SNOMED: 03421283] Diagnosis: HYPERLIPIDEMIA[ICD9: 272.4] Morenita Beal MD [facility] CPT- 4: 47835 01/02/2012 ([id number]) 55455 EST. PATIENT, LEVEL IV Diagnosis: ESSENTIAL HYPERTENSION[SNOMED: 37258157] Diagnosis: DM W/O COMPLICATION TYPE II, UNCONTROLLED[SNOMED: 50025752] Diagnosis: HYPERLIPIDEMIA[ICD9: 272.4] Morenita Beal MD [facility] CPT- 4: 57026 10/10/2011 ([id number]) 68053 EST. PATIENT, LEVEL IV Diagnosis: Osteoarthritis[ICD9: 715.90] Diagnosis: Fatigue[ICD9: 780.79] Dorie Beal MD [facility] CPT-4: 10426 08/22/2011 ([id number]) 02936 EST. PATIENT, LEVEL IV Diagnosis: Diabetes mellitus type 2, uncontrolled[SNOMED: 12366007] Diagnosis: ESSENTIAL HYPERTENSION[SNOMED: 71278054] Diagnosis: HYPERLIPIDEMIA[ICD9: 272.4] Morenita Beal MD [facility] CPT- 4: 70907 06/20/2011 63369 EST. 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 PATIENT, LEVEL IV Diagnosis: DM W/O COMPLICATION TYPE I, UNCONTROLLED[SNOMED: 21436184] Diagnosis: HYPERLIPIDEMIA[ICD9: 272.4] Diagnosis: ESSENTIAL HYPERTENSION[SNOMED: 21413351] Diagnosis: OBESITY[ICD9: 278.00] Diagnosis: Cerumen impaction[ICD9: 380.4] [facility] CPT- 4: 07916 01/23/2011 Plan of Care Planned Activity Notes [...] of over-medication. 02/14/2017 Appointment[phone] [place] (15 min) Moderate 02/14/2017 Patient Education: Patient [...] or concerns. 01/07/2017 Appointment: [phone] [place] (30 min) Complex 01/07/2017 Patient Education: [...] less controlled. 11/14/2016 Appointment: [facility] Beal [facility]Ptel[phone] [place] (15 min) Moderate 11/14/2016 Patient Education: [...] months - if worsening - referral to Brine Mixer Operator. 10/11/2016 Appointment: [facility] Beal [facility]Ptel[phone] [place] (15 min) Moderate 10/11/2016 Patient Education: [...] pain medications. 06/14/2016 Appointment: More[facility]ita Beal WPtel: [phone] [place] (15 min) Moderate 06/14/2016 Patient Education: [...] Gallbladder ultrasound 02/08/2016 Appointment: More[facility] Beal [facility]Ptel[phone] [place] (15 min) Moderate 02/08/2016 Patient Education: [...] of over-medication. 12/26/2015 Appointment: Morenita Beal WPtel: [address] [place] [address] (15 min) Moderate 12/26/2015 Patient Education: Patient [...] pt has been seen by Jose in 2007 with similar symptoms and a negative work-up. Cholelithiasis - recommended low fat diet, will wait on cardiac work-up before we recommend further treatment/work-up by surgeon. 02/28/2015 Appointment: Morenita Beal WPtel: [phone] [facility] (15 min) Moderate 02/28/2015 Patient Education: Patient Medication Summary Completed 02/28/2015 Patient Education: Hypertension Completed 02/28/2015 Care Plan: Referral Order SNOMED-CT : [id number] Ordered 02/28/2015 Visit Plan: Hypertension - well [...] over-medication. 11/03/2014 Appointment: [facility] Beal [facility]Ptel[phone] (15 min) Moderate 11/03/2014 Patient Education: Patient [...] over-medication. 09/08/2014 Appointment: Morenita Beal WPtel: [phone] [facility] Follow up 09/08/2014 Patient Education: Patient Medication [...] over- medication. 07/07/2014 Appointment: Morenita Beal WPtel: [phone] [facility] [facility] 07/07/2014 Patient Education: Patient Medication Summary Completed [...] Completed 05/03/2014 Appointment: [facility] Beal [facility]Ptel: [phone] Follow up 04/29/2014 Visit Plan: Diabetes Mellitus [...] home. 01/27/2014 Appointment: [facility] Beal [facility]Ptel: [phone] Follow up 01/27/2014 Patient Education: Patient Medication [...] length xray. 11/11/2013 Appointment: Morenita Beal WPtel: [facility] [place] Follow up 11/11/2013 Patient Education: Patient Medication Summary Completed 11/11/2013 Patient Education: Hypertension Completed 11/11/2013 Appointment: Morenita Beal WPtel: [address] [place], [place] [phone] Follow up 09/02/2013 Visit Plan: Pneumonia - Pt has been diagnosed with pneumonia by physical exam. A chest xray has been ordered as have antibiotics. The pt is aware of the diagnosis and the need for acute treatment of this illness. Cough - pt to start on corcidin hbp 08/19/2013 Appointment: Morenita Beal WPtel: [facility] [place] Sick 08/19/2013 Patient Education: Patient Medication [...] of over-medication. 07/29/2013 Appointment: [facility] Beal [facility]Ptel: [phone] Follow up 07/29/2013 Appointment: Morenita Beal WPtel: [phone] Follow up 07/29/2013 Patient Education: Patient Medication [...] chronic pain. 07/08/2013 Appointment: [facility] Beal [facility]Ptel: [phone] Follow up 07/08/2013 Patient Education: Patient Medication Summary Completed 07/08/2013 Patient Education: Hypertension Completed 07/08/2013 Appointment: Morenita Beal WPtel: [phone] [facility] Follow up 07/06/2013 Visit Plan: Diabetes Mellitus [...] day trial. 04/27/2013 Appointment: Morenita Beal WPtel: [facility] [place] Follow up 04/27/2013 Patient Education: Patient Medication Summary Completed 04/27/2013 Patient Education: Hypertension Completed 04/27/2013 Appointment: Morenita Beal WPtel: [address] [place], [place] [phone] Follow up 04/20/2013 Visit Plan: Hypertension - [...] of leg - pt recovering - at [facility] facility - and continues to require rehab. 02/09/2013 Appointment: Morenita Beal WPtel: [address] [place], [place] [phone] Follow up 02/09/2013 Patient Education: Patient Medication Summary Completed 02/09/2013 Patient Education: Hypertension Completed 02/09/2013 Appointment: Morenita Beal WPtel: [address] [place], [place] [phone] [place] Follow up 12/03/2012 Visit Plan: Arthritis-uncontrolled symptoms- recommend pt to take antiinflammatory as directed for pain control. Plan for prednisone taper for acute pain as well as starting volteran gel. Okay to use hydrocodone prn pain. Hold mobic until prednisone complete. Patient verbalized understanding of plan. 09/19/2012 Appointment: Dorie Ho WPtel: [address] [place], [place] [phone] Other 09/19/2012 Patient Education: Patient Medication Summary [...] use. Sciatica- handouts with exercises provided for leatha. Joint Injection-right SI joint - Pt was given post - injection instructions. The pt has been advised to use antiinflammatories post injection today, ice to the injected site, call if redness, warmth, or increased pain occurs at the site of injection. 09/10/2012 Appointment: Dorie Ho WPtel: [facility] [phone] Other 09/10/2012 Patient Education: Patient Medication [...] PILLS DAILY. 09/03/2012 Appointment: Morenita Beal WPtel: [address] [place] [address] Follow up 09/03/2012 Patient Education: Patient Medication [...] injection. 06/03/2012 Appointment: Dorie Ho WPtel: [phone] [phone] Other 06/03/2012 Patient Education: Patient Medication [...] process. 05/28/2012 Appointment: Dorie Ho WPtel: [phone] [phone] Other 05/28/2012 Patient Education: Patient Medication Summary [...] OTHER DAY. 05/06/2012 Appointment: [facility] Beal [facility]Ptel: [phone] Follow up 05/06/2012 Patient Education: Patient Medication Summary Completed 05/06/2012 Patient Education: Hypertension Completed 05/06/2012 Patient Education: Patient Medication Summary Completed 04/30/2012 Patient Education: Hypertension Completed 04/30/2012 Appointment: Dorie Ho WPtel: [phone] [phone] Sick 04/09/2012 Visit Plan: Biceps tendonitis- recommended pt to strat on prednisone and then flexeril for muscle relaxation. 03/17/2012 Appointment: Morenita Beal WPtel: [facility] [place] [place] [phone] [place] Follow up 03/17/2012 Patient Education: Patient Medication Summary Completed 03/17/2012 Visit Plan: Shoulder pain-discussed natural and expected course of this diagnosis and to alert me if symptoms do not follow expected course, or if any worse. Recommend rest and anti-inflammatories as needed for pain/discomfort. Call for any weakness in extremity. 03/12/2012 Appointment: Dorie Ho WPtel: [phone] [phone] [place] Other 03/12/2012 Patient Education: Patient Medication [...] at home. 01/02/2012 Appointment: Morenita Beal WPtel: [phone] [facility] [place] Other 01/02/2012 Patient Education: Patient Medication Summary Completed 01/02/2012 Patient Education: High Blood Pressure: Essential Hypertension Completed 2011 Appointment: Morenita Beal [facility]Ptel: [phone] [place] Lab Draw 12/26/2011 Patient Education: Patient Medication Summary Completed 12/26/2011 Patient Education: High Blood Pressure: Essential Hypertension Completed 2011 Appointment: EmigdioMorenita WPtel: [phone] [facility] Other 10/17/2011 Visit Plan: Hyperlipidemia - [...] this time. 10/10/2011 Appointment: Morenita Beal WPtel: [facility] [place] Other 10/10/2011 Patient Education: Patient Medication Summary [...] labs 08/22/2011 Appointment: [phone] Other 08/22/2011 Patient Education: Patient Medication [...] daily. 06/20/2011 Appointment: Morenita Beal WPtel: [phone] [place] Other 06/20/2011 Patient Education: Patient Medication Summary Completed 06/20/2011 Patient Education: High Blood Pressure: Essential Hypertension Completed 2011 Appointment: Morenita Beal WPtel: [phone] [place] Lab Draw 06/18/2011 Patient Education: Patient Medication [...] physically active. Encouraged pt to join the [facility] for only 10 dollars a year and have access to [employer] exercise equiptment. 03/21/2011 Appointment: Morenita Beal WPtel: [facility] [place] Other 03/21/2011 Patient Education: Patient Medication Summary Completed 03/21/2011 Patient Education: High Blood Pressure: Essential Hypertension Completed 2010 Patient Education: .Amazing charts Diabetic meal planning guide Completed 03/21 Patient Education: Obesity Completed 03/21/2011 Appointment: Morenita Beal WPtel: [facility] [place] Lab Draw 03/19/2011 Patient Education: Patient Medication Summary Completed 03/19/2011 Visit Plan: Cerumen Impaction - The impacted cerumen was removed with the use of either ear currette alone or in combination with ear curette and water pick. The patient tolerated the procedure without incident and had improvement in hearing. 01/30/2011 Appointment: Dorie Ho WPtel: [facility] [phone] Follow up 01/30/2011 Patient Education: Patient [...] the wax. 01/23/2011 Appointment: Morenita Beal WPtel: [phone] [place] Other 01/23/2011 Patient Education: Patient Medication Summary Completed 01/23/2011 Appointment: Morenita Beal WPtel: [phone] [place] Lab Draw 01/22/2011 Patient Education: Patient Medication Summary Completed 01/22/2011 Referral: Mar Garcia [address] [place], [place] [address] [place] Referral Appointment Requested Instructions Comment . Hypertension - well controlled - continue [...] physically active. Encouraged pt to join the [facility] for only 10 dollars a year and have access to great exercise equiptment. . Diabetes Mellitus - controlled - per [...] without incident and had improvement in hearing. stop glimepiride - this may be causing [...] and understands the consequences of over-medication. . Hypertension - well controlled - continue [...] of leg - pt recovering - at [facility] - and continues to require rehab. . Low back pain- the patient was [...] pain occurs at the site of injection. Declined Procedure: (Flu Given elsewhere) Flu given elsewhere; Declined Reason: does not want vaccine Plan: ([id number]) Pneumococcal Polysaccharide Vaccine, 23-Valent, Ad . Hypertension [...] are not improved. pneumonia vaccine given today Corcidin hbp - for decongestion of sinuses. Pneumonia - Pt has been diagnosed with pneumonia by physical exam. A chest xray has been ordered as have antibiotics. The pt is aware of the diagnosis and the need for acute treatment of this illness. Cough - pt to start on corcidin hbp referral to Dr. Guzman for bilateral hand [...] and understands the consequences of over-medication. . Constipation - recommended pt to increase fluid intake, continue with miralax, senna. Avoid fatty foods. Gallbladder ultrasound Celebrex samples-take 1 daily Stop the ibuprofen. [...] as well. Fatigue-plan to check labs . Diabetes Mellitus - controlled - per [...] recommended pt to continue with duragesic . URI - Pt advised to increase [...] Call if symptoms do not show improvement. Take aleve 2 tabs twice daily x 1 week with food. Shoulder pain-discussed natural and expected course of this diagnosis and to alert me if symptoms do not follow expected course, or if any worse. Recommend rest and anti -inflammatories as needed for pain/discomfort. Call for any weakness in extremity. . Hypertension - well controlled - continue [...] renal function or other disease process. . Hypertension - uncontrolled today - the [...] continue with fentanyl patch for chronic pain. bring by the blood glucose log in [...] months - if worsening - referral to Brine Mixer Operator. take the omeprazole at 3pm every day [...] and understands the consequences of over-medication. . Arthritis-uncontrolled symptoms- recommend pt to take antiinflammatory as directed for pain control. Plan for prednisone taper for acute pain as well as starting volteran gel. Okay to use hydrocodone prn pain. Hold mobic until prednisone complete. Patient verbalized understanding of plan. . Diabetes Mellitus - controlled - per [...] before we recommend further treatment/work-up by surgeon. . Hypertension - uncontrolled - improved with [...] in blood pressure readings at home. . Biceps tendonitis- recommended pt to strat on prednisone and then flexeril for muscle relaxation. . Dysuria, discharge, pelvic pain - UA [...] take yout aspirin and niacin together.. est /2 an apple with the niacin. Diabetes Mellitus [...] DONE IN THE NEXT TWO WEEKS AT [facility]. . Diabetes Mellitus - controlled - per [...] 30 minutes daily. . Diabetes Mellitus - improved control - [...]
--- OUTSIDE RECORDS SUMMARY | 2017-07-12 10:38 | XMS REPORT | Continuity of Care Document ---
Author Author [facility] Organization [facility] Address Unknown Phone Unavailable Allergies Active Description Code Type Severity Reaction Onset Reported/Identified Relationship to Patient Clinical Status Yes acetaminophen [id number] Drug Allergy Unknown N/A 04/15/2014 Yes hydrocodone bit [id number] Drug Allergy Unknown N/A 04/15/2014 Yes morphine [id number] Drug Allergy Unknown N/A 04/15/2014 Yes TENACTON TENACTON Unknown N/A 04/15/2014 Yes acetaminophen [id number] Drug Allergy Mild Itching 10/25/2014 Yes oxycodone [id number] Drug Allergy Mild Itching 10/25/2014 Yes morphine [id number] Drug Allergy Unknown N/V 10/25/2014 Medications There is no data. Problems Date Dx Coded Attending Type Code Diagnosis Diagnosed By 05/25/2012 Ot 716.91 ARTHROPATHY NOS-SHLDER 05/25/2012 Ot 719.41 JOINT PAIN- SHLDER 10/25/2014 BRENDA MCBRIDE, HARLEY Luong Ot 401.9 HYPERTENSION NOS 10/25/2014 BRENDA MCBRIDE, HARLEY Luong Ot 574.20 CHOLELITHIASIS NOS 10/25/2014 BRENDA MCBRIDE, HARLEY Luong Ot 789.06 ABDOMINAL PAIN, EPIGASTRIC 10/25/2014 Ot V76.12 10/25/2014 Ot V76.12 10/25/2014 Ot 793.89 10/25/2014 Ot V76.12 10/25/2014 Ot 793.81 10/25/2014 DARIEN MCBRIDE, MEET Stein Ot 793.89 10/25/2014 SACHIN MCBRIDE, FLAVIO Rod Ot 729.5 10/25/2014 MARLO HARKINS MD Ot 337.22 10/25/2014 TORIN MCBRIDE, MARLO Elaine Ot 722.52 10/25/2014 MARLO HARKINS MD Ot 722.83 10/25/2014 MARLO HARKINS MD Ot V58.69 10/25/2014 MARLO HARKINS MD Ot 278.00 10/25/2014 MARLO HARKINS MD Ot 337.22 10/25/2014 MARLO HARKINS MD Ot 722.52 10/25/2014 MARLO HARKINS MD Ot 722.83 10/25/2014 MARLO HARKINS MD Ot 724.6 10/25/2014 MARLO HARKINS MD Ot V58.69 10/25/2014 MARLO HARKINS MD Ot V85.35 10/25/2014 PEBBLES PLASCENCIA MD Ot 724.02 10/25/2014 PEBBLES PLASCENCIA MD Ot V45.4 10/25/2014 SARAHY OLIVIER Ot V76.12 10/25/2014 Ot 793.89 10/25/2014 Ot V76.12 10/25/2014 Ot 793.81 10/25/2014 MEET LEDEZMA MD Ot 793.89 10/25/2014 FLAVIO STEPHENSON MD Ot 729.5 10/25/2014 MARLO HARKINS MD Ot 337.22 10/25/2014 MARLO HARKINS MD Ot 722.52 10/25/2014 MARLO HARKINS MD Ot 722.83 10/25/2014 MARLO HARKINS MD Ot V58.69 10/25/2014 MARLO HARKINS MD Ot 278.00 10/25/2014 MARLO HARKINS MD Ot 337.22 10/25/2014 MARLO HARKINS MD Ot 722.52 10/25/2014 MARLO HARKINS MD Ot 722.83 10/25/2014 MARLO HARKINS MD Ot 724.6 10/25/2014 MARLO HARKINS MD Ot V58.69 10/25/2014 MARLO HARKINS MD Ot V85.35 10/25/2014 PEBBLES PLASCENCIA MD Ot 724.02 10/25/2014 PEBBLES PLASCENCIA MD Ot V45.4 10/25/2014 SARAYH OLIVIER Ot V76.12 03/11/2015 Ot 793.89 03/11/2015 Ot V76.12 03/11/2015 Ot 793.81 03/11/2015 MEET LEDEZMA MD A Ot 793.89 03/11/2015 FLAVIO STEPHENSON MD Ot 729.5 03/11/2015 MARLO HARKINS MD Ot 337.22 03/11/2015 MARLO HARKINS MD Ot 722.52 03/11/2015 MARLO HARKINS MD Ot 722.83 03/11/2015 MARLO HARKINS MD Ot V58.69 03/11/2015 MARLO HARKINS MD Ot 278.00 03/11/2015 MARLO HARKINS MD Ot 337.22 03/11/2015 MARLO HARKINS MD Ot 722.52 03/11/2015 MARLO HARKINS MD Ot 722.83 03/11/2015 MARLO HARKINS MD Ot 724.6 03/11/2015 MARLO AHRKINS MD Ot V58.69 03/11/2015 MARLO HARKINS MD Ot V85.35 03/11/2015 PEBBLES PLASCENCIA MD Ot 724.02 03/11/2015 PEBBLES PLASCENCIA MD Ot V45.4 03/11/2015 SARAHY OLIVIER Ot V76.12 03/11/2015 Ot V76.12 03/11/2015 Ot V76.12 03/11/2015 Ot 793.89 03/11/2015 Ot V76.12 03/11/2015 Ot 793.81 03/11/2015 MEET LEDEZMA MD Ot 793.89 03/11/2015 FLAVIO STEPHENSON MD Ot 729.5 03/11/2015 MARLO HARKINS MD Ot 337.22 03/11/2015 MARLO HARKINS MD Ot 722.52 03/11/2015 MARLO HARKINS MD Ot 722.83 03/11/2015 MARLO HARKINS MD Ot V58.69 03/11/2015 MARLO HARKINS MD Ot 278.00 03/11/2015 MARLO HARKINS MD Ot 337.22 03/11/2015 MARLO HARKINS MD Ot 722.52 03/11/2015 MARLO HARKINS MD Ot 722.83 03/11/2015 MARLO HARKINS MD Ot 724.6 03/11/2015 MARLO HARKINS MD Ot V58.69 03/11/2015 MARLO HARKINS MD Ot V85.35 03/11/2015 PEBBLES PLASCENCIA MD J Ot 724.02 03/11/2015 THAIS MCBRIDE, PEBBLES Elaine Ot V45.4 03/11/2015 SARAHY OLIVIER SIGNAL TOWER OPERATOR Ot V76.12 03/15/2015 Ot 793.89 03/15/2015 Ot V76.12 03/15/2015 Ot 793.81 03/15/2015 DARIEN MCBRIDE, MEET Stein Ot 793.89 03/15/2015 FLAVIO STEPHENSON MD Ot 729.5 03/15/2015 MARLO HARKINS MD Ot 337.22 03/15/2015 MARLO HARKINS MD Ot 722.52 03/15/2015 MARLO HARKINS MD Ot 722.83 03/15/2015 MARLO HARKINS MD Ot V58.69 03/15/2015 MARLO HARKINS MD Ot 278.00 03/15/2015 MARLO HARKINS MD Ot 337.22 03/15/2015 MARLO HARKINS MD Ot 722.52 03/15/2015 MARLO HARKINS MD Ot 722.83 03/15/2015 MARLO HARKINS MD Ot 724.6 03/15/2015 MARLO HARKINS MD Ot V58.69 03/15/2015 MARLO HARKINS MD Ot V85.35 03/15/2015 PEBBLES PLASCENCIA MD Ot 724.02 03/15/2015 PEBBLES PLASCENCIA MD Ot V45.4 03/15/2015 SARAHY OLIVIER SIGNAL TOWER OPERATOR Ot V76.12 03/15/2015 MEET LEDEZMA MD Ot Z12.31 03/16/2015 BAIMA, NATHAN L SIGNAL TOWER OPERATOR Ot E11.9 03/16/2015 BAIMA, NATHAN L SIGNAL TOWER OPERATOR Ot E66.9 03/16/2015 BAIMA, NATHAN L SIGNAL TOWER OPERATOR Ot R06.09 03/16/2015 BAIMA, NATHAN L SIGNAL TOWER OPERATOR Ot R07.89 03/17/2015 BAIMA, NATHAN L SIGNAL TOWER OPERATOR Ot E11.9 03/17/2015 BAIMA, NATHAN L SIGNAL TOWER OPERATOR Ot E66.9 03/17/2015 BAIMA, NATHAN L SIGNAL TOWER OPERATOR Ot R06.09 03/17/2015 BAIMA, NATHAN L SIGNAL TOWER OPERATOR Ot R07.89 03/17/2015 MEET LEDEZMA MD Ot Z12.31 03/17/2015 MEET LEDEZMA MD Ot Z12.31 03/21/2015 MEET LEDEZMA MD Ot Z12.31 03/31/2015 MEET LEDEZMA MD Ot Z12.31 04/18/2015 JEREMIASNATHAN AMARO SIGNAL TOWER OPERATOR Ot E11.9 04/18/2015 BAINATHAN AMARO L SIGNAL TOWER OPERATOR Ot E66.9 04/18/2015 BAINATHAN AMARO L SIGNAL TOWER OPERATOR Ot R06.09 04/18/2015 BAINATHAN AMARO L SIGNAL TOWER OPERATOR Ot R07.89 02/08/2016 DARIEN MCBRIDE, MEET Stein Ot K59.00 CONSTIPATION, UNSPECIFIED 02/21/2016 Ot V76.12 OTH SCREEN MAMMO-MALIGN NEOPLASM OF MARY ANN 02/21/2016 Ot 793.89 OTH (ABN) FINDINGS ON RADIOLOGICAL EXAMI 02/21/2016 Ot V76.12 OTH SCREEN MAMMO-MALIGN NEOPLASM OF MARY ANN 02/21/2016 Ot 793.81 MAMMOGRAPHIC MICROCLACIFICATION 02/21/2016 MEET LEDEZMA MD Ot 793.89 OTH (ABN) FINDINGS ON RADIOLOGICAL EXAMI 02/21/2016 FLAVIO STEPHENSON MD Ot 729.5 PAIN IN LIMB 02/21/2016 MARLO HARKINS MD Ot 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, LOWER LIMB 02/21/2016 MARLO HARKINS MD Ot 722.52 LUMB/LUMBOSAC DISC DEGEN 02/21/2016 MARLO HARKINS MD Ot 722.83 POSTLAMINECT SYND-LUMBAR 02/21/2016 MARLO HARKINS MD Ot V58.69 OTH MED,LT,CURRENT USE 02/21/2016 MARLO HARKINS MD Ot 278.00 OBESITY, NOS 02/21/2016 MARLO HARKINS MD Ot 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, LOWER LIMB 02/21/2016 MARLO HARKINS MD Ot 722.52 LUMB/LUMBOSAC DISC DEGEN 02/21/2016 MARLO HARKINS MD Ot 722.83 POSTLAMINECT SYND-LUMBAR 02/21/2016 MARLO HARKINS MD Ot 724.6 DISORDERS OF SACRUM 02/21/2016 MARLO HARKINS MD Ot V58.69 OTH MED,LT,CURRENT USE 02/21/2016 TORIN MCBRIDE, MARLO Elaine Ot V85.35 BODY MASS INDEX 35.0-35.9, ADULT 02/21/2016 PEBBLES PLASCENCIA MD Ot 724.02 SPINAL STENOSIS, LUMBAR REG, W/OUT NEURO 02/21/2016 PEBBLES PLASCENCIA MD Ot V45.4 ARTHRODESIS STATUS 02/21/2016 CHARLINE SARAHY M SIGNAL TOWER OPERATOR Ot V76.12 OTH SCREEN MAMMO-MALIGN NEOPLASM OF MARY ANN 02/21/2016 NATHAN VOGEL SIGNAL TOWER OPERATOR Ot E11.9 TYPE 2 DIABETES MELLITUS WITHOUT COMPLIC 02/21/2016 NATHAN VOGEL SIGNAL TOWER OPERATOR Ot E66.9 OBESITY, UNSPECIFIED 02/21/2016 NATHAN VOGEL SIGNAL TOWER OPERATOR Ot R06.09 OTHER FORMS OF DYSPNEA 02/21/2016 NATHAN VOGEL SIGNAL TOWER OPERATOR Ot R07.89 OTHER CHEST PAIN 02/21/2016 MEET LEDEZMA MD Ot Z12.31 ENCNTR SCREEN MAMMOGRAM FOR MALIGNANT NE 02/21/2016 MEET LEDEZMA MD Ot K80.20 CALCULUS OF GALLBLADDER W/O CHOLECYSTITI 02/22/2016 MEET LEDEZMA MD Ot K80.20 CALCULUS OF GALLBLADDER W/O CHOLECYSTITI 03/13/2016 MEET LEDEZMA MD Ot K80.20 CALCULUS OF GALLBLADDER W/O CHOLECYSTITI 03/21/2016 MEET LEDEZMA MD Ot Z12.31 ENCNTR SCREEN MAMMOGRAM FOR MALIGNANT NE 03/29/2016 MEET LEDEZMA MD Ot Z12.31 ENCNTR SCREEN MAMMOGRAM FOR MALIGNANT NE 03/21/2017 PATRICIA MARINA APRN Ot Z12.31 ENCNTR SCREEN MAMMOGRAM FOR MALIGNANT NE 04/12/2017 PATRICIA MARINA APRN Ot Z12.31 ENCNTR SCREEN MAMMOGRAM FOR MALIGNANT NE Procedures There is no data. Results There is no data. Encounters ACCT No. Visit Date/Time Discharge Status Pt. Type Provider Facility Loc./Unit Complaint [id number] 07/04/2017 05:39:00 07/04/2017 13:10:00 DIS Outpatient CHRISTINE SUH MD [facility] PREOP GALLSTONES [id number] 03/21/2017 09:42:00 03/21/2017 23:59:59 CLS Outpatient SALAS PATRICIA Lewis OLAF [facility] RAD SCREENING Z12.31 [id number] 03/20/2016 14:31:00 03/20/2016 23:59:59 CLS Outpatient MEET LEDEZMA MD [facility] RAD SCREENING [id number] 02/21/2016 07:04:00 02/21/2016 23:59:59 CLS Outpatient MEET LEDEZMA MD [facility] RAD ABD PAIN [id number] 02/08/2016 15:21:00 02/08/2016 17:55:00 DIS Outpatient MEET LEDEZMA MD [facility] 4THo SEVERE CONSTIPATION [id number] 03/15/2015 07:17:00 03/15/2015 23:59:59 CLS Outpatient NATHAN VOGEL [facility] CARD CHEST DISCOMFORT [id number] 03/11/2015 12:24:00 03/11/2015 23:59:59 CLS Outpatient MEET LEDEZMA MD [facility] RAD SCREENING [id number] 10/25/2014 13:24:00 10/25/2014 16:30:00 DIS Emergency HARLEY GUTIERREZ MD [facility] ER ABD PAIN [id number] 03/08/2014 14:16:00 03/08/2014 23:59:59 CLS Outpatient SARAHY OLIVIER SIGNAL TOWER OPERATOR [facility] RAD ROUTINE [id number] 12/14/2013 13:25:00 12/14/2013 23:59:59 CLS Outpatient PEBBLES PLASCENCIA MD [facility] RAD LUMBAR STENOSIS [id number] 11/02/2013 13:05:00 11/02/2013 23:59:59 CLS Outpatient MARLO HARKINS MD [facility] CARD SACARALILLIAC JOINT DSYFUNCTION [id number] 05/25/2013 12:30:00 05/25/2013 23:59:59 CLS Outpatient MARLO HARKINS MD [facility] CARD REFLEX SYMPATHETIC DYSTROPHY [id number] 11/05/2012 09:18:00 11/05/2012 23:59:59 CLS Outpatient SACHIN MCBRIDE, FLAVIO Rod [facility] RAD RT LEG PAIN [id number] 10/27/2012 13:11:00 10/27/2012 23:59:59 CLS Outpatient MEET LEDEZMA MD [facility] RAD ABN MAMMO,SIX MONTH FOLLOW-UP [id number] 10/21/2012 13:12:00 10/21/2012 23:59:59 CLS Outpatient [id number] 07/11/2017 08:00:00 PEN Preadmit ANGELI [facility]IDE[facility] [id number] 05/25/2012 14:48:00 Document Registration [id number] 04/21/2012 12:22:00 Document Registration [id number] 04/02/2012 09:51:00 Document Registration [id number] 01/23/2011 10:32:00 Document Registration [id number] 01/10/2010 09:33:00 Document Registration
== END 2017-07-11 14:35 | disposition home or self-care (01) ==
LOC: SDC 06:37
PROVIDERS: ATTEND Surgery
DX: K80.10 Calculus of gallbladder with chronic cholecystitis without obstruction (principal); I10 Essential (primary) hypertension; E11.9 Type 2 diabetes mellitus without complications; K21.9 Gastro-esophageal reflux disease without esophagitis; M19.91 Primary osteoarthritis, unspecified site; Z79.4 Long term (current) use of insulin; Z79.82 Long term (current) use of aspirin; Z79.899 Other long term (current) drug therapy
CPT/HCPCS: 36415; 80053; 82962; 87081; 94664

== ENCOUNTER 2017-07-13 13:38 | Emergency (ER) | payer MEDICARE, OTHER ==
[~2017-07-13] VITALS: Ht 154.9 cm; Wt 77.1 kg
[~2017-07-13 13:38] MED LIST changes: +HYDR-34 PO
[2017-07-13] MEDS ORDERED: LOSA25TA21 (14:19)
[2017-07-13] MEDS ORDERED: INSU100V6 (14:19)
[2017-07-13] MEDS ORDERED: ONDA4TAB10 (14:19)
[2017-07-13] MEDS ORDERED: METO100T12 (14:19)
[2017-07-13] MEDS ORDERED: HYDR-3812 (14:19)
[2017-07-13] MEDS ORDERED: GABA250S (14:19)
[2017-07-13] MEDS ORDERED: fentanyl (14:19)
[2017-07-13] MEDS ORDERED: ASPI-983 (14:19)
--- NOTE | 2017-07-13 14:53 | ED General ---
General Chief Complaint: General Problems/Pain Stated Complaint: PAIN ON L SIDE FACE/GALLBLADDER SURGERY 07/11 Nursing Triage Note: TO ROOM 07 VIA AMB WITH CANE. RECENT GALLBLADDER SURGERY. STATES SHE WOKE UP THIS AM WITH THE LEFT SIDE OF HER FACE HURTING. Nursing Sepsis Screen: No Definite Risk History of Present Illness Date Seen by Provider: Jul 13, 2017 Time Seen by Provider: 14:15 Initial Comments 77-year-old female reports left nare pain that radiates into her left cheek and eye. She had laparoscopic cholecystectomy 07/11/17. She reports when they did a nasal swab on her left nare for MRSA, she immediately had onset of pain and feeling that something was in her nare. The pain has been intermittent since then, today it became worse when she awoke. Since the surgery she has had fried chicken and fried fish, she denies any nausea or vomiting. She does report constipation since surgery. She started taking MiraLAX yesterday. She is on a fentanyl patch for pain, she's taken no additional pain medication. She denies inability to breathe through her left nostril, changes in her smell or difficulty breathing. Timing/Duration: 24 Hours Associated Systoms: Denies Symptoms Allergies and Home Medications Allergies Coded Allergies: morphine (Verified Allergy, Unknown, N/V, 10/25/14) oxycodone (Verified Adverse Reaction, Mild, Itching, Pt has received Lortab in the past w/o issue, 07/11/17) Uncoded Allergies: TENACTON (Allergy, Unknown, 04/15/14) Home Medications Aspirin 81 Mg Tablet., (Reported) Gabapentin 250 Mg/5 Ml Solution, (Reported) Hydrocodone/Acetaminophen 1 Each Tablet, (Reported) Hydrocodone/Acetaminophen 1 Each Tablet, (Reported) Insulin Glargine,Hum.rec.anlog 100 Unit/1 Ml Vial, (Reported) Losartan Potassium 25 Mg Tablet, (Reported) Metoprolol Tartrate 100 Mg Tablet, (Reported) Mupirocin Calcium 1 Gm Oint...g., 1 GM NS BID for 5 Days, #1 Ref 0 apply in left nare bid Prescribed by: LISA RUIZ on 07/13/17 8931 Ondansetron HCl 4 Mg Tablet, (Reported) [fentanyl] , (Reported) Constitutional: no symptoms reported, see HPI EENTM: see HPI, nose pain (radiating into her left side and left frontal lobe) Gastrointestinal: see HPI, constipation All Other Systems Reviewed Negative Unless Noted: Yes Past Lnigiol-Zxztpz-Ijqsvq Hx Patient Social History Alcohol Use: Denies Use Recreational Drug Use: No Smoking Status: Never a Smoker Recent Foreign Travel: No Contact w/Someone Who Travel: No Recent Infectious Disease Expo: No Recent Hopitalizations: No Seasonal Allergies Seasonal Allergies: No Surgeries History of Surgeries: Yes (Fistula repair, R TKR, back surgery, Femur fx, d&c) Surgeries: Adenoidectomy, Gallbladder, Joint Replacement, Orthopedic, Tonsillectomy Respiratory History of Respiratory Disorde: No Cardiovascular History of Cardiac Disorders: Yes Cardiac Disorders: High Cholesterol, Hypertension Neurological History of Neurological Disord: No Reproductive System Hx Reproductive Disorders: No Gastrointestinal History of Gastrointestinal Di: Yes Gastrointestinal Disorders: Gastroesophageal Reflux, Chronic Constipation, Gall Bladder Disease Musculoskeletal History of Musculoskeletal Dis: Yes (Back surgery, knee pains) Musculoskeletal Disorders: Arthritis, Chronic Back Pain, Fractures Endocrine History of Endocrine Disorders: Yes Endocrine Disorders: Diabetes, Insulin dep Cancer History of Cancer: No Psychosocial History of Psychiatric Problem: No Integumentary History of Skin or Integumenta: No Blood Transfusions History of Blood Disorders: No Reviewed Nursing Assessment Reviewed/Agree w Nursing PMH: Yes Family Medical History Significant Family History: Heart Disease, Cancer, Diabetes Physical Exam Vital Signs Vital Signs - First Documented 07/13/17 14:00 Pulse 61 Resp 18 B/P (MAP) 176/84 (114) Pulse Ox 96 Capillary Refill : Less Than 3 Seconds General Appearance: No Apparent Distress, WD/WN Eyes: Bilateral Eye Normal Inspection HEENT: PERRL/EOMI, TMs Normal, Pharynx Normal, Other (both nares patent. 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 Norm as Tested Progress/Results/Core Measures Suspected Sepsis Recent Fever Within 48 Hours: No Infection Criteria Present: None New/Unexplained Altered Menta: No Sepsis Screen: No Definite Risk Sepsis Diagnosis: SIRS Temperature: Pulse: 61 Respiratory Rate: 18 Blood Pressure 176 /84 Mean: 114 Results/Orders My Orders Orders - LISA RUIZ Chest 1 View, Ap/Pa Only (07/13/17 14:25) Vital Signs/I&O Vital Sign - Last 12Hours 07/13/17 07/13/17 14:00 15:46 Pulse 61 61 Resp 18 18 B/P (MAP) 176/84 (114) 165/77 (114) Pulse Ox 96 96 Capillary Refill : Less Than 3 Seconds Blood Pressure Mean: 114 Progress Note : Time: 14:15 Progress Note Initial evaluation completed, she also reports a cough since surgery. Will obtain chest x-ray and reevaluate. [address] Bella, agreed with plan of care. 1500 chest x-ray essentially normal. The patient has no further complaints at this time. 1515 discharge planning and return precautions reviewed with the patient and her son. All instructions reviewed and questions answered. Diagnostic Imaging Diagonstic Imaging: Xray Plain Films/CT/US/NM/MRI: chest Comments NAME: KEISHA MARKS [facility] REC#: [id number] PT STATUS: REG ER : 1940 PHYSICIAN: LISA RUIZ ADMIT DATE: 07/13/17/ER Draft Date of Exam:07/13/17 CHEST 1 VIEW, AP/PA ONLY INDICATION: Constipation, pain. COMPARISON: September 14, 2017. TECHNIQUE: Single frontal radiograph of the chest dated July 13, 2017. FINDINGS: The cardiac silhouette is mildly enlarged. No significant pulmonary vascular congestion. The lungs are clear of focal pulmonary opacity. No pleural effusion. No pneumothorax. Degenerative changes are noted within the bilateral shoulders, progressive since the prior examination. Postsurgical changes within the lumbar spine. No acute osseous abnormality. IMPRESSION: 1. No acute cardiopulmonary abnormality. 2. Additional postsurgical and chronic findings, as above. 3. Cardiomegaly without overt congestive heart failure. Dictated on workstation # [id number] Dict: 07/13/17 1453 Trans: 07/13/17 1529 [facility] [id number] Interpreted by: BRIANA RUBIO MD Electronically signed by: Reviewed: Reviewed by Me, Reviewed/Discussed (with Dr. Bella) Departure Impression Impression: Primary Impression: Inflammation of nasal mucosa Qualified Codes: J31.0 - Chronic rhinitis Additional Impression: Constipation Qualified Codes: K59.00 - Constipation, unspecified Disposition: HOME, SELF-CARE Condition: Stable Departure-Patient Inst. Decision time for Depature: 15:25 Referrals: MEET LEDEZMA MD (PCP/Family) Primary Care Physician Patient Instructions: Cholecystectomy (DC) Add. Discharge Instructions: Use nasal antibiotic ointment, as prescribed. Follow up with Dr. Kinney, call [phone] Eat low fat, non-fried foods. Keep follow up with Dr. Vila. Take MiraLax, 1 capful twice daily until having stools daily, then use MiraLax once daily. Increase water in diet and walk 5 min every hour, while awake. Eat 3-4 prunes daily. Return to emergency department: for increased pain, new problems or concerns. All discharge instructions reviewed with patient and/or family. Voiced understanding. Scripts Mupirocin Calcium (Bactroban Nasal) 1 Gm Oint...g. 1 GM NS BID for 5 Days, #1 TUBE 0 Refills apply in left nare bid Prov: LISA RUIZ 07/13/17 Copy Copies To 1: ARI KINNEY MD Copies To 2: MEET LEDEZMA MD; CHRISTINE VILA MD, AMY ARNP Jul 13, 2017 14:53
--- NOTE | 2017-07-13 15:29 | Diagnostic Imaging Report ---
INDICATION: Constipation, pain. COMPARISON: September 14, 2017. TECHNIQUE: Single frontal radiograph of the chest dated July 13, 2017. FINDINGS: The cardiac silhouette is mildly enlarged. No significant pulmonary vascular congestion. The lungs are clear of focal pulmonary opacity. No pleural effusion. No pneumothorax. Degenerative changes are noted within the bilateral shoulders, progressive since the prior examination. Postsurgical changes within the lumbar spine. No acute osseous abnormality. IMPRESSION: 1. No acute cardiopulmonary abnormality. 2. Additional postsurgical and chronic findings, as above. 3. Cardiomegaly without overt congestive heart failure. Dictated by: Dictated on workstation # [id number]
[2017-07-13] MEDS ORDERED: MUPI1OIN5 NS (15:33)
[2017-07-13 15:46] VITALS: BP 165/77
== END 2017-07-13 15:45 | disposition home or self-care (01) ==
LOC: EDUNIT# 13:38 → ER 13:42
DX: J34.89 Other specified disorders of nose and nasal sinuses (principal); K59.00 Constipation, unspecified; E11.9 Type 2 diabetes mellitus without complications; K21.9 Gastro-esophageal reflux disease without esophagitis; E78.00 Pure hypercholesterolemia, unspecified; I10 Essential (primary) hypertension; Z90.49 Acquired absence of other specified parts of digestive tract; Z90.89 Acquired absence of other organs; Z96.651 Presence of right artificial knee joint; Z98.890 Other specified postprocedural states; Z88.5 Allergy status to narcotic agent; Z86.14 Personal history of Methicillin resistant Staphylococcus aureus infection; Z79.82 Long term (current) use of aspirin
CPT/HCPCS: 71045; 99281

== ENCOUNTER → 2018-02-05 | Outpatient (CLI) | payer MEDICARE, OTHER ==
[~2018-02-05] MED LIST changes: +ASPI-983; +GABA250S; +HYDR-3812; +INSU100V6; -LOSA100T28 PO; +LOSA100T8 PO; +LOSA25TA6; +METO100T12; +MUPI1OIN5 NS; +ONDA4TAB10; +fentanyl
--- NOTE | 2018-02-05 12:16 | Diagnostic Imaging Report ---
PROCEDURE: US DOPPLER ABD/COMPLETE TECHNIQUE: Multiple real-time grayscale images were obtained over the kidneys in various projections. Duplex evaluation of renal arteries was also attempted. INDICATION: Hypertension and chronic kidney disease stage III. The right kidney measures 10.1 x 5.1 x 5.5 cm and the left kidney measures 9.5 x 4.4 x 4.0 cm. There does appear to be some cortical thinning bilaterally. No calculi are identified. No hydronephrosis is detected. Renal Doppler evaluation was performed. The right renal arteries demonstrate normal velocities. The renal artery to aorta ratios on the right are normal. Duplex waveforms are unremarkable. On the left, the proximal and mid renal arteries were obscured by bowel gas. The distal left renal artery demonstrates normal velocity and a normal waveform. The renal artery to aorta ratio is normal. Bladder is unremarkable although ureteral jets were not visualized. Impression: There is cortical thinning bilaterally. No hydronephrosis seen. Renal Doppler is unremarkable on the right. The proximal and mid left renal artery on the left is obscured. Distal left renal artery is unremarkable. Dictated by: Dictated on workstation # [id number]
== END ==
LOC: RAD 08:29
PROVIDERS: ATTEND Family Medicine
DX: I12.9 Hypertensive chronic kidney disease with stage 1 through stage 4 chronic kidney disease, or unspecified chronic kidney disease (principal); E11.22 Type 2 diabetes mellitus with diabetic chronic kidney disease; N18.3 Chronic kidney disease, stage 3 (moderate)
CPT/HCPCS: 93975

== ENCOUNTER 2018-03-20 03:43 | Emergency (ER) | payer MEDICARE, OTHER ==
[~2018-03-20] VITALS: Ht 152.4 cm; Wt 90.7 kg
--- NOTE | 2018-03-20 04:08 | ED Cardiac General ---
History of Present Illness General Chief Complaint: Respiratory Problems Stated Complaint: RETAINING FLUID,SOB Source: patient, family (2 sons) Exam Limitations: no limitations History of Present Illness Date Seen by Provider: Mar 20, 2018 Time Seen by Provider: 03:48 Initial Comments The patient presents to ER by private conveyance with her 2 sons and a chief complaint that she woke up around 245 this morning with some shortness of air. She's had chronic right arm pain and swelling for the past several months does not really change. No history of coronary artery disease or chest pain nausea or sweats. She's complained though that she is gaining fluid and water weight about 20 pounds over the last 1-1/2 weeks. She feels that she was short of breath. She is diabetic but has no history of thyroid cholesterol. She does have hypertension for which she uses doxepin Zosyn, metoprolol, Norvasc. She has a history of chronic renal failure and is being followed by Dr. Calix, nephrology at [facility]. A couple days ago she had her Lasix changed from every other day to daily and then was told today to start taking 40 mg in the morning and 20 in the afternoon but they hadn't started that yet. She was started on the fludrocortisone because her potassium was markedly elevated. Her Norvasc was reduced from 10-[address] Beal's office felt this was contributing to her swelling. She says she is not urinating very much and feels like the furosemide is not working. She's not had a cough but she does feel short of breath subjectively. She does not wear oxygen at home. She denies any history of heart failure. Allergies and Home Medications Allergies Coded Allergies: morphine (Verified Allergy, Unknown, N/V, 03/20/18) oxycodone (Verified Adverse Reaction, Mild, Itching, Pt has received Lortab in the past w/o issue, 03/20/18) Uncoded Allergies: TENACTON (Allergy, Unknown, 04/15/14) Home Medications Amlodipine Besylate 5 Mg Tablet, 5 MG PO DAILY, (Reported) Mupirocin Calcium 1 Gm Oint...g., 1 GM NS BID apply in left nare bid Prescribed by: LISA RUIZ on 07/13/17 8588 Patient Home Medication List Home Medication List Reviewed: Yes Review of Systems Review of Systems Constitutional: No chills, No diaphoresis EENTM: No Blurred Vision, No Double Vision Respiratory: Denies Cough; Shortness of Air; Denies Wheezing Cardiovascular: Denies Chest Pain; Edema; Denies Irregular Heart Rate, Denies Lightheadedness, Denies Palpitations, Denies Syncope Gastrointestinal: Denies Abdomen Distended, Denies Abdominal Pain Genitourinary: Denies Burning, Denies Discharge Musculoskeletal: No back pain, No joint pain Past Xetyqvc-Xqsyxa-Anjwjz Hx Patient Social History Alcohol Use: Denies Use Recreational Drug Use: No Smoking Status: Never a Smoker Recent Foreign Travel: No Contact w/Someone Who Travel: No Recent Hopitalizations: No Seasonal Allergies Seasonal Allergies: No Past Medical History Surgeries: Yes (Fistula repair, R TKR, back surgery, Femur fx, d&c) Adenoidectomy, Gallbladder, Joint Replacement, Orthopedic, Tonsillectomy Respiratory: No Cardiac: Yes High Cholesterol, Hypertension Neurological: No Reproductive Disorders: No Gastrointestinal: Yes Gastroesophageal Reflux, Chronic Constipation, Gall Bladder Disease Musculoskeletal: Yes (Back surgery, knee pains) Arthritis, Chronic Back Pain, Fractures Endocrine: Yes Diabetes, Insulin dep Cancer: No Psychosocial: No Integumentary: No Blood Disorders: No Family Medical History Heart Disease, Cancer, Diabetes Physical Exam Vital Signs Vital Signs - First Documented 03/20/18 04:08 Temp 96.0 Pulse 68 Resp 18 B/P (MAP) 130/96 (107) Pulse Ox 96 O2 Delivery Room Air Capillary Refill : Height, Weight, BMI Height: 5'1.00" Weight: 170lbs. 0.0oz. 77.610021sc; 35.5 BMI Method:Estimated General Appearance: No Apparent Distress, Anxious HEENT: PERRL/EOMI, TMs Normal, Normal ENT Inspection, Pharynx Normal, Moist Mucous Membranes Neck: Full Range of Motion, Normal Inspection Respiratory: Chest Non Tender, Lungs Clear, Normal Breath Sounds, No Accessory Muscle Use, No Respiratory Distress Cardiovascular: Regular Rate, Rhythm, No Edema Gastrointestinal: Normal Bowel Sounds, Non Tender, Soft Extremity: Normal Capillary Refill, Pedal Edema (1+ bilateral lower extremity edema) Neurologic/Psychiatric: Alert, Oriented x3, No Motor/Sensory Deficits Skin: Normal Color, Warm/Dry Progress/Results/Core Measures Results/Orders Lab Results Laboratory Tests Test 03/20/18 04:00 03/20/18 05:26 Range/Units White Blood Count 7.0 4.3-11.0 10^3/uL Red Blood Count 3.15 L 4.35-5.85 10^6/uL Hemoglobin 8.9 L 11.5-16.0 G/DL Hematocrit 29 L 35-52 % Mean Corpuscular Volume 91 80-99 FL Mean Corpuscular Hemoglobin 28 25-34 PG Mean Corpuscular Hemoglobin Concent 31 L 32-36 G/DL Red Cell Distribution Width 13.6 10.0-14.5 % Platelet Count 227 130-400 10^3/uL Mean Platelet Volume 9.7 7.4-10.4 FL Neutrophils (%) (Auto) 54 42-75 % Lymphocytes (%) (Auto) 35 12-44 % Monocytes (%) (Auto) 8 0-12 % Eosinophils (%) (Auto) 3 0-10 % Basophils (%) (Auto) 0 0-10 % Neutrophils # (Auto) 3.8 1.8-7.8 X 10^3 Lymphocytes # (Auto) 2.4 1.0-4.0 X 10^3 Monocytes # (Auto) 0.5 0.0-1.0 X 10^3 Eosinophils # (Auto) 0.2 0.0-0.3 10^3/uL Basophils # (Auto) 0.0 0.0-0.1 10^3/uL Sodium Level 140 135-145 MMOL/L Potassium Level 3.8 3.6-5.0 MMOL/L Chloride Level 107 98-107 MMOL/L Carbon Dioxide Level 21 21-32 MMOL/L Anion Gap 12 5-14 MMOL/L Blood Urea Nitrogen 51 H 7-18 MG/DL Creatinine 2.34 H 0.60-1.30 MG/DL Estimat Glomerular Filtration Rate 20 BUN/Creatinine Ratio 22 Glucose Level 45 *L 70-105 MG/DL Calcium Level 8.8 8.5-10.1 MG/DL Corrected Calcium 9.4 8.5-10.1 MG/DL Magnesium Level 2.3 1.8-2.4 MG/DL Total Bilirubin 0.3 0.1-1.0 MG/DL Aspartate Amino Transf (AST/SGOT) 22 5-34 U/L Alanine Aminotransferase (ALT/SGPT) 25 0-55 U/L Alkaline Phosphatase 74 40-136 U/L Troponin I < 0.30 <0.30 NG/ML C-Reactive Protein High Sensitivity 0.76 H 0.00-0.50 MG/DL B-Type Natriuretic Peptide 355.0 H <100.0 PG/ML Total Protein 6.0 L 6.4-8.2 GM/DL Albumin 3.3 3.2-4.5 GM/DL Thyroid Stimulating Hormone (TSH) 4.66 0.35-4.94 UIU/ML Glucometer 78 70-110 MG/DL My Orders Orders - CHAU AGUILA Troponin I (03/20/18 04:01) Chest 1 View, Ap/Pa Only (03/20/18 04:01) Ekg Tracing (03/20/18 04:01) Saline Lock/Iv-Start (03/20/18 04:01) Monitor-Rhythm Ecg Trace Only (03/20/18 04:01) BNP (03/20/18 04:01) Hs C Reactive Protein (03/20/18 04:01) Magnesium (03/20/18 04:01) Thyroid Stimulating Hormone (03/20/18 04:02) Cbc With Automated Diff (03/20/18 04:17) Comprehensive Metabolic Panel (03/20/18 04:17) Ua Culture If Indicated (03/20/18 05:41) Accucheck Stat ONCE (03/20/18 05:43) Accucheck Stat ONCE (03/20/18 05:43) Vital Signs/I&O 03/20/18 04:08 Temp 96.0 Pulse 68 Resp 18 B/P (MAP) 130/96 (107) Pulse Ox 96 O2 Delivery Room Air Progress Progress Note #1: Time: 04:08 Progress Note The right arm pain seems to be more chronic and she has low but more swelling on the right arm than the left arm. She's had this worked up with primary care and they suggest that she needs to have an orthopedic surgeon inject her shoulder and she does seem to have tenderness in her shoulder and no tenderness in the neck. She is right-handed fastidious be osteoarthritis more likely than an atypical chest pain presentation. While she does seem to have a little extra edema and a 20 pound weight gain over the past 10 days she is not demonstrating any acute distress on physical exam or vital signs. She is on beta blockers. If she doesn't feel the Lasix is working then it could be that she needs some parenteral Lasix. We'll get some labs first to get a better idea what is going on with her kidneys and electrolytes. Echocardiogram [address] Garcia demonstrates normal left ventricular systolic function with an EF of 55-60%. Mild mitral and tricuspid regurgitation. Mild diastolic dysfunction of the left ventricle. Progress Note #2: Time: 05:29 Progress Note Labs look okay with a blood sugar was 45. We got her to eat some peanut butter, jackie crackers, juice and a repeat blood sugar was 78. We'll have her eat some more and attempt to get a urinalysis looking for UTI as a possible source of her labile blood sugars. We have also considered offering her a single IM dose of furosemide this morning. Do not think the fluid swelling is responsible for her shoulder pain as this seems to be more secondary to arthritis. Progress Note #3: Time: 06:07 Progress Note Repeat blood sugar was 97. She is feeling much better. Vital signs are still good. The urine was unable to be used steroids can add it to the outpatient labs that she needed to collect today anyways. The patient has been instructed to decrease her insulin by half today. She's been asked to try and follow up with her primary care office sooner if possible. Her next appointment is in 6 days. Plan to give her 40 mg parenteral Lasix and have her take her 20 mg by mouth this afternoon. Initial ECG Impression Date: Mar 20, 2018 Initial ECG Impression Time: 03:54 Initial ECG Rate: 63 Initial ECG Rhythm: Normal Sinus Initial ECG Intervals: Normal Initial ECG Impression: Normal Initial ECG Comparisson: Unchanged Comment No ST elevation or depression. Diagnostic Imaging Diagonstic Imaging: Xray (1v) Plain Films/CT/US/NM/MRI: chest Comments No acute cardiopulmonary process. NAME: KEISHA MARKS [facility] REC#: [id number] PT STATUS: REG ER : 1940 PHYSICIAN: CHAU AGUILA MD ADMIT DATE: 03/20/18/ER Draft Date of Exam:03/20/18 CHEST 1 VIEW, AP/PA ONLY INDICATION: Shortness of breath Portable chest 4:19 AM Heart size and pulmonary vascularity are within normal limits. Lungs are clear. There are no effusions or pneumothoraces. IMPRESSION: No acute abnormalities in the chest Dictated on workstation # [id number] Dict: 03/20/18 0452 Trans: 03/20/18 0532 [facility] [id number] Interpreted by: MONIQUE TOSCANO MD Electronically signed by: Reviewed: Reviewed by Me Departure Impression Primary Impression: Hypoglycemia Additional Impression: Chronic kidney disease (CKD) Qualified Codes: N18.4 - Chronic kidney disease, stage 4 (severe) Disposition: HOME, SELF-CARE Condition: Stable Departure-Patient Inst. Decision time for Depature: 06:10 Referrals: MEET BEAL MD (PCP/Family) Primary Care Physician Patient Instructions: Swelling Add. Discharge Instructions: Plan to get a urinalysis done this morning with your outpatient labs. Have the results sent to Dr. Beal and you can follow-up a little sooner with her feel like. Take the Lasix 40 mg in the morning and 20 mg in the afternoon around 2:00 as prescribed. All discharge instructions reviewed with patient and/or family. Voiced understanding. Copy Copies To 1: MEET BEAL MD, TITUS J Mar 20, 2018 04:08
[2018-03-20 04:25] LABS: MAGNESIUM 2.3 MG/DL (1.8-2.4)
[2018-03-20 04:31] LABS: BASOPHILS % (AUTO) 0 % (0-10); EOSINOPHILS # (AUTO) 0.2 10^3/uL (0.0-0.3); EOSINOPHILS % (AUTO) 3 % (0-10); HEMATOCRIT 29 % (35-52); HEMOGLOBIN 8.9 G/DL (11.5-16.0); LYMPHOCYTES # (AUTO) 2.4 X 10^3 (1.0-4.0); LYMPHOCYTES % (AUTO) 35 % (12-44); MEAN CORPUSCULAR HEMOGLOBIN 28 PG (25-34); MEAN CORPUSCULAR HGB CONC 31 G/DL (32-36); MEAN CORPUSCULAR VOLUME 91 FL (80-99); MEAN PLATELET VOLUME 9.7 FL (7.4-10.4); MONOCYTES # (AUTO) 0.5 X 10^3 (0.0-1.0); MONOCYTES % (AUTO) 8 % (0-12); NEUTROPHILS # (AUTO) 3.8 X 10^3 (1.8-7.8); NEUTROPHILS % (AUTO) 54 % (42-75); PLATELET COUNT 227 10^3/uL (130-400); RED BLOOD COUNT 3.15 10^6/uL (4.35-5.85); RED CELL DISTRIBUTION WIDTH 13.6 % (10.0-14.5)
[2018-03-20] MEDS ORDERED: AMLO5TAB7 PO (04:42)
[2018-03-20] MEDS ORDERED: FURO40TA4 PO (04:42)
[2018-03-20] MEDS ORDERED: FLDR.1T PO (04:42)
[2018-03-20 04:50] LABS: CREATININE SERUM 2.34 MG/DL (0.60-1.30); POTASSIUM 3.8 MMOL/L (3.6-5.0)
[2018-03-20 04:51] LABS: ALBUMIN 3.3 GM/DL (3.2-4.5); BILIRUBIN,TOTAL 0.3 MG/DL (0.1-1.0); CALCIUM 8.8 MG/DL (8.5-10.1)
--- NOTE | 2018-03-20 05:33 | Diagnostic Imaging Report ---
INDICATION: Shortness of breath Portable chest 4:19 AM Heart size and pulmonary vascularity are within normal limits. Lungs are clear. There are no effusions or pneumothoraces. IMPRESSION: No acute abnormalities in the chest Dictated by: Dictated on workstation # [id number]
[2018-03-20] MEDS ORDERED: FUROSEMIDE 40 MG/4 ML INJ (LASIX) ONE (06:20)
[2018-03-20] MEDS ORDERED: FUROSEMIDE 40 MG/4 ML INJ (LASIX) IM ONE (06:30)
[2018-03-20 06:31] VITALS: BP 126/54
== END 2018-03-20 06:31 | disposition home or self-care (01) ==
LOC: EDUNIT# 03:43 → ER 03:44
DX: E11.649 Type 2 diabetes mellitus with hypoglycemia without coma (principal); E11.22 Type 2 diabetes mellitus with diabetic chronic kidney disease; N18.4 Chronic kidney disease, stage 4 (severe); R06.02 Shortness of breath; E78.00 Pure hypercholesterolemia, unspecified; K21.9 Gastro-esophageal reflux disease without esophagitis; Z88.5 Allergy status to narcotic agent; Z87.19 Personal history of other diseases of the digestive system; Z88.8 Allergy status to other drugs, medicaments and biological substances; Z79.52 Long term (current) use of systemic steroids; Z98.890 Other specified postprocedural states; Z82.49 Family history of ischemic heart disease and other diseases of the circulatory system; Z96.651 Presence of right artificial knee joint
CPT/HCPCS: 36415; 71045; 80053; 82962; 83735; 83880; 84443; 84484; 85025; 86141; 93005; 93041; 96374

== ENCOUNTER 2018-05-13 09:47 | Inpatient (IN) | payer MEDICARE, OTHER ==
[2018-05-13] VITALS (20 sets, daily range): BP systolic 142–195; BP diastolic 50–115
[~2018-05-13] VITALS: Ht 152.4 cm; Wt 83.7 kg
[~2018-05-13 09:47] MED LIST changes: +AMLO5TAB7 PO; -ASPI-983; +ASPI-983 PO; +FLDR.1T PO; +FURO40TA4 PO
--- NOTE | 2018-05-13 10:14 | Diagnostic Imaging Report ---
Indication: Stroke, noncontrast brain CT is performed. There are diffuse atrophic changes. There are patchy low-density changes throughout the deep white matter compatible with chronic ischemic change. There is no hemorrhage or mass effect or midline shift. There is an old cortical infarct in the left cerebellum which is relatively small in size. Calvarial windows appear unremarkable. Impression: Atrophy with chronic ischemic changes in deep white matter. No acute hemorrhage or mass effect. Small old left cerebellar infarct. Faxed to [facility] at 10:15 a.m. by [email or web address]. Dictated by: Dictated on workstation # [id number]
--- NOTE | 2018-05-13 10:20 | ED Neurological Problem ---
General Chief Complaint: Neuro-Stroke Like Symptoms Stated Complaint: STROKE Nursing Triage Note: BACK TO ROOM FROM CT. PT ALERT ET TALKING WITHOUT DIFFICULTY. SON STATES SHE IS 500% BETTER THEN WHAT SHE WAS. SON STATES THE LAST WELL KNOWN TIME WAS AROUND 1145 LAST PM ET WOKE HER UP THIS AM AND SHE HAD LEFT SIDED WEAKNESS AND SLURRED SPEECH. UPON ARRIVAL SLIGHT LEFT SIDED FACIAL DROOP NOTED. . Nursing Sepsis Screen: No Definite Risk Source: patient, family (sons x2) Exam Limitations: no limitations History of Present Illness Date Seen by Provider: May 13, 2018 Time Seen by Provider: 09:49 Initial Comments [id number] [id number] yesterday evening when she went to bed. Her son who lives with her tried waking her up at 9:00 this morning and noted her to have a left-sided weakness as well as left facial droop and some slurring of speech. They thought it might of been her hypoglycemia secondary to diabetes which has happened in the past so they tried giving her some soda but she dribbled most of it down her face so they called the ambulance. EMS reports a blood sugar of 112 when they arrived as well as left-sided facial droop or slurring of speech confusion and left sided weakness arm and leg. Patient has no history of stroke or heart attack but she does have hypertension and diabetes. Does not smoke. She is having no nausea, pain, shortness of breath. She denies that anything is wrong with her right now. Her son said she was weak and unable to stand up before then was arrived. Allergies and Home Medications Allergies Coded Allergies: morphine (Verified Allergy, Unknown, N/V, 03/20/18) oxycodone (Verified Adverse Reaction, Mild, Itching, Pt has received Lortab in the past w/o issue, 03/20/18) Uncoded Allergies: TENACTON (Allergy, Unknown, 04/15/14) Home Medications Amlodipine Besylate 5 Mg Tablet, 5 MG PO DAILY, (Reported) Mupirocin Calcium 1 Gm Oint...g., 1 GM NS BID apply in left nare bid Prescribed by: LISA RUIZ on 07/13/17 1712 Patient Home Medication List Home Medication List Reviewed: Yes Review of Systems Review of Systems Constitutional: No chills, No diaphoresis Eyes: Denies Blindness, Denies Blurred Vision Ears, Nose, Mouth, Throat: denies ear pain, denies ear discharge Respiratory: No cough, No short of breath Cardiovascular: No chest pain, No edema Gastrointestinal: No abdominal pain, No constipation, No diarrhea, No nausea Genitourinary: No discharge, No dysuria Musculoskeletal: No back pain, No joint pain Past Jyrbkmb-Qhaekf-Aegxhs Hx Patient Social History Alcohol Use: Denies Use Recreational Drug Use: No Smoking Status: Former Smoker Type Used: Cigarettes Recent Foreign Travel: No Contact w/Someone Who Travel: No Recent Infectious Disease Expo: No Recent Hopitalizations: No Immunizations Up To Date PED Vaccines UTD: Yes Seasonal Allergies Seasonal Allergies: No Past Medical History Surgeries: Yes (Fistula repair, R TKR, back surgery, Femur fx, d&c) Adenoidectomy, Gallbladder, Joint Replacement, Orthopedic, Tonsillectomy Respiratory: No Cardiac: Yes High Cholesterol, Hypertension Neurological: No Reproductive Disorders: No 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 Genitourinary: Yes Renal Failure Gastrointestinal: Yes Gastroesophageal Reflux, Chronic Constipation, Gall Bladder Disease Musculoskeletal: Yes (Back surgery, knee pains) Arthritis, Chronic Back Pain, Fractures Endocrine: Yes Diabetes, Insulin dep HEENT: No Cancer: No Psychosocial: No Integumentary: No Blood Disorders: No Family Medical History Heart Disease, Cancer, Diabetes Physical Exam Vital Signs Vital Signs - First Documented 05/13/18 09:57 Temp 98.0 Pulse 90 Resp 16 B/P (MAP) 126/64 (84) Pulse Ox 98 O2 Delivery Room Air Capillary Refill : Less Than 3 Seconds Height, Weight, BMI Height: 5'0" Weight: 182lbs. 0.0oz. 82.835171lq; 35.5 BMI Method:Stated General Appearance: WD/WN, no apparent distress HEENT: PERRL/EOMI, normal ENT inspection, TMs normal, pharynx normal, other ( minor left facial droop at the lips) Neck: non-tender, full range of motion, normal inspection Respiratory: chest non-tender, lungs clear, normal breath sounds, no respiratory distress, no accessory muscle use Cardiovascular: normal peripheral pulses, regular rate, rhythm, other (chronic bilateral lower extremity woody edema) Peripheral Pulses: 2+ Radial Pulses (R), 2+ Radial Pulses (L) Gastrointestinal: normal bowel sounds, non tender, soft Extremities: normal range of motion, normal capillary refill Neurologic/Psychiatric: continuous miner II-XII nml as tested (except minor left facial droop at the lips), no motor/sensory deficits, alert, normal mood/affect, oriented x 3 Crainal Nerves: normal hearing, normal speech, PERRL Coordination/Gait: normal finger to nose Motor/Sensory: no motor deficit (except minor left facial droop at the lips), no sensory deficit, no pronator drift Skin: normal color, warm/dry Stroke Onset of Symptoms Date of Onset of Symptoms: May 12, 2018 Time of Symptom Onset: 23:45 Symptoms onset unknown: Yes NIH Stroke Scale Assessment Select: Initial Level of Consciousness: 0=Alert (0), Level of Consciousness- Questions: 0=Answers both month/age (0), LOC Commands: 0=Performs both tasks (0) , Gaze: Normal (0), Visual Nina: 0=No visual loss (0), Facial Movement ( Facial Paresis): 1=Minor paralysis (1), Motor Function-Arms Right: 0=No drift (0 ), Motor Function-Arms Left: 0=No drift (0), Motor Function-Legs Right: 0=No drift (0), Motor Function-Legs Left: 0=No drift (0), Limb Ataxia: 0=Absent (0), Sensory: 0=Normal:no loss (0), Best Language: 0=No aphasia (0), Dysarthria: 0= Normal (0), Extinction & Inattention: 0=No abnormality (0), Total: 1 Stroke Thrombolytic Exclusion Age 18 or Over: Yes Acute intenal hemorrhage: No History of CVA: No Uncontrolled Coagulation Defec: No Intracranial Hemorrhage: No Severe Hypertension: No GI or Bleed: No Subarachnoid Hemorrhage: No Intracranial Neoplasm/Aneurysm: No Oral Anticoagulants: No Surgery or Trauma: No Puncture of Non-Compressible V: No Recent CPR: No Diabetic Hemorrhagic Retinopat: No Organ Biopsy: No Recent Obstetric Delivery: No Glucose: No (112) Significant Hepatic Dysfunctio: No NIH Stoke Scale >22: No Bacterial Endocarditis: No Pericarditis: No Improving Symptoms: Yes Platelets: No TPA Contraindication: No IV - TPa Received IV - TPa Procedure Performed?: No (out of the window) Progress/Results/Core Measures Results/Orders Lab Results Laboratory Tests Test 05/13/18 09:57 Range/Units White Blood Count 6.4 4.3-11.0 10^3/uL Red Blood Count 3.51 L 4.35-5.85 10^6/uL Hemoglobin 9.8 L 11.5-16.0 G/DL Hematocrit 32 L 35-52 % Mean Corpuscular Volume 92 80-99 FL Mean Corpuscular Hemoglobin 28 25-34 PG Mean Corpuscular Hemoglobin Concent 31 L 32-36 G/DL Red Cell Distribution Width 14.2 10.0-14.5 % Platelet Count 190 130-400 10^3/uL Mean Platelet Volume 11.3 H 7.4-10.4 FL Neutrophils (%) (Auto) 52 42-75 % Lymphocytes (%) (Auto) 36 12-44 % Monocytes (%) (Auto) 8 0-12 % Eosinophils (%) (Auto) 3 0-10 % Basophils (%) (Auto) 1 0-10 % Neutrophils # (Auto) 3.4 1.8-7.8 X 10^3 Lymphocytes # (Auto) 2.3 1.0-4.0 X 10^3 Monocytes # (Auto) 0.5 0.0-1.0 X 10^3 Eosinophils # (Auto) 0.2 0.0-0.3 10^3/uL Basophils # (Auto) 0.0 0.0-0.1 10^3/uL Prothrombin Time 14.1 12.2-14.7 SEC INR Comment 1.1 0.8-1.4 Activated Partial Thromboplast Time 31 24-35 SEC Sodium Level 143 135-145 MMOL/L Potassium Level 5.4 H 3.6-5.0 MMOL/L Carbon Dioxide Level 20 L 21-32 MMOL/L Anion Gap 7 5-14 MMOL/L Blood Urea Nitrogen 51 H 7-18 MG/DL Creatinine 2.15 H 0.60-1.30 MG/DL Estimat Glomerular Filtration Rate 22 BUN/Creatinine Ratio 24 Glucose Level 94 70-105 MG/DL Calcium Level 8.5 8.5-10.1 MG/DL Corrected Calcium 9.0 8.5-10.1 MG/DL Total Bilirubin 0.5 0.1-1.0 MG/DL Aspartate Amino Transf (AST/SGOT) 16 5-34 U/L Alanine Aminotransferase (ALT/SGPT) 14 0-55 U/L Alkaline Phosphatase 80 40-136 U/L Total Protein 6.2 L 6.4-8.2 GM/DL Albumin 3.4 3.2-4.5 GM/DL My Orders Orders - CHAU AGUILA Ct Head Wo-R/O Stroke (05/13/18 09:49) Code/Resuscitation (05/13/18 10:07) Cbc With Automated Diff (05/13/18 10:07) Protime With Inr (05/13/18 10:07) Partial Thromboplastin Time (05/13/18 10:07) Comprehensive Metabolic Panel (05/13/18 10:07) Fibrin Degradation Products (05/13/18 10:07) Troponin I (05/13/18 10:07) Ua Culture If Indicated (05/13/18 10:07) Chest 1 View, Ap/Pa Only (05/13/18 10:07) Ekg Tracing (05/13/18 10:07) Nothing By Mouth (05/13/18 Lunch) Accucheck Stat ONCE (05/13/18 10:07) Saline Lock/Iv-Start (05/13/18 10:07) Saline Lock/Iv-Start (05/13/18 10:07) Vital Signs Stroke Patient Q15M (05/13/18 10:07) O2 (05/13/18 10:07) Intake & Output 06,14,22 (05/13/18 10:07) Monitor-Rhythm Ecg Trace Only (05/13/18 10:07) Dysphagia Screening Tool (05/13/18 10:07) Lipid Panel (05/14/18 06:00) Vital Signs/I&O 05/13/18 09:57 Temp 98.0 Pulse 90 Resp 16 B/P (MAP) 126/64 (84) Pulse Ox 98 O2 Delivery Room Air Blood Pressure Mean: 84 FSBG Bedside Testing Finger Stick Blood Glucose: 112 Blood Glucose Action Taken: PER EMS Initial ECG Impression Date: May 13, 2018 Initial ECG Impression Time: 10:20 Initial ECG Rate: 51 Initial ECG Rhythm: Normal Sinus Initial ECG Intervals: Normal Initial ECG Impression: Normal, Nonspecific Changes Initial ECG Comparisson: Unchanged Comment No ST elevation, depression or atrial fibrillation or other dysrhythmia. Diagnostic Imaging Diagonstic Imaging: CT (noncontrast) Plain Films/CT/US/NM/MRI: head Comments [facility] [place], [place] NAME: KEISHA MARKS [facility] REC#: [id number] PT STATUS: REG ER : 1940 PHYSICIAN: CHAU AGUILA MD ADMIT DATE: 05/13/18/ER Draft Date of Exam:05/13/18 CT HEAD WO-R/O STROKE Indication: Stroke, noncontrast brain CT is performed. There are diffuse atrophic changes. There are patchy low-density changes throughout the deep white matter compatible with chronic ischemic change. There is no hemorrhage or mass effect or midline shift. There is an old cortical infarct in the left cerebellum which is relatively small in size. Calvarial windows appear unremarkable. Impression: Atrophy with chronic ischemic changes in deep white matter. No acute hemorrhage or mass effect. Small old left cerebellar infarct. Faxed to [facility] at 10:15 a.m. by [email or web address]. Dictated on workstation # [id number] Dict: 05/13/18 0957 Trans: 05/13/18 1014 CVB [id number] Interpreted by: SONIYA HUTCHISON MD Electronically signed by: Reviewed: Reviewed by Me Diagonstic Imaging: Xray Plain Films/CT/US/NM/MRI: chest (1v) Comments Unimpressive 1 view of the chest. Reviewed: Reviewed by Me Consults : Consults Notes Dr. Gamez, Neurology at [facility]. Discussed the case and he agrees with no TPA because of the patient being a woke up stroke symptom. He agrees it sounds like TIA and since symptoms are improving he would advise that we admit the patient and do a typical stroke workup to include MRI and CTA. Departure Communication (Admissions) Time/Spoke to Admitting Phy: 10:35 Discussed the case with Dr. Beal and she agrees to admit the patient. Impression Primary Impression: TIA (transient ischemic attack) Disposition: 01 HOME, SELF-CARE Condition: Stable Admissions Decision to Admit Reason: Admit from ER (General) Decision to Admit/Date: May 13, 2018 Time/Decision to Admit Time: 10:59 Departure-Patient Inst. Referrals: MEET BEAL MD (PCP/Family) Primary Care Physician CHAU AGUILA May 13, 2018 10:20
[2018-05-13 10:34] LABS: BASOPHILS % (AUTO) 1 % (0-10); EOSINOPHILS # (AUTO) 0.2 10^3/uL (0.0-0.3); EOSINOPHILS % (AUTO) 3 % (0-10); HEMATOCRIT 32 % (35-52); HEMOGLOBIN 9.8 G/DL (11.5-16.0); LYMPHOCYTES # (AUTO) 2.3 X 10^3 (1.0-4.0); LYMPHOCYTES % (AUTO) 36 % (12-44); MEAN CORPUSCULAR HEMOGLOBIN 28 PG (25-34); MEAN CORPUSCULAR HGB CONC 31 G/DL (32-36); MEAN CORPUSCULAR VOLUME 92 FL (80-99); MEAN PLATELET VOLUME 11.3 FL (7.4-10.4); MONOCYTES # (AUTO) 0.5 X 10^3 (0.0-1.0); MONOCYTES % (AUTO) 8 % (0-12); NEUTROPHILS # (AUTO) 3.4 X 10^3 (1.8-7.8); NEUTROPHILS % (AUTO) 52 % (42-75); PLATELET COUNT 190 10^3/uL (130-400); RED BLOOD COUNT 3.51 10^6/uL (4.35-5.85); RED CELL DISTRIBUTION WIDTH 14.2 % (10.0-14.5); WHITE BLOOD COUNT 6.4 10^3/uL (4.3-11.0)
[2018-05-13 10:40] LABS: INR 1.1 (0.8-1.4); PROTHROMBIN TIME PATIENT 14.1 SEC (12.2-14.7)
[2018-05-13 10:43] LABS: FIBRIN DEGRADATION PRODUCTS 2.53 UG/ML (0.00-0.49)
[2018-05-13 10:46] LABS: ALANINE AMINOTRANSFERASE 14 U/L (0-55); ALBUMIN 3.4 GM/DL (3.2-4.5); ALKALINE PHOSPHATASE 80 U/L (40-136); BILIRUBIN,TOTAL 0.5 MG/DL (0.1-1.0); BUN/CREATININE RATIO 24; CALCIUM 8.5 MG/DL (8.5-10.1); CARBON DIOXIDE 20 MMOL/L (21-32); CHLORIDE 116 MMOL/L (98-107); CREATININE SERUM 2.15 MG/DL (0.60-1.30); GFR ESTIMATED 22; GLUCOSE 94 MG/DL (70-105); POTASSIUM 5.4 MMOL/L (3.6-5.0); SODIUM 143 MMOL/L (135-145); TOTAL PROTEIN 6.2 GM/DL (6.4-8.2)
[2018-05-13 11:01] LABS: BILIRUBIN,URINE NEGATIVE (NEGATIVE); CLARITY,URINE CLEAR; COLOR,URINE YELLOW; GLUCOSE, URINE (UA) 1+ (NEGATIVE); KETONES,URINE NEGATIVE (NEGATIVE); LEUKOCYTE ESTERASE ,URINE 2+ (NEGATIVE); NITRITE,URINE NEGATIVE (NEGATIVE); PH,URINE 5 (5-9); PROTEIN,URINE 4+ (NEGATIVE); UROBILINOGEN,URINE NORMAL (NORMAL)
[2018-05-13 11:11] LABS: BACTERIA,URINE TRACE /HPF
--- NOTE | 2018-05-13 11:24 | Diagnostic Imaging Report ---
INDICATION: Stroke protocol. Currently improved but with left-sided weakness and slurred speech. Facial droop. TECHNIQUE: Single view chest at 10:31 AM. CORRELATION STUDY: 03/20/2018. FINDINGS: The heart size is enlarged. The vascularity is overall generally stable. Slight prominent appearance about the right paramediastinal region is likely relatively stable but may be somewhat accentuated by patient positioning. Otherwise, chronic change about the lung parenchyma. IMPRESSION: Stable cardiac enlargement and vascular prominence. No evidence for overt failure. Dictated by: Dictated on workstation # [id number]
[2018-05-13] MEDS ORDERED: NS IV 1000 ML 1,000 ML IV SCH (12:00)
[2018-05-13] MEDS ORDERED: ACETAMINOPHEN 500 MG TAB (TYLENOL) PO PRN (12:00)
[2018-05-13] MEDS ORDERED: ONDANSETRON 4 MG/2 ML (SDV) Z0FRAN IV PRN (12:00)
[2018-05-13] MEDS ORDERED: ACETAMINOPHEN 325 MG TABLET PO PRN (12:15)
[2018-05-13] MEDS ORDERED: DOXA1TAB2 PO (14:09)
[2018-05-13] MEDS ORDERED: INSU100I10 SC (14:09)
[2018-05-13] MEDS ORDERED: FENT1PAT8 TD (14:09)
--- NOTE | 2018-05-13 14:15 | Physical Therapy Evaluation ---
PT Evaluation-General Medical Diagnosis Admission Date May 13, 2018 at 11:20 Medical Diagnosis: TIA vs. CVA Onset Date: May 13, 2018 Therapy Diagnosis Therapy Diagnosis: debility/weakness Height/Weight Height (Feet): 5 Height (Inches): 0 Weight (Pounds): 182 Weight (Ounces): 0.0 Precautions Precautions/Isolations: Standard Precautions Weight Bear Status Right Lower Extremity: Right Full Weight Bearing Left Lower Extremity: Left Full Weight Bearing Referral Physician: Emigdio Reason for Referral: Evaluation/Treatment Medical History Pertinent Medical History: DM, Heart Failure, HTN, Renal Insufficiency Current History EMS to ED secondary to left sided weakness and slurred speech. Reviewed History: Yes Social History Home: Single Level Current Living Status: Children Entry Into Home: Ramp Prior/Core FIM Prior Level of Function Therapy Code Descriptions/Definitions Functional [place] Measure: 0=Not Assessed/NA 4=Minimal Assistance 1=Total Assistance 5=Supervision or Setup 2=Maximal Assistance 6=Modified [place] 3=Moderate Assistance 7=Complete [place] Therapy Quality Codes: 6 Independent with activity with or without an assistive device 5 Patient requires set up or clean up by helper. Patient completes activity by themselves 4 Supervision or touching assist (CGA). [place] provide cues , steadying assist 3 The helper provides less than half the effort to complete the activity 2 The helper provides more than half the effort to complete the activity 1 Dependent. The helper does all the effort to complete an activity 7 Patient refused to complete or attempt activity 9 The patient did not perform the activity before the current illness or injury 88 Not attempted due to Medical conditions or safety concerns Functional Abilities and Goals: Independent: Patient completed the activities by him/herself, with or without an assistive device, with no assistance from a helper. Needed Some Help: Patient needed partial assistance from another person to complete activities. Dependent: A helper completed the activities for the patient. Unknown: Not Applicable: Bed Mobility: 6 Transfers (B,C,W/C) (FIM): 6 Gait: 6 Indoor Mobility (Ambulation): Independent Stairs: Independent Prior Devices Use: Other-see list below Prior Device Use: cane PT Evaluation-Current Subjective Patient reports all of the symptoms she had this morning are gone. Agrees to PT. Pain Numeric Pain Scale: 0-No Pain Location: No Pain Reported Objective Patient Orientation: Normal For Age Problem Solving: Good Attachments: IV ROM/Strength ROM Lower Extremities bilateral LE WFL Strength Lower Extremities 4/5 grossly bilateral LE Integumentary/Posture Integumentary refer to nursing notes Bowel Incontinence: No Bladder Incontinence: No Posture WFL Neuromuscular (Tone, Coordination, Reflexes) grossly intact Sensory Vision: Functional Hearing: Functional Sensation Right Lower Extremit: Impaired Sensation Left Lower Extremity: Impaired Transfers Therapy Code Descriptions/Definitions Functional [place] Measure: 0=Not Assessed/NA 4=Minimal Assistance 1=Total Assistance 5=Supervision or Setup 2=Maximal Assistance 6=Modified [place] 3=Moderate Assistance 7=Complete [place] Transfers (B, C, W/C) (FIM): 6 Scootin Rollin Supine to/from Sit: 6 Sit to/from Stand: 6 Gait Mode of Locomotion: Walk Anticipated Mode of Locomotion: Walk Gait (FIM): 6 Distance (FIM): 3=150 ft Distance: 150' Gait Level of Assist: 6 Gait Assistive Device: Cane Single Point Comments/Gait Description steady, functional gait sequence Balance Sitting Static: Normal Sitting Dynamic: Normal Standing Static: Normal Standing Dynamic: Normal Assessment/Needs 78 y.o. female, is currently at [facility] with all gross motor skills and does not require skilled therapy intervention. Thank you for this referral. Rehab Potential: Good PT Plan Treatment/Plan Treatment Plan: Discontinue PT, goals met Treatment Plan: Other Treatment Duration: May 13, 2018 Frequency: 1 time per week Estimated Hrs Per Day: .25 hour per day Patient and/or Family Agrees t: Yes Discharge Recommendations Therapy D/C Recommendations: Home w/ Family Support Time/GCodes Time In: 1350 Time Out: 1405 Total Billed Treatment Time: 15 Total Billed Treatment 1 visit EVMod 15 min G Codes Necessary: Yes PT/OT Therapy GCodes Therapy Functional Limitation: Physical Therapy Test(s)/Tool used to determine: Level of Assistance Scale Functional Limitation-Current Charge Code: MOBCUR Modifier: CI Functional Limitation-Goal Charge Code: MOBGOAL Modifier: CI Functional Limitation-D/C Charge Codes: MOBDC Modifier: CI STEW SANTANA PT May 13, 2018 14:15
[2018-05-13] MEDS ORDERED: INSU100I10 SQ (14:18)
[2018-05-13] MEDS ORDERED: DOXA4TAB2 PO (14:18)
[2018-05-13] MEDS ORDERED: METO-370 PO (14:18)
[2018-05-13] MEDS ORDERED: GABA-486 PO (14:18)
[2018-05-13] MEDS ORDERED: ERGO50006 PO (14:19)
--- NOTE | 2018-05-13 14:24 | Occupational Therapy Eval ---
OT Evaluation-General/PLF Medical Diagnosis Admission Date May 13, 2018 at 11:20 Medical Diagnosis: TIA vs. CVA Onset Date: May 13, 2018 Therapy Diagnosis Therapy Diagnosis: Weakness Height/Weight Height (Feet): 5 Height (Inches): 0 Weight (Pounds): 182 Weight (Ounces): 0.0 Precautions Precautions/Isolations: Standard Precautions Weight Bear Status Weight Bearing Restriction: Weight Bearing/Tolerated Referral Physician: Emigdio Referral Reason: Activity Tolerance, Self Care, Evaluation/Treatment, Strengthening/ROM Medical History Pertinent Medical History: DM, Heart Failure, HTN, Renal Insufficiency Additional Medical History Right TKR, femur fx, back sx Current History Pt. was brought to ER with left sided weakness and facial droop. Presented with stroke like symptoms but these resolved quickly. Reviewed History: Yes (2 sons live with her) Social History Home: Single Level Current Living Status: Children Entry Into Home: Ramp ADL-Prior Level of Function Therapy Code Descriptions/Definitions Functional [place] Measure: 0=Not Assessed/NA 4=Minimal Assistance 1=Total Assistance 5=Supervision or Setup 2=Maximal Assistance 6=Modified [place] 3=Moderate Assistance 7=Complete [place] Therapy Quality Codes: 6 Independent with activity with or without an assistive device 5 Patient requires set up or clean up by helper. Patient completes activity by themselves 4 Supervision or touching assist (CGA). [place] provide cues , steadying assist 3 The helper provides less than half the effort to complete the activity 2 The helper provides more than half the effort to complete the activity 1 Dependent. The helper does all the effort to complete an activity 7 Patient refused to complete or attempt activity 9 The patient did not perform the activity before the current illness or injury 88 Not attempted due to Medical conditions or safety concerns Functional Abilities and Goals: Independent: Patient completed the activities by him/herself, with or without an assistive device, with no assistance from a helper. Needed Some Help: Patient needed partial assistance from another person to complete activities. Dependent: A helper completed the activities for the patient. Unknown: Not Applicable: ADL PLOF Comments Pt. states that she is generally independent with all daily tasks. Uses a cane at home. Self Care: Independent Functional Cognition: Independent DME/Equipment: Bath Chair, Tub/Shower Drive Self: Yes OT Current Status Subjective No pain reported. Appearance Pt. is in bed eating lunch. Agrees to treatment. Mental Status/Objective Patient Orientation: Person, Place, Time, Situation Attachments: IV, Oxygen, Telemetry Current Upper Extremity ROM WFL Upper Extremity Strength WFL Pt. demonstrates ability to lift bilateral UE overhead. No pertinent weakness noted. ADL-Treatment Therapy Code Descriptions/Definitions Functional [place] Measure: 0=Not Assessed/NA 4=Minimal Assistance 1=Total Assistance 5=Supervision or Setup 2=Maximal Assistance 6=Modified [place] 3=Moderate Assistance 7=Complete [place] Therapy Quality Codes: 6 Independent with activity with or without an assistive device 5 Patient requires set up or clean up by helper. Patient completes activity by themselves 4 Supervision or touching assist (CGA). [place] provide cues , steadying assist 3 The helper provides less than half the effort to complete the activity 2 The helper provides more than half the effort to complete the activity 1 Dependent. The helper does all the effort to complete an activity 7 Patient refused to complete or attempt activity 9 The patient did not perform the activity before the current illness or injury 88 Not attempted due to Medical conditions or safety concerns Eating (FIM): 6 (Pt. has no difficulty opening packages or feeding self.) Lower Body Dressing (FIM): 2 (Pt. is handed socks on side of bed. Pt. is able to attempt to reach feet, but is unable to fully reach them. States that her sons help her at home if she is not sitting on a low enough surface.) Transfers (B, C, W/C) (FIM): 4 (Pt. is able to transfer supine-sit with mod assist. Stands with CGA and transfers to chair.) Pt. has multiple tubes and lines. States that she was having difficulty last night, but seems to be having no difficulty now. Pt. eating lunch and having no difficulty cutting up meat, swallowing, feeding self. Agrees to transfer to side of bed and to chair. Unable to reach feet to don socks so OT assists with this. Education OT Patient Education: Correct positioning, Modified ADL techniques, Progress toward Goal/Update tx plan, Purpose of tx/functional activities, Reviewed precautions, Rehab process, Transfer techniques Teaching Recipient: Patient Teaching Methods: Demonstration, Discussion Response to Teaching: Verbalize Understanding, Return Demonstration OT Short Term Goals Short Term Goals 1=Demonstrate adherence to instructed precautions during ADL tasks. 2=Patient will verbalize/demonstrate understanding of assistive devices/ modifications for ADL. 3=Patient will improve strength/tolerance for activity to enable patient to perform ADL's. OT Care Home Goals [employer] Goals Time Frame: May 20, 2018 Eating (FIM): 6 Grooming(FIM): 6 Bathing(FIM): 5 Upper Body Dressing(FIM): 6 Lower Body Dressing(FIM): 6 Toileting(FIM): 6 Transfers (B,C,W/C) (FIM): 6 Toilet/Commode Transfer(FIM): 6 Shower Transfer(FIM): 5 Additional Goals: 1-Demonstrate ADL Tasks, 2-Verbalize Understanding, 3- ImproveStrength/Sveta 1=Demonstrate adherence to instructed precautions during ADL tasks. 2=Patient will verbalize/demonstrate understanding of assistive devices/ modifications for ADL. 3=Patient will improve strength/tolerance for activity to enable patient to perform ADL's. OT Education/Plan Problem List/Assessment Assessment: Decreased Activ Tolerance, Impaired I ADL's, Impaired Self-Care Skills Discharge Recommendations Plan/Recommendations: Continue POC Therapy D/C Recommendations: Home w/ Family Support Equpiment Recommendations-D/C: Hip Kit Treatment Plan/Plan of Care Treatment,Training & Education: Yes Patient would benefit from OT for education, treatment and training to promote independence in ADL's, mobility, safety and/or upper extremity function for ADL' s. Plan of Care: ADL Retraining, Functional Mobility, UE Funct Exercise/Act Treatment Duration: May 20, 2018 Frequency: 5 times per week Estimated Hrs Per Day: .25 hour per day Agreement: Yes Rehab Potential: Good Time/GCodes Start Time: 13:10 Stop Time: 13:25 Total Time Billed (hr/min): 15 Billed Treatment Time 1, EVM PT/OT Therapy GCodes Therapy Functional Limitation: Physical Therapy Test(s)/Tool used to determine: Level of Assistance Scale Functional Limitation-Current Charge Code: MOBCUR Modifier: CI Functional Limitation-Goal Charge Code: MOBGOAL Modifier: CI EDGADR UMANZOR OT May 13, 2018 14:24
--- NOTE | 2018-05-13 15:39 | Diagnostic Imaging Report ---
PROCEDURE: MR angiography of the brain without the use of contrast. TECHNIQUE: 3D [id number] non contrast enhanced MR angiography of the head was performed. A source data was reformatted into rotating MIP projections. INDICATION: Difficulty waking up and difficulty with speech. There is flow in the basilar artery as well as the distal internal carotid arteries. There is flow in bilateral middle cerebral, anterior cerebral and posterior cerebral arteries. No definite aneurysm, stenosis or vascular malformation is seen. IMPRESSION: Unremarkable MRA of the brain. Dictated by: Dictated on workstation # [id number]
--- NOTE | 2018-05-13 15:41 | Diagnostic Imaging Report ---
PROCEDURE: MR imaging of the brain without contrast. TECHNIQUE: Multiplanar, multisequence MR imaging of the brain was performed without contrast. INDICATION: Speech difficulty. No prior MRI brain studies available for comparison. Ventricles and sulci are consistent with the patient's age. There is some mild periventricular and subcortical white matter signal abnormality noted consistent with senescent change. No diffusion restriction is identified to suggest acute ischemia. Normal expected flow-voids within the carotid siphons are seen. There is no midline shift. No acute intra-axial or extra-axial hemorrhage is detected. Corpus callosum is unremarkable. Sella and parasellar structures are unremarkable. There is some fluid in the right mastoid consistent with mastoid effusion. IMPRESSION: 1. Senescent changes. No acute intracranial process is detected. 2. Right mastoid effusion. Dictated by: Dictated on workstation # [id number]
--- NOTE | 2018-05-13 15:45 | ST Dysphagia Evaluation ---
Speech Evaluation-General Medical Diagnosis TIA vs. CVA Onset Date: May 13, 2018 Therapy Diagnosis Therapy Diagnosis: Oropharyngeal Dysphagia Precautions Precautions/Isolations: Standard Precautions Medical History Pertinent Medical History: DM, Heart Failure, HTN, Renal Insufficiency Reviewed History: Yes (2 sons live with her) Social History Current Living Status: Children Speech PLF/Current-Dysphagia Prior Level of Function Patient lives with her and children which help her with her daily tasks , otherwise she is independent. Subjective Patient was pleasant and cooperative. Cognitive Status Patient Orientation: Person, Place, Time, Situation Oral Motor Skills Dentition: Natural Current Food Consistancy: Regular, Thin Liquids Ability to Follow Directions: Excellent Oral Expression Ability: No Impairment Voice Voice Phonatory-Based Quality: Normal Voice Pitch: Normal Voice Loudness: Normal Face Facial Symmetry: Symmetrical Oral-Facial Assessment Oral-Facial Dentition: Normal Labial Seal Description: Normal Smile: Normal Lingual Protrusion: Normal Lingual ROM: Normal Lingual Strength: Normal Gag Reflex Response: Normal Pharynx Velopharyngeal Move.: Normal Volitional Dry Swallow: Yes Voluntary Cough: No Not observed Productive Cough: No Not observed Dysphagia Evaluation Consistencies Presented: Regular, Thin Liquid, Mechanical Soft, Pureed Patient had no difficulties noted with any consistencies and bolus management. Patient swallow onset WFL. No overt s/s of aspiration noted. Dietary Recommendations: Regular Liquid Recommendations: Thin Swallowing Precautions: Alternate Liquids/Solids, Liquids from Straw, Small Bites and Sips, Sitting 90 Degrees 30 Post Intake Dysphagia Evaluation Summary Patient is an 78 year old female who was brought to the ED with stroke like symptoms. The patient was placed in ICU to monitor and follow up with medical testing. Patient's symptoms appeared to be resolved quickly. At the time of dysphagia evaluation the patient was able to give full details of the incident(s ) that brought her to the hospital. Patient completed the dysphagia evaluation without difficulty with all consistencies presented. Patient is not recommended for follow up with ST at this time. Barriers to Learning Patient is diabetic from which she may have incidents of low blood sugar, resulting in behavior change. Speech Short Term Goals Short Term Goals Short Term Goals 1) Patient will tolerate a regular diet with thin liquids without s/s of aspiration 90% or greater. 2) Patient will follow strategies as trained for safest oral intake at 90% or greater. Speech Halfway Goals Tube Sorter Goals Patient will maintain adequate nutrition and hydration via safe, effective swallow function. Speech-Plan Patient/Family Goals Patient/Family Goals: Patient will return with family upon discharge from the hospital. Treatment Plan Speech Therapy Treatment Plan: Discontinue ST Patient is not recommended for skilled ST at this time. Treatment Duration: May 13, 2018 Frequency: 1 time per week Estimated Hrs Per Day: .25 hour per day Rehab Potential: Good Barriers to Learning: Diabetes Mellitus Pt/Family Agrees to Plan: Yes Safety Risks/Education Teaching Recipient: Patient Teaching Methods: Discussion Response to Teaching: Verbalize Understanding Education Topics Provided: Safety of oral intake. Time Speech Therapy Time In: 12:45 Speech Therapy Time Out: 13:00 Total Billed Time: 15 Billed Treatment Time 1, DYSEVS No Speech GCodes Functional Limitation-Current Modifier: CI Functional Limitation-Goal Modifier: CI SIOBHAN SANTORO May 13, 2018 15:45
[2018-05-13] MEDS: inSUlin ASPART (NovoLOG) 1 UNIT/0.01 ML (CHARGE PER UNIT) SC SCH ×2 (18:50→21:24)
[2018-05-13] MEDS ORDERED: FUROSEMIDE 40 MG (LASIX) TAB PO SCH (19:00)
[2018-05-13] MEDS ORDERED: fentaNYL PATCH 25 MCG (DURAGESIC) TD SCH (19:00)
--- NOTE | 2018-05-13 19:00 | History & Physicial ---
History of Present Illness History of Present Illness Reason for visit/HPI PT IS AN 78 Y/O FEMALE WHO IS WELL KNOWN TO ME FROM CLINIC. SHE REPORTS THAT SHE COULD HEAR HER SONS WHEN SHE WAS "OUT OF IT" THIS MORNING AT 9AM WHEN THEY WOKE HER UP FROM A DEEP SLEEP. HER SON - VICTORINO - REPORTS THAT HE TRIED TO GET HER TO DRINK SOME POP BECAUSE HE WAS CONCERNED THAT HER BLOOD GLUCOSE WAS LOW, SHE WAS UNABLE TO GRAB THE BOTTLE AND COULD NOT DRINK THE POP. THEY CALLED 911 BECAUSE OF CONCERN FOR A STROKE AND THEY WERE TOLD IN THE AMBULANCE THAT IT LOOKED LIKE A STROKE, HOWEVER BY THE TIME SHE WAS SEEN IN THE ER - THERE WERE NO DOCUMENTABLE DEFICITS NOTED. Date of Admission May 13, 2018 at 11:20 Date Seen by a Provider: May 13, 2018 Time Seen by a Provider: 18:40 I consulted on this patient on 05/13/18 19:00 Attending Physician Meet Beal MD Admitting Physician Meet Beal MD Consult Allergies and Home Medications Allergies Coded Allergies: morphine (Verified Allergy, Unknown, N/V, 03/20/18) oxycodone (Verified Adverse Reaction, Mild, Itching, Pt has received Lortab in the past w/o issue, 03/20/18) Uncoded Allergies: TENACTON (Allergy, Unknown, 04/15/14) Home Medications Aspirin 81 Mg Tablet.dr, 81 MG PO DAILY, (Reported) Doxazosin Mesylate 1 Mg Tablet, 1 MG PO DAILY, (Reported) Doxazosin Mesylate 4 Mg Tablet, 4 MG PO HS, (Reported) Ergocalciferol (Vitamin D2) 50,000 Unit Capsule, 50,000 UNIT PO Fr, (Reported) Fentanyl 1 Each Patch.td72, 25 MCG TD Q72H, (Reported) Furosemide 40 Mg Tablet, 40 MG PO Q48H, (Reported) Gabapentin 100 Mg Capsule, 100 MG PO HS, (Reported) Insulin Glargine,Hum.rec.anlog 100 Unit/1 Ml Insuln.pen, 15 UNITS SC DAILY, ( Reported) Insulin Glargine,Hum.rec.anlog 100 Unit/1 Ml Insuln.pen, 8 UNIT SQ HS, (Reported ) Metoprolol Succinate 50 Mg Tab.er.24h, 50 MG PO BID, (Reported) Patient Home Medication List Home Medication List Reviewed: Yes Past Trmotdj-Wiktgw-Rnepno Hx Patient Social History Marrital Status: Number of Children: 3 Number of living children: 3 Living Status: LIVES AT HOME WITH HER TWO ADULT SONS Employed/Student: retired Alcohol Use: Denies Use Recreational Drug Use: No Smoking Status: Former Smoker Type Used: Cigarettes 2nd Hand Smoke Exposure: No Physical Abuse Screen: No Sexual Abuse: No Recent Foreign Travel: No Contact w/other who traveled: No Recent Hopitalizations: No Recent Infectious Disease Expo: No Immunizations Up To Date Pediatric: Yes Seasonal Allergies Seasonal Allergies: No Surgeries Yes (Fistula repair, R TKR, back surgery, Femur fx, d&c) Adenoidectomy, Gallbladder, Joint Replacement, Orthopedic, Tonsillectomy Respiratory No Currently Using CPAP: No Currently Using BIPAP: No Cardiovascular Yes High Cholesterol, Hypertension Neurological No Reproductive System : No Hx Reproductive Disorders: No 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 Genitourinary Yes Renal Failure Gastrointestinal Yes Gastroesophageal Reflux, Chronic Constipation, Gall Bladder Disease Musculoskeletal Yes (Back surgery, knee pains) Arthritis, Chronic Back Pain, Fractures Endocrine History of Endocrine Disorders: Yes Endocrine Disorders: Diabetes, Insulin dep HEENT History of HEENT Disorders: No Cancer No Psychosocial History of Psychiatric Problem: No Integumentary History of Skin or Integumenta: No Blood Transfusions History of Blood Disorders: No Adverse Reaction to a Blood Tr: No Reviewed Nursing Assessment Reviewed/Agree w Nursing PMH: Yes Family Medical History Significant Family History: Heart Disease, Cancer, Diabetes, Other Conditions/ Hx (SLEEP APNEA) Review of Systems Constitutional: No chills, No fever, No malaise, No weakness EENTM: No blurred vision, No vision loss, No hoarseness, No nose pain, No throat pain Respiratory: No cough; dyspnea on exertion, short of breath Cardiovascular: No chest pain; edema (RIGHT HAND); No palpitations Gastrointestinal: No abdominal pain, No constipation, No diarrhea, No loss of appetite Genitourinary: frequency, incontinence (stress) : No Musculoskeletal: back pain, joint pain (RIGHT KNEE PAIN) Skin: rash (RIGHT LOWER LEG - IRRITATED SKIN) Psychiatric/Neurological: Denies Anxiety, Denies Depressed, Denies Headache, Denies Numbness, Denies Seizure, Denies Tremors, Denies Weakness All Other Systems Reviewed Negative Unless Noted: Yes Physical Exam Vital Signs Vital Signs - First Documented 05/13/18 09:57 Temp 98.0 Pulse 90 Resp 16 B/P (MAP) 126/64 (84) Pulse Ox 98 O2 Delivery Room Air Capillary Refill : Less Than 3 Seconds Height, Weight, BMI Height: 5'0" Weight: 182lbs. 0.0oz. 82.942441tp; 35.5 BMI Method:Stated General Appearance: No Apparent Distress, WD/WN Eyes: Bilateral Eye Normal Inspection, Bilateral Eye PERRL, Bilateral Eye EOMI HEENT: PERRL/EOMI, Normal ENT Inspection, Pharynx Normal Neck: Full Range of Motion, Non Tender, Supple Respiratory: Chest Non Tender, Decreased Breath Sounds, Wheezing Cardiovascular: Regular Rate, Rhythm, Other (TRACE EDEMA RIGHT HAND, LOWER LEGS AT ANKLES) Gastrointestinal: Normal Bowel Sounds, Non Tender, Soft Rectal: Deferred Back: Normal Inspection, No CVA Tenderness Extremity: Normal Capillary Refill, Non Tender, No Calf Tenderness, Pedal Edema (TRACE) Neurologic/Psychiatric: Alert, Oriented x3, No Motor/Sensory Deficits, Normal Mood/Affect, wood stainer II-XII Norm as Tested; No Aphasia, No Depressed Affect, No Facial Droop, No Motor Weakness Skin: Normal Color, Warm/Dry; No Cyanosis; Other (IRRITATION ON RIGHT ANTERIOR LOWER LEG) Lymphatic: No Adenopathy Assessment/Plan Assessment and Plan TRANSIENT CEREBRAL ATTACK HYPERTENSION DIABETES MELLITUS CONFUSIONAL EPISODE CHRONIC PAIN SYNDROME PERIPHERAL NEUROPATHY STAGE 4 RENAL FAILURE EDEMA TRANSIENT CEREBRAL ATTACK - SUPPORTIVE CARE AT THIS TIME - ECHO PENDING, CAROTID PENDING AND MRI/MRA'S WERE NEGATIVE FOR ACUTE STROKE, THERE ARE SENESCENT CHANGES TO THE BRAIN AND SOME MILD COGNITIVE CHANGES. HYPERTENSION - UNCONTROLLED HYPERTENSION - RESTART HOME MEDICATIONS - METOPROLOL AND DOXAZOSIN. DIABETES MELLITUS - RESTART HOME MEDICATIONS. CONFUSIONAL EPISODE - DISCUSSED WITH PT'S SONS AND HER OTHER FAMILY - WE WILL NEED TO CONSIDER SETTING HER UP FOR VIDEO EEG, SLEEP APNEA TESTING, AND MONITOR OTHER SYMPTOMS OUTPATIENT. CHRONIC PAIN SYNDROME - DECREASE FENTANYL PATCH FROM 25MCG TO 12MCG CHANGE Q72 HOURS. PERIPHERAL NEUROPATHY - RESTART GABAPENTIN STAGE 4 RENAL FAILURE - SUPPORTIVE CARE, RENALLY ADJUST MEDICATIONS - SHE WAS SUPPOSED TO BE TAKING HER LASIX EVERY OTHER DAY BUT HAS NOT HAD IT FOR OVER 3 DAYS. EDEMA - STOP FLUIDS, START IV LASIX DUE TO SYMPTOMS OF DYSPNEA. DVT PROPHYLAXIS WITH SCD'S AND LOVENOX. Admission Diagnosis TRANSIENT CEREBRAL ATTACK HYPERTENSION DIABETES MELLITUS CONFUSIONAL EPISODE CHRONIC PAIN SYNDROME PERIPHERAL NEUROPATHY STAGE 4 RENAL FAILURE EDEMA Admission Status: Inpatient Order (span 2 midnights) Reason for Inpatient Admission: TIA, WORK-UP PENDING - WILL NEED MEDICATION ADJUSTMENT AND WILL NEED TO BE MONITORED IN THE HOSPITAL FOR 48 HOURS - 72 HOURS WITH THE MEDICATION CHANGES. Clinical Quality Measures DVT/VTE Risk/Contraindication: Risk Factor Score Per Nursin RFS Level Per Nursing on Admit: 3=High Stroke: Date of last known well: May 12, 2018 Time of last known well: 23:45 Symptoms onset unknown: Yes MEET BEAL MD May 13, 2018 19:00
--- NOTE | 2018-05-13 19:07 | Diagnostic Imaging Report ---
PROCEDURE: MR angiography neck without contrast. TECHNIQUE: Non contrast enhanced MR angiography of the neck was performed. Source data was reformatted into rotating MIP projections. INDICATION: Speech difficulty. FINDINGS: The study is compromised by motion artifact. The common carotid and internal carotid arteries appear to be patent. No definite stenosis is seen but there is a moderate amount of artifact. Bilateral vertebral arteries are patent. Right vertebral artery appears to be dominant. Basilar artery is patent. No stenosis is seen. IMPRESSION: Unremarkable MRA of the neck. No definite carotid stenosis is identified. Dictated by: Dictated on workstation # [id number]
[2018-05-13] MEDS ORDERED: fentaNYL PATCH 12 MCG (DURAGESIC) TD SCH (19:30)
[2018-05-13] MEDS ORDERED: FUROSEMIDE 40 MG/4 ML INJ (LASIX) IVP NR (19:46)
[2018-05-13] MEDS: doxAzosin 4 MG (CARDURA) TAB PO SCH (20:27)
[2018-05-13] MEDS: meTOproloL SUCCINATE 50 MG (TOPROL XL) TAB PO SCH (20:27)
[2018-05-13] MEDS: GABAPENTIN 100 MG (NEURONTIN) CAP PO SCH (20:27)
[2018-05-13] MEDS: ENOXAPARIN 30 MG/0.3 ML (LOVENOX) SYR SC SCH (20:27)
[2018-05-13] MEDS: ATORVASTATIN 80 MG (LIPITOR) TABLET PO SCH (20:27)
[2018-05-13] MEDS ORDERED: inSUlin DETERMIR 1 UNIT/0.01 ML (LEVEMIR) CHARGE PER UNIT SQ SCH (21:00)
[2018-05-13] MEDS: inSUlin DETERMIR 1 UNIT/0.01 ML (LEVEMIR) CHARGE PER UNIT SQ SCH (21:24)
[2018-05-14] VITALS (10 sets, daily range): BP systolic 121–185; BP diastolic 51–81
[2018-05-14 03:55] LABS: BASOPHILS % (AUTO) 0 % (0-10); EOSINOPHILS # (AUTO) 0.2 10^3/uL (0.0-0.3); EOSINOPHILS % (AUTO) 2 % (0-10); HEMATOCRIT 30 % (35-52); LYMPHOCYTES # (AUTO) 2.7 X 10^3 (1.0-4.0); LYMPHOCYTES % (AUTO) 39 % (12-44); MEAN CORPUSCULAR HEMOGLOBIN 28 PG (25-34); MEAN CORPUSCULAR HGB CONC 30 G/DL (32-36); MEAN CORPUSCULAR VOLUME 92 FL (80-99); MEAN PLATELET VOLUME 11.5 FL (7.4-10.4); MONOCYTES # (AUTO) 0.6 X 10^3 (0.0-1.0); MONOCYTES % (AUTO) 8 % (0-12); NEUTROPHILS # (AUTO) 3.5 X 10^3 (1.8-7.8); NEUTROPHILS % (AUTO) 50 % (42-75); PLATELET COUNT 174 10^3/uL (130-400); RED BLOOD COUNT 3.25 10^6/uL (4.35-5.85)
[2018-05-14 04:17] LABS: CALCIUM 8.3 MG/DL (8.5-10.1); CREATININE SERUM 2.3 MG/DL (0.60-1.30); POTASSIUM 5.2 MMOL/L (3.6-5.0)
[2018-05-14 04:20] LABS: CHOLESTEROL 140 MG/DL (< 200); HDL CHOLESTEROL 33 MG/DL (40-60); TRIGLYCERIDES 95 MG/DL (<150); VLDL CHOLESTEROL 19 MG/DL (5-40)
[2018-05-14] MEDS: inSUlin ASPART (NovoLOG) 1 UNIT/0.01 ML (CHARGE PER UNIT) SC SCH ×4 (05:25→20:16)
[2018-05-14] MEDS: meTOproloL SUCCINATE 50 MG (TOPROL XL) TAB PO SCH ×2 (08:54→20:15)
[2018-05-14] MEDS ORDERED: doxAzosin 1 MG (CARDURA) TAB PO SCH (09:00)
[2018-05-14] MEDS ORDERED: FUROSEMIDE 40 MG/4 ML INJ (LASIX) IVP SCH (09:00)
[2018-05-14] MEDS ORDERED: inSUlin DETERMIR 1 UNIT/0.01 ML (LEVEMIR) CHARGE PER UNIT SQ SCH (09:00)
[2018-05-14] MEDS ORDERED: ASPIRIN 81 MG CHEW (CHILDREN'S ASA) PO SCH (09:00)
[2018-05-14] MEDS ORDERED: ASPIRIN E.C. 325 MG (ECOTRIN) TABLET PO SCH (09:00)
--- NOTE | 2018-05-14 09:21 | Diagnostic Imaging Report ---
PROCEDURE: US carotid duplex, bilateral. TECHNIQUE: Multiple real-time grayscale images were obtained over the carotid arteries in various projections, bilaterally. Additional spectral analysis and color Doppler duplex images were also obtained. INDICATION: Transient ischemic attacks versus CVA. FINDINGS: There is minimal plaque in the distal common carotid arteries and proximal right ICA. The velocities are unremarkable bilaterally. No significant velocity elevation or stenosis is seen. Right vertebral artery shows antegrade flow. Left vertebral artery was limited in evaluation. IMPRESSION: No evidence of a hemodynamically significant stenosis. Parameters based on the consensus panel Gonzales-Scale and Doppler ultrasound criteria published March 2003, Radiology, Volume 229. DOPPLER (peak systolic velocity M/S Right Left CCA 0.979 1.48 ICA Proximal 1.17 1.10 ICA Mid 1.10 1.02 ICA Distal 1.41 0.901 RATIO 1.44 0.74 ECA 0.97 0.944 VERT 1.01 Dictated by: Dictated on workstation # [id number]
--- NOTE | 2018-05-14 11:34 | Occupational Ther Daily Note ---
OT Current Status-Daily Note Subjective Pt sitting in recliner dozing, woke easily to name. Pt agrees to therapy. No c /o pain. Son present in room. Mental Status/Objective Patient Orientation: Person, Place, Time, Situation Therapy Code Descriptions/Definitions Functional [place] Measure: 0=Not Assessed/NA 4=Minimal Assistance 1=Total Assistance 5=Supervision or Setup 2=Maximal Assistance 6=Modified [place] 3=Moderate Assistance 7=Complete [place] Attachments: IV, Telemetry ADL-Treatment Pt fully dressed. Stated that she had already taken sponge bath and dressed with nrsg. Pt stated that she was able to complete all of dressing. Nrsg reported that assist needed to get clothing over feet and SBA due to unsteadiness in standing to hike pants over hips. Per nrsg and pt, stood at sink to complete grooming with SBA. CORTEZ educated pt on lower body dressing equipment (drsg stick, sock aide). Pt stated that she had all the equipment at home somewhere from a previous R LE femur fracture. Instructions for use needed. Pt demonstrated ability to use equipment to don/doff socks. After therapy, pt sitting in recliner with call light/phone in reach. All needs met in room. OT Short Term Goals Short Term Goals 1=Demonstrate adherence to instructed precautions during ADL tasks. 2=Patient will verbalize/demonstrate understanding of assistive devices/ modifications for ADL. 3=Patient will improve strength/tolerance for activity to enable patient to perform ADL's. OT Penitentiary Goals [employer] Goals Time Frame: May 20, 2018 Eating (FIM): 6 Grooming(FIM): 6 Bathing(FIM): 5 Upper Body Dressing(FIM): 6 Lower Body Dressing(FIM): 6 Toileting(FIM): 6 Transfers (B,C,W/C) (FIM): 6 Toilet/Commode Transfer(FIM): 6 Shower Transfer(FIM): 5 Additional Goals: 1-Demonstrate ADL Tasks, 2-Verbalize Understanding, 3- ImproveStrength/Sveta 1=Demonstrate adherence to instructed precautions during ADL tasks. 2=Patient will verbalize/demonstrate understanding of assistive devices/ modifications for ADL. 3=Patient will improve strength/tolerance for activity to enable patient to perform ADL's. OT Education/Plan Discharge Recommendations Plan/Recommendations: Continue POC Treatment Plan/Plan of Care Patient would benefit from OT for education, treatment and training to promote independence in ADL's, mobility, safety and/or upper extremity function for ADL' s. Plan of Care: ADL Retraining, Functional Mobility, UE Funct Exercise/Act Treatment Duration: May 20, 2018 Frequency: 5 times per week Estimated Hrs Per Day: .25 hour per day Agreement: Yes Rehab Potential: Good Time/GCodes Start Time: 11:10 Stop Time: 11:28 Total Time Billed (hr/min): 18 Billed Treatment Time 1 visit-ADL 1 (18 min) PT/OT Therapy GCodes Therapy Functional Limitation: Physical Therapy Test(s)/Tool used to determine: Level of Assistance Scale Functional Limitation-Current Charge Code: MOBCUR Modifier: CI Functional Limitation-Goal Charge Code: MOBGOAL Modifier: MO MORROW May 14, 2018 11:34
[2018-05-14] MEDS ORDERED: doxAzosin 1 MG (CARDURA) TAB PO NR (14:04)
[2018-05-14] MEDS ORDERED: DOXA1TAB2 PO (19:20)
--- NOTE | 2018-05-14 19:24 | Discharge Inst-Complex ---
PDI Med Rec & Follow Up Appt. Changed Medications: Doxazosin Mesylate (Doxazosin Mesylate) 1 Mg Tablet 1 MG PO UD, #60 TAB 3 Refills (Changed from: DAILY; Refills: ) take one pill daily - may take an extra 1 pill every 6 hours if sbp is greater than 180. Continued Medications: Aspirin (Aspirin EC) 81 Mg Tablet.dr 81 MG PO DAILY, TAB Doxazosin Mesylate (Doxazosin Mesylate) 4 Mg Tablet 4 MG PO HS, TAB Ergocalciferol (Vitamin D2) (Vitamin D2) 50,000 Unit Capsule 11662 UNIT PO Fr, CAP Fentanyl (Fentanyl Patch 25 MCG) 1 Each Patch.td72 25 MCG TD Q72H, EA Furosemide (Furosemide) 40 Mg Tablet 40 MG PO Q48H, TAB Gabapentin (Gabapentin) 100 Mg Capsule 100 MG PO HS, TAB Insulin Glargine,Hum.rec.anlog (Lantus Solostar) 100 Unit/1 Ml Insuln.pen 15 UNITS SC DAILY, EA Insulin Glargine,Hum.rec.anlog (Lantus Solostar) 100 Unit/1 Ml Insuln.pen 8 UNIT SQ HS, EA Metoprolol Succinate (Metoprolol Succinate) 50 Mg Tab.er.24h 50 MG PO BID, TAB Prescription: Transmitted to Pharmacy Patient Instructions: if the top number on your blood pressure is at or above 180, take an extra 1 mg dose of doxazosin - you may take up to 4 extra 1mg doses of doxazosin in 24 hours keep track of your blood pressure and heart rate and bring to your next office visit. call the office tomorrow morning to get an appt scheduled for one week from today. Activity, Diet and PDI Resume Normal Activity: Yes Discharge Diet: ADA Diet, Other Diet (renal diet) Diet for 24 Hours: No Alcohol, No [place] Foods, No Spicy Foods Diet After 24 Hours: Clear Liquid if Nauseous Drink 6-8 Glasses of Fluid/Day: Yes Driving Instructions: No Driving/Refer to Return to The Hospital For: any concern for lifethreatening illness or injury or stroke-like symptoms. Symptoms to Reoprt to : Appetite Changes, Bleeding Excessive, Fever Over 101 Degrees F, Pain/Pressure in Chest, Pain/Pressure in Jaw, Questions/Concerns For Problems or Questions: Contact Your Physician, Go to Emergency Room MEET LEDEZMA MD May 14, 2018 19:24
--- NOTE | 2018-05-14 19:31 | Discharge Summary ---
Diagnosis/Chief Complaint Date of Admission May 13, 2018 at 11:20 Date of Discharge Discharge Date: May 14, 2018 Discharge Time: 1929 Admission Diagnosis Admission Diagnosis TRANSIENT CEREBRAL ATTACK HYPERTENSION DIABETES MELLITUS CONFUSIONAL EPISODE CHRONIC PAIN SYNDROME PERIPHERAL NEUROPATHY STAGE 4 RENAL FAILURE EDEMA Discharge Diagnosis TRANSIENT CEREBRAL ATTACK HYPERTENSION DIABETES MELLITUS CONFUSIONAL EPISODE CHRONIC PAIN SYNDROME PERIPHERAL NEUROPATHY STAGE 4 RENAL FAILURE EDEMA Reason Hospital Visit PT IS AN 78 Y/O FEMALE WHO IS WELL KNOWN TO ME FROM CLINIC. SHE REPORTS THAT SHE COULD HEAR HER SONS WHEN SHE WAS "OUT OF IT" THIS MORNING AT 9AM WHEN THEY WOKE HER UP FROM A DEEP SLEEP. HER SON - VICTORINO - REPORTS THAT HE TRIED TO GET HER TO DRINK SOME POP BECAUSE HE WAS CONCERNED THAT HER BLOOD GLUCOSE WAS LOW, SHE WAS UNABLE TO GRAB THE BOTTLE AND COULD NOT DRINK THE POP. THEY CALLED 911 BECAUSE OF CONCERN FOR A STROKE AND THEY WERE TOLD IN THE AMBULANCE THAT IT LOOKED LIKE A STROKE, HOWEVER BY THE TIME SHE WAS SEEN IN THE ER - THERE WERE NO DOCUMENTABLE DEFICITS NOTED. Discharge Summary Discharge Physical Examination Allergies: Coded Allergies: morphine (Verified Allergy, Unknown, N/V, 03/20/18) oxycodone (Verified Adverse Reaction, Mild, Itching, Pt has received Lortab in the past w/o issue, 03/20/18) Uncoded Allergies: TENACTON (Allergy, Unknown, 04/15/14) Vitals & I&Os Vital Signs Date Time Temp Pulse Resp B/P (MAP) Pulse Ox O2 Delivery O2 Flow Rate FiO2 05/14/18 16:00 58 18 183/73 (109) 96 Room Air 05/14/18 12:00 97.3 General Appearance: Alert, Oriented X3, Cooperative, No Acute Distress HEENT: Atraumatic, PERRLA, EOMI, Mucous Memb Moist/[place] Respiratory: Clear to Auscultation, Normal Air Movement Cardiovascular: Regular Rate Abdominal: Normal Bowel Sounds, Soft, No Tenderness Extremities: No Clubbing, No Cyanosis, Other (trace edema) Skin: No Rashes, No Breakdown Neuro: Normal Speech, Strength at 5/5 X4 Ext, Cranial Nerves 3-12 NL Psych/Mental Status: Mental Status NL, Mood NL Hospital Course TRANSIENT CEREBRAL ATTACK HYPERTENSION DIABETES MELLITUS CONFUSIONAL EPISODE CHRONIC PAIN SYNDROME PERIPHERAL NEUROPATHY STAGE 4 RENAL FAILURE EDEMA TRANSIENT CEREBRAL ATTACK - SUPPORTIVE CARE AT THIS TIME - ECHO COMPLETED, CAROTID NEGATIVE AND MRI/MRA'S WERE NEGATIVE FOR ACUTE STROKE, THERE ARE SENESCENT CHANGES TO THE BRAIN AND SOME MILD COGNITIVE CHANGES. HYPERTENSION - UNCONTROLLED HYPERTENSION - RESTARTED HOME MEDICATIONS - METOPROLOL AND DOXAZOSIN. DIABETES MELLITUS - RESTARTED HOME MEDICATIONS. CONFUSIONAL EPISODE - DISCUSSED WITH PT'S SONS AND HER OTHER FAMILY - WE WILL SET HER UP FOR VIDEO EEG, SLEEP APNEA TESTING, AND MONITOR OTHER SYMPTOMS OUTPATIENT. CHRONIC PAIN SYNDROME - ONCE HOME, RESUME FENTANYL 25MCG PATCH - IF SHE SHOULD HAVE A RETURN OF SYMPTOMS, SHE NEEDS TO HAVE THE PATCH REMOVED AND WE WILL HAVE TO CONSIDER DECREASE THE FENTANYL PATCH TO 12MCG PERMANENTLY. PERIPHERAL NEUROPATHY - RESTARTED GABAPENTIN STAGE 4 RENAL FAILURE - SUPPORTIVE CARE, RENALLY ADJUST MEDICATIONS - SHE WAS SUPPOSED TO BE TAKING HER LASIX EVERY OTHER DAY BUT HAS NOT HAD IT FOR OVER 3 DAYS. PT GIVEN LASIX IN THE HOSPITAL AND SHE WILL CONTINUE OUTPATIENT. EDEMA - STOP FLUIDS, START IV LASIX DUE TO SYMPTOMS OF DYSPNEA. DVT PROPHYLAXIS WITH SCD'S AND LOVENOX. PT DISCHARGED TO HOME. Pending Labs Laboratory Tests 05/14/18 16:56: Glucometer 104 Discharge Condition at discharge IMPROVED Instructions to patient/family Please see electronic discharge instructions given to patient. Discharge Medications Reviewed and agree with Discharge Medication list on patient's Discharge Instruction sheet Clinical Quality Measures DVT/VTE Risk/Contraindication: Risk Factor Score Per Nursin RFS Level Per Nursing on Admit: 3=High Stroke: Date of last known well: May 12, 2018 Time of last known well: 23:45 Symptoms onset unknown: Yes MEET LEDEZMA MD May 14, 2018 19:31
[2018-05-14] MEDS: ENOXAPARIN 30 MG/0.3 ML (LOVENOX) SYR SC SCH (20:15)
[2018-05-14] MEDS: doxAzosin 4 MG (CARDURA) TAB PO SCH (20:15)
[2018-05-14] MEDS: GABAPENTIN 100 MG (NEURONTIN) CAP PO SCH (20:15)
[2018-05-14] MEDS: ATORVASTATIN 80 MG (LIPITOR) TABLET PO SCH (20:16)
[2018-05-14] MEDS: inSUlin DETERMIR 1 UNIT/0.01 ML (LEVEMIR) CHARGE PER UNIT SQ SCH (20:16)
== END 2018-05-14 20:45 | disposition home or self-care (01) | DRG 69 ==
LOC: ER 09:47 → EDUNIT# 09:47 → ICU 11:20
PROVIDERS: ADMIT Family Medicine; ATTEND Family Medicine
DX: G45.9 Transient cerebral ischemic attack, unspecified (principal); I12.9 Hypertensive chronic kidney disease with stage 1 through stage 4 chronic kidney disease, or unspecified chronic kidney disease; N18.4 Chronic kidney disease, stage 4 (severe); R29.701 NIHSS score 1; E11.42 Type 2 diabetes mellitus with diabetic polyneuropathy; G47.30 Sleep apnea, unspecified; R60.9 Edema, unspecified; E78.00 Pure hypercholesterolemia, unspecified; K21.9 Gastro-esophageal reflux disease without esophagitis; K59.09 Other constipation; M19.91 Primary osteoarthritis, unspecified site; M54.9 Dorsalgia, unspecified; G89.4 Chronic pain syndrome; Z87.891 Personal history of nicotine dependence; Z79.4 Long term (current) use of insulin; Z96.651 Presence of right artificial knee joint
CPT/HCPCS: 36415; 70450; 70544; 70547; 70551; 71045; 80048; 80053; 80061; 81000; 82962; 84484; 85025; 85379; 85610; 85730; 87088; 93005; 93041; 93306; 93880; 94664